=== PATIENT | female | born 1940 | race Caucasian/White ===

== ENCOUNTER 2023-02-14 09:23 | Outpatient (RCR) | payer MEDICARE, SELFPAY | END 2023-03-05 14:00 | disposition home or self-care (01) | LOC: PT 09:23 | PROVIDERS: PCP Psychiatry & Neurology Neurology; Visit Provider Psychiatry & Neurology Neurology | DX: R29.6 Repeated falls (principal); R53.1 Weakness; R26.9 Unspecified abnormalities of gait and mobility; R29.3 Abnormal posture; M54.59 Other low back pain | CPT/HCPCS: 97110; 97112; 97530 ==

== ENCOUNTER 2024-02-19 10:10 | Outpatient (OUT) | payer MEDICARE, SELFPAY ==
--- NOTE | 2024-02-19 11:18 | P.CN_ITS ---
Consult Note: HPI Data of Consult Patient: new to practice Requesting Physician: Lexis Marshall NP Primary Care Provider: NAKUL WORLEY Consult Narrative Reason for consult: establish for chronic low back pain Narrative: Vilma Cotter presents for evaluation and management of chronic low back pain. Patient reports back pain worsening over the last 30 years without incident. Patient previously managed by her PCP, had found significant improvement from tramadol 50mg BID PRN which she took 50mg BID. Patient has failed to benefit from tylenol and OTC NSAIDs in the past. PMH includes HTN. Patient reporting pain varies, today 3/10 in low back. Ache, sharp at times. Has engaged in PT greater than 1 year ago without improvement. Pain increased with activity, lifting, sleep. Patient does not find benefit to heat or ice. Prior lumbar xray consistent with lumbar facet arthropathy, DDD, and lumbar spondylolisthesis. cc:: CC: Lexis Marshall NP Review of Systems ROS Status of ROS 10 or more systems reviewed and unremark able except as noted in history and below Musculoskeletal Reports: back pain Exam Constitutional Documenting provider has reviewed patient's vital signs: yes Common normals: no apparent distress, oriented x3, healthy appearing, alert and well nourished General appearance: cooperative HENMT Common normals: normocephalic, hearing grossly normal bilaterally and moist oral mucous membranes Head and scalp: normocephalic Eye Common normals: PERRL Pupil: PERRL Neck & C-Spine Common normals: full ROM General: normal visual inspection Chest Common normals: inspection of chest normal Respiratory Common normals: normal respiratory effort, no retractions and no use of accessory muscles Back & Pelvis Lumbar spine/lower back: ROM limited, pain with ROM and straight leg raise negative bilaterally Other: pain increased with facet loading tenderness over L4-S1 facets Extremity Common normals: normal to inspection and full ROM Neuro Common normals: oriented x3, CN's II-XII intact bilaterally, moves all extremities, no focal motor deficits, no sensory deficits noted and deep tendon reflexes 2+ bilaterally Sensorium/orientation: alert Gait (neuro): assistive device used cane Motor exam: strength 5/5 throughout and no movement abnormalities noted Psych Common normals: mental status grossly normal, thought process normal, cooperative, affect normal, speech normal and activity/motor behavior normal Speech: normal speech Thought process: normal thought process Results Additional Findings Additional findings: If on a controlled substance or opioids, I have checked an [place] report on this patient and there are no aberrancies noted in the prescribing history.??If on a controlled substance or opioid a drug screen was completed and reviewed within the last year, and if there has not been a drug screen completed we ordered one today to monitor higher risk, state monitored pain medication use. As part of providing excellent, safe, comprehensive care, the following was completed at our patient's visit: 1. A medication reconciliation and review to ensure accurate knowledge of current/active medications, including asking our patients to inform us about any [id number] medications or herbal remedies/nutritional suppl ements/alternative remedies. 2. A review to specifically ensure our patients have had annual screening for screening for depression, screening for tobacco use, and screening for unhealthy alcohol use. For concerning screenings had a discussion with the patient, provided patient education, and recommended follow-up with primary care provider when appropriate. If patient noted with a risk of falling, they received education on strength, gait, and balance training to prevent future risk of falling. Assessment and Plan Assessment and Plan (1) Lumbar spondylosis: (2) Chronic low back pain: (3) Chronic pain syndrome: (4) Generalized OA: (5) Confusion: Assessment and Plan: chronic mild confusion, now living in assisted living (6) Frequent falls: Assessment and Plan: last fall 12/25/23 per daughter without injury Plan Historically patient has found significant improvement in pain and functional ability from tramadol 50mg BID PRN, patients daughter who is POA is concerned as it worsened her mood and confusion. Discussed our approach to chronic pain is not aimed at chronic opiate use alone, but essential to trial PT and non opioid medications. We discussed bilateral L4-5 L5-S1 facet medial branch block x2 working towards RFA which patient declined at this time. start mobic 7.5mg BID PRN, risks vs benefits reviewed PT for chronic low back pain continue to utilize walker/cane f/u after PT completed
== END 2024-02-19 10:11 | disposition home or self-care (01) ==
LOC: PM 10:11
PROVIDERS: PCP Internal Medicine; Visit Provider Nurse Practitioner
DX: M47.816 Spondylosis without myelopathy or radiculopathy, lumbar region (principal); M54.50 Low back pain, unspecified; G89.4 Chronic pain syndrome; M15.8 Other polyosteoarthritis; R41.0 Disorientation, unspecified; R27.0 Ataxia, unspecified
CPT/HCPCS: G0463

== ENCOUNTER 2024-04-20 15:22 | Emergency (ER) | payer MEDICARE, SELFPAY ==
[2024-04-20 15:30] VITALS: BP 165/91; PULSE 85; TEMP 36.9; O2SAT 95; BMI 26.5
[2024-04-20 16:13] LABS: Basophils Absolute Auto 0.1 10^3/uL (0.0-0.1); Basophils Percent Auto 0.9 % (0.2-2.0); Eosinophils Absolute Auto 0.1 10^3/uL (0.0-0.7); Eosinophils Percent Auto 1.1 % (0.9-7.0); Hematocrit 39.2 % (36.0-48.0); Hemoglobin 13.6 g/dL (12.0-16.0); Immature Granulocytes Abs Auto 0.02 10^3/uL (0.00-0.03); Immature Granulocytes Pct Auto 0.3 % (0.0-0.5); Lymphocytes Absolute Auto 1.6 10^3/uL (1.2-3.8); Lymphocytes Percent Auto 19.8 % (20.5-60.0); Mean Corpuscular HGB Conc 34.7 g/dL (29.9-35.2); Mean Corpuscular Hemoglobin 33.2 pg (26.7-34.0); Mean Corpuscular Volume 95.6 fL (81.0-99.0); Mean Platelet Volume 11.3 fL (9.5-13.5); Monocytes Absolute Auto 0.7 10^3/uL (0.3-0.8); Monocytes Percent Auto 8.9 % (1.7-12.0); Neutrophils Absolute Auto 5.5 10^3/uL (1.4-6.5); Platelet Count 172 10^3/uL (150-450); Red Cell Distribution Width 11.4 % (11.0-15.0)
[2024-04-20 16:26] LABS: Anion Gap 14.1; BUN Creatinine Ratio 19.1; Calcium 9.2 mg/dL (8.5-10.1); Carbon Dioxide 24.7 mmol/L (21.0-32.0); Chloride 96 mmol/L (98-107); Estimated GFR (African America >60 (>=60); Estimated GFR (Non-African Ame 57 (>=60); Glucose 299 mg/dL (74-106); Potassium 3.8 mmol/L (3.5-5.1); Sodium 131 mmol/L (136-145)
[2024-04-20] MEDS: 0.9 % SODIUM CHLORIDE 1,000 ML 999 ML IV (16:27)
--- OUTSIDE RECORDS SUMMARY | 2024-04-20 16:35 | XMS_ITS | CCD ---
Author Organization [facility] Care Team Providers Care Venue Coordinator Name Role Phone TORSTEN HEARD Primary Care Unavailable CARMITA MORENO (NIHARIKA) Attending Unavailab CARMITA Paredes (NIHARIKA) Admitting Unavailab ESTEBAN Anglin Consulting Unavailable YOKASTA VIDAL Consulting Unavailable JULES GOMEZ Consulting Unavailable Torsten Heard Primary Care Provider [phone] Torsten Heard Primary Care Provider [phone] Torsten Heard MD Primary Care Provider [phone] BRENT MENESES Attending Unavailable TORSTEN HEARD Primary Care Unavailable [facility] Primary Care Unavaila ALEN Charles Admitting Unavailable ALEN ASENCIO Attending Unavailable DR DUNG GRAVES Attending Unavailabl e [facility] Primary Care Unavaila DR DUNG Manzo Admitting Unavailabl elizabeth GRAVES, DR DUNG Rodriguez Consulting Unavailabl e MIRNA VICTOR Consulting Unavailable BONITA JAY Consulting Unavailable [facility] Primary Care Unavaila ALEN Charles Admitting Unavailable ALEN ASENCIO Consulting Unavailable ALEN ASENCIO Attending Unavailable Nakul Worley DO Primary Care Provider [phone] ABDULKADIR MAJOR Attending Unavailable NAKUL WORLEY Referring Unavailable NAKUL WORLEY Primary Care Unavailable NAKUL WORLEY Attending Unavailable NAKUL WORLEY Referring Unavailable NAKUL WORLEY Primary Care Unavailable NAKUL WORLEY Attending Unavailable NAKUL WORLEY Referring Unavailable NAKUL WORLEY Primary Care Unavailable Allergies Allergy Classification Reported Allergen(s) Allergy Type Date of Onset Reaction(s) Facility (6 sources) Codeine; Translations: [CODEINE] Drug Allergy 06-16-2012 [facility], [place] Medications Current Medications Medication Drug Class(es) Dates Sig (Normalized) Sig (Original) acetaminophen 325 mg oral tablet (2 sources) Start: 09-25-2023 take 2 tablets by mouth in the morning, then take 2 tablets by mouth at mealtime acetaminophen (TYLENOL) 325 mg tablet Indications: Osteoarthritis of thoracolumbar spine, unspecified spinal osteoarthritis complication status Take 2 tablets (650 mg total) by mouth in the morning and 2 tablets (650 mg total) in the evening. Take with meals. 100 tablet 2 09/25/2023 Active [id number] 200 actuat albuterol 0.09 mg/actuat metered dose inhaler (3 sources) beta2-Adrenergic Agonist Start: 09-13-2023 End: 11-29-2023 take 2 puff(s) by inhalation four times daily albuterol (PROVENTIL HFA;VENTOLIN HFA) 90 mcg/actuation inhaler Indications: Acute bronchitis, unspecified organism Inhale 2 puffs 4 (four) times a day. 18 g 0 11/29/2023 Active apixaban 5 mg oral tablet (1 source) Factor Xa Inhibitor Start: 11-27-2018 take 1 tablet by mouth twice daily apixaban (ELIQUIS) 5 MG TABS tablet Take 1 tablet by mouth 2 times daily 60 tablet 0 11/27/2018 Active benzonatate 200 mg oral capsule (2 sources) Non-narcotic Antitussive Start: 09-13-2023 take 1 capsule by mouth three times daily as needed for cough benzonatate (TESSALON PERLES) 200 mg capsule Indications: Acute bronchitis, unspecified organism Take 1 capsule (200 mg total) by mouth 3 (three) times a day as needed for cough. 20 capsule 0 09/13/2023 Active Cranberry preparation (2 sources) Non-Standardized Food Allergenic Extract, Non-Standardized Plant Allergenic Extract cranberry extract 50 mg tablet,chewable Chew and swallow daily. 0 Active dextromethorphan hydrobromide 2 mg/ml / guaiFENesin 20 mg/ml oral solution (1 source) Uncompetitive E-nhjgqt-N-aspartat e Receptor Antagonist, Sigma-1 Agonist Start: 11-27-2018 dextromethorphan-g uaiFENesin (ROBITUSSIN-DM) 10-100 MG/5ML syrup Take 10 mLs by mouth every 4 hours as needed for Cough 0 11/27/2018 Active 24 hr dilTIAZem hydrochloride 120 mg extended release oral capsule (3 sources) Calcium Channel Lexx Start: 11-27-2018 take 1 capsule by mouth once daily diltiazem (CARDIZEM CD) 120 MG extended release capsule Take 1 capsule by mouth daily 30 capsule 3 11/27/2018 Active ergocalciferol 63729 unt oral capsule (2 sources) Provitamin D2 Compound Start: 12-02-2018 take 1 capsule by mouth every week vitamin D (ERGOCALCIFEROL) 11039 units capsule Take 1 capsule by mouth once a week 11 capsule 0 12/02/2018 Active fluticasone propionate 0.05 mg/actuat metered dose nasal spray (1 source) Corticosteroid Start: 11-28-2018 fluticasone (FLONASE) 50 MCG/ACT nasal spray 2 sprays by Each Nare route daily 1 Bottle 3 11/28/2018 Active inhalational spacing device (AEROCHAMBER MV) spacer (2 sources) Start: 09-13-2023 inhalational spacing device (AEROCHAMBER MV) spacer Indications: Acute bronchitis, unspecified organism 1 each by miscellaneous route in the morning and 1 each at noon and 1 each in the evening and 1 each before bedtime. 1 each 0 09/13/2023 Active metoprolol tartrate 25 mg oral tablet (5 sources) beta-Adrenergic Lexx take 1 tablet by mouth in the morning, then take 1 tablet by mouth at bedtime metoprolol tartrate (LOPRESSOR) 25 mg tablet Take 1 tablet (25 mg total) by mouth in the morning and 1 tablet (25 mg total) before bedtime. 0 Active 24 hr mirabegron 50 mg extended release oral tablet (2 sources) beta3-Adrenergic Agonist Start: 06-19-2023 take 1 tablet by mouth every twenty-four hours in the morning MYRBETRIQ 50 mg tablet extended release 24 hr Take 1 tablet (50 mg total) by mouth in the morning. 0 06/19/2023 Active olmesartan medoxomil 20 mg oral tablet (2 sources) Angiotensin 2 Receptor Lexx Start: 06-07-2023 take 1 tablet by mouth in the morning olmesartan (BENICAR) 20 mg tablet Take 1 tablet (20 mg total) by mouth in the morning. 0 06/07/2023 Active traMADol hydrochloride 50 mg oral tablet (6 sources) Opioid Agonist Start: 11-11-2023 take 1 tablet by mouth in the morning, then take 1 tablet by mouth at bedtime traMADoL (ULTRAM) 50 mg tablet Indications: Osteoarthritis of thoracolumbar spine, unspecified spinal osteoarthritis complication status Take 1 tablet (50 mg total) by mouth in the morning and 1 tablet (50 mg total) before bedtime. 60 tablet 0 11/11/2023 Active Start: 10-13-2023 take 1 tablet by elder th in the morning, then take 1 tablet by mouth at bedtime traMADoL (ULTRAM) 50 mg tablet Indications: Osteoarthritis of thoracolumbar spine, unspecified spinal osteoarthritis complication status Take 1 tablet (50 mg total) by mouth in the morning and 1 tablet (50 mg total) before bedtime. 60 tablet 0 10/13/2023 Active Start: 09-13-2023 End: 10-11-2023 take 1 tablet by mouth in the morning, then take 1 tablet by mouth at bedtime traMADoL (ULTRAM) 50 mg tablet Indications: Osteoarthritis of thoracolumbar spine, unspecified spinal osteoarthritis complication status Take 1 tablet (50 mg total) by mouth in the morning and 1 tablet (50 mg total) before bedtime. 60 tablet 0 09/13/2023 10/11/2023 Discontinued (Reorder) take 2 tablets by mo uth twice daily traMADol (ULTRAM) 50 MG tablet Take 2 tablets by mouth 2 times daily. 0 Active Completed/Discontinued Medications Medication Drug Class(es) Dates Sig (Normalized) Sig (Original) 1 ml ketorolac tromethamine 30 mg/ml cartridge (1 source) Nonsteroidal Anti-inflammatory Drug, Cyclooxygenase Inhibitor Start: 01-03-2023 End: 01-03-2023 ketorolac (TORADOL) injection 30 mg Start: 01-03-2023 End: 01-03-2023 ketorolac (TORADOL) injectio n 30 mg Problems Active Problems Problem Classification Problem Date Documented Date Episodic/Chronic Acute bronchitis (4 sources) Viral bronchitis; Translations: [Acute bronchitis] Onset: 11-24-2018 11-24-2018 Episodic Cancer of breast (5 sources) Malignant tumor of breast ; Translations: [Malignant neoplasm of female breast] 06-16-2012 Chronic Cardiac dysrhythmias (6 sources) Paroxysmal atrial fibrillation; Translations: [Paroxysmal atrial fibrillation] Onset: 03-20-2023 11-26-2018 Chronic Chronic obstructive pulmonary disease and bronchiectasis (1 source) Bronchitis, not specified as acute or chronic; Translations: [Bronchitis, not specified as acute or chronic] Onset: 11-23-2018 Episodic Conditions associated with dizziness or vertigo (1 source) Dizziness and giddiness; Translations: [DIZZINESS AND GIDDINESS] Onset: 01-18-2023 Episodic Essential hypertension (8 sources) Essential (primary) hypertension; Translations: [Hypertensive disorder] Onset: 11-24-2018 11-24-2018 Chronic Genitourinary symptoms and ill-defined conditions (5 sources) Urge incontinence of urine; Translations: [Urge incontinence] Onset: 03-20-2023 03-20-2023 Chronic Genitourinary symptoms and ill-defined conditions (1 source) Personal history of urinary (tract) infections; Translations: [PERS HX URINARY TRACT INFECTIONS] Onset: 01-18-2023 Episodic Hypertension with complications and secondary hypertension (4 sources) Hypertensive urgency; Translations: [HYPERTENSIVE URGENCY] Onset: 01-16-2023 Chronic Malaise and fatigue (4 sources) Weakness; Translations: [Asthenia] Onset: 11-26-2018 11-26-2018 Episodic Other injuries and conditions due to external causes (1 source) History of falling; Translations: [HISTORY OF FALLING] Onset: 01-18-2023 Episodic Spondylosis; intervertebral disc disorders; other back problems (2 sources) Spondylosis of thoracolumbar spine; Translations: [Spondylosis without myelopathy or radiculopathy, thoracolumbar region] Onset: 09-13-2023 10-11-2023 Chronic Sprains and strains (2 sources) Low back strain; Translations: [Strain of muscle, fascia and tendon of lower back, initial encounter] Onset: 01-03-2023 Episodic Superficial injury; contusion (2 sources) Contusion of rib; Translations: [Contusion of right front wall of thorax, initial encounter] Onset: 01-03-2023 Episodic Unclassified (2 sources) Patient encounter status; Translations: [Encounter for screening mammogram for malignant neoplasm of breast] Unclassified (1 source) controlled substance Onset: 01-17-2024 Viral infection (1 source) Disease caused by 2019-nCoV; Translations: [COVID-19] 11-29-2023 Episodic Past or Other Problems Problem Classification Problem Date Documented Da te Episodic/Chronic Cancer of breast (3 sources) Personal history of malignant neoplasm of breast; Translations: [History of malignant neoplasm of breast] Onset: 01-18-2023 03-20-2023 Episodic Fluid and electrolyte disorders (4 sources) Dehydration; Translations: [Dehydration] Onset: 11-24-2018 Resolved: 12-24-2018 12-24-2018 Episodic Influenza (8 sources) Influenza due to other identified influenza virus with other respiratory manifestations; Translations: [Influenza] Onset: 11-23-2018 Resolved: 2018 11-24-2018 Episodic Mood disorders (2 sources) Mood disorders Onset: 09-13-2023 09-13-2023 Other lower respiratory disease (1 source) Cough Onset: 09-13-2023 Episodic Other upper respiratory infections (3 sources) Acute maxillary sinusitis; Translations: [Acute maxillary sinusitis, unspecified] Onset: 11-27-2018 11-27-2018 Episodic Pneumonia (except that caused by tuberculosis or sexually transmitted disease) (4 sources) Pneumonia, unspecified organism; Translations: [Infective pneumonia] Onset: 11-25-2018 11-25-2018 Episodic Urinary tract infections (3 sources) Acute hemorrhagic cystitis; Translations: [Acute cystitis] Onset: 11-24-2018 11-24-2018 Episodic Results Test Name Value Interpretation Reference Range Facility TSHon 01-30-2023 TSH 3.637 uIU/mL Normal 0.358-3.740 [facility] Comment on above: Performed By: #### T SH #### [facility] [address] [place] [address] Dr. Fermin Gonazlez VITAMIN B12on 01-30-2023 Cobalamin (Vitamin B12) [Mass/Vol] 525.0 pg/mL Normal 193.0-986.0 [facility] Comment on above: Performed By: #### V ITB12 #### [facility] [address] [place] [address] Dr. Fermin Gonzalez BNPon 01-16-2023 Natriuretic peptide B (Bld) [Mass/Vol] 400.0 pg/mL Normal <=1,800.0 [facility] Comment on above: Performed By: #### H STROPN, BNP, CMP #### [facility] [address] [place] [address] Dr. Fermin Gonzalez CBC AUTO DIFFon 01-16-2023 BASO # 0.1 103/ul Normal 0.0-0.1 [facility] Comment on above: Performed By: #### C BC #### [facility] [address] [place] [address] Dr. Fermin Gonzalez Basophils/100 WBC (Bld) 1.2 % Normal 0.2-2.0 [facility] Comment on above: Performed By: #### C BC #### [facility] [address] [place] [address] Dr. Fermin Gonzalez EO # 0.1 103/ul Normal 0.0-0.7 [facility] Comment on above: Performed By: #### C BC #### [facility] [address] [place] [address] Dr. Fermin Gonzalez Eosinophils/100 WBC (Bld) 1.3 % Normal 0.9-7.0 [facility] Comment on above: Performed By: #### C BC #### [facility] [address] [place] [address] Dr. Fermin Gonzalez Erythrocyte distribution width (RBC) [Ratio] 12.4 % Normal 11.0-15.0 [facility] Comment on above: Performed By: #### C BC #### [facility] [address] [place] [address] Dr. eFrmin Gonzalez Hematocrit (Bld) [Volume fraction] 37.4 % Normal 36.0-48.0 [facility] Comment on above: Performed By: #### C BC #### [facility] [address] [place] [address] Dr. Fermin Gonzalez Hemoglobin (Bld) [Mass/Vol] 12.9 g/dL Normal 12.0-16.0 [facility] Comment on above: Performed By: #### C BC #### [facility] [address] [place] [address] Dr. Fermin Gonzalez IG # 0.03 10e3/ul Normal 0.00-0.03 [facility] Comment on above: Performed By: #### C BC #### [facility] [address] [place] [address] Dr. Fermin Gonzalez IG % 0.4 % Normal 0.0-0.5 [facility] Comment on above: Performed By: #### C BC #### [facility] [address] [place] [address] Dr. Fermin Gonzalez LYMPH # 2.3 103/ul Normal 1.2-3.8 [facility] Comment on above: Performed By: #### C BC #### [facility] [address] [place] [address] Dr. Fermin Gonzalez Lymphocytes/100 WBC (Bld) 30.9 % Normal 20.5-60.0 [facility] Comment on above: Performed By: #### C BC #### [facility] [address] [place] [address] Dr. Fermin Gonzalez MANUAL DIFF REQ NO Normal [facility] Comment on above: Performed By: #### C BC #### [facility] [address] [place] [address] Dr. Fermin Gonzalez MCH (RBC) [Entitic mass] 33.2 pg Normal 26.7-34.0 [facility] Comment on above: Performed By: #### C BC #### [facility] [address] [place] [address] Dr. Fermin Gonzalez MCHC (RBC) [Mass/Vol] 34.5 g/dL Normal 29.9-35.2 [facility] Comment on above: Performed By: #### C BC #### [facility] [address] [place] [address] Dr. Fermin Gonzalez MCV (RBC) [Entitic vol] 96.1 fL Normal 81.0-99.0 [facility] Comment on above: Performed By: #### C BC #### [facility] [address] [place] [address] Dr. Fermin Gonzalez MONO # 0.7 103/ul Normal 0.3-0.8 [facility] Comment on above: Performed By: #### C BC #### [facility] [address] [place] [address] Dr. Fermin Gonzalez Monocytes/100 WBC (Bld) 9.4 % Normal 1.7-12.0 [facility] Comment on above: Performed By: #### C BC #### [facility] [address] [place] [address] Dr. Fermin Gonzalez NEUT # 4.2 103/ul Normal 1.4-6.5 [facility] Comment on above: Performed By: #### C BC #### [facility] [address] [place] [address] Dr. Fermin Gonzalez Neutrophils/100 WBC (Bld) 56.8 % Normal 43.0-75.0 [facility] Comment on above: Performed By: #### C BC #### [facility] [address] [place] [address] Dr. Fermin Gonzalez Platelet mean volume (Bld) [Entitic vol] 10.3 fL Normal 9.5-13.5 [facility] Comment on above: Performed By: #### C BC #### [facility] [address] [place] [address] Dr. Fermin Gonzalez PLT 252 103/ul Normal 150-450 [facility] Comment on above: Performed By: #### C BC #### [facility] [address] [place] [address] Dr. Fermin Gonzalez RBC 3.89 106/ul Critically low 4.20-5.40 [facility] Comment on above: Performed By: #### C BC #### [facility] [address] [place] [address] Dr. Fermin Gonzalez WBC 7.4 103/ul Normal 4.0-11.0 [facility] Comment on above: Performed By: #### C BC #### [facility] [address] [place] [address] HEAD WO CONon 01-16-2023 CT HEAD WO CON EXAMINATION: CT HEAD WO CON HISTORY: BENIGN PAROXYSMAL VERTIGO, UNSPECIFIED EAR COMPARISON: None. TECHNIQUE: CT imaging of the head was performed without IV contrast. Dose reduction techniques were achieved by using automated exposure control and/or adjustment of mA and/or kV according to patient size and/or use of iterative reconstruction technique. FINDINGS: No acute hemorrhage or extra-axial fluid collection. Mild parenchymal volume loss with commensurate enlargement of the sulci and cisterns. Lateral ventricles are mildly enlarged out of proportion to degree of parenchymal volume loss. Remaining ventricles appear appropriate and size commensurate to degree of volume loss. No mass, mass effect or midline shift. Confluent patchy areas of subcortical and periventricular white matter hypodensity consistent with sequela of chronic microvascular ischemic changes. Batres-white matter differentiation is otherwise maintained. Peripheral vascular calcifications. Imaged paranasal sinuses are clear. Mastoid air cells are clear. Orbits are unremarkable. Osseous structures are unremarkable. IMPRESSION: No acute intracranial hemorrhage. Parenchymal volume loss and sequela of chronic microvascular angiopathy. Lateral ventricles are mildly enlarged out of proportion to degree of parenchymal volume loss, which can be seen with communicating hydrocephalus. Electronically authenticated by: BONITA JAY Date: 2023-01-16 19:47 Normal [facility] ER URINE PROFILEon 3 Bilirubin Ql (U) Negative Normal NEGATIVE [facility] Comment on above: Performed By: #### KANDY MORALES #### [facility] [address] [place] [address] Dr. Fermin Gonzalez Clarity (U) CLEAR Normal CLEAR [facility] Comment on above: Performed By: #### KANDY MORALES #### [facility] [address] [place] [address] Dr. Fermin Gonzalez Color (U) LT. YELLOW Normal YELLOW [facility] Comment on above: Performed By: #### KANDY MORALES #### [facility] [address] [place] [address] Dr. Fermin Gonzalez ERUAHD A micrscopic examination will be performed if indicated. Normal [facility] Comment on above: Performed By: #### KANDY MORALES #### [facility] [address] [place] [address] Dr. Fermin Gonzalez Glucose Ql (U) Negative Normal NEGATIVE [facility] Comment on above: Performed By: #### Elizabeth SILVA UMICRO #### [facility] [address] [place] [address] Dr. Fermin Gonzalez Hemoglobin Ql (U) Negative Normal NEGATIVE [facility] Comment on above: Performed By: #### Elizabeth SILVA UMICRO #### [facility] [address] [address] [address] Fermin Gonzalez Ketones Ql (U) Negative Normal NEGATIVE [facility] Comment on above: Performed By: #### Elizabeth SILVA UMICRO #### [facility] [address] [address] [address] Fermin Gonzalez LEUKOCYTES SMALL Abnormal NEGATIVE [facility] Comment on above: Performed By: #### Elizabeth SILVA UMICRO #### [facility] [address] [place] [address] Dr. Fermin Gonzalez Nitrite Ql (U) Negative Normal NEGATIVE [facility] Comment on above: Performed By: #### Elizabeth SILVA UMICRO #### [facility] [address] [place] [address] Dr. Fermin Gonzalez pH (U) 7.0 [pH] Normal 5-9 [facility] Comment on above: Performed By: #### Elizabeth SILVA UMICRO #### [facility] [address] [place] [address] Dr. Fermin Gonzalez SPEC GRAVITY 1.010 Normal 1.005-<=1.025 [facility] Comment on above: Performed By: #### Elizabeth SILVA UMICRO #### [facility] [address] [place] [address] Dr. Fermin Gonzalez UA PROTEIN Negative Normal NEGATIVE/ TRACE [facility] Comment on above: Performed By: #### Elizabeth SILVA UMICRO #### [facility] [address] [place] [address] Dr. Fermin Gonzalez UR MICRO IND INDICATED Normal [facility] Comment on above: Performed By: #### Elizabeth SILVA UMICRO #### [facility] [address] [place], [place] [id number] Dr. Fermin Gonzalez Urobilinogen Qn (U) 1.0 {Adonay'U}/dL Normal 0.2 - 1.0 [facility] Comment on above: Performed By: #### E KANDY SILVA #### [facility] [address] [address] [address] Fermin Gonzalez PROF 14(COMP METB)on 023 Albumin [Mass/Vol] 3.6 g/dL Normal 3.4-5.0 [facility] Comment on above: Performed By: #### H STROPN, BNP, CMP #### [facility] [address] [address] [address] Fermin Gonzalez Albumin/Globulin [Mass ratio] 0.9 {ratio} Normal [facility] Comment on above: Performed By: #### H STROPN, BNP, CMP #### [facility] [address] [place] [address] Dr. Fermin Gonzalez ALP [Catalytic activity/Vol] 101 U/L Normal 46-116 [facility] Comment on above: Performed By: #### H STROPN, BNP, CMP #### [facility] [address] [address] [address] Fermin Gonzalez ALT [Catalytic activity/Vol] 30 U/L Normal 14-59 [facility] Comment on above: Performed By: #### H STROPN, BNP, CMP #### [facility] [address] [address] [address] Fermin Gonzalez Anion gap [Moles/Vol] 9.5 mmol/L Normal [facility] Comment on above: Performed By: #### H STROPN, BNP, CMP #### [facility] [address] [address] [address] Fermin Gonzalez AST [Catalytic activity/Vol] 34 U/L Normal 15-37 [facility] Comment on above: Performed By: #### H STROPN, BNP, CMP #### [facility] [address] [address] [address] Fermin Gonzalez Bilirubin [Mass/Vol] 0.5 mg/dL Normal 0.2-1.0 [facility] Comment on above: Performed By: #### H STROPN, BNP, CMP #### [facility] [address] [place] [address] Dr. Fermin Gonzalez Calcium [Mass/Vol] 9.0 mg/dL Normal 8.5-10.1 [facility] Comment on above: Performed By: #### H STROPN, BNP, CMP #### [facility] [facility] [address] [place] [address] Dr. Fermin Gonzalez Chloride [Moles/Vol] 106 mmol/L Normal 98-107 [facility] Comment on above: Performed By: #### H STROPN, BNP, CMP #### [facility] [address] [place] [address] Dr. Fermin Gonzalez CO2 [Moles/Vol] 29.3 mmol/L Normal 21.0-32.0 [facility] Comment on above: Performed By: #### H STROPN, BNP, CMP #### [facility] [address] [place] [address] Dr. Fermin Gonzalez Creatinine [Mass/Vol] 1.06 mg/dL Critically high 0.55-1.02 [facility] Comment on above: Performed By: #### H STROPN, BNP, CMP #### [facility] [address] [place] [address] Dr. Fermin Gonzalez EGFR-AF DOMINICAN =60 Normal >=60 [facility] Comment on above: Performed By: #### H STROPN, BNP, CMP #### [facility] [address] [place] [address] Dr. Fermin Gonzalez EGFR-NON AF DOMINICAN 50 mL/min/1.73m2 Critically low >=60 [facility] Comment on above: Performed By: #### H STROPN, BNP, CMP #### [facility] [address] [place] [address] Dr. Fermin Gonzalez Globulin (S) [Mass/Vol] 4.1 g/dL Normal [facility] Comment on above: Performed By: #### H STROPN, BNP, CMP #### [facility] [address] [place], [place] [id number] Dr. Fermin Gonzalez Glucose [Mass/Vol] 94 mg/dL Normal 74-106 [facility] Comment on above: Performed By: #### H STROPN, BNP, CMP #### [facility] [address] [place] [address] Dr. Fermin Gonzalez Potassium [Moles/Vol] 3.8 mmol/L Normal 3.5-5.1 [facility] Comment on above: Performed By: #### H STROPN, BNP, CMP #### [facility] [address] [place] [address] Dr. Fermin Gonzalez Protein [Mass/Vol] 7.7 g/dL Normal 6.4-8.2 [facility] Comment on above: Performed By: #### H STROPN, BNP, CMP #### [facility] [address] [place] [address] Dr. Fermin Gonzalez Sodium [Moles/Vol] 141 mmol/L Normal 136-145 [facility] Comment on above: Performed By: #### H STROPN, BNP, CMP #### [facility] [address] [place] [address] Dr. Fermin Gonzalez Urea nitrogen [Mass/Vol] 18.0 mg/dL Normal 7.0-18.0 [facility] Comment on above: Performed By: #### H STROPN, BNP, CMP #### [facility] [address] [place] [address] Dr. Fermin Gonzalez Urea nitrogen/Creatinin e [Mass ratio] 17.0 mg/mg Normal [facility] Comment on above: Performed By: #### H STROPN, BNP, CMP #### [facility] [address] [place] [address] Dr. Fermin Gonzalez TROPONIN, HIGH SENSITIVITYon 01-16-2023 HSTROP 6.9 pg/mL Normal 4.0-51.3 [facility] Comment on above: Result Comment: CUT- OFF POINTS HAVE BEEN ESTABLISHED BASED ON THE FOURTH UNIVERSAL DEFINITIONS OF MYOCARDIAL INFARCTION. THE UPPER REFERENCE LIMIT (URL) OF TROPONIN, DEFINED THE 99TH PERCENTILE OF cTnI DISTRIBUTION IN A REFERENCE POPULATION, HAS BEEN CONFIRMED THE DECISION THRESHOLD FOR AK DIAGNOSIS. Performed By: #### H STROPN, BNP, CMP #### [facility] [address] [place] [address] Dr. Fermin Gonzalez URINE MICROSCOPIC ONLYon BACTERIA NONE SEEN Normal NONE SEEN [facility] Comment on above: Performed By: #### E RUR, UMICRO #### [facility] [address] [place] [address] Dr. Fermin Gonzalez Bacteria identified Cx Nom (U) NOT INDICATED Normal [facility] Comment on above: Performed By: #### E RUR, UMICRO #### [facility] [address] [place] [address] Dr. Fermin Gonzalez CAST NONE SEEN Normal NONE SEEN [facility] Comment on above: Performed By: #### E RUR, UMICRO #### [facility] [address] [place] [address] Dr. Fermin Gonzalez Crystals LM Nom (Urine sed) NONE SEEN Normal NONE SEEN [facility] Comment on above: Performed By: #### E RUR, UMICRO #### [facility] [address] [place] [address] Dr. Fermin Gonzalez Epithelial cells LM Ql (Urine sed) RARE Normal NONE SEEN /RARE [facility] Comment on above: Performed By: #### E RUR, UMICRO #### [facility] [address] [place] [address] Dr. Fermin Gonzalez MUCOUS NONE SEEN Normal NONE SEEN [facility] Comment on above: Performed By: #### E RUR, UMICRO #### [facility] [address] [place] [address] Dr. Fermin Gonzalez RBC 0-2 Normal 0-2 [facility] Comment on above: Performed By: #### E RUR, UMICRO #### [facility] [address] [place] [address] Dr. Fermin Gonzalez WBC 0-2 Abnormal NONE SEEN [facility] Comment on above: Performed By: #### E RUR, UMICRO #### [facility] [address] [place] [address] Dr. Fermin Gonzalez No Panel Informationon 01-03 Radiology Study observation (narrative) [facility] [employer] Work Phone: XR LUMBAR SPINE (2-3 VIEWS)o n 01-03-2023 XR LUMBAR SPINE (2-3 VIEWS) EXAMINATION: 3 XRAY VIEWS OF THE LUMBAR SPINE 01/03/2023 2:58 pm COMPARISON: CT abdomen and pelvis 11/25/2018 HISTORY: ORDERING SYSTEM PROVIDED HISTORY: back pain: Pt states twisting injury and fall FINDINGS: 5 typical lumbar vertebra present maintain normal height. Grade 1 degenerative anterolisthesis L4 on L5, 5 mm. Bone mineralization appears abnormally low. 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 Mild, bilaterally symmetrical SI joint osteoarthritis is noted. IMPRESSION: 1. Stable, grade 1 degenerative anterolisthesis L4 on L5. 2. Degenerative changes lumbar spine. 3. Mild, bilaterally symmetrical SI joint osteoarthritis. 4. Bones may be osteopenic or osteoporotic. Consider bone densitometry correlation if not performed recently previously elsewhere. Interpreted by: Dimas Vickers MD Signed by: Dimas Vickers MD 01/03/23 Final result Normal [facility] [place] [facility] 1. Stable, grade 1 degenerative anterolisthesis L4 on L5. 2. Degenerative changes lumbar spine. 3. Mild, bilaterally symmetrical SI joint osteoarthritis. 4. Bones may be osteopenic or osteoporotic. Consider bone densitometry correlation if not performed recently previously elsewhere. [facility] EXAMINATION: 3 XRAY VIEWS OF THE LUMBAR SPINE 01/03/2023 2:58 pm COMPARISON: CT abdomen and pelvis 11/25/2018 HISTORY: ORDERING SYSTEM PROVIDED HISTORY: back pain: Pt states twisting injury and fall FINDINGS: 5 typical lumbar vertebra present maintain normal height. Grade 1 degenerative anterolisthesis L4 on L5, 5 mm. Bone mineralization appears abnormally low. 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 Mild, bilaterally symmetrical SI joint osteoarthritis is noted. [facility] Dimas Vickers MD - 01/03/2023 EXAMINATION: 3 XRAY VIEWS OF THE LUMBAR SPINE 01/03/2023 2:58 pm COMPARISON: CT abdomen and pelvis 11/25/2018 HISTORY: ORDERING SYSTEM PROVIDED HISTORY: back pain: Pt states twisting injury and fall FINDINGS: 5 typical lumbar vertebra present maintain normal height. Grade 1 degenerative anterolisthesis L4 on L5, 5 mm. Bone mineralization appears abnormally low. 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 Mild, bilaterally symmetrical SI joint osteoarthritis is noted. IMPRESSION: 1. Stable, grade 1 degenerative anterolisthesis L4 on L5. 2. Degenerative changes lumbar spine. 3. Mild, bilaterally symmetrical SI joint osteoarthritis. 4. Bones may be osteopenic or osteoporotic. Consider bone densitometry correlation if not performed recently previously elsewhere. [employer] Work Phone: XR LUMBAR SPINE (2-3 VIEWS)O rdered By: Dimas Vickers on 01-03-2023 [employer] Work Phone: XR RIBS RIGHT INCLUDE CHEST (MIN 3 VIEWS)on 01-03-2023 XR RIBS RIGHT INCLUDE CHEST (MIN 3 VIEWS) EXAMINATION: XRAY VIEWS OF THE RIGHT RIBS WITH FRONTAL XRAY VIEW OF THE CHEST 01/03/2023 11:58 am COMPARISON: 11/27/2018 HISTORY: ORDERING SYSTEM PROVIDED HISTORY: trauma, pain TECHNOLOGIST PROVIDED HISTORY: trauma, pain Reason for Exam: Pt states twisting injury and fall FINDINGS: No evidence of acute fracture of the ribs. No focal rib abnormality. No evidence of acute focal process in the lungs. Mild fibrosis in the left lower lobe. No evidence of consolidation or pulmonary edema. No pleural effusion or pneumothorax. Cardiomediastinal silhouette demonstrates no acute abnormality. Postsurgical changes in the right axilla. IMPRESSION: No acute abnormality of the ribs. No acute process in the lungs. Interpreted by: Semaj Thomason MD Signed by: Semaj Thomason MD 01/03/23 Final result Normal [facility] [place] [facility] No acute abnormality of the ribs. No acute process in the lungs. [facility] EXAMINATION: XRAY VIEWS OF THE RIGHT RIBS WITH FRONTAL XRAY VIEW OF THE CHEST 01/03/2023 11:58 am COMPARISON: 11/27/2018 HISTORY: ORDERING SYSTEM PROVIDED HISTORY: trauma, pain TECHNOLOGIST PROVIDED HISTORY: trauma, pain Reason for Exam: Pt states twisting injury and fall FINDINGS: No evidence of acute fracture of the ribs. No focal rib abnormality. No evidence of acute focal process in the lungs. Mild fibrosis in the left lower lobe. No evidence of consolidation or pulmonary edema. No pleural effusion or pneumothorax. Cardiomediastinal silhouette demonstrates no acute abnormality. Postsurgical changes in the right axilla. [facility] RIS Semaj Vicente MD - 01/03/2023 EXAMINATION: XRAY VIEWS OF THE RIGHT RIBS WITH FRONTAL XRAY VIEW OF THE CHEST 01/03/2023 11:58 am COMPARISON: 11/27/2018 HISTORY: ORDERING SYSTEM PROVIDED HISTORY: trauma, pain TECHNOLOGIST PROVIDED HISTORY: trauma, pain Reason for Exam: Pt states twisting injury and fall FINDINGS: No evidence of acute fracture of the ribs. No focal rib abnormality. No evidence of acute focal process in the lungs. Mild fibrosis in the left lower lobe. No evidence of consolidation or pulmonary edema. No pleural effusion or pneumothorax. Cardiomediastinal silhouette demonstrates no acute abnormality. Postsurgical changes in the right axilla. IMPRESSION: No acute abnormality of the ribs. No acute process in the lungs. [employer] Work Phone: XR RIBS RIGHT INCLUDE CHEST (MIN 3 VIEWS)Ordered By: Semaj Thomason on 01-03-2023 [employer] Work Phone: [facility] AMANDA DIGITAL SCREEN UNI LEFTon 07-05-2020 No evidence of malignancy left breast. Advise annual screening mammography. BI-RADS 2 BIRADS: BIRADS - CATEGORY 2 Benign Findings. Normal interval follow-up is recommended in 12 months. OVERALL ASSESSMENT - BENIGN A letter of notification will be sent to the patient regarding the results. [employer] recommends annual mammograms for women 40 years and older. [facility] [place] EX[facility]: SCREENI NG DIGITAL LEFT MAMMOGRAM WITH TOMOSYNTHESIS, 07/05/2020 TECHNIQUE: Screening mammography was performed with tomosynthesis utilizing MLO and CC views of the left breast. Computer aided detection was used for the interpretation of this exam. COMPARISON: 15 May 2019; 10 May 2017 HISTORY: Screening. Prior right mastectomy for breast cancer. FINDINGS: The left breast is composed of scattered fibroglandular density. No skin thickening, nipple contour changes, malignant type microcalcifications, areas of architectural distortion, or significant interval changes are noted. Benign appearing calcifications are present. [employer] Freddie, Mh[employer] Incoming Radiant Results From [employer] - 07/05/2020 4:46 PM EDT EXAMINATION: SCREENING DIGITAL LEFT MAMMOGRAM WITH TOMOSYNTHESIS, 07/05/2020 TECHNIQUE: Screening mammography was performed with tomosynthesis utilizing MLO and CC views of the left breast. Computer aided detection was used for the interpretation of this exam. COMPARISON: 15 May 2019; 10 May 2017 HISTORY: Screening. Prior right mastectomy for breast cancer. FINDINGS: The left breast is composed of scattered fibroglandular density. No skin thickening, nipple contour changes, malignant type microcalcifications, areas of architectural distortion, or significant interval changes are noted. Benign appearing calcifications are present. IMPRESSION: No evidence of malignancy left breast. Advise annual screening mammography. BI-RADS 2 BIRADS: BIRADS - CATEGORY 2 Benign Findings. Normal interval follow-up is recommended in 12 months. OVERALL ASSESSMENT - BENIGN A letter of notification will be sent to the patient regarding the results. [employer] recommends annual mammograms for women 40 years and older. [employer] [facility] DIGITAL SCREEN ANGELICA Guerrero LEFTon 05-15-2019 Stable benign left mammogram. BIRADS: BIRADS - CATEGORY 1 Negative, no evidence of malignancy. Normal interval follow-up is recommended in 12 months. OVERALL ASSESSMENT - NEGATIVE A letter of notification will be sent to the patient regarding the results. [employer] recommends annual mammograms for women 40 years and older. [employer] [place] EXAMINATION: LEFT BREAST DIGITAL SCREENING MAMMOGRAM 05/15/2019 TECHNIQUE: Screening mammography was performed with tomosynthesis including MLO and CC views of the left breast. Computer aided detection was used for the interpretation of this exam. COMPARISON: 05/12/2018, 05/10/2017 HISTORY: Screening. Right mastectomy for malignancy accompanied by chemotherapy. Family history of breast cancer. FINDINGS: There are scattered areas of fibroglandular density. No new dominant masses, suspicious calcifications, nor areas of architectural distortion are seen. Tomosynthesis images demonstrate no suspicious abnormality. [employer] Freddie, Mhpn Incoming Radiant Results From [employer] - 05/15/2019 1:34 PM EDT EXAMINATION: LEFT BREAST DIGITAL SCREENING MAMMOGRAM 05/15/2019 TECHNIQUE: Screening mammography was performed with tomosynthesis including MLO and CC views of the left breast. Computer aided detection was used for the interpretation of this exam. COMPARISON: 05/12/2018, 05/10/2017 HISTORY: Screening. Right mastectomy for malignancy accompanied by chemotherapy. Family history of breast cancer. FINDINGS: There are scattered areas of fibroglandular density. No new dominant masses, suspicious calcifications, nor areas of architectural distortion are seen. Tomosynthesis images demonstrate no suspicious abnormality. IMPRESSION: Stable benign left mammogram. BIRADS: BIRADS - CATEGORY 1 Negative, no evidence of malignancy. Normal interval follow-up is recommended in 12 months. OVERALL ASSESSMENT - NEGATIVE A letter of notification will be sent to the patient regarding the results. [employer] recommends annual mammograms for women 40 years and older. [place], [place] Cult,Bloodon 11-30-2018 Cult,Blood Specimen Description .BLOOD Special Requests 2 ML LEFT FOREARM Culture NO GROWTH 6 DAYS Report Status FINAL 11/30/2018 Normal [facility] Comment on above: Performed By: #### C DP, LAC, TROPI, BMP, CK #### [facility] [address] [place] [id number] [employer] Operator: Dung Allen MD Cult,Blood Specimen Description .BLOOD Special Requests 20 ML LEFT AC Culture NO GROWTH 6 DAYS Report Status FINAL 11/30/2018 [facility] Comment on above: Performed By: #### C DP, LAC, TROPI, BMP, CK #### [facility] [address] [place], [place] [id number] [employer] Operator: Dung Allen MD Basic Metab w/rfx MGon 11-27 (cont.) Normal [facility] Comment on above: Result Comment: Aver age GFR for 70 or more years old: 75 mL/min/1.73sq m Chronic Kidney Disease: <60 mL/min/1.73sq m Kidney failure: <15 mL/min/1.73sq m eGFR calculated using average adult body mass. Additional eGFR calculator available at: http://[email or web address].com/multiple_crcl_2011.htm Performed By: #### C DP, LAC, TROPI, BMP, CK #### [facility] [address] [place] [address] [employer] Operator: Dung Allen MD Anion gap molar conc 9 mmol/L Normal 9-17 [facility] Comment on above: Performed By: #### C DP, LAC, TROPI, BMP, CK #### [facility] [address] [place] [address] [employer] Operator: Dung Allen MD Calcium mass conc 8.8 mg/dL Normal 8.6-10.4 [facility] Comment on above: Performed By: #### C DP, LAC, TROPI, BMP, CK #### [facility] [address] [place] [address] Container [employer] Operator: Dung Allen MD Chloride molar conc 102 mmol/L Normal 98-107 [facility] Comment on above: Performed By: #### C DP, LAC, TROPI, BMP, CK #### [facility] [address] [place] [address] [employer] Operator: Dung Allen MD CO2 molar conc 25 mmol/L Normal 20-31 [facility] Comment on above: Performed By: #### C DP, LAC, TROPI, BMP, CK #### [facility] [address] [place] [address] [employer] Operator: Dung Allen MD Creatinine mass conc 0.80 mg/dL Normal 0.50-0.90 [facility] Comment on above: Performed By: #### C DP, LAC, TROPI, BMP, CK #### [facility] [address] [place] [id number] [employer] Operator: Dung Allen MD GFR, Amer >60 Normal >60 [facility] Comment on above: Performed By: #### C DP, LAC, TROPI, BMP, CK #### [facility] [address] [place] [phone] [employer] Operator: Dung Allen MD GFR,non Amer >60 Normal >60 [facility] Comment on above: Performed By: #### C DP, LAC, TROPI, BMP, CK #### [facility] [address] [place], [place] [id number] [employer] Operator: Dung Allen MD Glucose mass conc 89 mg/dL Normal 70-99 [facility] Comment on above: Performed By: #### C DP, LAC, TROPI, BMP, CK #### [facility] [address] [place], [place] [id number] Container [employer] Operator: Dung Allen MD Potassium molar conc 3.8 mmol/L Normal 3.7-5.3 [facility] Comment on above: Performed By: #### C DP, LAC, TROPI, BMP, CK #### [facility] [address] [place], [place] [id number] Container P[employer] Operator: Dung Allen MD Sodium molar conc 136 mmol/L Normal 135-144 [facility] Comment on above: Performed By: #### C DP, LAC, TROPI, BMP, CK #### [facility] [address] [place] [phone] [employer] Operator: Dung Allen MD Urea nitrogen mass conc 14 mg/dL Normal 8-23 [facility] Comment on above: Performed By: #### C DP, LAC, TROPI, BMP, CK #### [facility] [address] [place] [phone] [employer] Operator: Dung Allen MD BUN/CRE Ratio NOT REPORTED Normal 9-20 [facility] Comment on above: Performed By: #### C DP, LAC, TROPI, BMP, CK #### [facility] [address] [place] [phone] [employer] Operator: Dung Allen MD Staging: NOT REPORTED Normal [facility] Comment on above: Performed By: #### C DP, LAC, TROPI, BMP, CK #### [facility] [address] [place] [address] Container Packer Operator: Dung Allen MD CBCon 11-27-2018 Erythrocyte distribution width Ratio (RBC) 12.8 % Normal 12.5-15.4 [facility] Comment on above: Performed By: #### C DP, LAC, TROPI, BMP, CK #### [facility] [address] [place] [address] Container P[employer] Operator: Dung Allen MD Hematocrit Volume Fraction (Bld) 33.1 % Low 36-46 [facility] Comment on above: Performed By: #### C DP, LAC, TROPI, BMP, CK #### [facility] [address] [place] [phone] [employer] Operator: Dung Allen MD Hemoglobin mass conc (Bld) 11.6 g/dL Low 12.0-16.0 [facility] Comment on above: Performed By: #### C DP, LAC, TROPI, BMP, CK #### [facility] [address] [place] [phone] [employer] Operator: Dung Allen MD MCH Entitic mass (RBC) 35.2 pg High 26-34 [facility] Comment on above: Performed By: #### C DP, LAC, TROPI, BMP, CK #### [facility] [address] [place] [address] Container P[employer] Operator: Dung Allen MD [facility] mass conc (RBC) 35.1 g/dL Normal 31-37 [facility] Comment on above: Performed By: #### C DP, LAC, TROPI, BMP, CK #### [facility] [address] [place] [address] Container P[employer] Operator: Dung Allen MD MCV Entitic volume (RBC) 100.2 fL High 80-100 [facility] Comment on above: Performed By: #### C DP, LAC, TROPI, BMP, CK #### [facility] [id number] [place] [address] Container Packer Operator: Dung Allen MD Platelet mean volume Entitic volume (Bld) 8.6 fL Normal 6.0-12.0 [facility] Comment on above: Performed By: #### C DP, LAC, TROPI, BMP, CK #### [facility] [id number] [place] [address] Container Packer Operator: Dung Allen MD Platelets #/vol (Bld) 206 10*3/uL Normal 140-450 [facility] Comment on above: Performed By: #### C DP, LAC, TROPI, BMP, CK #### [facility] [address] [place] [address] Container P[employer] Operator: Dung Allen MD RBC #/vol (Bld) 3.30 10*6/uL Low 4.0-5.2 [facility] Comment on above: Performed By: #### C DP, LAC, TROPI, BMP, CK #### [facility] [address] [place], [place] [phone] Container [employer] Operator: Dung Allen MD WBC #/vol (Bld) 5.3 10*3/uL Normal 3.5-11.0 [facility] Comment on above: Performed By: #### C DP, LAC, TROPI, BMP, CK #### [facility] [address] [place], [place] [phone] Container [employer] Operator: Dung Allen MD NRBC Automated NOT REPORTED Normal [facility] Comment on above: Performed By: #### C DP, LAC, TROPI, BMP, CK #### [facility] [id number] [place] [address] [employer] Operator: Dung Allen MD XR CHEST (2 VW)on 11-27-2018 XR CHEST (2 VW) EXAMINATION: TWO VIEWS OF THE CHEST 11/27/2018 11:00 am COMPARISON: November 25, 2018 HISTORY: ORDERING SYSTEM PROVIDED HISTORY: pna, wheezing TECHNOLOGIST PROVIDED HISTORY: pna, wheezing Ordering Physician Provided Reason for Exam: pneumonia, cough flu Acuity: Unknown Type of Exam: Initial FINDINGS: Stable left basilar airspace opacity possibly pneumonia. No effusion. No pneumothorax. Stable cardiomediastinal contours. Cardiac monitoring leads overlie the chest. IMPRESSION: Stable left basilar airspace disease suspicious of pneumonia. Interpreted by: Alex Gray MD Signed by: Alex Gray MD 11/27/18 Final result Normal [facility] Basic Metab w/rfx MGon 11-26 Potassium molar conc 3.4 mmol/L Low 3.7-5.3 [facility] Comment on above: Performed By: #### C DP, LAC, TROPI, BMP, CK #### [facility] [address] [place] [address] Container Packer Operator: Dung Allen MD (cont.) Normal [facility] Comment on above: Result Comment: Aver age GFR for 70 or more years old: 75 mL/min/1.73sq m Chronic Kidney Disease: <60 mL/min/1.73sq m Kidney failure: <15 mL/min/1.73sq m eGFR calculated using average adult body mass. Additional eGFR calculator available at: http://www.SafeLogic/multiple_crcl_2012.htm Performed By: #### C DP, LAC, TROPI, BMP, CK #### [facility] [address] [place] [address] Container Packer Operator: Dung Allen MD Anion gap molar conc 11 mmol/L Normal 9-17 [facility] Comment on above: Performed By: #### C DP, LAC, TROPI, BMP, CK #### [facility] [address] [place] [address] Container Packer Operator: Dung Allen MD Calcium mass conc 8.9 mg/dL Normal 8.6-10.4 [facility] Comment on above: Performed By: #### C DP, LAC, TROPI, BMP, CK #### [facility] [address] [place] [address] Container Packer Operator: Dung Allen MD Chloride molar conc 101 mmol/L Normal 98-107 [facility] Comment on above: Performed By: #### C DP, LAC, TROPI, BMP, CK #### [facility] [address] [place] [address] Container Packer Operator: Dung Allen MD CO2 molar conc 26 mmol/L Normal 20-31 [facility] Comment on above: Performed By: #### C DP, LAC, TROPI, BMP, CK #### [facility] [address] [place] [address] Container Packer Operator: Dung Allen MD Creatinine mass conc 0.81 mg/dL Normal 0.50-0.90 [facility] Comment on above: Performed By: #### C DP, LAC, TROPI, BMP, CK #### [facility] [address] [place] [address] Container Packer Operator: Dung Allen MD GFR, Amer >60 Normal >60 [facility] Comment on above: Performed By: #### C DP, LAC, TROPI, BMP, CK #### [facility] [address] [place] [address] Container Packer Operator: Dung Allen MD GFR,non Amer >60 Normal >60 [facility] Comment on above: Performed By: #### C DP, LAC, TROPI, BMP, CK #### [facility] [address] [place] [address] Container Packer Operator: Dung Allen MD Glucose mass conc 85 mg/dL Normal 70-99 [facility] Comment on above: Performed By: #### C DP, LAC, TROPI, BMP, CK #### [facility] [address] [place] [address] Container Packer Operator: Dung Allen MD Sodium molar conc 138 mmol/L Normal 135-144 [facility] Comment on above: Performed By: #### C DP, LAC, TROPI, BMP, CK #### [facility] [address] [place] [address] Container Packer Operator: Dung Allen MD Urea nitrogen mass conc 16 mg/dL Normal 8-23 [facility] Comment on above: Performed By: #### C DP, LAC, TROPI, BMP, CK #### [facility] [address] [place], [place] [id number] Container Packer Operator: Dung Allen MD BUN/CRE Ratio NOT REPORTED Normal 9-20 [facility] Comment on above: Performed By: #### C DP, LAC, TROPI, BMP, CK #### [facility] [address] [place] [phone] Container Packer Operator: Dung Allen MD Staging: NOT REPORTED Normal [facility] Comment on above: Performed By: #### C DP, LAC, TROPI, BMP, CK #### [facility] [id number] [place] [address] Container Packer Operator: Dung Allen MD Brain Natri. Peptideon 11-26 Natriuretic peptide B mass conc (Bld) Normal [facility] Comment on above: Result Comment: Pro- BNP Reference Range: Rule Out: <300 [place]: Age <50 300-450 Age 50-75 300-900 Age >75 300-1800 Usually represents mild to moderate HF but other cardiopulmonary causes cannot be ruled out. Rule In: Age <50 >450 Age 50-75 >900 Age >75 >1800 Performed By: #### C DP, LAC, TROPI, BMP, CK #### [facility] [id number] [place], [place] [id number] Container Packer Operator: Dung Allen MD Natriuretic peptide B mass conc (Bld) 3923 pg/mL High <300 [facility] Comment on above: Result Comment: Pro- BNP results cannot be compared to BNP results. Performed By: #### C DP, LAC, TROPI, BMP, CK #### [facility] [address] [place], [place] [id number] Container Packer Operator: Dung Allen MD CBCon 11-26-2018 Erythrocyte distribution width Ratio (RBC) 12.8 % Normal 12.5-15.4 [facility] Comment on above: Performed By: #### C DP, LAC, TROPI, BMP, CK #### [facility] [address] [place] [address] Container Packer Operator: Dung Allen MD Hematocrit Volume Fraction (Bld) 37.4 % Normal 36-46 [facility] Comment on above: Performed By: #### C DP, LAC, TROPI, BMP, CK #### [facility] [address] [place] [phone] Container Packer Operator: Dung Allen MD Hemoglobin mass conc (Bld) 12.7 g/dL Normal 12.0-16.0 [facility] Comment on above: Performed By: #### C DP, LAC, TROPI, BMP, CK #### [facility] [address] [place] [address] Container Packer Operator: Dung Allen MD MCH Entitic mass (RBC) 34.6 pg High 26-34 [facility] Comment on above: Performed By: #### C DP, LAC, TROPI, BMP, CK #### [facility] [address] [place] [phone] Container Packer Operator: Dung Allen MD MCHC mass conc (RBC) 34.0 g/dL Normal 31-37 [facility] Comment on above: Performed By: #### C DP, LAC, TROPI, BMP, CK #### [facility] [address] [place] [address] Container Packer Operator: Dung Allen MD MCV Entitic volume (RBC) 101.6 fL High 80-100 [facility] Comment on above: Performed By: #### C DP, LAC, TROPI, BMP, CK #### [facility] [id number] [place] [address] Container Packer Operator: Dung Allen MD Platelet mean volume Entitic volume (Bld) 9.0 fL Normal 6.0-12.0 [facility] Comment on above: Performed By: #### C DP, LAC, TROPI, BMP, CK #### [facility] [address] [place] [address] Container Packer Operator: Dung Allen MD Platelets #/vol (Bld) 198 10*3/uL Normal 140-450 [facility] Comment on above: Performed By: #### C DP, LAC, TROPI, BMP, CK #### [facility] [address] [place] [address] Container Packer Operator: Dung Allen MD RBC #/vol (Bld) 3.68 10*6/uL Low 4.0-5.2 [facility] Comment on above: Performed By: #### C DP, LAC, TROPI, BMP, CK #### [facility] [address] [place] [address] Container Packer Operator: Dung Allen MD WBC #/vol (Bld) 8.9 10*3/uL Normal 3.5-11.0 [facility] Comment on above: Performed By: #### C DP, LAC, TROPI, BMP, CK #### [facility] [address] [place] [address] Container Packer Operator: Dung Allen MD NRBC Automated NOT REPORTED Normal [facility] Comment on above: Performed By: #### C DP, LAC, TROPI, BMP, CK #### [facility] [address] [place] [address] Container Packer Operator: Dung Allen MD MRI BRAIN WO CONTRASTon 03- MRI BRAIN WO CONTRAST EXAMINATION: MRI OF THE BRAIN WITHOUT CONTRAST 11/26/2018 12:23 pm TECHNIQUE: Multiplanar multisequence MRI of the brain was performed without the administration of intravenous contrast. COMPARISON: 11/23/2018 HISTORY: ORDERING SYSTEM PROVIDED HISTORY: DEMENTIA TECHNOLOGIST PROVIDED HISTORY: Ordering Physician Provided Reason for Exam: Dizziness Acuity: Acute Type of Exam: Initial Follow-up. FINDINGS: INTRACRANIAL STRUCTURES/VENTRICLES: There are no areas of restricted diffusion to suggest an acute infarct. The cerebral and cerebellar parenchyma demonstrate volume loss. Scattered and confluent areas of increased T2 signal are noted supratentorially which are compatible with moderate chronic microvascular white matter ischemic disease. No abnormal extra-axial fluid collections. The ventricles are enlarged, likely related to involutional change. Normal pressure hydrocephalus cannot be excluded. Normal major intracranial flow voids are noted. There are no areas of blooming artifact noted on the gradient echo sequences to suggest sequela of acute or chronic hemorrhage. ORBITS: The visualized portion of the orbits demonstrate no acute abnormality. SINUSES: There is susceptibility artifact related to dental amalgam. There is mucosal thickening in the paranasal sinuses with near complete opacification of the maxillary and sphenoid sinuses. Findings are concerning for acute sinusitis. The mastoid air cells are clear. BONES/SOFT TISSUES: The bone marrow signal intensity appears normal. The soft tissues demonstrate no acute abnormality. IMPRESSION: 1. No evidence of an acute infarct. 2. Cerebral and cerebellar parenchymal volume loss with moderate chronic microvascular white matter ischemic disease. 3. Ventriculomegaly. While this is likely related to involutional change, normal pressure hydrocephalus cannot be excluded. 4. Findings concerning for acute bilateral maxillary and sphenoid sinusitis. Interpreted by: Brent Green MD Signed by: Brent Green MD 11/26/18 Final result Normal [facility] Magnesiumon 11-26-2018 Magnesium mass conc 2.0 mg/dL Normal 1.6-2.6 [facility] Comment on above: Performed By: #### C DP, LAC, TROPI, BMP, CK #### [facility] [address] [place] [address] Container Packer Operator: Dung Allen MD Troponinon 11-26-2018 Troponin I.cardiac mass conc 9 ng/L Normal 0-14 [facility] Comment on above: Result Comment: High Sensitivity Troponin values cannot be compared with other Troponin methodologies. Patients with high levels of Biotin oral intake (i.e >5mg/day) may have falsely decreased Troponin levels. Samples collected within 8 hours of biotin intake may require additional information for diagnosis. Performed By: #### C DP, LAC, TROPI, BMP, CK #### [facility] [address] [place] [address] Container Packer Operator: Dung Allen MD Troponin I.cardiac mass conc NOT REPORTED Normal <0.03 [facility] Comment on above: Performed By: #### C DP, LAC, TROPI, BMP, CK #### [facility] [address] [place] [address] Container Packer Operator: Dung Allen MD B12/Folate Panelon 9 Cobalamin (Vitamin B12) mass conc 943 pg/mL Normal 232-1245 [facility] Comment on above: Performed By: #### C DP, LAC, TROPI, BMP, CK #### [facility] [address] [place] [address] Container Packer Operator: Dung Allen MD Folic Acid 10.5 ng/mL Normal >4.8 [facility] Comment on above: Performed By: #### C DP, LAC, TROPI, BMP, CK #### [facility] [address] [place] [phone] Container Packer Operator: Dung Allen MD Basic Metab w/rfx MGon 11-25 (cont.) Normal [facility] Comment on above: Result Comment: Aver age GFR for 70 or more years old: 75 mL/min/1.73sq m Chronic Kidney Disease: <60 mL/min/1.73sq m Kidney failure: <15 mL/min/1.73sq m eGFR calculated using average adult body mass. Additional eGFR calculator available at: http://www.Pinnatta.Inventorum/multiple_crcl_2012.htm Performed By: #### C DP, LAC, TROPI, BMP, CK #### [facility] [address] [place] [address] Container Packer Operator: Dung Allen MD Anion gap molar conc 12 mmol/L Normal 9-17 [facility] Comment on above: Performed By: #### C DP, LAC, TROPI, BMP, CK #### [facility] [address] [place] [address] Container Packer Operator: Dung Allen MD Calcium mass conc 8.8 mg/dL Normal 8.6-10.4 [facility] Comment on above: Performed By: #### C DP, LAC, TROPI, BMP, CK #### [facility] [address] [place] [address] Container Packer Operator: Dung Allen MD Chloride molar conc 103 mmol/L Normal 98-107 [facility] Comment on above: Performed By: #### C DP, LAC, TROPI, BMP, CK #### [facility] [address] [place] [address] Container Packer Operator: Dung Allen MD CO2 molar conc 22 mmol/L Normal 20-31 [facility] Comment on above: Performed By: #### C DP, LAC, TROPI, BMP, CK #### [facility] [address] [place] [phone] Container Packer Operator: Dung Allen MD Creatinine mass conc 0.94 mg/dL High 0.50-0.90 [facility] Comment on above: Performed By: #### C DP, LAC, TROPI, BMP, CK #### [facility] [address] [place] [address] Container Packer Operator: Dung Allen MD GFR, Amer >60 Normal >60 [facility] Comment on above: Performed By: #### C DP, LAC, TROPI, BMP, CK #### [facility] [address] [place] [address] Container Packer Operator: Dung Allen MD GFR,non Amer 58 mL/min Low >60 [facility] Comment on above: Performed By: #### C DP, LAC, TROPI, BMP, CK #### [facility] [address] [place] [address] Container Packer Operator: Dung Allen MD Glucose mass conc 105 mg/dL High 70-99 [facility] Comment on above: Performed By: #### C DP, LAC, TROPI, BMP, CK #### [facility] [address] [place] [address] Container Packer Operator: Dung Allen MD Potassium molar conc 3.7 mmol/L Normal 3.7-5.3 [facility] Comment on above: Performed By: #### C DP, LAC, TROPI, BMP, CK #### [facility] [address] [place] [address] Container Packer Operator: Dung Allen MD Sodium molar conc 137 mmol/L Normal 135-144 [facility] Comment on above: Performed By: #### C DP, LAC, TROPI, BMP, CK #### [facility] [id number] [place], [place] [phone] Container Packer Operator: Dung Allen MD Urea nitrogen mass conc 22 mg/dL Normal 8-23 [facility] Comment on above: Performed By: #### C DP, LAC, TROPI, BMP, CK #### [facility] [address] [place] [address] Container Packer Operator: Dung Allen MD BUN/CRE Ratio NOT REPORTED Normal 9-20 [facility] Comment on above: Performed By: #### C DP, LAC, TROPI, BMP, CK #### [facility] [address] [place] [phone] Container Packer Operator: Dung Allen MD Staging: NOT REPORTED Normal [facility] Comment on above: Performed By: #### C DP, LAC, TROPI, BMP, CK #### [facility] [address] [place] [address] Container Packer Operator: Dung Allen MD CBCon 11-25-2018 Erythrocyte distribution width Ratio (RBC) 12.9 % Normal 12.5-15.4 [facility] Comment on above: Performed By: #### C DP, LAC, TROPI, BMP, CK #### [facility] [address] [place] [address] Container Packer Operator: Dung Allen MD Hematocrit Volume Fraction (Bld) 32.7 % Low 36-46 [facility] Comment on above: Performed By: #### C DP, LAC, TROPI, BMP, CK #### [facility] [address] [place] [phone] Container Packer Operator: Dung Allen MD Hemoglobin mass conc (Bld) 11.1 g/dL Low 12.0-16.0 [facility] Comment on above: Performed By: #### C DP, LAC, TROPI, BMP, CK #### [facility] [address] [place] [phone] Container Packer Operator: Dung Allen MD MCH Entitic mass (RBC) 34.7 pg High 26-34 [facility] Comment on above: Performed By: #### C DP, LAC, TROPI, BMP, CK #### [facility] [address] [place] [address] Container Packer Operator: Dung Allen MD MCHC mass conc (RBC) 34.1 g/dL Normal 31-37 [facility] Comment on above: Performed By: #### C DP, LAC, TROPI, BMP, CK #### [facility] [address] [place] [address] Container Packer Operator: Dung Allen MD MCV Entitic volume (RBC) 101.6 fL High 80-100 [facility] Comment on above: Performed By: #### C DP, LAC, TROPI, BMP, CK #### [facility] [address] [place] [address] Container Packer Operator: Dung Allen MD Platelet mean volume Entitic volume (Bld) 9.0 fL Normal 6.0-12.0 [facility] Comment on above: Performed By: #### C DP, LAC, TROPI, BMP, CK #### [facility] [address] [place] [address] Container Packer Operator: Dung Allen MD Platelets #/vol (Bld) 162 10*3/uL Normal 140-450 [facility] Comment on above: Performed By: #### C DP, LAC, TROPI, BMP, CK #### [facility] [address] [place] [phone] Container Packer Operator: Dung Allen MD RBC #/vol (Bld) 3.21 10*6/uL Low 4.0-5.2 [facility] Comment on above: Performed By: #### C DP, LAC, TROPI, BMP, CK #### [facility] [address] [place], [place] [id number] Container Packer Operator: Dung Allen MD WBC #/vol (Bld) 10.9 10*3/uL Normal 3.5-11.0 [facility] Comment on above: Performed By: #### C DP, LAC, TROPI, BMP, CK #### [facility] [address] [place], [place] [phone] Container Packer Operator: Dung Allen MD NRBC Automated NOT REPORTED Normal [facility] Comment on above: Performed By: #### C DP, LAC, TROPI, BMP, CK #### [facility] [address] [place], [place] [id number] Container Packer Operator: Dung Allen MD CT CHEST ABDOMEN PELVIS WO [facility] 11-25-2018 CT CHEST ABDOMEN PELVIS WO CONTRAST EXAMINATION: CT OF THE CHEST, ABDOMEN, AND PELVIS WITHOUT CONTRAST 11/25/2018 4:43 pm TECHNIQUE: CT of the chest, abdomen and pelvis was performed without the administration of intravenous contrast. Multiplanar reformatted images are provided for review. Dose modulation, iterative reconstruction, and/or weight based adjustment of the mA/kV was utilized to reduce the radiation dose to as low as reasonably achievable. COMPARISON: January 16, 2011 HISTORY: ORDERING SYSTEM PROVIDED HISTORY: BREAST CANCER TECHNOLOGIST PROVIDED HISTORY: abdmoinal pain Ordering Physician Provided Reason for Exam: RUQ abdominal pain. Denies chest complaints. Acuity: Acute Type of Exam: Initial Relevant Medical/Surgical History: hx of breast cancer, mastectomy. hysterectomy. FINDINGS: Chest: Mediastinum: Mild cardiomegaly. No pericardial effusion. No mediastinal or hilar adenopathy. Atherosclerotic calcification of the thoracic aorta. Lungs/pleura: Multiple bilateral scattered pulmonary opacities are seen. Within the upper lobes there are multiple ground-glass and subsolid nodular opacities measuring up to at least 13 mm. Solid appearing nodule measures 5 mm series 6, image 10. Corresponding to chest radiographs within the lingula there is a more focal opacity. Within the medial aspect of the right middle lobe there are scattered pulmonary opacities some with air bronchograms. Soft Tissues/Bones: Right mastectomy. No axillary adenopathy. Abdomen/Pelvis: Organs: Evaluation of the solid organs is limited without intravenous contrast. Questionable lesion within the left hepatic lobe measuring 11 mm series 3, image 24. Cholecystectomy. No pancreatic lesion. No splenomegaly. No adrenal lesion. No hydronephrosis. Right renal cyst. No renal calculus. GI/Bowel: No bowel obstruction. No acute inflammatory process. No appendicitis. Sigmoid diverticulosis without acute diverticulitis. Pelvis: No free fluid. No bladder calculus. Mild pelvic prolapse. Peritoneum/Retroperito neum: Atherosclerotic calcification of the abdominal aorta without aneurysmal dilatation. No definite adenopathy. Bones/Soft Tissues: No acute soft tissue abnormality. Lumbar spine degenerative changes. No suspicious lesion. IMPRESSION: Multiple pulmonary opacities may be infectious. Follow-up is recommended to exclude malignancy. Consider 3 months. Questionable left hepatic lesion. Recommend MRI with contrast. Interpreted by: Lm Porter MD Signed by: Lm Porter MD 11/25/18 Final result Normal [facility] Cult,Urine,CCon 11-25-2018 Cult,Urine,CC Specimen Description .CLEAN CATCH URINE Special Requests NOT REPORTED Culture NO SIGNIFICANT GROWTH Report Status FINAL 11/25/2018 Normal [facility] Comment on above: Performed By: #### C DP, LAC, TROPI, BMP, CK #### [facility] [address] [place] [address] Container Packer Operator: Dung Allen MD TSH w/reflex to FT4on 2018 Thyrotropin Qn 4.20 m[IU]/L Normal 0.30-5.00 [facility] Comment on above: Performed By: #### C DP, LAC, TROPI, BMP, CK #### [facility] [address] [place] [address] Container Packer Operator: Dung Allen MD Vitamin D 25 OHon 11-25-2018 Vitamin D 25 [place] 34.8 ng/mL Normal 30.0-100.0 [facility] Comment on above: Result Comment: Reference Range: Vitamin D status Range Deficiency <20 ng/mL Mild Deficiency 20-30 ng/mL Sufficiency 30-100 ng/mL Toxicity >100 ng/mL Performed By: #### C DP, LAC, TROPI, BMP, CK #### [facility] [address] [place] [address] Container Packer Operator: Dung Allen MD XR CHEST PORTABLEon 11-26-19 19 XR CHEST PORTABLE EXAMINATION: SINGLE XRAY VIEW OF THE CHEST 11/25/2018 9:24 am COMPARISON: November 23, 2017 HISTORY: ORDERING SYSTEM PROVIDED HISTORY: cough, flu TECHNOLOGIST PROVIDED HISTORY: cough, flu Ordering Physician Provided Reason for Exam: Pt has some coughing still. Hx of flu Acuity: Acute Type of Exam: Subsequent/Follow-up FINDINGS: Cardiac monitoring leads overlie the chest. Cardiomegaly. Interstitial edema and patchy left lower lung airspace disease increased since the prior exam suspicious of pneumonia. IMPRESSION: Increasing left lower lung airspace opacity suspicious for pneumonia. Interpreted by: Alex Gray MD Signed by: Alex Gray MD 11/25/18 Final result Normal [facility] Basic Metab w/rfx MGon 11-24 (cont.) Normal [facility] Comment on above: Result Comment: Aver age GFR for 70 or more years old: 75 mL/min/1.73sq m Chronic Kidney Disease: <60 mL/min/1.73sq m Kidney failure: <15 mL/min/1.73sq m eGFR calculated using average adult body mass. Additional eGFR calculator available at: http://www.Pinnatta.com/multiple_crcl_2012.htm Performed By: #### C DP, LAC, TROPI, BMP, CK #### [facility] [address] [place] [address] Container Packer Operator: Dung Allen MD Anion gap molar conc 10 mmol/L Normal 9-17 [facility] Comment on above: Performed By: #### C DP, LAC, TROPI, BMP, CK #### [facility] [address] [place], [place] [phone] Container Packer Operator: Dung Allen MD Calcium mass conc 8.9 mg/dL Normal 8.6-10.4 [facility] Comment on above: Performed By: #### C DP, LAC, TROPI, BMP, CK #### [facility] [address] [place] [address] Container Packer Operator: Dung Allen MD Chloride molar conc 100 mmol/L Normal 98-107 [facility] Comment on above: Performed By: #### C DP, LAC, TROPI, BMP, CK #### [facility] [address] [place] [address] Container Packer Operator: Dung Allen MD CO2 molar conc 24 mmol/L Normal 20-31 [facility] Comment on above: Performed By: #### C DP, LAC, TROPI, BMP, CK #### [facility] [address] [place] [address] Container Packer Operator: Dung Allen MD Creatinine mass conc 0.95 mg/dL High 0.50-0.90 [facility] Comment on above: Performed By: #### C DP, LAC, TROPI, BMP, CK #### [facility] [address] [place], [place] [phone] Container Packer Operator: Dung Allen MD GFR, Amer >60 Normal >60 [facility] Comment on above: Performed By: #### C DP, LAC, TROPI, BMP, CK #### [facility] [address] [place], [place] [id number] Container Packer Operator: Dung Allen MD GFR,non Amer 57 mL/min Low >60 [facility] Comment on above: Performed By: #### C DP, LAC, TROPI, BMP, CK #### [facility] [address] [id number] [employer] Operator: Dung Allen MD Glucose mass conc 94 mg/dL Normal 70-99 [facility] Comment on above: Performed By: #### C DP, LAC, TROPI, BMP, CK #### [facility] [address] [phone] [employer] Operator: Dung Allen MD Potassium molar conc 4.2 mmol/L Normal 3.7-5.3 [facility] Comment on above: Performed By: #### C DP, LAC, TROPI, BMP, CK #### [facility] [address] [phone] [employer] Operator: Dung Allen MD Sodium molar conc 134 mmol/L Low 135-144 [facility] Comment on above: Performed By: #### C DP, LAC, TROPI, BMP, CK #### [facility] [address] [phone] [employer] Operator: Dung Allen MD Urea nitrogen mass conc 28 mg/dL High 8-23 [facility] Comment on above: Performed By: #### C DP, LAC, TROPI, BMP, CK #### [facility] [address] [place], [place] [id number] [employer] Operator: Dung Allen MD BUN/CRE Ratio NOT REPORTED Normal 9-20 [facility] Comment on above: Performed By: #### C DP, LAC, TROPI, BMP, CK #### [facility] [address] [place] [address] [employer] Operator: Dung Allen MD Staging: NOT REPORTED Normal [facility] Comment on above: Performed By: #### C DP, LAC, TROPI, BMP, CK #### [facility] [address] [place] [address] [employer] Operator: Dung Allen MD CBCon 11-24-2018 Erythrocyte distribution width Ratio (RBC) 12.6 % Normal 12.5-15.4 [facility] Comment on above: Performed By: #### C DP, LAC, TROPI, BMP, CK #### [facility] [address] [place] [address] [employer] Operator: Dung Allen MD Hematocrit Volume Fraction (Bld) 37.6 % Normal 36-46 [facility] Comment on above: Performed By: #### C DP, LAC, TROPI, BMP, CK #### [facility] [address] [place] [address] [employer] Operator: Dung Allen MD Hemoglobin mass conc (Bld) 12.5 g/dL Normal 12.0-16.0 [facility] Comment on above: Performed By: #### C DP, LAC, TROPI, BMP, CK #### [facility] [address] [place] [address] [employer] Operator: Dung Allen MD MCH Entitic mass (RBC) 33.6 pg Normal 26-34 [facility] Comment on above: Performed By: #### C DP, LAC, TROPI, BMP, CK #### [facility] [address] [phone] [employer] Operator: Dung Allen MD MCHC mass conc (RBC) 33.3 g/dL Normal 31-37 [facility] Comment on above: Performed By: #### C DP, LAC, TROPI, BMP, CK #### [facility] [address] [place] [address] [employer] Operator: Dung Allen MD MCV Entitic volume (RBC) 101.0 fL High 80-100 [facility] Comment on above: Performed By: #### C DP, LAC, TROPI, BMP, CK #### [facility] [address] [place] [address] [employer] Operator: Dung Allen MD Platelet mean volume Entitic volume (Bld) 9.2 fL Normal 6.0-12.0 [facility] Comment on above: Performed By: #### C DP, LAC, TROPI, BMP, CK #### [facility] [address] [place] [address] [employer] Operator: Dung Allen MD Platelets #/vol (Bld) 189 10*3/uL Normal 140-450 [facility] Comment on above: Performed By: #### C DP, LAC, TROPI, BMP, CK #### [facility] [address] [place] [address] [employer] Operator: Dung Allen MD RBC #/vol (Bld) 3.72 10*6/uL Low 4.0-5.2 [facility] Comment on above: Performed By: #### C DP, LAC, TROPI, BMP, CK #### [facility] [address] [phone] [employer] Operator: Dung Allen MD WBC #/vol (Bld) 14.1 10*3/uL High 3.5-11.0 [facility] Comment on above: Performed By: #### C DP, LAC, TROPI, BMP, CK #### [facility] [address] [place] [address] [employer] Operator: Dung Allen MD NRBC Automated NOT REPORTED Normal [facility] Comment on above: Performed By: #### C DP, LAC, TROPI, BMP, CK #### [facility] [address] [place] [address] [employer] Operator: Dung Allen MD Extra Yellow Tubeon 11-25-19 19 Extra Yellow Tube Normal [facility] Comment on above: Performed By: #### C DP, LAC, TROPI, BMP, CK #### [facility] [address] [place] [address] [employer] Operator: Dung Allen MD PTon 11-24-2018 INR Coag RelTime (PPP) 1.3 {INR} Normal [facility] Comment on above: Result Comment: Therapeutic Range: Moderate Anticoagulant Intensity: INR = 2.0-3.0 High Anticoagulant Intensity: INR = 2.5-3.5 Performed By: #### C DP, LAC, TROPI, BMP, CK #### [facility] [address] [place] [address] [employer] Operator: Dung Allen MD Prothrombin time (PT) Coag time (PPP) 13.0 s High 9.4-12.6 [facility] Comment on above: Performed By: #### C DP, LAC, TROPI, BMP, CK #### [facility] [address] [place], [place] [id number] [employer] Operator: Dung Allen MD Basic Metabolic Profon 11-23 (cont.) Normal [facility] Comment on above: Result Comment: Aver age GFR for 70 or more years old: 75 mL/min/1.73sq m Chronic Kidney Disease: <60 mL/min/1.73sq m Kidney failure: <15 mL/min/1.73sq m eGFR calculated using average adult body mass. Additional eGFR calculator available at: http://www.[employer]/multiple_crcl_2012.htm Performed By: #### C DP, LAC, TROPI, BMP, CK #### [facility] [address] [place] [address] [employer] Operator: Dung Allen MD Anion gap molar conc 14 mmol/L Normal 9-17 [facility] Comment on above: Performed By: #### C DP, LAC, TROPI, BMP, CK #### [facility] [address] [place] [address] [employer] Operator: Dung Allen MD Calcium mass conc 9.7 mg/dL Normal 8.6-10.4 [facility] Comment on above: Performed By: #### C DP, LAC, TROPI, BMP, CK #### [facility] [address] [place] [address] [employer] Operator: Dung Allen MD Chloride molar conc 97 mmol/L Low 98-107 [facility] Comment on above: Performed By: #### C DP, LAC, TROPI, BMP, CK #### [facility] [address] [place] [address] [employer] Operator: Dung Allen MD CO2 molar conc 22 mmol/L Normal 20-31 [facility] Comment on above: Performed By: #### C DP, LAC, TROPI, BMP, CK #### [facility] [address] [place] [address] [employer] Operator: Dung Allen MD Creatinine mass conc 0.99 mg/dL High 0.50-0.90 [facility] Comment on above: Performed By: #### C DP, LAC, TROPI, BMP, CK #### [facility] [address] [place] [address] [employer] Operator: Dung Allen MD GFR, Amer >60 Normal >60 [facility] Comment on above: Performed By: #### C DP, LAC, TROPI, BMP, CK #### [facility] [address] [place] [address] [employer] Operator: Dung Allen MD GFR,non Amer 54 mL/min Low >60 [facility] Comment on above: Performed By: #### C DP, LAC, TROPI, BMP, CK #### [facility] [address] [place] [address] [employer] Operator: Dung Allen MD Glucose mass conc 190 mg/dL High 70-99 [facility] Comment on above: Performed By: #### C DP, LAC, TROPI, BMP, CK #### [facility] [address] [place] [address] [employer] Operator: Dung Allen MD Potassium molar conc 4.3 mmol/L Normal 3.7-5.3 [facility] Comment on above: Result Comment: SPEC IMEN SLIGHTLY HEMOLYZED, RESULTS MAY BE ADVERSELY AFFECTED. Performed By: #### C DP, LAC, TROPI, BMP, CK #### [facility] [address] [place] [address] [employer] Operator: Dung Allen MD Sodium molar conc 133 mmol/L Low 135-144 [facility] Comment on above: Performed By: #### C DP, LAC, TROPI, BMP, CK #### [facility] [address] [place] [address] [employer] Operator: Dung Allen MD Urea nitrogen mass conc 33 mg/dL High 8-23 [facility] Comment on above: Performed By: #### C DP, LAC, TROPI, BMP, CK #### [facility] [address] [place] [address] [employer] Operator: Dung Allen MD BUN/CRE Ratio NOT REPORTED Normal 9-20 [facility] Comment on above: Performed By: #### C DP, LAC, TROPI, BMP, CK #### [facility] [address] [place] [address] [employer] Operator: Dung Allen MD Staging: NOT REPORTED Normal [facility] Comment on above: Performed By: #### C DP, LAC, TROPI, BMP, CK #### [facility] [address] [place] [address] [employer] Operator: Dung Allen MD CBC with Diffon 11-23-2018 Abs. Basophil 0.00 k/uL Normal 0.0-0.2 [facility] Comment on above: Performed By: #### C DP, LAC, TROPI, BMP, CK #### [facility] [address] [place] [address] [employer] Operator: Dung Allen MD Abs.Neutrophil (Seg) 12.00 k/uL High 1.8-7.7 [facility] Comment on above: Performed By: #### C DP, LAC, TROPI, BMP, CK #### [facility] [address] [place] [address] [employer] Operator: Dung Allen MD Basophils/100 WBC (Bld) 0 % Normal 0-2 [facility] Comment on above: Performed By: #### C DP, LAC, TROPI, BMP, CK #### [facility] [address] [phone] [employer] Operator: Dung Allen MD Eosinophils #/vol (Bld) 0.00 10*3/uL Normal 0.0-0.4 [facility] Comment on above: Performed By: #### C DP, LAC, TROPI, BMP, CK #### [facility] [address] [place] [address] [employer] Operator: Dung Allen MD Eosinophils/100 WBC (Bld) 0 % Low 1-4 [facility] Comment on above: Performed By: #### C DP, LAC, TROPI, BMP, CK #### [facility] [address] [place] [address] [employer] Operator: Dung Allen MD Erythrocyte distribution width Ratio (RBC) 12.8 % Normal 12.5-15.4 [facility] Comment on above: Performed By: #### C DP, LAC, TROPI, BMP, CK #### [facility] [address] [place] [address] [employer] Operator: Dung Allen MD Hematocrit Volume Fraction (Bld) 41.0 % Normal 36-46 [facility] Comment on above: Performed By: #### C DP, LAC, TROPI, BMP, CK #### [facility] [address] [phone] [employer] Operator: Dung Allen MD Hemoglobin mass conc (Bld) 13.7 g/dL Normal 12.0-16.0 [facility] Comment on above: Performed By: #### C DP, LAC, TROPI, BMP, CK #### [facility] [address] [place] [address] [employer] Operator: Dung Allen MD Lymphocytes #/vol (Bld) 1.20 10*3/uL Normal 1.0-4.8 [facility] Comment on above: Performed By: #### C DP, LAC, TROPI, BMP, CK #### [facility] [id number] [place] [address] [employer] Operator: Dung Allen MD Lymphocytes/100 WBC (Bld) 9 % Low 24-44 [facility] Comment on above: Performed By: #### C DP, LAC, TROPI, BMP, CK #### [facility] [address] [place] [address] [employer] Operator: Dung Allen MD MCH Entitic mass (RBC) 33.6 pg Normal 26-34 [facility] Comment on above: Performed By: #### C DP, LAC, TROPI, BMP, CK #### [facility] [id number] [place] [address] [employer] Operator: Dung Allen MD MCHC mass conc (RBC) 33.4 g/dL Normal 31-37 [facility] Comment on above: Performed By: #### C DP, LAC, TROPI, BMP, CK #### [facility] [address] [place] [address] [employer] Operator: Dung Allen MD MCV Entitic volume (RBC) 100.6 fL High 80-100 [facility] Comment on above: Performed By: #### C DP, LAC, TROPI, BMP, CK #### [facility] [address] [place], [place] [id number] [employer] Operator: Dung Allen MD Monocytes #/vol (Bld) 1.20 10*3/uL Normal 0.1-1.2 [facility] Comment on above: Performed By: #### C DP, LAC, TROPI, BMP, CK #### [facility] [address] [place] [address] [employer] Operator: Dung Allen MD Monocytes/100 WBC (Bld) 9 % Normal 2-11 [facility] Comment on above: Performed By: #### C DP, LAC, TROPI, BMP, CK #### [facility] [address] [place] [address] [employer] Operator: Dung Allen MD Neutrophil (Seg) 82 % High 36-66 [facility] Comment on above: Performed By: #### C DP, LAC, TROPI, BMP, CK #### [facility] [address] [place] [address] [employer] Operator: Dung Allen MD Platelet mean volume Entitic volume (Bld) 9.2 fL Normal 6.0-12.0 [facility] Comment on above: Performed By: #### C DP, LAC, TROPI, BMP, CK #### [facility] [address] [place] [address] [employer] Operator: Dung Allen MD Platelets #/vol (Bld) 217 10*3/uL Normal 140-450 [facility] Comment on above: Performed By: #### C DP, LAC, TROPI, BMP, CK #### [facility] [address] [place], [place] [id number] [employer] Operator: Dung Allen MD RBC #/vol (Bld) 4.07 10*6/uL Normal 4.0-5.2 [facility] Comment on above: Performed By: #### C DP, LAC, TROPI, BMP, CK #### [facility] [address] [place] [address] [employer] Operator: Dung Allen MD WBC #/vol (Bld) 14.4 10*3/uL High 3.5-11.0 [facility] Comment on above: Performed By: #### C DP, LAC, TROPI, BMP, CK #### [facility] [address] [place] [address] [employer] Operator: Dung Allen MD Abs.Imm.Granulocyt e NOT REPORTED Normal 0.00-0.30 [facility] Comment on above: Performed By: #### C DP, LAC, TROPI, BMP, CK #### [facility] [address] [place] [address] Container [employer] Operator: Dung Allen MD Auto Diff Performed NOT REPORTED Normal [facility] Comment on above: Performed By: #### C DP, LAC, TROPI, BMP, CK #### [facility] [address] [place] [address] [employer] Operator: Dung Allen MD Immature granulocytes #/vol (Bld) NOT REPORTED Normal 0 [facility] Comment on above: Performed By: #### C DP, LAC, TROPI, BMP, CK #### [facility] [address] [place] [address] [employer] Operator: Dung Allen MD NRBC Automated NOT REPORTED Normal [facility] Comment on above: Performed By: #### C DP, LAC, TROPI, BMP, CK #### [facility] [address] [place], [place] [address] [employer] Operator: Dung Aleln MD Platelets #/vol (Bld) NOT REPORTED Normal [facility] Comment on above: Performed By: #### C DP, LAC, TROPI, BMP, CK #### [facility] [address] [phone] [employer] Operator: Dung Allen MD RBC morphology finding Nom (Bld) NOT REPORTED Normal [facility] Comment on above: Performed By: #### C DP, LAC, TROPI, BMP, CK #### [facility] [address] [place] [address] [employer] P[employer] Operator: Dung Allen MD WBC Morphology NOT REPORTED Normal [facility] Comment on above: Performed By: #### C DP, LAC, TROPI, BMP, CK #### [facility] [id number] [place], [place] [id number] Container Packer Operator: Dung Allen MD CT HEAD WO CONTRASTon 2018 CT HEAD WO CONTRAST EXAMINATION: CT OF THE HEAD WITHOUT CONTRAST 11/23/2018 7:53 pm TECHNIQUE: CT of the head was performed without the administration of intravenous contrast. Dose modulation, iterative reconstruction, and/or weight based adjustment of the mA/kV was utilized to reduce the radiation dose to as low as reasonably achievable. COMPARISON: None. HISTORY: ORDERING SYSTEM PROVIDED HISTORY: altered mental status TECHNOLOGIST PROVIDED HISTORY: Ordering Physician Provided Reason for Exam: AMS Acuity: Acute Type of Exam: Initial FINDINGS: BRAIN/VENTRICLES: The ventricles and sulci are diffusely enlarged. Low attenuation is seen in the periventricular and subcortical white matter. No acute intracranial hemorrhage or acute infarct is identified ORBITS: The visualized portion of the orbits demonstrate no acute abnormality. SINUSES: Mucosal thickening throughout sinuses. Fluid in the sphenoid sinus. SOFT TISSUES/SKULL: No acute abnormality of the visualized skull or soft tissues. IMPRESSION: No acute intracranial abnormality. Diffuse atrophic changes with findings suggesting chronic microvascular ischemia Fluid in the sphenoid sinus, correlate for signs of infection Interpreted by: Micah Palmer MD Signed by: Micah Palmer MD 11/23/18 Final result Normal [facility] Creatine Kinaseon 11-23-2018 CK enzyme act/vol 407 U/L High 26-192 [facility] Comment on above: Performed By: #### C DP, LAC, TROPI, BMP, CK #### [facility] [address] [place] [address] [employer] P[employer] Operator: Dung Allen MD Flu A/B Ag Detectionon 11-23 Flu A/B Ag Detection Specimen Description .NASOPHARYNGEAL SWAB Special Requests NOT REPORTED Direct Exam POSITIVE for Influenza A Antigen NEGATIVE for Influenza B Antigen Report Status FINAL 11/23/2018 Normal [facility] Comment on above: Performed By: #### F LUAD #### [facility] [address] [place] [address] Container Packer Operator: Dung Allen MD Lactic Acidon 11-23-2018 Lactate molar conc 2.3 mmol/L High 0.5-2.2 [facility] Comment on above: Performed By: #### C DP, LAC, TROPI, BMP, CK #### [facility] [address] [place] [address] Container Packer Operator: Dung Allen MD Troponinon 11-23-2018 Troponin I.cardiac mass conc 17 ng/L High 0-14 [facility] Comment on above: Result Comment: High Sensitivity Troponin values cannot be compared with other Troponin methodologies. Patients with high levels of Biotin oral intake (i.e >5mg/day) may have falsely decreased Troponin levels. Samples collected within 8 hours of biotin intake may require additional information for diagnosis. Performed By: #### C DP, LAC, TROPI, BMP, CK #### [facility] [address] [place], [place] [id number] Container [employer] Operator: Dung Allen MD Troponin I.cardiac mass conc NOT REPORTED Normal <0.03 [facility] Comment on above: Performed By: #### C DP, LAC, TROPI, BMP, CK #### [facility] [address] [place] [address] [employer] P[employer] Operator: Dung Allen MD UA w/Reflex Cultureon 2018 Acetoacetic Acid,Ur SMALL Abnormal NEG [facility] Comment on above: Performed By: #### U AX, UMICAO #### [facility] [address] [place] [address] Container Packer Operator: Dung Allen MD Bilirubin.direct mass conc Negative Abnormal NEG [facility] Comment on above: Performed By: #### U AX, UMICAO #### [facility] [address] [place] [address] Container Packer Operator: Dung Allen MD Color Nom (U) YELLOW Normal YEL [facility] Comment on above: Performed By: #### U AX, UMICAO #### [facility] [address] [place] [address] Container Packer Operator: Dung Allen MD Glucose mass conc Negative Normal NEG [facility] Comment on above: Performed By: #### U AX, UMICAO #### [facility] [address] [place] [address] [employer] Packer Operator: Dung Allen MD Hemoglobin mass conc (Bld) SMALL Abnormal NEG [facility] Comment on above: Performed By: #### U AX, UMICAO #### [facility] [address] [place] [address] Container Packer Operator: Dung Allen MD Leuckocyte Esterase SMALL Abnormal NEG [facility] Comment on above: Performed By: #### U LUCIAN CARMONAO #### [facility] [address] [place] [address] [employer] Packer Operator: Dung Allen MD Nitrite,Ur Negative Normal NEG [facility] Comment on above: Performed By: #### LUCIAN NUÑEZO #### [facility] [address] [place] [address] Container Packer Operator: Dung Allen MD PH,Ur 5.5 Normal 5.0-8.0 [facility] Comment on above: Performed By: #### LUCIAN NUÑEZO #### [facility] [address] [place] [address] Container Packer Operator: Dung Allen MD Protein mass conc 1+ Abnormal NEG [facility] Comment on above: Performed By: #### LUCIAN NUÑEZO #### [facility] [address] [place] [address] Container Packer Operator: Dung Allen MD Spec. [place],Ur 1.025 Normal 1.005-1.030 [facility] Comment on above: Performed By: #### U LUCIAN CARMONAO #### [facility] [address] [place] [address] Container Packer Operator: Dung Allen MD Turbidity CLEAR Normal CLEAR [facility] Comment on above: Performed By: #### LUCIAN NUÑEZO #### [facility] [address] [place] [address] Container Packer Operator: Dung Allen MD Urobilinogen,Ur ELEVATED Abnormal NORM [facility] Comment on above: Performed By: #### U AX UMICAO #### [facility] [address] [place] [address] Container Packer Operator: Dung Allen MD Comment NOT REPORTED Normal [facility] Comment on above: Performed By: #### U AX UMICAO #### [facility] [address] [place] [address] Container Packer Operator: Dung Allen MD Urinalysis,Microon 9 ----- Normal [facility] Comment on above: Performed By: #### U AX UMICAO #### [facility] [address] [place] [address] Container Packer Operator: Dung Allen MD Epithelial cells LM.HPF #/area (Urine sed) 10 TO 20 Normal 0-5 [facility] Comment on above: Performed By: #### U AXLUCIANO #### [facility] [address] [place] [address] Container Packer Operator: Dung Allen MD Other Observations Culture ordered base d on defined criteria. Abnormal NREQ [facility] Comment on above: Performed By: #### U AX UMICAO #### [facility] [address] [place] [address] [employer] Packer Operator: Dung Allen MD RBC #/vol (U) 2 TO 5 Normal 0-2 [facility] Comment on above: Performed By: #### U AX UMICAO #### [facility] [address] [place] [address] [employer] Packer Operator: Dung Allen MD WBC #/vol (U) 20 TO 50 Normal 0-5 [facility] Comment on above: Performed By: #### U AX, UMICAO #### [facility] [address] [place] [address] Container Packer Operator: Dung Allen MD Amorphous sediment LM Ql (Urine sed) NOT REPORTED Normal NONE [facility] Comment on above: Performed By: #### U AX, UMICAO #### [facility] [address] [place] [address] Container Packer Operator: Dung Allen MD Bacteria LM.HPF #/area (Urine sed) NOT REPORTED Normal NONE [facility] Comment on above: Performed By: #### U AX, UMICAO #### [facility] [address] [place] [address] [employer] Packer Operator: Dung Allen MD Casts LM.LPF #/area (Urine sed) NOT REPORTED Normal [facility] Comment on above: Performed By: #### U AX, UMICAO #### [facility] [address] [place] [address] Container Packer Operator: Dung Allen MD Crystals LM Nom (Urine sed) NOT REPORTED Normal [facility] Comment on above: Performed By: #### U AX, UMICAO #### [facility] [address] [place] [address] Container Packer Operator: Dung Allen MD Epithelial, Renal NOT REPORTED Normal 0 [facility] Comment on above: Performed By: #### U AX, UMICAO #### [facility] [address] [place] [address] Container Packer Operator: Dung Allen MD Mucus Strands NOT REPORTED Normal NONE [facility] Comment on above: Performed By: #### U AX, UMICAO #### [facility] [address] [place], [place] [id number] Container Packer Operator: Dung Allen MD Trichomonas NOT REPORTED Normal NONE [facility] Comment on above: Performed By: #### U AX, UMICAO #### [facility] [address] [place], [place] [id number] Container Packer Operator: Dung Allen MD Yeast LM Ql (Urine sed) NOT REPORTED Normal NONE [facility] Comment on above: Performed By: #### U AX, UMICAO #### [facility] [address] [place], [place] [id number] Container Packer Operator: Dung Allen MD XR CHEST (2 VW)on 11-23-2018 XR CHEST (2 VW) EXAMINATION: TWO VIEWS OF THE CHEST 11/23/2018 7:52 pm COMPARISON: 03/15/2016 HISTORY: ORDERING SYSTEM PROVIDED HISTORY: cough TECHNOLOGIST PROVIDED HISTORY: cough Ordering Physician Provided Reason for Exam: AMS Acuity: Acute Type of Exam: Initial FINDINGS: The lungs are without acute focal process. There is no effusion or pneumothorax. The cardiomediastinal silhouette is stable. The osseous structures are stable. IMPRESSION: No acute process. Interpreted by: Micah Palmer MD Signed by: Micah Palmer MD 11/23/18 Final result Normal [facility] Vital Signs Date Time Vital Sign Value Performing Clinician Faci lity 01-03-2023 15:47-0400 Diastolic blood pressure 61 mm[Hg] Brent Meneses DO Work Phone: [facility] [employer] [facility] [employer] 01-03-2023 15:47-0400 Heart rate 58 /min Brent Gideon DO Work Phone: [facility] [employer] [facility] 01-03-2023 15:47-0400 Respiratory rate 18 /min Brent Meneses DO Work Phone: [facility] [employer] [facility] 01-03-2023 15:47-0400 SaO2% (BldA) [Mass fraction] 95 % Brent Meneses DO Work Phone: [employer] 01-03-2023 15:47-0400 Systolic blood pressure 161 mm[Hg] Brent Meneses DO Work Phone: [employer] 01-03-2023 14:33-0400 Body height 157.5 cm Brent Meneses DO Work Phone: [facility] 01-03-2023 14:33-0400 Body mass index (BMI) [Ratio] 29.08 kg/m2 Brent Meneses DO Work Phone: [employer] 01-03-2023 14:33-0400 Body temperature 98.2 [degF] Brent Meneses DO Work Phone: [facility] 01-03-2023 14:33-0400 Body weight 72.12 kg Brent Meneses DO Work Phone: [employer] Encounters Encounter Date Encounter Type Care Provider Facility Start: 01-17-2024 End: 01-17-2024 ambulatory [facility] Start: 11-29-2023 End: 11-29-2023 ambulatory [facility] Start: 11-29-2023 End: 11-29-2023 Office outpatient visit 10 minutes [facility] 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 Comment on above: COVID-19 (Primary Dx ); Acute bronchitis, unspecified organism; Urinary incontinence, unspecified type Start: 10-11-2023 [facility] Comment on above: Osteoarthritis of th oracolumbar spine, unspecified spinal osteoarthritis complication status Start: 09-13-2023 End: 09-13-2023 ambulatory [facility] Start: 01-30-2023 End: 01-31-2023 ambulatory [facility] Facility:H1 Start: 01-16-2023 End: 01-16-[address] DUNG GRAVES Facility:H1 Start: 01-03-2023 End: 01-03-2023 Emergency department patient visit BRENT MENESES [facility] Start: 01-03-2023 End: 01-03-2023 Emergency department patient visit Brent Meneses DO Work Phone: [facility] ED Comment on above: Rib contusion, right , initial encounter (Primary Dx); Strain of lumbar region, initial encounter Start: 07-05-2020 End: 07-07-2020 Subsequent hospital visit by physician Jarad Link Mammo Rm 2 [facility] Comment on above: Encounter for screen ing mammogram for malignant neoplasm of breast ; Malignant neoplasm of right female breast, unspecified estrogen receptor status, unspecified site of breast (HCC) Start: 05-15-2019 End: 05-17-2019 Subsequent hospital visit by physician Jarad Link Mammo Rm 2 [facility] Comment on above: Encounter for screen ing mammogram for malignant neoplasm of breast ; Malignant neoplasm of right female breast, unspecified estrogen receptor status, unspecified site of breast (HCC) Start: 11-23-2018 End: 11-27-2018 Evaluation and management of inpatient TORSTEN HEARD [facility] Procedures Date Procedure Procedure Detail Performing Clinician Start: 09-13-2023 Adult depression scr eening assessment Tuan Rodríguez CMA Start: 01-03-2023 Radex ribs uni w/pos teroant ch minimum 3 views Brent Meneses DO Work Phone: Start: 07-05-2020 Screening mammograph y bi 2-view breast inc cad Yokasta Vidal Work Phone: Start: 05-15-2019 Screening digital br east tomosynthesis bi Yokasta Vidal Work Phone: Start: 11-27-2018 DISCHARGE PATIENT TORSTEN HEARD Start: 11-27-2018 Radiologic exam ches t 2 views TORSTEN HEARD Start: 11-27-2018 INITIATE OXYGEN THER APY PROTOCOL TORSTEN HEARD Start: 11-27-2018 Blood count complete automated TORSTEN HEARD Start: 11-27-2018 Comprehensive metabo lic panel TORSTEN HEARD Start: 11-27-2018 INTAKE AND OUTPUT TORSTEN HEARD Start: 11-26-2018 Mri brain brain stem w/o contrast material TORSTEN HEARD Start: 11-26-2018 Assay of troponin quantitative TORSTEN HEARD Start: 11-26-2018 IP CONSULT TO ONCOLOGY TORSTEN HEARD Start: 11-26-2018 INITIATE OXYGEN THER APY PROTOCOL TORSTEN HEARD Start: 11-26-2018 Assay of magnesium YOANA Wayne HEARD Start: 11-26-2018 Blood count complete automated TORSTEN FÉLIX Start: 11-26-2018 BRAIN NATRIURETIC PEPTIDE TORSTEN HEARD Start: 11-26-2018 Comprehensive metabo lic panel TORSTEN HEARD Start: 11-26-2018 INTAKE AND OUTPUT TORSTEN FÉLIX Start: 11-25-2018 IP CONSULT TO CARDIOLOGY TORSTEN HEARD Start: 11-25-2018 Ecg routine ecg w/le ast 12 lds w/i&r TORSTEN HEARD Start: 11-25-2018 EKG REPORT TORSTEN CLARI CURTIS Start: 11-25-2018 AMB EXTERNAL REFERRA L TO HOME HEALTH TORSTEN HEARD Start: 11-25-2018 Ct thorax w/o contra st material TORSTEN CLARICURTIS Start: 11-25-2018 IP CONSULT TO SOCIAL WORK TORSTEN HEARD Start: 11-25-2018 Radiologic exam ches t single view TORSTEN FÉLIX Start: 11-25-2018 INITIATE OXYGEN THER APY PROTOCOL TORSTEN FÉLIX Start: 11-25-2018 25 hydroxy includes fractions if performed TORSTEN HEARD Start: 11-25-2018 Antibody herpes smpl x type 1 TORSTEN CLARIKASSIDYLily Start: 11-25-2018 Assay of thyroid stimulating hormone tsh TORSTEN HEARD Start: 11-25-2018 Blood count complete automated TORSTEN CLARICURTIS Start: 11-25-2018 Comprehensive metabo lic panel TORSTEN CLARICURTIS Start: 11-25-2018 INTAKE AND OUTPUT TORSTEN FÉLIX Start: 11-24-2018 PATIENT STATUS (FROM ED OR OR/PROCEDURAL) TORSTEN HEARD Start: 11-24-2018 INITIATE OXYGEN THER APY PROTOCOL TORSTEN CLARICURTIS Start: 11-24-2018 Blood count complete automated TORSTEN CLARICURTIS Start: 11-24-2018 Comprehensive metabo lic panel TORSTEN ALLYNLily Start: 11-24-2018 Prothrombin time TORSTEN HEARD Start: 11-24-2018 DAILY WEIGHTS TORSTEN WEINSTEIN Start: 11-24-2018 DROPLET ISOLATION TORSTEN HEARD Start: 11-24-2018 PLACE INTERMITTENT PNEUMATIC COMPRESSION DEVICE TORSTEN HEARD Start: 11-24-2018 TELEMETRY MONITORING SALO HEARD Start: 11-24-2018 DIET GENERAL TORSTEN ACEVEDO Start: 11-24-2018 FULL CODE TORSTEN ACEVEDO Start: 11-24-2018 INITIATE OXYGEN THER APY PROTOCOL TORSTEN HEARD Start: 11-24-2018 INTAKE AND OUTPUT TORSTEN HEARD Start: 11-24-2018 NOTIFY PHYSICIAN (SPECIFY) TORSTEN HEARD Start: 11-24-2018 OT EVAL AND TREAT TORSTEN HEARD Start: 11-24-2018 PT EVAL AND TREAT TORSTEN HEARD Start: 11-24-2018 VITAL SIGNS TORSTEN ACEVEDO Start: 11-24-2018 PATIENT STATUS (FROM ED OR OR/PROCEDURAL) TORSTEN HEARD Start: 11-23-2018 Iaadiadoo influenza JAM LOUISA HEARD Start: 11-23-2018 Radiologic exam ches t 2 views TORSTEN HEARD Start: 11-23-2018 Ct head/brain w/o co ntrast material TORSTEN HEARD Start: 11-23-2018 INSERT PERIPHERAL IV SALO HEARD Start: 11-23-2018 Assay of lactate TORSTEN HEARD Start: 11-23-2018 Assay of troponin quantitative TORSTEN HEARD Start: 11-23-2018 Basic metabolic pane l calcium total TORSTEN HEARD Start: 11-23-2018 Blood count complete auto&auto difrntl wbc TORSTEN HEARD Start: 11-23-2018 Creatine kinase total J EMMA HEARD Start: 11-23-2018 Culture bacterial quanttative colony count urine TORSTEN HEARD Start: 11-23-2018 Urinalysis microscopic only TORSTEN HEARD Start: 11-23-2018 Urnls dip stick/tabl et rgnt auto w/o microscopy TORSTEN HEARD Start: 11-23-2018 Culture bacterial bl ood aerobic w/id isolates TORSTEN HEARD Start: 11-23-2018 Ecg routine ecg w/le ast 12 lds w/i&r TORSTEN HEARD Start: 11-23-2018 EKG REPORT TORSTEN ACEVEDO Plan of Treatment Date Care Activity Detail Author Start: 09-13-2024 Adult BMI Screening Adult BMI Screen ing [facility] Start: 09-13-2024 Depression Screening Depression Scre ening [facility] Start: 09-13-2024 Fall Risk Screening Fall Risk Screen ing [facility] Start: 09-13-2024 Tobacco Screening Tobacco Screening [facility] Start: 05-30-2024 Medicare Annual Well ness Visit Medicare Annual Wellness Visit [facility] Start: 05-17-2023 Influenza vaccination Influenza Vacc ine [facility] Start: 04-16-2023 Influenza vaccination Flu vacc ine (Season Ended) [facility] Start: 02-06-2023 ambulatory Ambulatory Facility:H 1 Start: 01-11-2021 COVID-19 Vaccine (3 - Booster for Pfizer series) COVID-19 Vaccine (3 - Booster for Pfizer series) [facility] Start: 05-17-2020 Influenza vaccination Flu vaccine (# 1) [place], [place] Start: 05-17-2019 Influenza vaccination Flu vaccine (# 1) [place] Start: 03-08-2019 Annual Wellness Visi t (AWV) Annual Wellness Visit (AWV) [facility] Start: 11-30-2017 Pneumococcal 65+ yea rs Vaccine (2 - PPSV23 if available, else PCV20) Pneumococcal 65+ years Vaccine (2 - PPSV23 if available, else PCV20) [facility] Start: 12-24-2004 DEXA (modify frequen cy per FRAX score) DEXA (modify frequency per FRAX score) [place] Start: 12-24-2004 Pneumococcal 65+ yea rs Vaccine (2 of 2 - PPSV23) Pneumococcal 65+ years Vaccine (2 of 2 - PPSV23) [place] Start: 12-24-2002 Annual Wellness Visi t (AWV) Annual Wellness Visit (AWV) [place] Start: 12-24-1994 Screening for osteoporosis DEXA (modify frequency per FRAX score) [facility] Start: 12-24-1989 Administration of varicella zoster vaccine Zoster (Shingles) Vaccine (1 of 2) [facility] Start: 12-24-1989 Shingles Vaccine (1 of 2) Das gles Vaccine (1 of 2) [facility] Start: 12-24-1958 DTaP,Tdap and Td Vac cines (1 - Tdap) DTaP,Tdap and Td Vaccines (1 - Tdap) [facility] Start: 12-24-1958 DTaP/Tdap/Td vaccine (1 - Tdap) DTaP/Tdap/Td vaccine (1 - Tdap) [facility] Start: 12-24-1957 Adult BMI Follow Up Plan [facility] Start: [facility] Depression Screen Depression Screen [facility] End: 11-28-2024 Bacteria identified in Urine by Culture Urine culture (clean catch) Microbiology Routine Urinary incontinence, unspecified type 1 Occurrences starting 11/29/2023 until 11/28/2024 [facility] Comment on above: 1 Occurrences starti ng 11/29/2023 until 11/28/2024 End: 11-28-2024 Urinalysis Urinalysis Lab Routine Urinary incontinence, unspecified type 1 Occurrences starting 11/29/2023 until 11/28/2024 [facility]: Comment on above: 1 Occurrences starti ng 11/29/2023 until 11/28/2024 Payers Date Payer Category Payer Medicare [employer] MEDICARE UHC MEDICARE ADVANTAGE HMO [id number] 2023-Present [phone] [address] [address] [place] [address] [id number] 2015 Medicare UHC MEDICARE UHC MEDICARE COMPLETE xxxxxxxxx 2015-Present xxxxxxxxx [id number] 1959 Medicare [id number] 1940 Unknown [id number] 1940 Unknown [id number] 1940 Unknown [id number] 1940 Unknown [id number] 1940 Unknown [id number] 1940 Unknown [id number] 1940 Unknown [id number] 1940 Unknown [id number] Social History Date Type Detail Facility Start: 08-11-2012 End: 11-24-2018 Tobacco smoking status NHIS Former smoker [facility] [employer] End: 08-11-1990 History of tobacco use Current smoker [place], [place] Start: 11-24-2018 End: 05-30-2023 Alcohol intake No [facility] Start: 1940 Sex Assigned At Not on file [place], [place] Start: 08-11-2012 End: 01-18-2020 Tobacco use and exposure Never used [facility] [place] Start: 01-18-2020 End: 01-03-2023 Alcohol intake Current non-drinker of alcohol (finding) [place], [place] End: 08-11-1990 History of tobacco use Cigarette Smoker [facility] [employer] Work Phone: Start: 01-03-2023 History SDOH Alcohol Frequency 1 [facility] [employer] Work Phone: Start: 01-03-2023 History SDOH Alcohol Std Drinks 0 [employer] Phone: Start: 12-24-2022 End: 01-03-2023 Exposure to SARS-CoV-2 (event) Not sure [employer] Phone: Start: 03-20-2023 Tobacco smoking stat us [facility] Never smoked tobacco [facility] Start: 03-20-2023 Tobacco use and exposure Forme r smokeless tobacco user [facility] End: 09-16-1979 History of tobacco use User of smokeless tobacco [facility] Start: 09-13-2023 Alcohol intake Lifetime non-d param (finding) [facility] Start: 05-30-2023 End: 09-13-2023 History of Social function [facility] Do you belong to any clubs or organizations such as synagogue groups, unions, fraternal or athletic groups, or school groups? No [facility] Are you now , , , , never or living with a partner? [facility] How often to you hav e a drink containing alcohol? Never [facility] How many standard dr inks containing alcohol do you have on a typical day? 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 female, an established patient, and is here for No chief complaint on file. . HPI Patient developed some cold symptoms including fatigue, cough, congestion, confusion and urinary incontinence on Saturday and tested positive for COVID today. She lives at [facility]. Her nurse Елена and daughter Liseth are present and most of the history came from her daughter and nurse. The nurse to denies patient has had any shortness of breath or wheezing or fever or blood in her urine. The nurses requesting a urinalysis and urine culture as patient is not usually incontinent and seems more confused than her baseline. The nurses also requesting I sent in a refill of her albuterol in case she develops shortness of breath over the weekend. She denies patient having history of chronic lung problems, but patient has an active prescription for albuterol inhaler. Patient is responsive on video call and appears in no distress but she is having a difficult time hearing me. Video Visit via Real-time Synchronous Audiovisual Provider [facility] [address] [place] [address] Patient Location: Patient's [facility] Video Visit Consent Statement: I discussed risks, benefits, and alternatives of a real-time synchronous audiovisual consultation with the patient (and any accompanying persons including her daughter Liseth and nurse Елена) including the risks that the patient's personal health details and medical records will be discussed over real-time, synchronous, interactive video/audio/telecommunication technology, the visit will not be recorded without the express consent of both the provider and the patient, and that there are some limitations compared to [id number] evaluations. The patient consented to the presence of additional virtual and/or in-person participants. We elected to proceed. Problem List Items Addressed This Visit Genitourinary Urinary incontinence Relevant Orders Urinalysis Urine culture (clean catch) Other Visit Diagnoses COVID-19 - Primary Acute bronchitis, unspecified organism Relevant Medications albuterol (PROVENTIL HFA;VENTOLIN HFA) 90 mcg/actuation inhaler Past Medical, Family, and Social History Update: The following portions of the patient's history were reviewed and updated as appropriate: allergies, current medications, past family history, past medical history, past social history, past surgical history and problem list. No past medical history on file. Past Surgical History: Procedure Laterality Date BLADDER SUSPENSION CHOLECYSTECTOMY KNEE SURGERY Bilateral MASTECTOMY Right TUBAL LIGATION Current Outpatient Medications Medication Sig Dispense Refill acetaminophen (TYLENOL) 325 mg tablet Take 2 tablets (650 mg total) by mouth in the morning and 2 tablets (650 mg total) in the evening. Take with meals. 100 tablet 2 albuterol (PROVENTIL HFA;VENTOLIN HFA) 90 mcg/actuation inhaler Inhale 2 puffs 4 (four) times a day. 18 g 0 benzonatate (TESSALON PERLES) 200 mg capsule Take 1 capsule (200 mg total) by mouth 3 (three) times a day as needed for cough. 20 capsule 0 cranberry extract 50 mg tablet,chewable Chew and swallow daily. inhalational spacing device (AEROCHAMBER MV) spacer 1 each by miscellaneous route in the morning and 1 each at noon and 1 each in the evening and 1 each before bedtime. 1 each 0 metoprolol tartrate (LOPRESSOR) 25 mg tablet Take 1 tablet (25 mg total) by mouth in the morning and 1 tablet (25 mg total) before bedtime. MYRBETRIQ 50 mg tablet extended release 24 hr Take 1 tablet (50 mg total) by mouth in the morning. olmesartan (BENICAR) 20 mg tablet Take 1 tablet (20 mg total) by mouth in the morning. traMADoL (ULTRAM) 50 mg tablet Take 1 tablet (50 mg total) by mouth in the morning and 1 tablet (50 mg total) before bedtime. 60 tablet 0 No current facility-administered medications for this visit. (All medications reviewed and updated by provider since last office visit or hospitalization) Allergies: Codeine Tobacco History: Social History Tobacco Use Smoking Status Never Smokeless Tobacco Former Quit date: 1979 (If patient a smoker, smoking cessation counseling offered) Social History: Social History Substance and Sexual Activity Alcohol Use Never Review of Systems: Review of Systems Constitutional: Positive for fatigue. Negative for activity change, appetite change, chills, fever and unexpected weight change. HENT: Positive for congestion, postnasal drip and rhinorrhea. Respiratory: Positive for cough. Negative for chest tightness, shortness of breath and wheezing. Cardiovascular: Negative. Gastrointestinal: Negative. Genitourinary: Positive for enuresis and frequency. Negative for decreased urine volume, difficulty urinating, dysuria, flank pain, hematuria, pelvic pain and urgency. Urinary incontinence Musculoskeletal: Negative for myalgias. Neurological: Negative. Psychiatric/Behavioral: Positive for confusion. Physical Exam: There were no vitals taken for this visit. Physical Exam Clinical Nurse Educator present: Liseth daughter and nurse Елена present. Constitutional: Appearance: Normal appearance. She is obese. Comments: Patient appears in no distress and is sitting in her chair during video call but has a hard time hearing provider when asking questions HENT: Head: Normocephalic and atraumatic. Neurological: Mental Status: She is alert. Assessment and Plan: Diagnoses and all orders for this visit: COVID-19 Acute bronchitis, unspecified organism - albuterol (PROVENTIL HFA;VENTOLIN HFA) 90 mcg/actuation inhaler; Inhale 2 puffs 4 (four) times a day. Urinary incontinence, unspecified type - Urinalysis; Future - Urine culture (clean catch); Future Follow-up: Patient was offered treatment with Paxlovid as she is in treatment window and is high risk for hospitalization given age and medical history. Daughter and patient decline prescription for antiviral when asked twice by nurse. They seem more concerned with getting an antibiotic for possible UTI so will send urinalysis and culture order to Eugene Woodard MA or PILY Espinoza to fax order before end of day. She has a standing order for Tylenol and Tessalon Perles for cough and sent refill for albuterol as needed for shortness of breath. Nurse told that if patient's symptoms worsen she should contact office within 5 days of symptom onset for treatment with antiviral or go to ER. Will treat possible UTI based on urine culture results. Patient's GFR is 64 as of April of 2023. [id number] 11min. ELLIE CARIAS APRN-CNP 11/29/232036 documented in this encounter [facility] Note 10-11-2023 Telephone Encounter - Tuan Rodríguez CMA - 10/11/2023 10:17 AM EST Note Date & Type Note Facility 10-11-2023 Miscellaneous Notes Formattin g of this note might be different from the original. Nurse called from assisted living and would like pt to have a refill on tramdoll documented in this encounter [facility] Telephone encounter Note 10-11-2023 Telephone Encounter - Tuan Rodríguez CMA - 10/11/2023 10:17 AM EST Note Date & Type Note Facility 10-11-2023 Telephone encount er Note Nurse called from assisted living and would like pt to have a refill on tramdoll [facility] Discharge instructions 01-03-2023 Discharge InstructionsAttachments Note Date & Type Note Facility 01-03-2023 Hospital Discharg e instructions Brent Meneses DO - 01/03/2023 3:39 PM EDT Please make an appointment to follow up with your primary doctor and/or the specialist as we discussed. Take all medications as prescribed. Return to ER if condition worsens or you develop any new/concerning symptoms as we discussed. The following attachments cannot be sent through Care Everywhere.Back: Strain (Luxembourger)Rib Contusion (Luxembourger)documented in this encounter [employer] Phone: Evaluation note Note Date & Type Note Facility Evaluation note Diagnosis Rib contusion, right, initial encounter- Primary Strain of lumbar region, initial encounter documented in this encounter [employer]: Evaluation note Note Date & Type Note Facility Evaluation note Diagnosis Osteoarthritis of thoracolumbar spine, unspecified spinal osteoarthritis complication status [facility] Note Date & Type Note Facility Evaluation note Diagnosis COVID-19- Primary Acute bronchitis, unspecified organism Urinary incontinence, unspecified type [facility] Instructions Note Date & Type Note Facility Instructions Not on filedocumented in this en counter [facility] Instructions Note Date & Type Note Facility Instructions Not on filedocumented in this en counter [facility] Summary Purpose Family History No Family History Records FoundNo Family History Records FoundNo Family History Records FoundNo Family History Records Found Advance Directives No Advanced Directives Records FoundDocuments on File Type Date Recorded Patient Esthetician/Owner Expl anation Advance Directives and Living Will Power of Tour Counselor Latest Code Status on File Code Status Date Activated Date Inactivated Comments Full Code 11/23/2018 11:18 PM 11/27/2018 7:29 PM Documents on File Type Date Recorded Patient Esthetician/Owner Expl anation ACP-Advance Directive ACP-Power of Tour Counselor Latest Code Status on File Code Status Date Activated Date Inactivated Comments Full Code 11/23/2018 11:18 PM 11/27/2018 7:29 PM Reason for Referral Status Reason Specialty Diagnoses / Procedures Referre d By Contact Referred To Contact Closed Radiology Diagnoses Encounter for screening mammogram for malignant neoplasm of breast Malignant neoplasm of right female breast, unspecified estrogen receptor status, unspecified site of breast (HCC) Procedures ABBY DIGITAL SCREEN UNILATERAL LEFT Yokasta Vidal MD [address] [address] Assessments Diagnosis Encounter for screening mammogram for malignant neoplasm of breast Other screening mammogram Malignant neoplasm of right female breast, unspecified estrogen receptor status, unspecified site of breast (HCC) Diagnosis Encounter for screening mammogram for malignant neoplasm of breast Other screening mammogram Malignant neoplasm of right female breast, unspecified estrogen receptor status, unspecified site of breast (HCC) Additional Source Comments INFORMATION SOURCE (unrecogn ized section and content) DATE CREATED AUTHOR 11/30/2018 [facility] DATE CREATED AUTHOR AUTHOR'S ORGANIZ ATION 01/03/2023 [facility] DATE CREATED AUTHOR AUTHOR'S ORGANIZ ATION 01/31/2023 [facility] DATE CREATED AUTHOR AUTHOR'S ORGANIZ ATION 01/18/2024 [facility] Reason for Visit (unrecogniz ed section and content) Status Reason Specialty Diagnoses / Procedures Referre d By Contact Referred To Contact Closed Radiology Diagnoses Encounter for screening mammogram for malignant neoplasm of breast Malignant neoplasm of right female breast, unspecified estrogen receptor status, unspecified site of breast (HCC) Procedures ABBY DIGITAL SCREEN UNILATERAL LEFT Yokasta Vidal MD [address] [address] Status Reason Specialty Diagnoses / Procedures Referre d By Contact Referred To Contact Closed Radiology Diagnoses Encounter for screening mammogram for malignant neoplasm of breast Malignant neoplasm of right female breast, unspecified estrogen receptor status, unspecified site of breast (HCC) Procedures ABBY AMANDA DIGITAL SCREEN UNI LEFT ABBY DIGITAL SCREEN UNILATERAL LEFT HC MAMMO SCREENING INCL CAD IF PERF Yokasta Vidal MD [address] [place] [address] Reason Comments Fall Back Pain Scheduled Active and Recently Administ ered Medications (unrecognized section and content) Medication Order 01/01/2023 01/02/2023 01/03/2023 ketorolac (TORADOL) injection 30 mg (COMPLETED) 30 mg, IntraMUSCular, ONCE, 1 dose, On Ivy 01/03/23 at 1500 1456 (Given - Provid er: Kenny Cope RN) Care Teams (unrecognized sec tion and content) Venue Coordinator Relationship Specialty Start Date End Date Torsten Heard MD [address] [place] [address] PCP - General 08/01/12 Venue Coordinator Relationship Specialty Start Date End Date Nakul Worley DO [address] [place] [address] PCP - General Internal Medicine 03/18/23 Venue Coordinator Relationship Specialty Start Date End Date Nakul Worley DO [address] [place] [address] PCP - General Internal Medicine 03/18/23 FOR RECORDS PERTAINING TO PATIENTS WHO ARE OR HAVE BEEN ENROLLED IN A CHEMICAL DEPENDENCY/SUBSTANCEABUSE PROGRAM, SOME INFORMATION MAY BE OMITTED. This clinical summary was aggregated from multiple sources. Caution should be exercised in using it in the provision of clinical care. This summary normalizes information from multiple sources, and as a consequence, information in this document may materially change the coding, format and clinical context of patient data. In addition, data may be omitted in some cases. CLINICAL DECISIONS SHOULD BE BASED ON THE PRIMARY CLINICAL RECORDS. [email or web address] provides no warranty or guarantee of the accuracy or completeness of information in this document.
[2024-04-20 17:23] LABS: Bilirubin Urine NEGATIVE (NEGATIVE); Blood Urine NEGATIVE (NEGATIVE); Clarity Urine CLEAR (CLEAR); Color Urine LT. YELLOW (YELLOW); Glucose Urine UA 500 mg/dL (NEGATIVE); Ketones Urine NEGATIVE (NEGATIVE); Leukocyte Esterase Urine SMALL (NEGATIVE); Nitrite Urine NEGATIVE (NEGATIVE); Protein Urine NEGATIVE (NEG/TRACE); Specific Gravity Urine <=1.005 (1.005-1.025)
[2024-04-20 17:34] LABS: Bacteria Urine MODERATE #/HPF (NONE SEEN); Cast Seen? NONE SEEN #/LPF (NONE SEEN); Crystals Seen? None Seen #/HPF (None Seen); Mucus Urine NONE SEEN (NONE SEEN); RBC Urine 0-2 #/HPF (0-2); Squamous Epithelial Cell Urine FEW #/LPF (NONE/RARE); Urine Culture Indicated YES
[2024-04-20 17:49] LABS: Glucometer 255 mg/dL (74-106)
[2024-04-20] MEDS: CEPHALEXIN 500 MG CAPSULE PO (18:08)
[2024-04-20 18:09] VITALS: BP 148/92; PULSE 76; O2SAT 99
--- NOTE | 2024-04-21 15:14 | ED_ITS ---
HPI HPI - General Adult General Chief complaint: Urogenital-Female Stated complaint: POSS UTI Time Seen by Provider: 04/20/24 15:28 Source: patient Mode of arrival: walk-in Limitations: no limitations History of Present Illness HPI narrative: 83-year-old female to the emergency department with chief complaint of possible UTI. Patient presents with her daughter who helps provide history. She reports that her mother has some baseline confusion. She is normally very chacon and serious. When she gets a UTI she becomes very silly. She reports that she has become very goofy over the last few days. They are concerned that she may have a urinary tract infection because of this. Patient denies any dysuria, urgency, frequency. No recent falls or injuries. She denies any vision changes, numbness, weakness, tingling. She denies any chest pain or shortness of breath. No abdominal pain, nausea, vomiting. Daughter is also concerned she may be mildly dehydrated. Related Data Home Medications ?Medication ?Instructions ?Recorded ?Confirmed acetaminophen 325 mg capsule 650 mg PO QID PRN pain 02/26/24 02/26/24 (Tylenol) benzonatate 200 mg capsule 200 mg PO TID 02/26/24 02/26/24 cranberry 500 mg capsule 500 mg PO DAILY 02/26/24 02/26/24 guaifenesin 600 mg tablet, 600 mg PO BID PRN cough 02/26/24 02/26/24 extended release 12 hr meloxicam 7.5 mg tablet 7.5 mg PO BID 02/26/24 02/26/24 metoprolol tartrate 25 mg tablet 25 mg PO BID 02/26/24 02/26/24 olmesartan 20 mg tablet (Benicar) 20 mg PO DAILY 02/26/24 02/26/24 Previous Rx's ?Medication ?Instructions ?Recorded tramadol 50 mg tablet 50 mg PO BID PRN pain #28 tabs 04/16/24 cephalexin 500 mg capsule 500 mg PO BID 5 days #10 caps 04/20/24 Allergies Allergy/AdvReac Type Severity Reaction Status Date / Time No Known Drug Allergies Allergy Verified 04/20/24 15:29 Opioid HPI Opioid Management Most Recent Opioid Data: No Data to Display Review of Systems ROS Status of ROS 10 or more systems reviewed and unremark able except as noted in history and below Exam Narrative Exam Narrative: VITALS: I have reviewed the triage vital signs. GENERAL: Elderly field male in no acute distress NEURO: Alert and orientedx3. Moves all extremities. Face is symmetric and expressive. EYES: PERRL. No scleral icterus or conjunctival injection. No discharge. HENT: Normocephalic, atraumatic. Hearing is grossly intact. Nares grossly patent and without discharge. Mucous membranes moist. NECK: No JVD. Patient moves neck without restriction. CARDIO: Rhythm regular. Normal rate. No murmur, rub, or gallop. Pulses equal bilaterally in the upper and lower extremity. No lower extremity edema. PULM: Lungs clear to auscultation in all lucas. No wheezes, rales, or rhonchi. No conversational dyspnea. No splinting, stridor, or accessory muscle use. GI/: Abdomen is soft and non-tender. Normoactive bowel sounds. EXTREMITIES: Symmetric muscle bulk. No joint swelling. No clubbing, cyanosis, or deformity. SKIN: Warm and dry. Normal turgor. No rash or lesions appreciated. PSYCH: Mood, affect, and interaction is appropriate to the setting. Constitutional Vital Signs, click to edit/add: Last Vital Signs Temp 98.5 F 04/20/24 15:30 Pulse 76 04/20/24 18:09 Resp 16 04/20/24 18:09 BP 148/92 H 04/20/24 18:09 Pulse Ox 99 04/20/24 18:09 O2 Del Method Room Air 04/20/24 15:30 Course Vital Signs Vital signs: Vital Signs Temperature 98.5 F 04/20/24 15:30 Pulse Rate 85 04/20/24 15:30 Respiratory Rate 18 04/20/24 15:30 Blood Pressure 165/91 H 04/20/24 15:30 Pulse Oximetry 95 04/20/24 15:30 Oxygen Delivery Method Room Air 04/20/24 15:30 Temperature 98.5 F 04/20/24 15:30 Pulse Rate 76 04/20/24 18:09 Respiratory Rate 16 04/20/24 18:09 Blood Pressure 148/92 H 04/20/24 18:09 Pulse Oximetry 99 04/20/24 18:09 Oxygen Delivery Method Room Air 04/20/24 15:30 Medical Decision Making MDM Narrative Medical decision making narrative: Well-appearing 83-year-old female to the emergency department chief complaint of possible UTI. Vital stable, the patient is afebrile. Patient is pleasant and alert and oriented on exam. Basic labs ordered. Patient and her daughter agree with this plan. CBC is unremarkable. Chemistry does show some hyperglycemia, otherwise unremarkable. Urinalysis is positive for UTI. Discussed the hyperglycemia with the patient and her daughter. She has no history of diabetes. She did just drink a large root beer before coming into the emergency department. Repeat blood sugar is decreasing. She was given a liter of fluids to correct any dehydration associated. They will follow-up with her PCP about this. Will treat the urinary tract infection with Keflex. They agree with plan for discharge home. Return precautions were discussed. All questions were answered. The patient was discharged home. Medical Records Medical records reviewed: Yes I reviewed the patient's medical records Lab Data Lab results reviewed: Yes I reviewed the patient's lab results Labs: Lab Results 04/20/24 04/20/24 04/20/24 Range/Units 16:00 17:15 17:48 WBC 8.0 (4.0-11.0) 10^3/uL RBC 4.10 L (4.20-5.40) 10^6/uL Hgb 13.6 (12.0-16.0) g/dL Hct 39.2 (36.0-48.0) % MCV 95.6 (81.0-99.0) fL MCH 33.2 (26.7-34.0) pg MCHC 34.7 (29.9-35.2) g/dL RDW 11.4 (11.0-15.0) % Plt Count 172 (150-450) 10^3/uL MPV 11.3 (9.5-13.5) fL Neut % (Auto) 69.0 (43.0-75.0) % Lymph % (Auto) 19.8 L (20.5-60.0) % Person % (Auto) 8.9 (1.7-12.0) % Eos % (Auto) 1.1 (0.9-7.0) % Baso % (Auto) 0.9 (0.2-2.0) % Neut # (Auto) 5.5 (1.4-6.5) 10^3/uL Lymph # (Auto) 1.6 (1.2-3.8) 10^3/uL Person # (Auto) 0.7 (0.3-0.8) 10^3/uL Eos # (Auto) 0.1 (0.0-0.7) 10^3/uL Baso # (Auto) 0.1 (0.0-0.1) 10^3/uL Abs Immat Gran (auto) 0.02 (0.00-0.03) 10^3/uL Imm/Tot Granulo (auto) 0.3 (0.0-0.5) % Sodium 131 L (136-145) mmol/L Potassium 3.8 (3.5-5.1) mmol/L Chloride 96 L (98-107) mmol/L Carbon Dioxide 24.7 (21.0-32.0) mmol/L Anion Gap 14.1 BUN 18.0 (7.0-18.0) mg/dL Creatinine 0.94 (0.55-1.02) mg/dL Est GFR ( Amer) >60 (>=60) Est GFR (Non-Af Amer) 57 L (>=60) BUN/Creatinine Ratio 19.1 Glucose 299 H (74-106) mg/dL Calcium 9.2 (8.5-10.1) mg/dL Urine Color Lt. yellow (YELLOW) Urine Clarity Clear (CLEAR) Urine pH 6.0 (5.0-9.0) Ur Specific [place] <=1.005 A (1.005-1.025) Urine Protein Negative (NEG/TRACE) mg/dL Urine Glucose (UA) 500 A (NEGATIVE) mg/dL Urine Ketones Negative (NEGATIVE) mg/dL Urine Occult Blood Negative (NEGATIVE) Urine Nitrite Negative (NEGATIVE) Urine Bilirubin Negative (NEGATIVE) Urine Urobilinogen 1.0 (0.2-1.0) EU/dL Ur Leukocyte Esterase Small A (NEGATIVE) Urine RBC 0-2 (0-2) #/HPF Urine WBC 2-5 A (NONE SEEN) #/HPF Ur Squamous Epith Cells Few A (NONE/RARE) #/LPF Urine Crystals None seen (None Seen) #/HPF Urine Bacteria Moderate A (NONE SEEN) #/HPF Urine Casts None seen (NONE SEEN) #/LPF Urine Mucus None seen (NONE SEEN) Ur Culture Indicated? Yes POC Glucose 255 H (74-106) mg/dL Discharge Plan Discharge Stand Alone Forms: Portal Instructions Chief Complaint: Urogenital-Female Clinical Impression: Acute UTI (urinary tract infection), Hyperglycemia Patient Disposition: Home, Self-Care Time of Disposition Decision: 17:57 Condition: Good Mode of Transportation: Private Vehicle Prescriptions / Home Meds: New cephalexin 500 mg capsule 500 mg PO BID 5 Days Qty: 10 0RF No Action acetaminophen [Tylenol] 325 mg capsule 650 mg PO QID PRN (Reason: pain) cranberry 500 mg capsule 500 mg PO DAILY Rx Instructions: administer with a meal metoprolol tartrate 25 mg tablet 25 mg PO BID olmesartan [Benicar] 20 mg tablet 20 mg PO DAILY benzonatate 200 mg capsule 200 mg PO TID guaifenesin 600 mg tablet extended release 12hr 600 mg PO BID PRN (Reason: cough) meloxicam 7.5 mg tablet 7.5 mg PO BID tramadol 50 mg tablet 50 mg PO BID PRN (Reason: pain) Qty: 28 0RF Print Language: Mauritanian Instructions: Cephalexin (By mouth), Nondiabetic Hyperglycemia (ED), Urinary Tract Infection in Older Adults (ED) Additional Instructions: Call the office of your primary care doctor to arrange for follow-up within the above-stated timeframe. Your ED visit was focused on your acute issue and does not replace primary care. You should review your labs, imaging, and diagnoses from this ED visit with your primary care physician. There may be non-emergent/ incidental findings that need further evaluation. You should review your vital signs including blood pressure with your PCP. If you were prescribed medications you should discuss possible side-effects and drug interactions with your pharmacist. Call 911 or go to the nearest Emergency Department if you develop any new or worsening symptoms. Referrals: NAKUL WORLEY [Primary Care Provider] - 1 week Discharge Date/Time: 04/20/24 18:10
== END 2024-04-20 18:10 | disposition home or self-care (01) ==
PROVIDERS: Emergency Provider Student in an Organized Health Care Education/Training Program; PCP Internal Medicine
DX: N39.0 Urinary tract infection, site not specified (principal); R73.9 Hyperglycemia, unspecified
CPT/HCPCS: 36415; 80048; 81001; 85025; 87086; 99284

== ENCOUNTER 2024-04-29 10:56 | Outpatient (OUT) | payer MEDICARE, SELFPAY ==
--- OUTSIDE RECORDS SUMMARY | 2024-04-29 11:15 | XMS_ITS | CCD ---
Author Organization [facility] Care Team Providers Care Econometrician Name Role Phone TORSTEN HEARD Primary Care Unavailable CARMITA MORENO (NIHARIKA) Attending Unavailab CARMITA Paredes (NIHARIKA) Admitting Unavailab ESTEBAN Anglin Consulting Unavailable YOKASTA VIDAL Consulting Unavailable JULES GOMEZ Consulting Unavailable Torsten Heard Primary Care Provider Torsten Heard Primary Care Provider Torsten Heard MD Primary Care Provider BRENT MENESES Attending Unavailable TORSTEN HEARD Primary Care Unavailable [facility] Primary Care Unavaila ALEN Charles Admitting Unavailable ALEN ASENCIO Attending Unavailable DR DUNG GRAVES Attending Unavailabl e [facility] Primary Care Unavaila DR DUNG Manzo Admitting Unavailabl elizabeth GRAVES, DR DUNG Rodriguez Consulting Unavailabl e MIRNA VICTOR Consulting Unavailable BONITA JAY Consulting Unavailable [facility] Primary Care Unavaila ALEN Charles Admitting Unavailable ALEN ASENCIO Consulting Unavailable ALEN ASENCIO Attending Unavailable Nakul Worley DO Primary Care Provider ABDULKADIR MAJOR Attending Unavailable NAKUL WORLEY Referring Unavailable NAKUL WORLEY Primary Care Unavailable NAKUL WORLEY Attending Unavailable NAKUL WORLEY Referring Unavailable NAKUL WORLEY Primary Care Unavailable NAKUL WORLEY Attending Unavailable NAKUL WORLEY Referring Unavailable NAKUL WORELY Primary Care Unavailable Allergies Allergy Classification Reported Allergen(s) Allergy Type Date of Onset Reaction(s) Facility (6 sources) Codeine; Translations: [CODEINE] Drug Allergy 06-16-2012 [facility] [place] Medications Current Medications Medication Drug Class(es) Dates [...] with meals. 100 tablet 2 09/25/2023 Active [id number] 200 actuat albuterol 0.09 mg/actuat metered dose [...] 20 mg/ml oral solution (1 source) Uncompetitive Y-gmvfvj-L-aspartat e Receptor Antagonist, Sigma-1 Agonist Start: 11-27-2018 [...] daily 30 capsule 3 11/27/2018 Active ergocalciferol 11434 unt oral capsule (2 sources) Provitamin D2 Compound Start: 12-02-2018 take 1 capsule by mouth every week vitamin D (ERGOCALCIFEROL) 34038 units capsule Take 1 capsule by mouth [...] before bedtime. 1 each 0 09/13/2023 Active meloxicam 7.5 mg oral tablet (1 source) Nonsteroidal Anti-inflammatory Drug Start: 04-20-2024 take 7.5 mg by mouth once daily Meloxicam Active 7.5 MG PO Daily April 20, 2024 12:00am metoprolol tartrate 25 mg oral tablet (6 sources) beta-Adrenergic Lexx Start: 04-20-2024 take 25 mg by mouth once daily Metoprolol Tartrate Active 25 MG PO Daily April 20, 2024 12:00am take 1 tablet by elder th in the morning, then take 1 tablet by mouth at bedtime metoprolol tartrate (LOPRESSOR) 25 mg tablet Take 1 tablet (25 mg total) by mouth in the morning and 1 tablet (25 mg total) before bedtime. 0 Active 24 hr mirabegron 50 mg extended release oral tablet (3 sources) beta3-Adrenergic Agonist Start: 04-20-2024 take 1 tablet by mouth every twenty-four hours Mirabegron (Myrbetriq) 50 mg tablet extended release 24 hr Active MG PO April 20, 2024 12:00am Start: 06-19-2023 take 1 tablet by elder th every twenty-four hours in the morning MYRBETRIQ 50 mg tablet extended release 24 hr Take 1 tablet (50 mg total) by mouth in the morning. 0 06/19/2023 Active olmesartan medoxomil 20 mg oral tablet (3 sources) Angiotensin 2 Receptor Lexx Start: 04-20-2024 take 20 mg by mouth once daily Olmesartan Active 20 MG PO Daily April 20, 2024 12:00am Start: 06-07-2023 take 1 tablet by elder th in the morning olmesartan (BENICAR) 20 mg tablet Take 1 tablet (20 mg total) by mouth in the morning. 0 06/07/2023 Active traMADol hydrochloride 50 mg oral tablet (7 sources) Opioid Agonist Start: 04-20-2024 take 50 mg by mouth once daily Tramadol Active 50 MG PO Daily April 20, 2024 12:00am Start: 11-11-2023 take 1 tablet by elder th in [...] Onset: 11-24-2018 11-24-2018 Episodic Cancer of breast (6 sources) Malignant tumor of breast ; Translations: [...] Translations: [DIZZINESS AND GIDDINESS] Onset: 01-18-2023 Episodic Disorders of lipid metabolism (1 source) Hypercholesterolemia ; Translations: [Pure hypercholesterolemia , unspecified] 04-20-2024 Chronic Essential hypertension (9 sources) Essential (primary) hypertension; Translations: [Hypertensive disorder] [...] Weakness; Translations: [Asthenia] Onset: 11-26-2018 11-26-2018 Episodic Osteoarthritis (1 source) Arthritis; Translations: [Unspecified osteoarthritis, unspecified site] 04-20-2024 Chronic Other diseases of bladder and urethra (1 source) Overactive bladder; Translations: [Overactive bladder] 04-20-2024 Chronic Other injuries and conditions due to external [...] TSHon 01-30-2023 TSH 3.637 uIU/mL Normal 0.358-3.740 [facility] Comment on above: Performed By: #### T SH #### [facility] [address] [place] [address] Dr. Fermin Gonzalez VITAMIN B12on 01-30-2023 Cobalamin (Vitamin B12) [Mass/Vol] 525.0 pg/mL Normal 193.0-986.0 [facility] Comment on above: Performed By: #### V ITB12 #### [facility] [address] [place] [address] Dr. Fermin Gonzalez BNPon 01-16-2023 Natriuretic peptide B (Bld) [Mass/Vol] 400.0 pg/mL Normal <=1,800.0 [facility] Comment on above: Performed By: #### H STROPN, BNP, CMP #### [facility] [address] [place] [address] Dr. Fermin Gonzalez CBC AUTO DIFFon 01-16-2023 BASO # 0.1 103/ul Normal 0.0-0.1 [facility] Comment on above: Performed By: #### C BC #### [facility] [address] [place] [address] Dr. Fermin Gonzalez Basophils/100 WBC (Bld) 1.2 % Normal 0.2-2.0 [facility] Comment on above: Performed By: #### C BC #### [facility] [address] [place] [address] Dr. Fermin Gonzalez EO # 0.1 103/ul Normal 0.0-0.7 [facility] Comment on above: Performed By: #### C BC #### [facility] [address] [place] [address] Dr. Fermin Gonzalez Eosinophils/100 WBC (Bld) 1.3 % Normal 0.9-7.0 [facility] Comment on above: Performed By: #### C BC #### [facility] [address] [place] [address] Dr. Fermin Gonzalez Erythrocyte distribution width (RBC) [Ratio] 12.4 % Normal 11.0-15.0 [facility] Comment on above: Performed By: #### C BC #### [facility] [address] [place] [address] Dr. Fermin Gonzalez Hematocrit (Bld) [Volume fraction] 37.4 % Normal 36.0-48.0 [facility] Comment on above: Performed By: #### C BC #### [facility] [address] [place] [address] Dr. Fermin Gonzalez Hemoglobin (Bld) [Mass/Vol] 12.9 g/dL Normal 12.0-16.0 [facility] Comment on above: Performed By: #### C BC #### [facility] [address] [place] [address] Dr. Fermin Gonzalez IG # 0.03 10e3/ul Normal 0.00-0.03 [facility] Comment on above: Performed By: #### C BC #### [facility] [address] [place] [address] Dr. Fermin Gonzalez IG % 0.4 % Normal 0.0-0.5 [facility] Comment on above: Performed By: #### C BC #### [facility] [address] [place] [address] Dr. Fermni Gonzalez LYMPH # 2.3 103/ul Normal 1.2-3.8 [facility] Comment on above: Performed By: #### C BC #### [facility] [address] [place] [address] Dr. Fermin Gonzalez Lymphocytes/100 WBC (Bld) 30.9 % Normal 20.5-60.0 [facility] Comment on above: Performed By: #### C BC #### [facility] [address] [place] [address] Dr. Fermin Gonzalez MANUAL DIFF REQ NO Normal [facility] Comment on above: Performed By: #### C BC #### [facility] [address] [place] [address] Dr. Fermin Gonzalez MCH (RBC) [Entitic mass] 33.2 pg Normal 26.7-34.0 [facility] Comment on above: Performed By: #### C BC #### [facility] [address] [place] [address] Dr. Fermin Gonzalez MCHC (RBC) [Mass/Vol] 34.5 g/dL Normal 29.9-35.2 [facility] Comment on above: Performed By: #### C BC #### [facility] [address] [place] [address] Dr. Fermin Gonzalez MCV (RBC) [Entitic vol] 96.1 fL Normal 81.0-99.0 [facility] Comment on above: Performed By: #### C BC #### [facility] [address] [place] [address] Dr. Fermin Gonzalez MONO # 0.7 103/ul Normal 0.3-0.8 [facility] Comment on above: Performed By: #### C BC #### [facility] [address] [place] [address] Dr. Fermin Gonzalez Monocytes/100 WBC (Bld) 9.4 % Normal 1.7-12.0 [facility] Comment on above: Performed By: #### C BC #### [facility] [address] [place] [address] Dr. Fermin Gonzalez NEUT # 4.2 103/ul Normal 1.4-6.5 [facility] Comment on above: Performed By: #### C BC #### [facility] [address] [place] [address] Dr. Fermin Gonzalez Neutrophils/100 WBC (Bld) 56.8 % Normal 43.0-75.0 [facility] Comment on above: Performed By: #### C BC #### [facility] [address] [place], [place] [address] Dr. Fermin Gonzalez Platelet mean volume (Bld) [Entitic vol] 10.3 fL Normal 9.5-13.5 [facility] Comment on above: Performed By: #### C BC #### [facility] [address] [place], [place] [address] Dr. Fermin Gonzalez PLT 252 103/ul Normal 150-450 [facility] Comment on above: Performed By: #### C BC #### [facility] [address] [id number] [address] Fermin Gonzalez RBC 3.89 106/ul Critically low 4.20-5.40 [facility] Comment on above: Performed By: #### C BC #### [facility] [address] [address] [address] Fermin Gonzalez WBC 7.4 103/ul Normal 4.0-11.0 [facility] Comment on above: Performed By: #### C BC #### [facility] [address] [address] [address] HEAD WO CONon [...] Date: 2023-01-16 19:47 Normal [facility] ER URINE PROFILEon 3 Bilirubin Ql (U) Negative Normal NEGATIVE [facility] Comment on above: Performed By: #### Elizabeth SILVA, UMICRO #### [facility] [address] [address] [address] Fermin Gonzalez Clarity (U) CLEAR Normal CLEAR [facility] Comment on above: Performed By: #### E WESTR, UMICRO #### [facility] [address] [place] [address] Dr. Fermin Gonzalez Color (U) LT. YELLOW Normal YELLOW [facility] Comment on above: Performed By: #### Elizabeth SILVA UMICRO #### [facility] [address] [place] [address] Dr. Fermin Gonzalez ERUAHD A micrscopic examination will be performed if indicated. Normal [facility] Comment on above: Performed By: #### Elizabeth SILVA UMICRO #### [facility] [address] [place] [address] Dr. Fermin Gonzalez Glucose Ql (U) Negative Normal NEGATIVE [facility] Comment on above: Performed By: #### Elizabeth SILVA, UMICRO #### [facility] [address] [place] [address] Dr. Fermin Gonzalez Hemoglobin Ql (U) Negative Normal NEGATIVE [facility] Comment on above: Performed By: #### Elizabeth DODSONR UMICRO #### [facility] [address] [place] [address] Dr. Fermin Gonzalez Ketones Ql (U) Negative Normal NEGATIVE [facility] Comment on above: Performed By: #### Elizabeth RUR UMICRO #### [facility] [address] [place] [address] Dr. Fermin Gonzalez LEUKOCYTES SMALL Abnormal NEGATIVE [facility] Comment on above: Performed By: #### Elizbaeth SILVA UMICRO #### [facility] [address] [place] [address] Dr. Fermin Gonzalez Nitrite Ql (U) Negative Normal NEGATIVE [facility] Comment on above: Performed By: #### DREW MORALESRO #### [facility] [address] [place] [address] Dr. Fermin Gonzalez pH (U) 7.0 [pH] Normal 5-9 [facility] Comment on above: Performed By: #### DREW MORALESRO #### [facility] [address] [place] [address] Dr. Fermin Gonzalez SPEC GRAVITY 1.010 Normal 1.005-<=1.025 [facility] Comment on above: Performed By: #### DREW MORALESRO #### [facility] [address] [place] [address] Dr. Fermin Gonzalez UA PROTEIN Negative Normal NEGATIVE/ TRACE [facility] Comment on above: Performed By: #### DREW MORALESRO #### [facility] [address] [place] [address] Dr. Fermin Gonzalez UR MICRO IND INDICATED Normal [facility] Comment on above: Performed By: #### DREW MORALESRO #### [facility] [address] [place] [address] Dr. Fermin Gonzalez Urobilinogen Qn (U) 1.0 {Adonay'U}/dL Normal 0.2 - 1.0 [facility] Comment on above: Performed By: #### DREW MORALESRO #### [facility] [address] [place] [address] Dr. Fremin Gonzalez PROF 14(COMP METB)on 023 Albumin [Mass/Vol] 3.6 g/dL Normal 3.4-5.0 [facility] Comment on above: Performed By: #### H STROPN, BNP, CMP #### [facility] [address] [place] [address] Dr. Fermin Gonzalez Albumin/Globulin [Mass ratio] 0.9 {ratio} Normal [facility] Comment on above: Performed By: #### H STROPN, BNP, CMP #### [facility] [address] [address] [address] Fermin Gonzalez ALP [Catalytic activity/Vol] 101 U/L Normal 46-116 [facility] Comment on above: Performed By: #### H STROPN, BNP, CMP #### [facility] [address] [address] [address] Fermin Gonzalez ALT [Catalytic activity/Vol] 30 U/L Normal 14-59 [facility] Comment on above: Performed By: #### H STROPN, BNP, CMP #### [facility] [address] [address] [address] Fermin Gonzalez Anion gap [Moles/Vol] 9.5 mmol/L Normal [facility] Comment on above: Performed By: #### H STROPN, BNP, CMP #### [facility] [address] [address] [address] Fermin Gonzalez AST [Catalytic activity/Vol] 34 U/L Normal 15-37 [facility] Comment on above: Performed By: #### H STROPN, BNP, CMP #### [facility] [address] [address] [address] Fermin Gonzalez Bilirubin [Mass/Vol] 0.5 mg/dL Normal 0.2-1.0 [facility] Comment on above: Performed By: #### H STROPN, BNP, CMP #### [facility] [address] [place] [address] Dr. Fermin Gonzalez Calcium [Mass/Vol] 9.0 mg/dL Normal 8.5-10.1 [facility] Comment on above: Performed By: #### H STROPN, BNP, CMP #### [facility] [address] [address] [address] Fermin Gonzalez Chloride [Moles/Vol] 106 mmol/L Normal 98-107 [facility] Comment on above: Performed By: #### H STROPN, BNP, CMP #### [facility] [address] [address] [address] Fermin Gonzalez CO2 [Moles/Vol] 29.3 mmol/L Normal 21.0-32.0 [facility] Comment on above: Performed By: #### H STROPN, BNP, CMP #### [facility] [address] [address] [address] Fermin Gonzalez Creatinine [Mass/Vol] 1.06 mg/dL Critically high 0.55-1.02 [facility] Comment on above: Performed By: #### H STROPN, BNP, CMP #### [facility] [address] [address] [address] Fermin Gonzalez EGFR-AF SIERRA LEONEAN =60 Normal >=60 [facility] Comment on above: Performed By: #### H STROPN, BNP, CMP #### [facility] [address] [address] [address] Fermin Gonzalez EGFR-NON AF SIERRA LEONEAN 50 mL/min/1.73m2 Critically low >=60 [facility] Comment on above: Performed By: #### H STROPN, BNP, CMP #### [facility] [address] [address] [address] Fermin Gonzalez Globulin (S) [Mass/Vol] 4.1 g/dL Normal [facility] Comment on above: Performed By: #### H STROPN, BNP, CMP #### [facility] [address] [address] [address] Fermin Gonzalez Glucose [Mass/Vol] 94 mg/dL Normal 74-106 [facility] Comment on above: Performed By: #### H STROPN, BNP, CMP #### [facility] [address] [address] [address] Fermin Gonzalez Potassium [Moles/Vol] 3.8 mmol/L Normal 3.5-5.1 [facility] Comment on above: Performed By: #### H STROPN, BNP, CMP #### [facility] [address] [address] [address] Fermin Gonzalez Protein [Mass/Vol] 7.7 g/dL Normal 6.4-8.2 [facility] Comment on above: Performed By: #### H STROPN, BNP, CMP #### [facility] [address] [place] [address] Dr. Fermin Gonzalez Sodium [Moles/Vol] 141 mmol/L Normal 136-145 [facility] Comment on above: Performed By: #### H STROPN, BNP, CMP #### [facility] [address] [place] [address] Dr. Fermin Gonzalez Urea nitrogen [Mass/Vol] 18.0 mg/dL Normal 7.0-18.0 [facility] Comment on above: Performed By: #### H STROPN, BNP, CMP #### [facility] [address] [place] [address] Dr. Fermin Gonzalez Urea nitrogen/Creatinin e [Mass ratio] 17.0 mg/mg Normal [facility] Comment on above: Performed By: #### H STROPN, BNP, CMP #### [facility] [address] [place] [address] Dr. Fermin Gonzalez TROPONIN, HIGH SENSITIVITYon 01-16-2023 HSTROP 6.9 pg/mL Normal 4.0-51.3 [facility] Comment on above: Result Comment: CUT- OFF POINTS HAVE BEEN ESTABLISHED BASED ON THE FOURTH UNIVERSAL DEFINITIONS OF MYOCARDIAL INFARCTION. THE UPPER REFERENCE LIMIT (URL) OF TROPONIN, DEFINED THE 99TH PERCENTILE OF cTnI DISTRIBUTION IN A REFERENCE POPULATION, HAS BEEN CONFIRMED THE DECISION THRESHOLD FOR IA DIAGNOSIS. Performed By: #### H STROJENSEN, BNP, CMP #### [facility] [address] [place] [address] Dr. Fermin Gonzalez URINE MICROSCOPIC ONLYon BACTERIA NONE SEEN Normal NONE SEEN [facility] Comment on above: Performed By: #### DREW MORALESRO #### [facility] [address] [place] [address] Dr. Fermin Gonzalez Bacteria identified Cx Nom (U) NOT INDICATED Normal [facility] Comment on above: Performed By: #### DREW MORALESRO #### [facility] [address] [place] [address] Dr. Fermin Gonzalez CAST NONE SEEN Normal NONE SEEN [facility] Comment on above: Performed By: #### DREW MORALESRO #### [facility] [address] [place] [address] Dr. Fermin Gonzalez Crystals LM Nom (Urine sed) NONE SEEN Normal NONE SEEN [facility] Comment on above: Performed By: #### E RUR, UMICRO #### [facility] [address] [place] [address] Dr. Fermin Gonzalez Epithelial cells LM Ql (Urine sed) RARE Normal NONE SEEN /RARE [facility] Comment on above: Performed By: #### E RUR, UMICRO #### [facility] [address] [place] [address] Dr. Fermin Gonzalez MUCOUS NONE SEEN Normal NONE SEEN [facility] Comment on above: Performed By: #### E RUR, UMICRO #### [facility] [address] [place] [address] Dr. Fermin Gonzalez RBC 0-2 Normal 0-2 [facility] Comment on above: Performed By: #### E RUR, UMICRO #### [facility] [address] [place] [address] Dr. Fermin Gonzalez WBC 0-2 Abnormal NONE SEEN [facility] Comment on above: Performed By: #### E RUR, UMICRO #### [facility] [address] [place] [address] Dr. Fermin Gonzalez No Panel Informationon 01-03 Radiology Study observation (narrative) [facility] Work Phone: XR LUMBAR SPINE (2-3 VIEWS)o [...] Dimas Vickers MD 01/03/23 Final result Normal [facility] 1. Stable, grade 1 degenerative anterolisthesis L4 on L5. 2. Degenerative changes lumbar spine. 3. Mild, bilaterally symmetrical SI joint osteoarthritis. 4. Bones may be osteopenic or osteoporotic. Consider bone densitometry correlation if not performed recently previously elsewhere. [facility] EXAMINATION: 3 XRAY VIEWS OF THE [...] bilaterally symmetrical SI joint osteoarthritis is noted. [facility] Dimas Vickers MD - 01/03/2023 EXAMINATION: [...] correlation if not performed recently previously elsewhere. [employer] Work Phone: XR LUMBAR SPINE (2-3 VIEWS)O rdered By: Dimas Vickers on 01-03-2023 [employer] Work Phone: XR RIBS RIGHT INCLUDE CHEST [...] Semaj Thomason MD 01/03/23 Final result Normal [facility] No acute abnormality of the ribs. No acute process in the lungs. [facility] CONSOLIDATED EXAMINATION: XRAY VIEWS OF THE [...] abnormality. Postsurgical changes in the right axilla. [facility] Semaj Thomason MD - 01/03/2023 EXAMINATION: XRAY VIEWS OF [...] ribs. No acute process in the lungs. [employer] Work Phone: XR RIBS RIGHT INCLUDE CHEST (MIN 3 VIEWS)Ordered By: Semaj Thomason on 01-03-2023 [employer] Phone: ABBY AMANDA DIGITAL SCREEN UNI LEFTon 07-05-2020 No evidence of malignancy left breast. Advise annual screening mammography. BI-RADS 2 BIRADS: BIRADS - CATEGORY 2 Benign Findings. Normal interval follow-up is recommended in 12 months. OVERALL ASSESSMENT - BENIGN A letter of notification will be sent to the patient regarding the results. [employer] recommends annual mammograms for women 40 years and older. [employer] EXAMINATION: SCREENI NG DIGITAL LEFT MAMMOGRAM WITH [...] are noted. Benign appearing calcifications are present. [employer] [place], pn Incoming Radiant Results From [facility] - 07/05/2020 4:46 PM EDT EXAMINATION: SCREENING [...] to the patient regarding the results. [employer] recommends annual mammograms for women 40 years and older. [place], [place] ABBY DIGITAL SCREEN ANGELICA Guerrero LEFTon 05-15-2019 Stable benign left mammogram. BIRADS: BIRADS - CATEGORY 1 Negative, no evidence of malignancy. Normal interval follow-up is recommended in 12 months. OVERALL ASSESSMENT - NEGATIVE A letter of notification will be sent to the patient regarding the results. [employer] recommends annual mammograms for women 40 years and older. [place], [place] EXAMINATION: LEFT BREAST DIGITAL SCREENING MAMMOGRAM 05/15/2019 [...] seen. Tomosynthesis images demonstrate no suspicious abnormality. [place], [place] Freddie, pn Incoming Radiant Results From [facility] - 05/15/2019 1:34 PM EDT EXAMINATION: LEFT [...] to the patient regarding the results. [employer] recommends annual mammograms for women 40 years and older. [place], [place] Cult,Bloodon 11-30-2018 Cult,Blood Specimen Description .BLOOD Special Requests 2 ML LEFT FOREARM Culture NO GROWTH 6 DAYS Report Status FINAL 11/30/2018 [facility] Comment on above: Performed By: #### C DP, LAC, TROPI, BMP, CK #### [facility] [address] [place] [address] Bakery Sales Clerk: Dung Allen MD Cult,Blood Specimen Description .BLOOD Special Requests 20 ML LEFT AC Culture NO GROWTH 6 DAYS Report Status FINAL 11/30/2018 [facility] Comment on above: Performed By: #### C DP, LAC, TROPI, BMP, CK #### [facility] [address] [place] [id number] Bakery Sales Clerk: Dung Allen MD Basic Metab w/rfx MGon 11-27 (cont.) [facility] Comment on above: Result Comment: Aver age GFR for 70 or more years old: 75 mL/min/1.73sq m Chronic Kidney Disease: <60 mL/min/1.73sq m Kidney failure: <15 mL/min/1.73sq m eGFR calculated using average adult body mass. Additional eGFR calculator available at: http://www.CallApp.Syntervention/multiple_crcl_2012.htm Performed By: #### C DP, LAC, TROPI, BMP, CK #### [facility] [address] [place] [address] Bakery Sales Clerk: Dung Allen MD Anion gap molar conc 9 mmol/L Normal 06-02 [facility] Comment on above: Performed By: #### C DP, LAC, TROPI, BMP, CK #### [facility] [address] [place] [address] Bakery Sales Clerk: Dung Allen MD Calcium mass conc 8.8 mg/dL Normal 8.6-10.4 [facility] Comment on above: Performed By: #### C DP, LAC, TROPI, BMP, CK #### [facility] [address] [place] [phone] Bakery Sales Clerk: Dung Allen MD Chloride molar conc 102 mmol/L Normal 98-107 [facility] Comment on above: Performed By: #### C DP, LAC, TROPI, BMP, CK #### [facility] [address] [place] [phone] Bakery Sales Clerk: Dung Allen MD CO2 molar conc 25 mmol/L Normal 20-31 [facility] Comment on above: Performed By: #### C DP, LAC, TROPI, BMP, CK #### [facility] [address] [place] [address] Bakery Sales Clerk: Dung Allen MD Creatinine mass conc 0.80 mg/dL Normal 0.50-0.90 [facility] Comment on above: Performed By: #### C DP, LAC, TROPI, BMP, CK #### [facility] [address] [place] [address] Bakery Sales Clerk: Dung Allen MD GFR, Amer >60 Normal >60 [facility] Comment on above: Performed By: #### C DP, LAC, TROPI, BMP, CK #### [facility] [address] [place] [address] Bakery Sales Clerk: Dung Allen MD GFR,non Amer >60 Normal >60 [facility] Comment on above: Performed By: #### C DP, LAC, TROPI, BMP, CK #### [facility] [address] [place] [phone] Bakery Sales Clerk: Dung Allen MD Glucose mass conc 89 mg/dL Normal 70-99 [facility] Comment on above: Performed By: #### C DP, LAC, TROPI, BMP, CK #### [facility] [address] [place] [address] Bakery Sales Clerk: Dung Allen MD Potassium molar conc 3.8 mmol/L Normal 3.7-5.3 [facility] Comment on above: Performed By: #### C DP, LAC, TROPI, BMP, CK #### [facility] [address] [place] [address] Bakery Sales Clerk: Dung Allen MD Sodium molar conc 136 mmol/L Normal 135-144 [facility] Comment on above: Performed By: #### C DP, LAC, TROPI, BMP, CK #### [facility] [address] [place] [address] Bakery Sales Clerk: Dung Allen MD Urea nitrogen mass conc 14 mg/dL Normal 8-23 [facility] Comment on above: Performed By: #### C DP, LAC, TROPI, BMP, CK #### [facility] [address] [place] [address] Bakery Sales Clerk: Dung Allen MD BUN/CRE Ratio NOT REPORTED Normal 9-20 [facility] Comment on above: Performed By: #### C DP, LAC, TROPI, BMP, CK #### [facility] [address] [place] [phone] Bakery Sales Clerk: Dung Allen MD Staging: NOT REPORTED Normal [facility] Comment on above: Performed By: #### C DP, LAC, TROPI, BMP, CK #### [facility] [address] [place] [phone] Bakery Sales Clerk: Dung Allen MD CBCon 03-14-2019 Erythrocyte distribution width Ratio (RBC) 12.8 % Normal 12.5-15.4 [facility] Comment on above: Performed By: #### C DP, LAC, TROPI, BMP, CK #### [facility] [address] [place] [address] Bakery Sales Clerk: Dung Allen MD Hematocrit Volume Fraction (Bld) 33.1 % Low 36-46 [facility] Comment on above: Performed By: #### C DP, LAC, TROPI, BMP, CK #### [facility] [address] [place] [address] Bakery Sales Clerk: Dung Allen MD Hemoglobin mass conc (Bld) 11.6 g/dL Low 12.0-16.0 [facility] Comment on above: Performed By: #### C DP, LAC, TROPI, BMP, CK #### [facility] [address] [place] [address] Bakery Sales Clerk: Dung Allen MD MCH Entitic mass (RBC) 35.2 pg High 26-34 [facility] Comment on above: Performed By: #### C DP, LAC, TROPI, BMP, CK #### [facility] [id number] [place] [address] Bakery Sales Clerk: Dung Allen MD MCHC mass conc (RBC) 35.1 g/dL Normal 31-37 [facility] Comment on above: Performed By: #### C DP, LAC, TROPI, BMP, CK #### [facility] [address] [place] [address] Bakery Sales Clerk: Dung Allen MD MCV Entitic volume (RBC) 100.2 fL High 80-100 [facility] Comment on above: Performed By: #### C DP, LAC, TROPI, BMP, CK #### [facility] [address] [place] [address] Bakery Sales Clerk: uDng Allen MD Platelet mean volume Entitic volume (Bld) 8.6 fL Normal 6.0-12.0 [facility] Comment on above: Performed By: #### C DP, LAC, TROPI, BMP, CK #### [facility] [address] [place] [address] Bakery Sales Clerk: Dung Allen MD Platelets #/vol (Bld) 206 10*3/uL Normal 140-450 [facility] Comment on above: Performed By: #### C DP, LAC, TROPI, BMP, CK #### [facility] [address] [place] [address] Bakery Sales Clerk: Dung Allen MD RBC #/vol (Bld) 3.30 10*6/uL Low 4.0-5.2 [facility] Comment on above: Performed By: #### C DP, LAC, TROPI, BMP, CK #### [facility] [address] [place] [address] Bakery Sales Clerk: Dung Allen MD WBC #/vol (Bld) 5.3 10*3/uL Normal 3.5-11.0 [facility] Comment on above: Performed By: #### C DP, LAC, TROPI, BMP, CK #### [facility] [address] [place] [address] Bakery Sales Clerk: Dung Allen MD NRBC Automated NOT REPORTED Normal [facility] Comment on above: Performed By: #### C DP, LAC, TROPI, BMP, CK #### [facility] [address] [place] [address] Bakery Sales Clerk: Dung Allen MD XR CHEST (2 VW)on [...] Alex Gray MD 11/27/18 Final result Normal [facility] Basic Metab w/rfx MGon 11-26 Potassium molar conc 3.4 mmol/L Low 3.7-5.3 [facility] Comment on above: Performed By: #### C DP, LAC, TROPI, BMP, CK #### [facility] [address] [place] [address] Bakery Sales Clerk: Dung Allen MD (cont.) Normal [facility] Comment on above: Result Comment: Aver age GFR for 70 or more years old: 75 mL/min/1.73sq m Chronic Kidney Disease: <60 mL/min/1.73sq m Kidney failure: <15 mL/min/1.73sq m eGFR calculated using average adult body mass. Additional eGFR calculator available at: http://www.CallApp.Syntervention/multiple_crcl_2012.htm Performed By: #### C DP, LAC, TROPI, BMP, CK #### [facility] [address] [place] [address] Bakery Sales Clerk: Dung Allen MD Anion gap molar conc 11 mmol/L Normal 9-17 [facility] Comment on above: Performed By: #### C DP, LAC, TROPI, BMP, CK #### [facility] [address] [place] [phone] Bakery Sales Clerk: Dung Allen MD Calcium mass conc 8.9 mg/dL Normal 8.6-10.4 [facility] Comment on above: Performed By: #### C DP, LAC, TROPI, BMP, CK #### [facility] [address] [place] [address] Bakery Sales Clerk: Dung Allen MD Chloride molar conc 101 mmol/L Normal 98-107 [facility] Comment on above: Performed By: #### C DP, LAC, TROPI, BMP, CK #### [facility] [address] [place] [address] Bakery Sales Clerk: Dung Allen MD CO2 molar conc 26 mmol/L Normal 20-31 [facility] Comment on above: Performed By: #### C DP, LAC, TROPI, BMP, CK #### [facility] [address] [place] [address] Bakery Sales Clerk: Dung Allen MD Creatinine mass conc 0.81 mg/dL Normal 0.50-0.90 [facility] Comment on above: Performed By: #### C DP, LAC, TROPI, BMP, CK #### [facility] [address] [place] [address] Bakery Sales Clerk: Dung Allen MD GFR, Amer >60 Normal >60 [facility] Comment on above: Performed By: #### C DP, LAC, TROPI, BMP, CK #### [facility] [address] [place] [phone] Bakery Sales Clerk: Dung Allen MD GFR,non Amer >60 Normal >60 [facility] Comment on above: Performed By: #### C DP, LAC, TROPI, BMP, CK #### [facility] [address] [place] [address] Bakery Sales Clerk: Dung Allen MD Glucose mass conc 85 mg/dL Normal 70-99 [facility] Comment on above: Performed By: #### C DP, LAC, TROPI, BMP, CK #### [facility] [address] [place] [address] Bakery Sales Clerk: Dung Allen MD Sodium molar conc 138 mmol/L Normal 135-144 [facility] Comment on above: Performed By: #### C DP, LAC, TROPI, BMP, CK #### [facility] [address] [place] [address] Bakery Sales Clerk: Dung Allen MD Urea nitrogen mass conc 16 mg/dL Normal 8-23 [facility] Comment on above: Performed By: #### C DP, LAC, TROPI, BMP, CK #### [facility] [address] [place] [address] Bakery Sales Clerk: Dung Allen MD BUN/CRE Ratio NOT REPORTED Normal 9-20 [facility] Comment on above: Performed By: #### C DP, LAC, TROPI, BMP, CK #### [facility] [address] [place] [phone] Bakery Sales Clerk: Dung Allen MD Staging: NOT REPORTED Normal [facility] Comment on above: Performed By: #### C DP, LAC, TROPI, BMP, CK #### [facility] [address] [place] [phone] Bakery Sales Clerk: Dung Allen MD Brain Natri. Peptideon 11-26 Natriuretic peptide B mass conc (Bld) Normal [facility] Comment on above: Result Comment: Pro- BNP Reference Range: Rule Out: <300 [place]: Age <50 300-450 Age 50-75 300-900 Age >75 300-1800 Usually represents mild to moderate HF but other cardiopulmonary causes cannot be ruled out. Rule In: Age <50 >450 Age 50-75 >900 Age >75 >1800 Performed By: #### C DP, LAC, TROPI, BMP, CK #### [facility] [address] [place] [address] Bakery Sales Clerk: Dung Allen MD Natriuretic peptide B mass conc (Bld) 3923 pg/mL High <300 [facility] Comment on above: Result Comment: Pro- BNP results cannot be compared to BNP results. Performed By: #### C DP, LAC, TROPI, BMP, CK #### [facility] [address] [place] [address] Bakery Sales Clerk: Dung Allen MD [facility] Erythrocyte distribution width Ratio (RBC) 12.8 % Normal 12.5-15.4 [facility] Comment on above: Performed By: #### C DP, LAC, TROPI, BMP, CK #### [facility] [address] [place] [address] Bakery Sales Clerk: Dung Allen MD Hematocrit Volume Fraction (Bld) 37.4 % Normal 36-46 [facility] Comment on above: Performed By: #### C DP, LAC, TROPI, BMP, CK #### [facility] [address] [place] [address] Bakery Sales Clerk: Dung Allen MD Hemoglobin mass conc (Bld) 12.7 g/dL Normal 12.0-16.0 [facility] Comment on above: Performed By: #### C DP, LAC, TROPI, BMP, CK #### [facility] [address] [place] [address] Bakery Sales Clerk: Dung Allen MD MCH Entitic mass (RBC) 34.6 pg High 26-34 [facility] Comment on above: Performed By: #### C DP, LAC, TROPI, BMP, CK #### [facility] [address] [place] [address] Bakery Sales Clerk: Dung Allen MD MCHC mass conc (RBC) 34.0 g/dL Normal 31-37 [facility] Comment on above: Performed By: #### C DP, LAC, TROPI, BMP, CK #### [facility] [address] [place] [address] Bakery Sales Clerk: Dung Allen MD MCV Entitic volume (RBC) 101.6 fL High 80-100 [facility] Comment on above: Performed By: #### C DP, LAC, TROPI, BMP, CK #### [facility] [address] [place] [address] Bakery Sales Clerk: Dung Allen MD Platelet mean volume Entitic volume (Bld) 9.0 fL Normal 6.0-12.0 [facility] Comment on above: Performed By: #### C DP, LAC, TROPI, BMP, CK #### [facility] [address] [place] [address] Bakery Sales Clerk: Dung Allen MD Platelets #/vol (Bld) 198 10*3/uL Normal 140-450 [facility] Comment on above: Performed By: #### C DP, LAC, TROPI, BMP, CK #### [facility] [address] [place] [address] Bakery Sales Clerk: Dung Allen MD RBC #/vol (Bld) 3.68 10*6/uL Low 4.0-5.2 [facility] Comment on above: Performed By: #### C DP, LAC, TROPI, BMP, CK #### [facility] [address] [place], [place] [id number] Bakery Sales Clerk: Dung Allen MD WBC #/vol (Bld) 8.9 10*3/uL Normal 3.5-11.0 [facility] Comment on above: Performed By: #### C DP, LAC, TROPI, BMP, CK #### [facility] [address] [place], [place] [phone] Bakery Sales Clerk: Dung Allen MD NRBC Automated NOT REPORTED Normal [facility] Comment on above: Performed By: #### C DP, LAC, TROPI, BMP, CK #### [facility] [address] [place], [place] [phone] Bakery Sales Clerk: Dung Allen MD MRI BRAIN WO CONTRASTon 11-14 MRI BRAIN WO CONTRAST EXAMINATION: MRI OF [...] Brent Green MD 11/26/18 Final result Normal [facility] Magnesiumon 11-26-2018 Magnesium mass conc 2.0 mg/dL Normal 1.6-2.6 [facility] Comment on above: Performed By: #### C DP, LAC, TROPI, BMP, CK #### [facility] [address] [place] [address] Bakery Sales Clerk: Dung Allen MD Troponinon 11-26-2018 Troponin I.cardiac mass conc 9 ng/L Normal 0-14 [facility] Comment on above: Result Comment: High Sensitivity Troponin values cannot be compared with other Troponin methodologies. Patients with high levels of Biotin oral intake (i.e >5mg/day) may have falsely decreased Troponin levels. Samples collected within 8 hours of biotin intake may require additional information for diagnosis. Performed By: #### C DP, LAC, TROPI, BMP, CK #### [facility] [address] [place] [address] Bakery Sales Clerk: Dung Allen MD Troponin I.cardiac mass conc NOT REPORTED Normal <0.03 [facility] Comment on above: Performed By: #### C DP, LAC, TROPI, BMP, CK #### [facility] [address] [place] [address] Bakery Sales Clerk: Dung Allen MD B12/Folate Panelon 9 Cobalamin (Vitamin B12) mass conc 943 pg/mL Normal 232-1245 [facility] Comment on above: Performed By: #### C DP, LAC, TROPI, BMP, CK #### [facility] [address] [place] [address] Bakery Sales Clerk: Dung Allen MD Folic Acid 10.5 ng/mL Normal >4.8 [facility] Comment on above: Performed By: #### C DP, LAC, TROPI, BMP, CK #### [facility] [address] [place] [address] Bakery Sales Clerk: Dung Allen MD Basic Metab w/rfx MGon 11-25 (cont.) Normal [facility] Comment on above: Result Comment: Aver age GFR for 70 or more years old: 75 mL/min/1.73sq m Chronic Kidney Disease: <60 mL/min/1.73sq m Kidney failure: <15 mL/min/1.73sq m eGFR calculated using average adult body mass. Additional eGFR calculator available at: http://www.CallApp.Syntervention/multiple_crcl_2012.htm Performed By: #### C DP, LAC, TROPI, BMP, CK #### [facility] [address] [place] [phone] Bakery Sales Clerk: Dung Allen MD Anion gap molar conc 12 mmol/L Normal 9-17 [facility] Comment on above: Performed By: #### C DP, LAC, TROPI, BMP, CK #### [facility] [address] [place] [phone] Bakery Sales Clerk: Dung Allen MD Calcium mass conc 8.8 mg/dL Normal 8.6-10.4 [facility] Comment on above: Performed By: #### C DP, LAC, TROPI, BMP, CK #### [facility] [address] [place] [address] Bakery Sales Clerk: Dung Allen MD Chloride molar conc 103 mmol/L Normal 98-107 [facility] Comment on above: Performed By: #### C DP, LAC, TROPI, BMP, CK #### [facility] [address] [place] [address] Bakery Sales Clerk: Dung Allen MD CO2 molar conc 22 mmol/L Normal 20-31 [facility] Comment on above: Performed By: #### C DP, LAC, TROPI, BMP, CK #### [facility] [address] [place] [address] Bakery Sales Clerk: Dung lAlen MD Creatinine mass conc 0.94 mg/dL High 0.50-0.90 [facility] Comment on above: Performed By: #### C DP, LAC, TROPI, BMP, CK #### [facility] [address] [place] [address] Bakery Sales Clerk: Dung Allen MD GFR, Amer >60 Normal >60 [facility] Comment on above: Performed By: #### C DP, LAC, TROPI, BMP, CK #### [facility] [address] [place] [address] Bakery Sales Clerk: Dung Allen MD GFR,non Amer 58 mL/min Low >60 [facility] Comment on above: Performed By: #### C DP, LAC, TROPI, BMP, CK #### [facility] [address] [place] [address] Bakery Sales Clerk: Dung Allen MD Glucose mass conc 105 mg/dL High 70-99 [facility] Comment on above: Performed By: #### C DP, LAC, TROPI, BMP, CK #### [facility] [address] [place] [address] Bakery Sales Clerk: Dung Allen MD Potassium molar conc 3.7 mmol/L Normal 3.7-5.3 [facility] Comment on above: Performed By: #### C DP, LAC, TROPI, BMP, CK #### [facility] [address] [place] [address] Bakery Sales Clerk: Dung Allen MD Sodium molar conc 137 mmol/L Normal 135-144 [facility] Comment on above: Performed By: #### C DP, LAC, TROPI, BMP, CK #### [facility] [address] [place] [address] Bakery Sales Clerk: Dung Allen MD Urea nitrogen mass conc 22 mg/dL Normal 8-23 [facility] Comment on above: Performed By: #### C DP, LAC, TROPI, BMP, CK #### [facility] [address] [place] [address] Bakery Sales Clerk: Dung Allen MD BUN/CRE Ratio NOT REPORTED Normal 9-20 [facility] Comment on above: Performed By: #### C DP, LAC, TROPI, BMP, CK #### [facility] [address] [place] [address] Bakery Sales Clerk: Dung Allen MD Staging: NOT REPORTED Normal [facility] Comment on above: Performed By: #### C DP, LAC, TROPI, BMP, CK #### [facility] [address] [place] [phone] Bakery Sales Clerk: Dung Allen MD CBCon 11-25-2018 Erythrocyte distribution width Ratio (RBC) 12.9 % Normal 12.5-15.4 [facility] Comment on above: Performed By: #### C DP, LAC, TROPI, BMP, CK #### [facility] [address] [place] [address] Bakery Sales Clerk: Dung Allen MD Hematocrit Volume Fraction (Bld) 32.7 % Low 36-46 [facility] Comment on above: Performed By: #### C DP, LAC, TROPI, BMP, CK #### [facility] [address] [place] [address] Bakery Sales Clerk: Dung Allen MD Hemoglobin mass conc (Bld) 11.1 g/dL Low 12.0-16.0 [facility] Comment on above: Performed By: #### C DP, LAC, TROPI, BMP, CK #### [facility] [address] [place] [address] Bakery Sales Clerk: Dung Allen MD MCH Entitic mass (RBC) 34.7 pg High 26-34 [facility] Comment on above: Performed By: #### C DP, LAC, TROPI, BMP, CK #### [facility] [address] [place] [phone] Bakery Sales Clerk: Dung Allen MD MCHC mass conc (RBC) 34.1 g/dL Normal 31-37 [facility] Comment on above: Performed By: #### C DP, LAC, TROPI, BMP, CK #### [facility] [address] [place] [phone] Bakery Sales Clerk: Dung Allen MD MCV Entitic volume (RBC) 101.6 fL High 80-100 [facility] Comment on above: Performed By: #### C DP, LAC, TROPI, BMP, CK #### [facility] [address] [place] [phone] Bakery Sales Clerk: Dung Allen MD Platelet mean volume Entitic volume (Bld) 9.0 fL Normal 6.0-12.0 [facility] Comment on above: Performed By: #### C DP, LAC, TROPI, BMP, CK #### [facility] [address] [place] [address] Bakery Sales Clerk: Dung Allen MD Platelets #/vol (Bld) 162 10*3/uL Normal 140-450 [facility] Comment on above: Performed By: #### C DP, LAC, TROPI, BMP, CK #### [facility] [address] [place] [phone] Bakery Sales Clerk: Dung Allen MD RBC #/vol (Bld) 3.21 10*6/uL Low 4.0-5.2 [facility] Comment on above: Performed By: #### C DP, LAC, TROPI, BMP, CK #### [facility] [address] [place] [address] Bakery Sales Clerk: Dung Allen MD WBC #/vol (Bld) 10.9 10*3/uL Normal 3.5-11.0 [facility] Comment on above: Performed By: #### C DP, LAC, TROPI, BMP, CK #### [facility] [address] [place] [phone] Bakery Sales Clerk: Dung Allen MD NRBC Automated NOT REPORTED Normal [facility] Comment on above: Performed By: #### C DP, LAC, TROPI, BMP, CK #### [facility] Lab [address] [place] [address] Bakery Sales Clerk: Dung Allen MD CT CHEST ABDOMEN PELVIS WO C Sammi 11-25-2018 CT CHEST ABDOMEN PELVIS WO CONTRAST [...] Lm Porter MD 11/25/18 Final result Normal [facility] Cult,Urine,CCon 11-25-2018 Cult,Urine,CC Specimen Description .CLEAN CATCH URINE Special Requests NOT REPORTED Culture NO SIGNIFICANT GROWTH Report Status FINAL 11/25/2018 Normal [facility] Comment on above: Performed By: #### C DP, LAC, TROPI, BMP, CK #### [facility] [address] [place] [address] Bakery Sales Clerk: Dung Allen MD TSH w/reflex to FT4on 2018 Thyrotropin Qn 4.20 m[IU]/L Normal 0.30-5.00 [facility] Comment on above: Performed By: #### C DP, LAC, TROPI, BMP, CK #### [facility] [address] [place] [address] Bakery Sales Clerk: Dung Allen MD Vitamin D 25 OHon 11-25-2018 Vitamin D 25 [place] 34.8 ng/mL Normal 30.0-100.0 [facility] Comment on above: Result Comment: Reference Range: Vitamin D status Range Deficiency <20 ng/mL Mild Deficiency 20-30 ng/mL Sufficiency 30-100 ng/mL Toxicity >100 ng/mL Performed By: #### C DP, LAC, TROPI, BMP, CK #### [facility] [address] [place] [address] Bakery Sales Clerk: Dung Allen MD XR CHEST PORTABLEon 11-26-19 [...] Alex Gray MD 11/25/18 Final result Normal [facility] Basic Metab w/rfx MGon 11-24 (cont.) Normal [facility] Comment on above: Result Comment: Aver age GFR for 70 or more years old: 75 mL/min/1.73sq m Chronic Kidney Disease: <60 mL/min/1.73sq m Kidney failure: <15 mL/min/1.73sq m eGFR calculated using average adult body mass. Additional eGFR calculator available at: http://www.CostPrize/multiple_crcl_2011.htm Performed By: #### C DP, LAC, TROPI, BMP, CK #### [facility] [address] [place] [address] Bakery Sales Clerk: Dung Allen MD Anion gap molar conc 10 mmol/L Normal 9-17 [facility] Comment on above: Performed By: #### C DP, LAC, TROPI, BMP, CK #### [facility] [address] [place] [phone] Bakery Sales Clerk: Dung Allen MD Calcium mass conc 8.9 mg/dL Normal 8.6-10.4 [facility] Comment on above: Performed By: #### C DP, LAC, TROPI, BMP, CK #### [facility] [address] [place] [phone] Bakery Sales Clerk: Dung Allen MD Chloride molar conc 100 mmol/L Normal 98-107 [facility] Comment on above: Performed By: #### C DP, LAC, TROPI, BMP, CK #### [facility] [address] [place] [address] Bakery Sales Clerk: Dung Allen MD CO2 molar conc 24 mmol/L Normal 20-31 [facility] Comment on above: Performed By: #### C DP, LAC, TROPI, BMP, CK #### [facility] [address] [place] [address] Bakery Sales Clerk: Dung Allen MD Creatinine mass conc 0.95 mg/dL High 0.50-0.90 [facility] Comment on above: Performed By: #### C DP, LAC, TROPI, BMP, CK #### [facility] [address] [place] [address] Bakery Sales Clerk: Dung Allen MD GFR, Amer >60 Normal >60 [facility] Comment on above: Performed By: #### C DP, LAC, TROPI, BMP, CK #### [facility] [address] [place] [address] Bakery Sales Clerk: Dung Allen MD GFR,non Amer 57 mL/min Low >60 [facility] Comment on above: Performed By: #### C DP, LAC, TROPI, BMP, CK #### [facility] [address] [place] [phone] Bakery Sales Clerk: Dung Allen MD Glucose mass conc 94 mg/dL Normal 70-99 [facility] Comment on above: Performed By: #### C DP, LAC, TROPI, BMP, CK #### [facility] [address] [place] [phone] Bakery Sales Clerk: Dung Allen MD Potassium molar conc 4.2 mmol/L Normal 3.7-5.3 [facility] Comment on above: Performed By: #### C DP, LAC, TROPI, BMP, CK #### [facility] [address] [place] [address] Bakery Sales Clerk: Dung Allen MD Sodium molar conc 134 mmol/L Low 135-144 [facility] Comment on above: Performed By: #### C DP, LAC, TROPI, BMP, CK #### [facility] [address] [place] [address] Bakery Sales Clerk: Dung Allen MD Urea nitrogen mass conc 28 mg/dL High 8-23 [facility] Comment on above: Performed By: #### C DP, LAC, TROPI, BMP, CK #### [facility] [address] [place] [address] Bakery Sales Clerk: Dung Allen MD BUN/CRE Ratio NOT REPORTED Normal 9-20 [facility] Comment on above: Performed By: #### C DP, LAC, TROPI, BMP, CK #### [facility] [address] [place] [address] Bakery Sales Clerk: Dung Allen MD Staging: NOT REPORTED Normal [facility] Comment on above: Performed By: #### C DP, LAC, TROPI, BMP, CK #### [facility] [address] [place] [phone] Bakery Sales Clerk: Dung Allen MD CBCon 11-24-2018 Erythrocyte distribution width Ratio (RBC) 12.6 % Normal 12.5-15.4 [facility] Comment on above: Performed By: #### C DP, LAC, TROPI, BMP, CK #### [facility] [address] [place] [phone] Bakery Sales Clerk: Dung Allen MD Hematocrit Volume Fraction (Bld) 37.6 % Normal 36-46 [facility] Comment on above: Performed By: #### C DP, LAC, TROPI, BMP, CK #### [facility] [address] [place] [phone] Bakery Sales Clerk: Dung Allen MD Hemoglobin mass conc (Bld) 12.5 g/dL Normal 12.0-16.0 [facility] Comment on above: Performed By: #### C DP, LAC, TROPI, BMP, CK #### [facility] [address] [place] [address] Bakery Sales Clerk: Dung Allen MD MCH Entitic mass (RBC) 33.6 pg Normal 26-34 [facility] Comment on above: Performed By: #### C DP, LAC, TROPI, BMP, CK #### [facility] [address] [place] [address] Bakery Sales Clerk: Dung Allen MD MCHC mass conc (RBC) 33.3 g/dL Normal 31-37 [facility] Comment on above: Performed By: #### C DP, LAC, TROPI, BMP, CK #### [facility] [address] [place] [phone] Bakery Sales Clerk: Dung Allen MD MCV Entitic volume (RBC) 101.0 fL High 80-100 [facility] Comment on above: Performed By: #### C DP, LAC, TROPI, BMP, CK #### [facility] [address] [place] [phone] Bakery Sales Clerk: Dung Allen MD Platelet mean volume Entitic volume (Bld) 9.2 fL Normal 6.0-12.0 [facility] Comment on above: Performed By: #### C DP, LAC, TROPI, BMP, CK #### [facility] [address] [place] [address] Bakery Sales Clerk: Dung Allen MD Platelets #/vol (Bld) 189 10*3/uL Normal 140-450 [facility] Comment on above: Performed By: #### C DP, LAC, TROPI, BMP, CK #### [facility] [address] [place] [address] Bakery Sales Clerk: Dung Allen MD RBC #/vol (Bld) 3.72 10*6/uL Low 4.0-5.2 [facility] Comment on above: Performed By: #### C DP, LAC, TROPI, BMP, CK #### [facility] [address] [place] [address] Bakery Sales Clerk: Dung Allen MD WBC #/vol (Bld) 14.1 10*3/uL High 3.5-11.0 [facility] Comment on above: Performed By: #### C DP, LAC, TROPI, BMP, CK #### [facility] [address] [place] [address] Bakery Sales Clerk: Dung Allen MD NRBC Automated NOT REPORTED Normal [facility] Comment on above: Performed By: #### C DP, LAC, TROPI, BMP, CK #### [facility] [address] [place] [address] Bakery Sales Clerk: Dung Allen MD Extra Yellow Tubeon 11-25-19 19 Extra Yellow Tube Normal [facility] Comment on above: Performed By: #### C DP, LAC, TROPI, BMP, CK #### [facility] [address] [place] [address] Bakery Sales Clerk: Dung Allen MD PTon 11-24-2018 INR Coag RelTime (PPP) 1.3 {INR} Normal [facility] Comment on above: Result Comment: Therapeutic Range: Moderate Anticoagulant Intensity: INR = 2.0-3.0 High Anticoagulant Intensity: INR = 2.5-3.5 Performed By: #### C DP, LAC, TROPI, BMP, CK #### [facility] [address] [place] [address] Bakery Sales Clerk: Dung Allen MD Prothrombin time (PT) Coag time (PPP) 13.0 s High 9.4-12.6 [facility] Comment on above: Performed By: #### C DP, LAC, TROPI, BMP, CK #### [facility] [address] [place], [place] [phone] Bakery Sales Clerk: Dung Allen MD Basic Metabolic Profon 11-23 (cont.) Normal [facility] Comment on above: Result Comment: Aver age GFR for 70 or more years old: 75 mL/min/1.73sq m Chronic Kidney Disease: <60 mL/min/1.73sq m Kidney failure: <15 mL/min/1.73sq m eGFR calculated using average adult body mass. Additional eGFR calculator available at: http://www.CallApp.com/multiple_crcl_2012.htm Performed By: #### C DP, LAC, TROPI, BMP, CK #### [facility] [address] [place] [address] Bakery Sales Clerk: Dung Allen MD Anion gap molar conc 14 mmol/L Normal 9-17 [facility] Comment on above: Performed By: #### C DP, LAC, TROPI, BMP, CK #### [facility] [address] [place], [place] [phone] Bakery Sales Clerk: Dung Allen MD Calcium mass conc 9.7 mg/dL Normal 8.6-10.4 [facility] Comment on above: Performed By: #### C DP, LAC, TROPI, BMP, CK #### [facility] [address] [place] [address] Bakery Sales Clerk: Dung Allen MD Chloride molar conc 97 mmol/L Low 98-107 [facility] Comment on above: Performed By: #### C DP, LAC, TROPI, BMP, CK #### [facility] [address] [place] [address] Bakery Sales Clerk: Dung Allen MD CO2 molar conc 22 mmol/L Normal 20-31 [facility] Comment on above: Performed By: #### C DP, LAC, TROPI, BMP, CK #### [facility] [address] [place] [address] Bakery Sales Clerk: Dung Allen MD Creatinine mass conc 0.99 mg/dL High 0.50-0.90 [facility] Comment on above: Performed By: #### C DP, LAC, TROPI, BMP, CK #### [facility] [address] [place] [phone] Bakery Sales Clerk: Dung Allen MD GFR, Amer >60 Normal >60 [facility] Comment on above: Performed By: #### C DP, LAC, TROPI, BMP, CK #### [facility] [address] [place], [place] [phone] Bakery Sales Clerk: Dung Allen MD GFR,non Amer 54 mL/min Low >60 [facility] Comment on above: Performed By: #### C DP, LAC, TROPI, BMP, CK #### [facility] [address] [place] [phone] Bakery Sales Clerk: Dung Allen MD Glucose mass conc 190 mg/dL High 70-99 [facility] Comment on above: Performed By: #### C DP, LAC, TROPI, BMP, CK #### [facility] [address] [place] [phone] Bakery Sales Clerk: Dung Allen MD Potassium molar conc 4.3 mmol/L Normal 3.7-5.3 [facility] Comment on above: Result Comment: SPEC IMEN SLIGHTLY HEMOLYZED, RESULTS MAY BE ADVERSELY AFFECTED. Performed By: #### C DP, LAC, TROPI, BMP, CK #### [facility] [address] [place] [phone] Bakery Sales Clerk: Dung Allen MD Sodium molar conc 133 mmol/L Low 135-144 [facility] Comment on above: Performed By: #### C DP, LAC, TROPI, BMP, CK #### [facility] [address] [place] [address] Bakery Sales Clerk: Dung Allen MD Urea nitrogen mass conc 33 mg/dL High 8-23 [facility] Comment on above: Performed By: #### C DP, LAC, TROPI, BMP, CK #### [facility] [address] [place] [address] Bakery Sales Clerk: Dung Allen MD BUN/CRE Ratio NOT REPORTED Normal 9-20 [facility] Comment on above: Performed By: #### C DP, LAC, TROPI, BMP, CK #### [facility] [address] [place] [address] Bakery Sales Clerk: Dung Allen MD Staging: NOT REPORTED Normal [facility] Comment on above: Performed By: #### C DP, LAC, TROPI, BMP, CK #### [facility] [address] [place] [address] Bakery Sales Clerk: Dung Allen MD CBC with Diffon 11-23-2018 Abs. Basophil 0.00 k/uL Normal 0.0-0.2 [facility] Comment on above: Performed By: #### C DP, LAC, TROPI, BMP, CK #### [facility] [address] [place] [address] Bakery Sales Clerk: Dung Allen MD Abs.Neutrophil (Seg) 12.00 k/uL High 1.8-7.7 [facility] Comment on above: Performed By: #### C DP, LAC, TROPI, BMP, CK #### [facility] [address] [place] [address] Bakery Sales Clerk: Dung Allen MD Basophils/100 WBC (Bld) 0 % Normal 0-2 [facility] Comment on above: Performed By: #### C DP, LAC, TROPI, BMP, CK #### [facility] [address] [place] [address] Bakery Sales Clerk: Dung Allen MD Eosinophils #/vol (Bld) 0.00 10*3/uL Normal 0.0-0.4 [facility] Comment on above: Performed By: #### C DP, LAC, TROPI, BMP, CK #### [facility] [address] [place] [address] Bakery Sales Clerk: Dung Allen MD Eosinophils/100 WBC (Bld) 0 % Low 1-4 [facility] Comment on above: Performed By: #### C DP, LAC, TROPI, BMP, CK #### [facility] [address] [place] [address] Bakery Sales Clerk: Dung Allen MD Erythrocyte distribution width Ratio (RBC) 12.8 % Normal 12.5-15.4 [facility] Comment on above: Performed By: #### C DP, LAC, TROPI, BMP, CK #### [facility] [address] [place] [address] Bakery Sales Clerk: Dung Allen MD Hematocrit Volume Fraction (Bld) 41.0 % Normal 36-46 [facility] Comment on above: Performed By: #### C DP, LAC, TROPI, BMP, CK #### [facility] [id number] [place] [address] Bakery Sales Clerk: Dung Allen MD Hemoglobin mass conc (Bld) 13.7 g/dL Normal 12.0-16.0 [facility] Comment on above: Performed By: #### C DP, LAC, TROPI, BMP, CK #### [facility] [address] [place] [address] Bakery Sales Clerk: Dung Allen MD Lymphocytes #/vol (Bld) 1.20 10*3/uL Normal 1.0-4.8 [facility] Comment on above: Performed By: #### C DP, LAC, TROPI, BMP, CK #### [facility] [address] [place] [address] Bakery Sales Clerk: Dung Allen MD Lymphocytes/100 WBC (Bld) 9 % Low 24-44 [facility] Comment on above: Performed By: #### C DP, LAC, TROPI, BMP, CK #### [facility] [address] [place], [place] [phone] Bakery Sales Clerk: Dung Allen MD MCH Entitic mass (RBC) 33.6 pg Normal 26-34 [facility] Comment on above: Performed By: #### C DP, LAC, TROPI, BMP, CK #### [facility] [address] [place] [address] Bakery Sales Clerk: Dung Allen MD MCHC mass conc (RBC) 33.4 g/dL Normal 31-37 [facility] Comment on above: Performed By: #### C DP, LAC, TROPI, BMP, CK #### [facility] [address] [place] [address] Bakery Sales Clerk: Dung Allen MD MCV Entitic volume (RBC) 100.6 fL High 80-100 [facility] Comment on above: Performed By: #### C DP, LAC, TROPI, BMP, CK #### [facility] [address] [place] [address] Bakery Sales Clerk: Dung Allen MD Monocytes #/vol (Bld) 1.20 10*3/uL Normal 0.1-1.2 [facility] Comment on above: Performed By: #### C DP, LAC, TROPI, BMP, CK #### [facility] [address] [place] [address] Bakery Sales Clerk: Dung Allen MD Monocytes/100 WBC (Bld) 9 % Normal 2-11 [facility] Comment on above: Performed By: #### C DP, LAC, TROPI, BMP, CK #### [facility] [address] [place] [phone] Bakery Sales Clerk: Dung Allen MD Neutrophil (Seg) 82 % High 36-66 [facility] Comment on above: Performed By: #### C DP, LAC, TROPI, BMP, CK #### [facility] [address] [place] [address] Bakery Sales Clerk: Dung Allen MD Platelet mean volume Entitic volume (Bld) 9.2 fL Normal 6.0-12.0 [facility] Comment on above: Performed By: #### C DP, LAC, TROPI, BMP, CK #### [facility] [address] [place] [address] Bakery Sales Clerk: Dung Allen MD Platelets #/vol (Bld) 217 10*3/uL Normal 140-450 [facility] Comment on above: Performed By: #### C DP, LAC, TROPI, BMP, CK #### [facility] [address] [place] [address] Bakery Sales Clerk: Dung Allen MD RBC #/vol (Bld) 4.07 10*6/uL Normal 4.0-5.2 [facility] Comment on above: Performed By: #### C DP, LAC, TROPI, BMP, CK #### [facility] [address] [place] [address] Bakery Sales Clerk: Dung Allen MD WBC #/vol (Bld) 14.4 10*3/uL High 3.5-11.0 [facility] Comment on above: Performed By: #### C DP, LAC, TROPI, BMP, CK #### [facility] [address] [place] [address] Bakery Sales Clerk: Dung Allen MD Abs.Imm.Granulocyt e NOT REPORTED Normal 0.00-0.30 [facility] Comment on above: Performed By: #### C DP, LAC, TROPI, BMP, CK #### [facility] [address] [place] [address] Bakery Sales Clerk: Dung Allen MD Auto Diff Performed NOT REPORTED Normal [facility] Comment on above: Performed By: #### C DP, LAC, TROPI, BMP, CK #### [facility] [address] [place] [address] Bakery Sales Clerk: Dung Allen MD Immature granulocytes #/vol (Bld) NOT REPORTED Normal 0 [facility] Comment on above: Performed By: #### C DP, LAC, TROPI, BMP, CK #### [facility] [address] [place] [address] Bakery Sales Clerk: Dung Allen MD NRBC Automated NOT REPORTED Normal [facility] Comment on above: Performed By: #### C DP, LAC, TROPI, BMP, CK #### [facility] [address] [place] [address] Bakery Sales Clerk: Dung Allen MD Platelets #/vol (Bld) NOT REPORTED Normal [facility] Comment on above: Performed By: #### C DP, LAC, TROPI, BMP, CK #### [facility] [address] [place] [address] Bakery Sales Clerk: Dung Allen MD RBC morphology finding Nom (Bld) NOT REPORTED Normal [facility] Comment on above: Performed By: #### C DP, LAC, TROPI, BMP, CK #### [facility] [address] [place], [place] [phone] Bakery Sales Clerk: Dung Allen MD WBC Morphology NOT REPORTED Normal [facility] Comment on above: Performed By: #### C DP, LAC, TROPI, BMP, CK #### [facility] [address] [place] [address] Bakery Sales Clerk: Dung Allen MD CT HEAD WO CONTRASTon [...] Micah Palmer MD 11/23/18 Final result Normal [facility] Creatine Kinaseon 11-23-2018 CK enzyme act/vol 407 U/L High 26-192 [facility] Comment on above: Performed By: #### C DP, LAC, TROPI, BMP, CK #### [facility] [address] [place] [address] Bakery Sales Clerk: Dung Allen MD Flu A/B Ag Detectionon 11-23 Flu A/B Ag Detection Specimen Description .NASOPHARYNGEAL SWAB Special Requests NOT REPORTED Direct Exam POSITIVE for Influenza A Antigen NEGATIVE for Influenza B Antigen Report Status FINAL 11/23/2018 Normal [facility] Comment on above: Performed By: #### F LUAD #### [facility] [address] [place] [address] Bakery Sales Clerk: Dung Allen MD Lactic Acidon 11-23-2018 Lactate molar conc 2.3 mmol/L High 0.5-2.2 [facility] Comment on above: Performed By: #### C DP, LAC, TROPI, BMP, CK #### [facility] [address] [place] [address] Bakery Sales Clerk: Dung Allen MD Troponinon 11-23-2018 Troponin I.cardiac mass conc 17 ng/L High 0-14 [facility] Comment on above: Result Comment: High Sensitivity Troponin values cannot be compared with other Troponin methodologies. Patients with high levels of Biotin oral intake (i.e >5mg/day) may have falsely decreased Troponin levels. Samples collected within 8 hours of biotin intake may require additional information for diagnosis. Performed By: #### C DP, LAC, TROPI, BMP, CK #### [facility] [address] [place] [address] Bakery Sales Clerk: Dung Allen MD Troponin I.cardiac mass conc NOT REPORTED Normal <0.03 [facility] Comment on above: Performed By: #### C DP, LAC, TROPI, BMP, CK #### [facility] [address] [place] [address] Bakery Sales Clerk: Dung Allen MD UA w/Reflex Cultureon 2018 Acetoacetic Acid,Ur SMALL Abnormal NEG [facility] Comment on above: Performed By: #### U AX, UMICAO #### [facility] [address] [place] [address] Bakery Sales Clerk: Dung Allen MD Bilirubin.direct mass conc Negative Abnormal NEG [facility] Comment on above: Performed By: #### U AX, UMICAO #### [facility] [address] [place] [address] Bakery Sales Clerk: Dung Allen MD Color Nom (U) YELLOW Normal YEL [facility] Comment on above: Performed By: #### U AX, UMICAO #### [facility] [address] [place] [address] Bakery Sales Clerk: Dung Allen MD Glucose mass conc Negative Normal NEG [facility] Comment on above: Performed By: #### U AX, UMICAO #### [facility] [address] [place] [address] Bakery Sales Clerk: Dung Allen MD Hemoglobin mass conc (Bld) SMALL Abnormal NEG [facility] Comment on above: Performed By: #### U AX, UMICAO #### [facility] [address] [place] [address] Bakery Sales Clerk: Dung Allen MD Leuckocyte Esterase SMALL Abnormal NEG [facility] Comment on above: Performed By: #### U AX, UMICAO #### [facility] [address] [place] [address] Bakery Sales Clerk: Dung Allen MD Nitrite,Ur Negative Normal NEG [facility] Comment on above: Performed By: #### U AX, UMICAO #### [facility] [address] [place] [phone] Bakery Sales Clerk: Dung Allen MD PH,Ur 5.5 Normal 5.0-8.0 [facility] Comment on above: Performed By: #### U AX, UMICAO #### [facility] [address] [place] [address] Bakery Sales Clerk: Dung Allen MD Protein mass conc 1+ Abnormal NEG [facility] Comment on above: Performed By: #### U AX, UMICAO #### [facility] [address] [place] [address] Bakery Sales Clerk: Dung Allen MD Spec. [place],Ur 1.025 Normal 1.005-1.030 [facility] Comment on above: Performed By: #### U AX, UMICAO #### [facility] [address] [place] [address] Bakery Sales Clerk: Dung Allen MD Turbidity CLEAR Normal CLEAR [facility] Comment on above: Performed By: #### U AX UMICAO #### [facility] [address] [place] [address] Bakery Sales Clerk: Dung Allen MD Urobilinogen,Ur ELEVATED Abnormal NORM [facility] Comment on above: Performed By: #### U AX, UMICAO #### [facility] [address] [place] [address] Bakery Sales Clerk: Dung Allen MD Comment NOT REPORTED Normal [facility] Comment on above: Performed By: #### U AX, UMICAO #### [facility] [address] [place] [address] Bakery Sales Clerk: Dung Allen MD Urinalysis,Microon 9 ----- Normal [facility] Comment on above: Performed By: #### U AX, UMICAO #### [facility] [address] [place] [address] Bakery Sales Clerk: Dung Allen MD Epithelial cells LM.HPF #/area (Urine sed) 10 TO 20 Normal 0-5 [facility] Comment on above: Performed By: #### U AX, UMICAO #### [facility] [id number] [place] [address] Bakery Sales Clerk: Dung Allen MD Other Observations Culture ordered base d on defined criteria. Abnormal NREQ [facility] Comment on above: Performed By: #### U AX, UMICAO #### [facility] [address] [place] [address] Bakery Sales Clerk: Dung Allen MD RBC #/vol (U) 2 TO 5 Normal 0-2 [facility] Comment on above: Performed By: #### U AX, UMICAO #### [facility] [address] [place] [address] Bakery Sales Clerk: Dung Allen MD WBC #/vol (U) 20 TO 50 Normal 0-5 [facility] Comment on above: Performed By: #### U AX, UMICAO #### [facility] [address] [place] [address] Bakery Sales Clerk: Dung Allen MD Amorphous sediment LM Ql (Urine sed) NOT REPORTED Normal [facility] Comment on above: Performed By: #### U AX, UMICAO #### [facility] [id number] [place] [address] Bakery Sales Clerk: Dung Allen MD Bacteria LM.HPF #/area (Urine sed) NOT REPORTED Normal [facility] Comment on above: Performed By: #### U AX, UMICAO #### [facility] [address] [place] [address] Bakery Sales Clerk: Dung Allen MD Casts LM.LPF #/area (Urine sed) NOT REPORTED Normal [facility] Comment on above: Performed By: #### U AX, UMICAO #### [facility] [address] [place] [address] Bakery Sales Clerk: Dung Allen MD Crystals LM Nom (Urine sed) NOT REPORTED Normal NONE [facility] Comment on above: Performed By: #### U AX, UMICAO #### [facility] [address] [place] [address] Bakery Sales Clerk: Dung Allen MD Epithelial, Renal NOT REPORTED Normal 0 [facility] Comment on above: Performed By: #### U AX, UMICAO #### [facility] [address] [place] [address] Bakery Sales Clerk: Dung Allen MD Mucus Strands NOT REPORTED Normal NONE [facility] Comment on above: Performed By: #### U AX, UMICAO #### [facility] [address] [place] [address] Bakery Sales Clerk: Dung Allen MD Trichomonas NOT REPORTED Normal NONE [facility] Comment on above: Performed By: #### U AX, UMICAO #### [facility] [address] [place] [address] Bakery Sales Clerk: Dung Allen MD Yeast LM Ql (Urine sed) NOT REPORTED Normal NONE [facility] Comment on above: Performed By: #### U AX, UMICAO #### [facility] [address] [place] [address] Bakery Sales Clerk: Dung Allen MD XR CHEST (2 VW)on [...] Micah Palmer MD 11/23/18 Final result Normal [facility] Vital Signs Date Time Vital Sign Value Performing Clinician Faci lity 04-20-2024 13:34-0400 Body temperature 97 [degF] [facility] 04-20-2024 13:34-0400 Diastolic blood pressure 81 mm[Hg] [facility] 04-20-2024 13:34-0400 Heart rate 74 /min [facility] 04-20-2024 13:34-0400 Respiratory rate 18 /min [facility] 04-20-2024 13:34-0400 SaO2% (BldA) [Mass fraction] 97 % [facility] 04-20-2024 13:34-0400 Systolic blood pressure 185 mm[Hg] [facility] 01-03-2023 15:47-0400 Diastolic blood pressure 61 mm[Hg] Brent Meneses DO Work Phone: [employer] [facility] 01-03-2023 15:47-0400 Heart rate 58 /min Brent Meneses DO Work Phone: [employer] [facility] 01-03-2023 15:47-0400 Respiratory rate 18 /min Brent Meneses DO Work Phone: [employer] [facility] 01-03-2023 15:47-0400 SaO2% (BldA) [Mass fraction] 95 % Brent Meneses DO Work Phone: [employer] [facility] 01-03-2023 15:47-0400 Systolic blood pressure 161 mm[Hg] Brent Meneses DO Work Phone: [employer] 01-03-2023 14:33-0400 Body height 157.5 cm Brent Meneses DO Work Phone: [employer] 01-03-2023 14:33-0400 Body mass index (BMI) [Ratio] 29.08 kg/m2 Brent Meneses DO Work Phone: [employer] 01-03-2023 14:33-0400 Body temperature 98.2 [degF] Brent Meneses DO Work Phone: [employer] 01-03-2023 14:33-0400 Body weight 72.12 kg Brent Meneses DO Work Phone: [employer] Encounters Encounter Date Encounter Type Care Provider Facility Start: 04-20-2024 End: 04-20-2024 ambulatory [facility] Work Phone: Start: 04-20-2024 End: 04-20-2024 Patient encounter procedure [facility] Work Phone: Start: 01-17-2024 End: 01-17-2024 ambulatory [facility] Start: 11-29-2023 End: 11-29-2023 ambulatory [facility] Start: 11-29-2023 End: 11-29-2023 Office outpatient visit 10 minutes [facility] 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 [facility] Comment on above: COVID-19 (Primary Dx ); Acute bronchitis, unspecified organism; Urinary incontinence, unspecified type Start: 10-11-2023 Refill Tuan Bashir on [facility] Comment on above: Osteoarthritis of th oracolumbar spine, unspecified spinal osteoarthritis complication status Start: 09-13-2023 End: 09-13-2023 ambulatory [facility] Start: 01-30-2023 End: 01-31-2023 ambulatory [facility] Facility: Start: 01-16-2023 End: 01-16-[address] DUNG GRAVES Facility:[facility] Start: 01-03-2023 End: 01-03-2023 Emergency department patient visit BRENT MENESES [facility] Start: 01-03-2023 End: 01-03-2023 Emergency department patient visit Brent Meneses DO Work Phone: [facility] Comment on above: Rib contusion, right , initial encounter (Primary Dx); Strain of lumbar region, initial encounter Start: 07-05-2020 End: 07-07-2020 Subsequent hospital visit by physician Jarad Link Mammo Rm 2 [facility] Comment on above: Encounter for [...] Evaluation and management of inpatient TORSTEN HEARD [facility] Procedures Date Procedure Procedure Detail Performing Clinician Start: 09-13-2023 Adult depression scr eening assessment Tuan Rodríguez CMA Start: 01-03-2023 Radex ribs uni w/pos teroant ch minimum 3 views Brent Bautista Gideon DO Work Phone: Start: 07-05-2020 Screening mammograph y bi 2-view breast inc cad Yokasta Vidal Work Phone: Start: 05-15-2019 Screening digital br east tomosynthesis bi Yokasta Vidal Work Phone: Start: 11-27-2018 DISCHARGE PATIENT TORSTEN MONTAGUEKASSIDYLily Start: 11-27-2018 Radiologic exam ches t 2 views TORSTEN CLARICURTIS Start: 11-27-2018 INITIATE OXYGEN THER APY PROTOCOL [...] Start: 11-26-2018 Blood count complete automated TORSTEN HEARD Start: 11-26-2018 BRAIN NATRIURETIC PEPTIDE TORSTEN HEARD Start: 11-26-2018 Comprehensive metabo lic panel TORSTEN HEARD Start: 11-26-2018 INTAKE AND OUTPUT TORSTEN HEARD Start: 11-25-2018 IP CONSULT TO CARDIOLOGY TORSTEN MONTAGUECURTIS Start: 11-25-2018 Ecg routine ecg w/le ast 12 lds w/i&r TORSTEN HEARD Start: 11-25-2018 EKG REPORT TORSTEN ACEVEDO Start: 11-25-2018 AMB EXTERNAL REFERRA L TO HOME HEALTH TORSTEN FÉLIX Start: 11-25-2018 Ct thorax w/o contra st material TORSTEN HEARD Start: 11-25-2018 IP CONSULT TO SOCIAL WORK TORSTEN HEARD Start: 11-25-2018 Radiologic exam ches t single view TORSTEN HEARD Start: 11-25-2018 INITIATE OXYGEN THER APY PROTOCOL TORSTEN HEARD Start: 11-25-2018 25 hydroxy includes fractions if performed TORSTEN HEARD Start: 11-25-2018 Antibody herpes smpl x type 1 TORSTEN HEARD Start: 11-25-2018 Assay of thyroid stimulating hormone tsh TORSTEN FÉLIX Start: 11-25-2018 Blood count complete automated TORSTEN FÉLIX Start: 11-25-2018 Comprehensive metabo lic panel TORSTEN HEARD Start: 11-25-2018 INTAKE AND OUTPUT TORSTEN HEARD Start: 11-24-2018 PATIENT STATUS (FROM ED OR OR/PROCEDURAL) TORSTEN CLARIKASSIDYLily Start: 11-24-2018 INITIATE OXYGEN THER APY PROTOCOL TORSTEN FÉLIX Start: 11-24-2018 Blood count complete automated TORSTEN HEARD Start: 11-24-2018 Comprehensive metabo lic panel TORSTEN HEARD Start: 11-24-2018 Prothrombin time TORSTEN CLARICURTIS Start: 11-24-2018 DAILY WEIGHTS TORSTEN WEINSTEIN Start: [...] Adult BMI Screening Adult BMI Screen ing [facility] Start: 09-13-2024 [facility] Start: 09-13-2024 Fall Risk Screening Fall Risk Screen ing [facility] Start: 09-13-2024 Tobacco Screening Tobacco Screening [facility] Start: 05-30-2024 Medicare Annual Well ness Visit Medicare Annual Wellness Visit [facility] Start: 05-17-2023 Influenza vaccination Influenza Vacc ine [facility] Start: 04-16-2023 Influenza vaccination Flu vacc ine (Season Ended) [facility] Start: 02-06-2023 ambulatory Ambulatory Facility:H 1 Start: 01-11-2021 COVID-19 Vaccine (3 - Booster for Pfizer series) COVID-19 Vaccine (3 - Booster for Pfizer series) [facility] Start: 05-17-2020 Influenza vaccination Flu vaccine (# 1) [place], [place] Start: 05-17-2019 Influenza vaccination Flu vaccine (# 1) [place] Start: 03-08-2019 Annual Wellness Visi t (AWV) Annual Wellness Visit (AWV) [facility] Start: 11-30-2017 Pneumococcal 65+ yea rs Vaccine (2 - PPSV23 if available, else PCV20) Pneumococcal 65+ years Vaccine (2 - PPSV23 if available, else PCV20) [facility] Start: 12-24-2004 DEXA (modify frequen cy per FRAX score) DEXA (modify frequency per FRAX score) [place] Start: 12-24-2004 Pneumococcal 65+ yea rs Vaccine (2 of 2 - PPSV23) Pneumococcal 65+ years Vaccine (2 of 2 - PPSV23) [place] Start: 12-24-2002 Annual Wellness Visi t (AWV) Annual Wellness Visit (AWV) [place] Start: 12-24-1994 Screening for osteoporosis DEXA (modify frequency per FRAX score) [facility] Start: 12-24-1989 Administration of varicella zoster vaccine Zoster (Shingles) Vaccine (1 of 2) [facility] Start: 12-24-1989 Shingles Vaccine (1 of 2) Das gles Vaccine (1 of 2) [facility] Start: 12-24-1958 DTaP,Tdap and Td Vac cines (1 - Tdap) DTaP,Tdap and Td Vaccines (1 - Tdap) [facility] Start: 12-24-1958 DTaP/Tdap/Td vaccine (1 - Tdap) DTaP/Tdap/Td vaccine (1 - Tdap) [facility] Start: 12-24-1957 Adult BMI Follow Up Plan Adult BMI Follow Up Plan [facility] Start: 1951 Depression Screen Depression Screen [facility] End: 11-28-2024 Bacteria identified in Urine by Culture Urine culture (clean catch) Microbiology Routine Urinary incontinence, unspecified type 1 Occurrences starting 11/29/2023 until 11/28/2024 [facility] Comment on above: 1 Occurrences starti ng 11/29/2023 until 11/28/2024 End: 11-28-2024 Urinalysis Urinalysis Lab Routine Urinary incontinence, unspecified type 1 Occurrences starting 11/29/2023 until 11/28/2024 [facility] Work Phone: Comment on above: 1 Occurrences starti ng 11/29/2023 until 11/28/2024 Payers Date Payer Category Payer Medicare [employer] MEDICARE UHC MEDICARE ADVANTAGE O [id number] 2023-Present [phone] [address] [address] [place] [address] [id number] 2015 Medicare UHC MEDICARE UHC MEDICARE COMPLETE xxxxxxxxx 2015-Present xxxxxxxxx [id number] 1959 Medicare [id number] 1940 Unknown [id number] 1939 Unknown [id number] 1939 Unknown [id number] 1939 Unknown [id number] 1939 Unknown [id number] 1939 Unknown [id number] 1939 Unknown [id number] 1939 Unknown [id number] Medicare AARP Medicare Advantage PFFS [id number] Private Health Insurance [employer] [facility] PFFS Op [id number] Social History Date Type Detail Facility Start: 08-11-2012 End: 11-24-2018 Tobacco smoking status NHIS Former smoker [facility] [employer] End: 08-11-1990 History of tobacco use Current smoker [place], [place] Start: 11-24-2018 End: 05-30-[address] [facility] Start: 1940 Sex Assigned At Not on file [place] Start: 08-11-2012 End: 01-18-2020 Tobacco use and exposure Never used [facility] [place] Start: 01-18-2020 End: 01-03-2023 Alcohol intake Current non-drinker of alcohol (finding) [place], [place] End: 08-11-1990 History of tobacco use Cigarette Smoker [facility] [employer] Phone: Start: 01-03-2023 History SDOH Alcohol Frequency 1 [employer] Phone: Start: 01-03-2023 History SDOH Alcohol Std Drinks 0 [employer] Phone: Start: 12-24-2022 End: 01-03-2023 Exposure to SARS-CoV-2 (event) Not sure [facility] [employer] Work Phone: Start: 03-20-2023 End: 04-20-2024 Tobacco smoking status NHIS Never smoked tobacco [facility] Start: 03-20-2023 Tobacco use and exposure Forme r smokeless tobacco user [facility] End: 09-16-1979 History of tobacco use User of smokeless tobacco [facility] Start: 09-13-2023 Alcohol intake Lifetime non-d param (finding) [facility] Start: 05-30-2023 End: 09-13-2023 History of Social function [facility] Do you belong to any clubs or organizations such as temple groups, unions, fraternal or athletic groups, or school groups? No [facility] Are you now , , , , never or living with a partner? [facility] How often to you hav e a drink containing alcohol? Never [facility] How many standard dr inks containing alcohol do you have on a typical day? Patient does not drink [facility] How hard is it for y ou to pay for the very basics like food, housing, medical care, and heating Not very hard 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 female, an established patient, and is here for No chief complaint on file. . HPI Patient developed some cold symptoms including fatigue, cough, congestion, confusion and urinary incontinence on Saturday and tested positive for COVID today. She lives at [facility]. Her nurse Елена and daughter Liseth [...] Visit via Real-time Synchronous Audiovisual Provider Location: [facility] [address] [facility] [address] Patient Location: Patient's [facility] Video Visit Consent Statement: I discussed [...] that there are some limitations compared to [id number] evaluations. The patient consented to the presence [...] vitals taken for this visit. Physical Exam V Belt Inspector present: Liseth daughter and nurse Елена present. [...] will send urinalysis and culture order to Tod Woodard MA or PILY Espinoza to fax [...] is 63 as of April of 2023. [id number] 11min. ELLIE CARIAS APRN-CNP 11/29/232036 documented in this encounter [facility] [employer] [facility] Note 10-11-2023 Telephone Encounter - Tuan RodríguezMITCH - 10/11/2023 10:17 AM EST Note Date & Type Note Facility 10-11-2023 Miscellaneous Notes Formattin g of this note might be different from the original. Nurse called from assisted living and would like pt to have a refill on [facility] Note 10-11-2023 Telephone Encounter - Tuan Rodríguez CMA - 10/11/2023 10:17 AM EST Note Date & Type Note Facility 10-11-2023 Telephone encount er Note Nurse called from assisted living and would like pt to have a refill on [facility]doll [facility] Discharge instructions 01-03-2023 Discharge InstructionsAttachments Note [...] cannot be sent through Care Everywhere.Back: Strain (British)Rib Contusion (British)documented in this encounter [employer] Work Phone: Evaluation note Note Date & Type Note Facility Evaluation note Diagnosis Rib contusion, right, initial encounter- Primary Strain of lumbar region, initial encounter documented in this encounter [facility] [employer] Work Phone: Evaluation note Note Date & Type Note Facility Evaluation note Diagnosis Osteoarthritis of thoracolumbar spine, unspecified spinal osteoarthritis complication status documented in this encounter [facility] [employer] [facility] Evaluation note Note Date & Type Note Facility Evaluation note Diagnosis COVID-19- Primary Acute bronchitis, unspecified organism Urinary incontinence, unspecified type [facility] Evaluation note Note Date & Type Note Facility Evaluation note No assessment information availa [facility] Work Phone: Instructions Note Date & Type Note Facility Instructions Not on filedocumented in this en counter [facility] Instructions Note Date & Type Note Facility Instructions Not on filedocumented in this en counter [facility] Summary Purpose Family History No Family History Records FoundNo Family History Records FoundNo Family History Records FoundNo Family History Records Found Advance Directives Documents on File Type Date Recorded Patient Associate Designer Expl anation Advance Directives and Living Will Power of Emergency Medicine Physician Latest Code Status on File Code Status Date Activated Date Inactivated Comments Full Code 11/23/2018 11:18 PM 11/27/2018 7:29 PM Documents on File Type Date Recorded Patient Associate Designer Expl anation ACP-Advance Directive ACP-Power of Emergency Medicine Physician Latest Code Status on File Code Status Date Activated Date Inactivated Comments Full Code 11/23/2018 11:18 PM 11/27/2018 7:29 PM Advance Directive Response Recorded Date/ Time Advance Directives No April 20, 024 12:56pm Reason for Referral Status Reason Specialty Diagnoses / Procedures Referre d By Contact Referred To Contact Closed Radiology Diagnoses Encounter for screening mammogram for malignant neoplasm of breast Malignant neoplasm of right female breast, unspecified estrogen receptor status, unspecified site of breast (HCC) Procedures ABBY DIGITAL SCREEN UNILATERAL LEFT Yokasta Vidal MD [address] [place] [address] Assessments Diagnosis Encounter for screening mammogram for malignant neoplasm of breast Other screening mammogram Malignant neoplasm of right female breast, unspecified estrogen receptor status, unspecified site of breast (HCC) Diagnosis Encounter for screening mammogram for malignant neoplasm of breast Other screening mammogram Malignant neoplasm of right female breast, unspecified estrogen receptor status, unspecified site of breast (HCC) Chief Complaint and Reason for Visit Chief Complaint Possible UTI Additional Source Comments INFORMATION SOURCE (unrecogn ized section and content) DATE CREATED AUTHOR 11/30/2018 [facility] DATE CREATED AUTHOR AUTHOR'S ORGANIZ ATION 01/03/2023 [facility] DATE CREATED AUTHOR AUTHOR'S ORGANIZ ATION 01/31/2023 [facility] DATE CREATED AUTHOR AUTHOR'S ORGANIZ ATION 01/18/2024 [...] DIGITAL SCREEN UNILATERAL LEFT Yokasta Vidal MD [address] [address] Status Reason Specialty Diagnoses / Procedures Referre d By Contact Referred To Contact Closed Radiology Diagnoses Encounter for screening mammogram for malignant neoplasm of breast Malignant neoplasm of right female breast, unspecified estrogen receptor status, unspecified site of breast (HCC) Procedures ABBY AMANDA DIGITAL SCREEN UNI LEFT ABBY DIGITAL SCREEN UNILATERAL LEFT HC MAMMO SCREENING INCL CAD IF PERF Yokasta Vidal MD [address] [place] [address] Reason Comments Fall Back Pain Scheduled Active and Recently Administ ered Medications (unrecognized section and content) Medication Order 01/01/2023 01/02/2023 01/03/2023 ketorolac (TORADOL) injection 30 mg (COMPLETED) 30 mg, IntraMUSCular, ONCE, 1 dose, On Ivy 01/03/23 at 1500 1456 (Given - Provid er: Kenny Cope RN) Care Teams (unrecognized sec tion and content) Econometrician Relationship Specialty Start Date End Date Torsten Headr MD [address] [place] [address] PCP - General 08/01/12 Econometrician Relationship Specialty Start Date End Date Nakul Worley DO [address] [place] [address] PCP - General Internal Medicine 03/18/23 Econometrician Relationship Specialty Start Date End Date Nakul Worley DO [address] [place] [address] PCP - General Internal Medicine 03/18/23 Team Status: Active Member Role Status Dates Nakul Worley DO Primary Care Provider Active Team Status: Inactive Member Role Status Dates Tara Botello APRN Attending Provider Active S tart: April 20, 2024 End: April 20, 2024 Nakul Worley DO Primary Care Provider Active Sta rt: April 20, 2024 End: April 20, 2024 Goals (unrecognized section and content) Goals may be documented in a n alternate section FOR RECORDS PERTAINING TO PATIENTS WHO ARE [...] BE BASED ON THE PRIMARY CLINICAL RECORDS. [facility] [employer] provides no warranty or guarantee of the accuracy or completeness of information in this document.
--- NOTE | 2024-04-29 11:30 | P.CN_ITS ---
Consult Note: HPI Data of Consult Patient: known to practice within the last 3 years Requesting Physician: Lexis Marshall NP Primary Care Provider: NAKUL WORLEY Consult Narrative Reason for consult: chronic low back pain Narrative: Vilma Cotter presents for evaluation and management of chronic low back pain. Patient reports back pain worsening over the last 30 years without incident. Patient previously managed by her PCP, had found significant improvement from tramadol 50mg BID PRN which she took 50mg BID. Patient has failed to benefit from tylenol and OTC NSAIDs in the past. PMH includes HTN. Patient reporting pain varies, today 3/10 in low back. Ache, sharp at times. Has engaged in PT greater than 1 year ago without improvement. Pain increased with activity, lifting, sleep. Patient does not find benefit to heat or ice. Prior lumbar xray consistent with lumbar facet arthropathy, DDD, and lumbar spondylolisthesis. Has found mild benefit to recent PT but her progress has stalled due to UTI and worsening memory issues impairing her focus. Patient finds little to no benefit from mobic 7.5mg BID PRN and has taken tramadol 50mg one time since last prescribed as she does not remember to ask the nurses for medication. cc:: CC: Lexis Marshall NP Review of Systems ROS Status of ROS 10 or more systems reviewed and unremark able except as noted in history and below Musculoskeletal Reports: back pain and joint pain Meds Home Medications and Allergies Home Medications ?Medication ?Instructions ?Recorded ?Confirmed ?Type acetaminophen 325 mg capsule 650 mg PO QID PRN pain 02/26/24 02/26/24 History (Tylenol) benzonatate 200 mg capsule 200 mg PO TID 02/26/24 02/26/24 History cranberry 500 mg capsule 500 mg PO DAILY 02/26/24 02/26/24 History guaifenesin 600 mg tablet, 600 mg PO BID PRN cough 02/26/24 02/26/24 History extended release 12 hr meloxicam 7.5 mg tablet 7.5 mg PO BID 02/26/24 02/26/24 History metoprolol tartrate 25 mg tablet 25 mg PO BID 02/26/24 02/26/24 History olmesartan 20 mg tablet (Benicar) 20 mg PO DAILY 02/26/24 02/26/24 History tramadol 50 mg tablet 50 mg PO BID PRN pain #28 tabs 04/16/24 Rx cephalexin 500 mg capsule 500 mg PO BID 5 days #10 caps 04/20/24 Rx Allergies Allergy/AdvReac Type Severity Reaction Status Date / Time No Known Drug Allergies Allergy Verified 04/20/24 15:29 Exam Constitutional Documenting provider has reviewed patient's vital signs: yes Common normals: no apparent distress, oriented x3, healthy appearing, alert and well nourished General appearance: cooperative HENMT Common normals: normocephalic, hearing grossly normal bilaterally and moist oral mucous membranes Head and scalp: normocephalic Eye Common normals: PERRL Pupil: PERRL Neck & C-Spine Common normals: full ROM General: normal visual inspection Chest Common normals: inspection of chest normal Respiratory Common normals: normal respiratory effort, no retractions and no use of accessory muscles Back & Pelvis Lumbar spine/lower back: ROM limited, pain with ROM and straight leg raise negative bilaterally Other: pain increased with facet loading tenderness over L4-S1 facets Extremity Common normals: normal to inspection and full ROM Neuro Common normals: CN's II-XII intact bilaterally, moves all extremities, no focal motor deficits, no sensory deficits noted and deep tendon reflexes 2+ bilaterally Sensorium/orientation: alert, oriented to person, oriented to place and orientation impaired Gait (neuro): assistive device used cane Motor exam: no movement abnormalities noted and strength abnormal (generalized weakness) Psych Common normals: mental status grossly normal, thought process normal, cooperative, affect normal, speech normal and activity/motor behavior normal Speech: normal speech Thought process: normal thought process Results Additional Findings Additional findings: If on a controlled substance or opioids, I have checked an [place] report on this patient and there are no aberrancies noted in the prescribing history.??If on a controlled substance or opioid a drug screen was completed and reviewed within the last year, and if there has not been a drug screen completed we ordered one today to monitor higher risk, state monitored pain medication use. As part of providing excellent, safe, comprehensive care, the following was completed at our patient's visit: 1. A medication reconciliation and review to ensure accurate knowledge of current/active medications, including asking our patients to inform us about any [id number] medications or herbal remedies/nutritional supplements/alternative remedies. 2. A review to specifically ensure our patients have had annual screening for screening for depression, screening for tobacco use, and screening for unhealthy alcohol use. For concerning screenings had a discussion with the patient, provided patient education, and recommended follow-up with primary care provider when appropriate. If patient noted with a risk of falling, they received education on strength, gait, and balance training to prevent future risk of falling. Assessment and Plan Assessment and Plan (1) Lumbar spondylosis: (2) Chronic low back pain: (3) Chronic pain syndrome: (4) Generalized OA: (5) Frequent falls: (6) Generalized weakness: Plan assisted living to assess pain q12hrs if pain mild to moderate can utilize mobic 7.5mg BID PRN if pain moderate to severe can utilize tramadol 50mg BID PRN, ri sks vs benefits reviewed PT for chronic low back pain and generalized weakness continue to utilize walker/cane f/u 2-3 months, sooner if needed
== END 2024-04-29 10:57 | disposition home or self-care (01) ==
LOC: PM 10:56
PROVIDERS: PCP Internal Medicine; Visit Provider Nurse Practitioner
DX: M47.816 Spondylosis without myelopathy or radiculopathy, lumbar region (principal); M54.50 Low back pain, unspecified; G89.4 Chronic pain syndrome; M15.9 Polyosteoarthritis, unspecified; R53.1 Weakness
CPT/HCPCS: G0463

== ENCOUNTER 2024-05-19 17:11 | Emergency (ER) | payer MEDICARE, SELFPAY ==
[2024-05-19] VITALS (13 sets, daily range): BP systolic 125–169; BP diastolic 68–96; PULSE 64–89; TEMP 36.7; O2SAT 96–98; BMI 20.2
--- OUTSIDE RECORDS SUMMARY | 2024-05-19 17:22 | XMS_ITS | CCD ---
Author Organization [facility] Care Team Providers Care Explosives Detonator Name Role Phone TORSTEN HEARD Primary Care Unavailable CARMITA MORENO (NIHARIKA) Attending Unavailab CARMITA Paredes (NIHARIKA) Admitting Unavailab ESTEBAN Anglin Consulting Unavailable YOKASTA VIDAL Consulting Unavailable JULES GOMEZ Consulting Unavailable Torsten Heard Primary Care Provider Torsten Heard Primary Care Provider Torsten Heard MD Primary Care Provider BRENT MENESES Attending Unavailable TORSTEN HEARD Primary Care Unavailable [facility] Primary Care Unavaila ALEN Charles Admitting Unavailable ALEN ASENCIO Attending Unavailable DR DUNG GRAVES Attending Unavailabl e [facility] Primary Care Unavaila DR DUNG Manzo Admitting Unavailabl elizabeth GRAVES, DR DUNG Rodriguez Consulting Unavailabl e MIRNA VICTOR Consulting Unavailable BONITA JAY Consulting Unavailable [facility] Primary Care Unavaila ALEN Charles Admitting Unavailable ALEN ASENCIO Consulting Unavailable ALEN ASENCIO Attending Unavailable Nakul Worley DO Primary Care Provider ABUDLKADIR MAJOR Attending Unavailable NAKUL WORLEY Referring Unavailable NAKUL WORLEY Primary Care Unavailable NAKUL WORLEY Attending Unavailable NAKUL WORLEY Referring Unavailable NAKUL WORLEY Primary Care Unavailable NAKUL WORLEY Attending Unavailable NAKUL WORLEY Referring Unavailable NAKUL WORLEY Primary Care Unavailable ALEN ASENCIO Attending Unavailable Allergies Allergy Classification Reported Allergen(s) Allergy Type Date of Onset Reaction(s) Facility (6 sources) Codeine; Translations: [CODEINE] Drug Allergy 06-16-2012 [facility] [place], [place] Medications Current Medications Medication Drug Class(es) [...] with meals. 100 tablet 2 09/25/2023 Active [id number] 200 actuat albuterol 0.09 mg/actuat metered dose [...] 20 mg/ml oral solution (1 source) Uncompetitive R-csccla-B-aspartat e Receptor Antagonist, Sigma-1 Agonist Start: 11-27-2018 [...] daily 30 capsule 3 11/27/2018 Active ergocalciferol 56252 unt oral capsule (2 sources) Provitamin D2 Compound Start: 12-02-2018 take 1 capsule by mouth every week vitamin D (ERGOCALCIFEROL) 08718 units capsule Take 1 capsule by mouth [...] TSHon 01-30-2023 TSH 3.637 uIU/mL Normal 0.358-3.740 [facility] Comment on above: Performed By: #### T SH #### [facility] [address] [place] [address] Dr. Fermin Gonzalez VITAMIN B12on 01-30-2023 Cobalamin (Vitamin B12) [Mass/Vol] 525.0 pg/mL Normal 193.0-986.0 [facility] Comment on above: Performed By: #### V ITB12 #### [facility] [address] [place] [address] Dr. Fermin Gonzalez BNPon 01-16-2023 Natriuretic peptide B (Bld) [Mass/Vol] 400.0 pg/mL Normal <=1,800.0 [facility] Comment on above: Performed By: #### H STROPN, BNP, CMP #### [facility] [address] [place] [address] Dr. Fermin Gonzalez CBC AUTO DIFFon 01-16-2023 BASO # 0.1 103/ul Normal 0.0-0.1 [facility] Comment on above: Performed By: #### C BC #### [facility] [address] [place] [address] Dr. Fermin Gonzalez Basophils/100 WBC (Bld) 1.2 % Normal 0.2-2.0 [facility] Comment on above: Performed By: #### C BC #### [facility] [address] [place] [address] Dr. Fermin Gonzalez EO # 0.1 103/ul Normal 0.0-0.7 [facility] Comment on above: Performed By: #### C BC #### [facility] [address] [place] [address] Dr. Fermin Gonzalez Eosinophils/100 WBC (Bld) 1.3 % Normal 0.9-7.0 [facility] Comment on above: Performed By: #### C BC #### [facility] [address] [place] [address] Dr. Fermin Gonzalez Erythrocyte distribution width (RBC) [Ratio] 12.4 % Normal 11.0-15.0 [facility] Comment on above: Performed By: #### C BC #### [facility] [address] [place] [address] Dr. Fermin Gonzalez Hematocrit (Bld) [Volume fraction] 37.4 % Normal 36.0-48.0 [facility] Comment on above: Performed By: #### C BC #### [facility] [address] [place] [address] Dr. Fermin Gonzalez Hemoglobin (Bld) [Mass/Vol] 12.9 g/dL Normal 12.0-16.0 [facility] Comment on above: Performed By: #### C BC #### [facility] [address] [place] [address] Dr. Fermin Gonzalez IG # 0.03 10e3/ul Normal 0.00-0.03 [facility] Comment on above: Performed By: #### C BC #### [facility] [address] [place] [address] Dr. Fermin Gonzalez IG % 0.4 % Normal 0.0-0.5 [facility] Comment on above: Performed By: #### C BC #### [facility] [address] [place] [address] Dr. Fermin Gonzalez LYMPH # 2.3 103/ul Normal 1.2-3.8 [facility] Comment on above: Performed By: #### C BC #### [facility] [address] [place] [address] Dr. Fermin Gonzalez Lymphocytes/100 WBC (Bld) 30.9 % Normal 20.5-60.0 [facility] Comment on above: Performed By: #### C BC #### [facility] [address] [place] [address] Dr. Fermin Gonzalez MANUAL DIFF REQ NO Normal [facility] Comment on above: Performed By: #### C BC #### [facility] [address] [place] [address] Dr. Fermin Gonzalez MCH (RBC) [Entitic mass] 33.2 pg Normal 26.7-34.0 [facility] Comment on above: Performed By: #### C BC #### [facility] [address] [place] [address] Dr. Fermin Gonzalez MCHC (RBC) [Mass/Vol] 34.5 g/dL Normal 29.9-35.2 [facility] Comment on above: Performed By: #### C BC #### [facility] [address] [place] [address] Dr. Fermin Gonzalez MCV (RBC) [Entitic vol] 96.1 fL Normal 81.0-99.0 [facility] Comment on above: Performed By: #### C BC #### [facility] [address] [place] [address] Dr. Fermin Gonzalez MONO # 0.7 103/ul Normal 0.3-0.8 [facility] Comment on above: Performed By: #### C BC #### [facility] [address] [place] [address] Dr. Fermin Gonzalez Monocytes/100 WBC (Bld) 9.4 % Normal 1.7-12.0 [facility] Comment on above: Performed By: #### C BC #### [facility] [address] [place] [address] Dr. Fermin Gonzalez NEUT # 4.2 103/ul Normal 1.4-6.5 [facility] Comment on above: Performed By: #### C BC #### [facility] [address] [place] [address] Dr. Fermin Gonzalez Neutrophils/100 WBC (Bld) 56.8 % Normal 43.0-75.0 [facility] Comment on above: Performed By: #### C BC #### [facility] [address] [place], [place] [address] Dr. Fermin Gonzalez Platelet mean volume (Bld) [Entitic vol] 10.3 fL Normal 9.5-13.5 [facility] Comment on above: Performed By: #### C BC #### [facility] [address] [place], [place] [address] Dr. Fermin Gonzalez PLT 252 103/ul Normal 150-450 [facility] Comment on above: Performed By: #### C BC #### [facility] [address] [place], [place] [address] Dr. Fermin Gonzalez RBC 3.89 106/ul Critically low 4.20-5.40 [facility] Comment on above: Performed By: #### C BC #### [facility] [address] [place] [address] [address] Fermin Gonzalez WBC 7.4 103/ul Normal 4.0-11.0 [facility] Comment on above: Performed By: #### C BC #### [facility] [address] [place], [place] [address] HEAD WO CONon [...] with communicating hydrocephalus. Electronically authenticated by: BONITA FELICEFREDERIC Date: 2023-01-16 19:47 Normal [facility] ER URINE PROFILEon 3 Bilirubin Ql (U) Negative Normal NEGATIVE [facility] Comment on above: Performed By: #### E SHIRA UMICRO #### [facility] [address] [address] [address] Fermin Gonzalez Clarity (U) CLEAR Normal CLEAR [facility] Comment on above: Performed By: #### E SHIRA UMICRO #### [facility] [address] [address] [address] Fermin Gonzalez Color (U) LT. YELLOW Normal YELLOW [facility] Comment on above: Performed By: #### E SHIRA UMICRO #### [facility] [address] [place] [address] Dr. Fermin ZENGAHD A micrscopic examination will be performed if indicated. Normal [facility] Comment on above: Performed By: #### Elizabeth SILVA UMICRO #### [facility] [address] [address] [address] Fermin Gonzalez Glucose Ql (U) Negative Normal NEGATIVE [facility] Comment on above: Performed By: #### Elizabeth SILVA UMICRO #### [facility] [address] [address] [address] Fermin Gonzalez Hemoglobin Ql (U) Negative Normal NEGATIVE [facility] Comment on above: Performed By: #### E RUR, UMICRO #### [facility] [address] [address] [address] Fermin Gonzalez Ketones Ql (U) Negative Normal NEGATIVE [facility] Comment on above: Performed By: #### E RUR UMICRO #### [facility] [address] [address] [address] Fermin Gonzalez LEUKOCYTES SMALL Abnormal NEGATIVE [facility] Comment on above: Performed By: #### E RUR UMICRO #### [facility] [address] [place] [address] Dr. Fermin Gonzalez Nitrite Ql (U) Negative Normal NEGATIVE [facility] Comment on above: Performed By: #### DREW MORALESRO #### [facility] [address] [place] [address] Dr. Fermin Gonzalez pH (U) 7.0 [pH] Normal 5-9 [facility] Comment on above: Performed By: #### DREW MORALESRO #### [facility] [address] [place] [address] Dr. Fermin Gonzalez SPEC GRAVITY 1.010 Normal 1.005-<=1.025 [facility] Comment on above: Performed By: #### DREW MORALESRO #### [facility] [address] [place] [address] Dr. Fermin Gonzalez UA PROTEIN Negative Normal NEGATIVE/ TRACE [facility] Comment on above: Performed By: #### DREW MORALESRO #### [facility] [address] [place] [address] Dr. Fermin Gonzalez UR MICRO IND INDICATED Normal [facility] Comment on above: Performed By: #### DREW MORALESRO #### [facility] [address] [place] [address] Dr. Fermin Gonzalez Urobilinogen Qn (U) 1.0 {Adonay'U}/dL Normal 0.2 - 1.0 [facility] Comment on above: Performed By: #### DREW MORALESRO #### [facility] [address] [place] [address] Dr. Fermin Gonzalez PROF 14(COMP METB)on 023 Albumin [Mass/Vol] 3.6 g/dL Normal 3.4-5.0 [facility] Comment on above: Performed By: #### H STROPN, BNP, CMP #### [facility] [address] [place] [address] Dr. Fermin Gonzalez Albumin/Globulin [Mass ratio] 0.9 {ratio} Normal [facility] Comment on above: Performed By: #### H STROPN, BNP, CMP #### [facility] [address] [address] [address] Fermin Gonzalez ALP [Catalytic activity/Vol] 101 U/L Normal 46-116 [facility] Comment on above: Performed By: #### H STROPN, BNP, CMP #### [facility] [address] [place] [address] [address] Fermin Gonzalez ALT [Catalytic activity/Vol] 30 U/L Normal 14-59 [facility] Comment on above: Performed By: #### H STROPN, BNP, CMP #### [facility] [address] [address] [address] Fermin Gonzalez Anion gap [Moles/Vol] 9.5 mmol/L Normal [facility] Comment on above: Performed By: #### H STROPN, BNP, CMP #### [facility] [address] [place] [address] Dr. Fermin Gonzalez AST [Catalytic activity/Vol] 34 U/L Normal 15-37 [facility] Comment on above: Performed By: #### H STROPN, BNP, CMP #### [facility] [address] [address] [address] Fermin Gonzalez Bilirubin [Mass/Vol] 0.5 mg/dL Normal 0.2-1.0 [facility] Comment on above: Performed By: #### H STROPN, BNP, CMP #### [facility] [address] [address] [address] Fermin Gonzalez Calcium [Mass/Vol] 9.0 mg/dL Normal 8.5-10.1 [facility] Comment on above: Performed By: #### H STROPN, BNP, CMP #### [facility] [address] [address] [address] Fermin Gonzalez Chloride [Moles/Vol] 106 mmol/L Normal 98-107 [facility] Comment on above: Performed By: #### H STROPN, BNP, CMP #### [facility] [address] [address] [address] Fermin Gonzalez CO2 [Moles/Vol] 29.3 mmol/L Normal 21.0-32.0 [facility] Comment on above: Performed By: #### H STROPN, BNP, CMP #### [facility] [address] [address] [address] Fermin Gonzalez Creatinine [Mass/Vol] 1.06 mg/dL Critically high 0.55-1.02 [facility] Comment on above: Performed By: #### H STROPN, BNP, CMP #### [facility] [address] [address] [address] Fermin Gonzalez EGFR-AF TRISTANIAN =60 Normal >=60 [facility] Comment on above: Performed By: #### H STROPN, BNP, CMP #### [facility] [address] [address] [address] Fermin Gonzalez EGFR-NON AF TRISTANIAN 50 mL/min/1.73m2 Critically low >=60 [facility] Comment on above: Performed By: #### H STROPN, BNP, CMP #### [facility] [address] [place] [address] Dr. Fermin Gonzalez Globulin (S) [Mass/Vol] 4.1 g/dL Normal [facility] Comment on above: Performed By: #### H STROPN, BNP, CMP #### [facility] [address] [place] [address] Dr. Fermin Gonzalez Glucose [Mass/Vol] 94 mg/dL Normal 74-106 [facility] Comment on above: Performed By: #### H STROPN, BNP, CMP #### [facility] [address] [address] [address] Fermin Gonzalez Potassium [Moles/Vol] 3.8 mmol/L Normal 3.5-5.1 [facility] Comment on above: Performed By: #### H STROPN, BNP, CMP #### [facility] [address] [place] [address] Dr. Fermin Gonzalez Protein [Mass/Vol] 7.7 g/dL Normal 6.4-8.2 [facility] Comment on above: Performed By: #### H STROPN, BNP, CMP #### [facility] [address] [place] [address] Dr. Fermin Gonzalez Sodium [Moles/Vol] 141 mmol/L Normal 136-145 [facility] Comment on above: Performed By: #### H STROPN, BNP, CMP #### [facility] [address] [place] [address] Dr. Fermin Gonzalez Urea nitrogen [Mass/Vol] 18.0 mg/dL Normal 7.0-18.0 [facility] Comment on above: Performed By: #### H STROPN, BNP, CMP #### [facility] [address] [place] [address] Dr. Fermin Gonzalez Urea nitrogen/Creatinin e [Mass ratio] 17.0 mg/mg Normal [facility] Comment on above: Performed By: #### H STROPN, BNP, CMP #### [facility] [address] [place] [address] Dr. Fermin Gonzalez TROPONIN, HIGH SENSITIVITYon 01-16-2023 HSTROP 6.9 pg/mL Normal 4.0-51.3 [facility] Comment on above: Result Comment: CUT- OFF POINTS HAVE BEEN ESTABLISHED BASED ON THE FOURTH UNIVERSAL DEFINITIONS OF MYOCARDIAL INFARCTION. THE UPPER REFERENCE LIMIT (URL) OF TROPONIN, DEFINED THE 99TH PERCENTILE OF cTnI DISTRIBUTION IN A REFERENCE POPULATION, HAS BEEN CONFIRMED THE DECISION THRESHOLD FOR [place] DIAGNOSIS. Performed By: #### H STROPN, BNP, CMP #### [facility] [address] [place] [address] Dr. Fermin Gonzalez URINE MICROSCOPIC ONLYon BACTERIA NONE SEEN Normal NONE SEEN [facility] Comment on above: Performed By: #### DREW MORALESRO #### [facility] [address] [place] [address] Dr. Fermin Gonzalez Bacteria identified Cx Nom (U) NOT INDICATED Normal [facility] Comment on above: Performed By: #### DREW MORALESRO #### [facility] [address] [place] [address] Dr. Fermin Gonzalez CAST NONE SEEN Normal NONE SEEN [facility] Comment on above: Performed By: #### DREW MORALESRO #### [facility] [address] [place] [address] Dr. Fermin Gonzalez Crystals LM Nom (Urine sed) NONE SEEN Normal NONE SEEN [facility] Comment on above: Performed By: #### E SHIRA UMICRO #### [facility] [address] [place] [address] Dr. Fermin Gonzalez Epithelial cells LM Ql (Urine sed) RARE Normal NONE SEEN /RARE [facility] Comment on above: Performed By: #### E SHIRA, UMICRO #### [facility] [address] [place] [address] Dr. Fermin Gonzalez MUCOUS NONE SEEN Normal NONE SEEN [facility] Comment on above: Performed By: #### E SHIRA UMICRO #### [facility] [address] [place] [address] Dr. Fermin Gonzalez RBC 0-2 Normal 0-2 [facility] Comment on above: Performed By: #### Elizabeth SILVA UMICRO #### [facility] [address] [place] [address] Dr. Fermin Gonzalez WBC 0-2 Abnormal NONE SEEN [facility] Comment on above: Performed By: #### E SHIRA, UMICRO #### [facility] [address] [place] [address] Dr. Fermin Gonzalez No Panel Informationon 01-03 Radiology Study observation (narrative) [facility] [employer] Work Phone: XR LUMBAR SPINE (2-3 VIEWS)o [...] Dimas Vickers MD 01/03/23 Final result Normal [facility] 1. Stable, grade 1 degenerative anterolisthesis L4 on L5. 2. Degenerative changes lumbar spine. 3. Mild, bilaterally symmetrical SI joint osteoarthritis. 4. Bones may be osteopenic or osteoporotic. Consider bone densitometry correlation if not performed recently previously elsewhere. [facility] CONSOLIDATED EXAMINATION: 3 XRAY VIEWS OF THE [...] bilaterally symmetrical SI joint osteoarthritis is noted. [facility] Dimas Vickers MD - 01/03/2023 EXAMINATION: [...] correlation if not performed recently previously elsewhere. [employer] Work Phone: XR LUMBAR SPINE (2-3 VIEWS)O rdered By: Dimas Vickers on 01-03-2023 [employer] Phone: XR RIBS RIGHT INCLUDE CHEST (MIN [...] Semaj Thomason MD 01/03/23 Final result Normal [facility] No acute abnormality of the ribs. No acute process in the lungs. [facility] R[facility] CONSOLIDATED EXAMINATION: XRAY VIEWS OF [...] abnormality. Postsurgical changes in the right axilla. [facility] CONSOLID[facility] Semaj Thomason MD - 01/03/2023 EXAMINATION: [...] ribs. No acute process in the lungs. [employer] Work Phone: XR RIBS RIGHT INCLUDE CHEST (MIN 3 VIEWS)Ordered By: Semaj Thomason on 01-03-2023 [employer] Work Phone: ABBY AMANDA DIGITAL SCREEN UNI LEFTon 07-05-2020 No evidence of malignancy left breast. Advise annual screening mammography. BI-RADS 2 BIRADS: BIRADS - CATEGORY 2 Benign Findings. Normal interval follow-up is recommended in 12 months. OVERALL ASSESSMENT - BENIGN A letter of notification will be sent to the patient regarding the results. The [employer] recommends annual mammograms for women 40 years and older. [employer] [place] EXAMINATION: SCREENI NG DIGITAL LEFT MAMMOGRAM WITH [...] are noted. Benign appearing calcifications are present. [employer] [place] Freddie, pn Incoming Radiant Results From [facility] - 07/05/2020 4:46 PM EDT EXAMINATION: SCREENING [...] to the patient regarding the results. The [employer] recommends annual mammograms for women 40 years and older. [place], [place] ABBY DIGITAL SCREEN ANGELICA Guerrero LEFTon 05-15-2019 Stable benign left mammogram. BIRADS: BIRADS - CATEGORY 1 Negative, no evidence of malignancy. Normal interval follow-up is recommended in 12 months. OVERALL ASSESSMENT - NEGATIVE A letter of notification will be sent to the patient regarding the results. The [employer] recommends annual mammograms for women 40 years and older. [place], [place] EXAMINATION: LEFT BREAST DIGITAL SCREENING MAMMOGRAM [...] seen. Tomosynthesis images demonstrate no suspicious abnormality. [place], [place] Freddie, Mhpn Incoming Radiant Results From [facility] - 05/15/2019 1:34 PM EDT EXAMINATION: LEFT [...] to the patient regarding the results. The [employer] recommends annual mammograms for women 40 years and older. [place], [place] Cult,Bloodon 11-30-2018 Cult,Blood Specimen Description .BLOOD Special Requests 2 ML LEFT FOREARM Culture NO GROWTH 6 DAYS Report Status FINAL 11/30/2018 [facility] Comment on above: Performed By: #### C DP, LAC, TROPI, BMP, CK #### [facility] [address] [place] [address] Vault Manager: Dung Allen MD Cult,Blood Specimen Description .BLOOD Special Requests 20 ML LEFT AC Culture NO GROWTH 6 DAYS Report Status FINAL 11/30/2018 [facility] Comment on above: Performed By: #### C DP, LAC, TROPI, BMP, CK #### [facility] [address] [place] [address] Vault Manager: Dung Allen MD Basic Metab w/rfx MGon 11-27 (cont.) [facility] Comment on above: Result Comment: Aver age GFR for 70 or more years old: 75 mL/min/1.73sq m Chronic Kidney Disease: <60 mL/min/1.73sq m Kidney failure: <15 mL/min/1.73sq m eGFR calculated using average adult body mass. Additional eGFR calculator available at: http://www.[employer].introNetworks/multiple_crcl_2012.htm Performed By: #### C DP, LAC, TROPI, BMP, CK #### [facility] [address] [place] [address] Vault Manager: Dung Allen MD Anion gap molar conc 9 mmol/L Normal - [facility] Comment on above: Performed By: #### C DP, LAC, TROPI, BMP, CK #### [facility] [address] [place] [address] Vault Manager: Dung Allen MD Calcium mass conc 8.8 mg/dL Normal 8.6-10.4 [facility] Comment on above: Performed By: #### C DP, LAC, TROPI, BMP, CK #### [facility] [address] [place] [address] Vault Manager: Dung Allen MD Chloride molar conc 102 mmol/L Normal 98-107 [facility] Comment on above: Performed By: #### C DP, LAC, TROPI, BMP, CK #### [facility] [address] [place] [address] Vault Manager: Dung Allen MD CO2 molar conc 25 mmol/L Normal 20-31 [facility] Comment on above: Performed By: #### C DP, LAC, TROPI, BMP, CK #### [facility] [address] [place] [address] Vault Manager: Dung Allen MD Creatinine mass conc 0.80 mg/dL Normal 0.50-0.90 [facility] Comment on above: Performed By: #### C DP, LAC, TROPI, BMP, CK #### [facility] [id number] [place] [address] Vault Manager: Dung Allen MD GFR, Amer >60 Normal >60 [facility] Comment on above: Performed By: #### C DP, LAC, TROPI, BMP, CK #### [facility] [address] [place] [address] Vault Manager: Dung Allen MD GFR,non Amer >60 Normal >60 [facility] Comment on above: Performed By: #### C DP, LAC, TROPI, BMP, CK #### [facility] [address] [place] [address] Vault Manager: Dung Allen MD Glucose mass conc 89 mg/dL Normal 70-99 [facility] Comment on above: Performed By: #### C DP, LAC, TROPI, BMP, CK #### [facility] [address] [place] [address] Vault Manager: Dung Allen MD Potassium molar conc 3.8 mmol/L Normal 3.7-5.3 [facility] Comment on above: Performed By: #### C DP, LAC, TROPI, BMP, CK #### [facility] [address] [place] [address] Vault Manager: Dung Allen MD Sodium molar conc 136 mmol/L Normal 135-144 [facility] Comment on above: Performed By: #### C DP, LAC, TROPI, BMP, CK #### [facility] [address] [place] [address] Vault Manager: Dung Allen MD Urea nitrogen mass conc 14 mg/dL Normal 8-23 [facility] Comment on above: Performed By: #### C DP, LAC, TROPI, BMP, CK #### [facility] [address] [place], [place] [id number] Vault Manager: Dung Allen MD BUN/CRE Ratio NOT REPORTED Normal 9-20 [facility] Comment on above: Performed By: #### C DP, LAC, TROPI, BMP, CK #### [facility] [address] [place], [place] [id number] Vault Manager: Dung Allen MD Staging: NOT REPORTED Normal [facility] Comment on above: Performed By: #### C DP, LAC, TROPI, BMP, CK #### [facility] [address] [place], [place] [id number] Vault Manager: Dung Allen MD CBCon 11-27-2018 Erythrocyte distribution width Ratio (RBC) 12.8 % Normal 12.5-15.4 [facility] Comment on above: Performed By: #### C DP, LAC, TROPI, BMP, CK #### [facility] [address] [place] [address] Vault Manager: Dung Allen MD Hematocrit Volume Fraction (Bld) 33.1 % Low 36-46 [facility] Comment on above: Performed By: #### C DP, LAC, TROPI, BMP, CK #### [facility] [address] [place] [address] Vault Manager: Dung Allen MD Hemoglobin mass conc (Bld) 11.6 g/dL Low 12.0-16.0 [facility] Comment on above: Performed By: #### C DP, LAC, TROPI, BMP, CK #### [facility] [address] [place] [address] Vault Manager: Dung Allen MD MCH Entitic mass (RBC) 35.2 pg High 26-34 [facility] Comment on above: Performed By: #### C DP, LAC, TROPI, BMP, CK #### [facility] [id number] [place] [address] Vault Manager: Dung Allen MD MCHC mass conc (RBC) 35.1 g/dL Normal 31-37 [facility] Comment on above: Performed By: #### C DP, LAC, TROPI, BMP, CK #### [facility] [address] [place] [address] Vault Manager: Dung Allen MD MCV Entitic volume (RBC) 100.2 fL High 80-100 [facility] Comment on above: Performed By: #### C DP, LAC, TROPI, BMP, CK #### [facility] [address] [place] [address] Vault Manager: Dung Allen MD Platelet mean volume Entitic volume (Bld) 8.6 fL Normal 6.0-12.0 [facility] Comment on above: Performed By: #### C DP, LAC, TROPI, BMP, CK #### [facility] [address] [place] [address] Vault Manager: Dung Allen MD Platelets #/vol (Bld) 206 10*3/uL Normal 140-450 [facility] Comment on above: Performed By: #### C DP, LAC, TROPI, BMP, CK #### [facility] [address] [place] [address] Vault Manager: Dung Allen MD RBC #/vol (Bld) 3.30 10*6/uL Low 4.0-5.2 [facility] Comment on above: Performed By: #### C DP, LAC, TROPI, BMP, CK #### [facility] [address] [place] [address] Vault Manager: Dung Allen MD WBC #/vol (Bld) 5.3 10*3/uL Normal 3.5-11.0 [facility] Comment on above: Performed By: #### C DP, LAC, TROPI, BMP, CK #### [facility] [address] [place] [address] Vault Manager: Dung Allen MD NRBC Automated NOT REPORTED Normal [facility] Comment on above: Performed By: #### C DP, LAC, TROPI, BMP, CK #### [facility] [address] [place], [place] [id number] Vault Manager: Dung Allen MD XR CHEST (2 VW)on [...] Alex Gray MD 11/27/18 Final result Normal [facility] Basic Metab w/rfx MGon 11-26 Potassium molar conc 3.4 mmol/L Low 3.7-5.3 [facility] Comment on above: Performed By: #### C DP, LAC, TROPI, BMP, CK #### [facility] [address] [place] [address] Vault Manager: Dung Allen MD (cont.) Normal [facility] Comment on above: Result Comment: Aver age GFR for 70 or more years old: 75 mL/min/1.73sq m Chronic Kidney Disease: <60 mL/min/1.73sq m Kidney failure: <15 mL/min/1.73sq m eGFR calculated using average adult body mass. Additional eGFR calculator available at: http://www.[employer].com/multiple_crcl_2012.htm Performed By: #### C DP, LAC, TROPI, BMP, CK #### [facility] [address] [place] [address] Vault Manager: Dung Allen MD Anion gap molar conc 11 mmol/L Normal - [facility] Comment on above: Performed By: #### C DP, LAC, TROPI, BMP, CK #### [facility] [address] [place], [place] [id number] Vault Manager: Dung Allen MD Calcium mass conc 8.9 mg/dL Normal 8.6-10.4 [facility] Comment on above: Performed By: #### C DP, LAC, TROPI, BMP, CK #### [facility] [address] [place] [address] Vault Manager: Dung Allen MD Chloride molar conc 101 mmol/L Normal 98-107 [facility] Comment on above: Performed By: #### C DP, LAC, TROPI, BMP, CK #### [facility] [address] [place] [address] Vault Manager: Dung Allen MD CO2 molar conc 26 mmol/L Normal 20-31 [facility] Comment on above: Performed By: #### C DP, LAC, TROPI, BMP, CK #### [facility] [address] [place] [address] Vault Manager: Dung Allen MD Creatinine mass conc 0.81 mg/dL Normal 0.50-0.90 [facility] Comment on above: Performed By: #### C DP, LAC, TROPI, BMP, CK #### [facility] [address] [place] [address] Vault Manager: Dung Allen MD GFR, Amer >60 Normal >60 [facility] Comment on above: Performed By: #### C DP, LAC, TROPI, BMP, CK #### [facility] [address] [place], [place] [address] Vault Manager: Dung Allen MD GFR,non Amer >60 Normal >60 [facility] Comment on above: Performed By: #### C DP, LAC, TROPI, BMP, CK #### [facility] [address] [place] [address] Vault Manager: Dung Allen MD Glucose mass conc 85 mg/dL Normal 70-99 [facility] Comment on above: Performed By: #### C DP, LAC, TROPI, BMP, CK #### [facility] [address] [place] [address] Vault Manager: Dung Allen MD Sodium molar conc 138 mmol/L Normal 135-144 [facility] Comment on above: Performed By: #### C DP, LAC, TROPI, BMP, CK #### [facility] [address] [place] [address] Vault Manager: Dung Allen MD Urea nitrogen mass conc 16 mg/dL Normal 8-23 [facility] Comment on above: Performed By: #### C DP, LAC, TROPI, BMP, CK #### [facility] [address] [place] [address] Vault Manager: Dung Allen MD BUN/CRE Ratio NOT REPORTED Normal 9-20 [facility] Comment on above: Performed By: #### C DP, LAC, TROPI, BMP, CK #### [facility] [address] [place] [address] Vault Manager: Dung Allen MD Staging: NOT REPORTED Normal [facility] Comment on above: Performed By: #### C DP, LAC, TROPI, BMP, CK #### [facility] [address] [place] [address] Vault Manager: Dung Allen MD Brain Natri. Peptideon 11-26 Natriuretic peptide B mass conc (Bld) Normal [facility] Comment on above: Result Comment: Pro- BNP Reference Range: Rule Out: <300 [place]: Age <50 300-450 Age 50-75 300-900 Age >75 300-1800 Usually represents mild to moderate HF but other cardiopulmonary causes cannot be ruled out. Rule In: Age <50 >450 Age 50-75 >900 Age >75 >1800 Performed By: #### C DP, LAC, TROPI, BMP, CK #### [facility] [id number] [place], [place] [id number] Vault Manager: Dung Allen MD Natriuretic peptide B mass conc (Bld) 3923 pg/mL High <300 [facility] Comment on above: Result Comment: Pro- BNP results cannot be compared to BNP results. Performed By: #### C DP, LAC, TROPI, BMP, CK #### [facility] [address] [place] [address] Vault Manager: Dung Allen MD CBCon 11-26-2018 Erythrocyte distribution width Ratio (RBC) 12.8 % Normal 12.5-15.4 [facility] Comment on above: Performed By: #### C DP, LAC, TROPI, BMP, CK #### [facility] [address] [place] [address] Vault Manager: Dung Allen MD Hematocrit Volume Fraction (Bld) 37.4 % Normal 36-46 [facility] Comment on above: Performed By: #### C DP, LAC, TROPI, BMP, CK #### [facility] [address] [place] [address] Vault Manager: Dung Allen MD Hemoglobin mass conc (Bld) 12.7 g/dL Normal 12.0-16.0 [facility] Comment on above: Performed By: #### C DP, LAC, TROPI, BMP, CK #### [facility] [address] [place] [address] Vault Manager: Dung Allen MD MCH Entitic mass (RBC) 34.6 pg High 26-34 [facility] Comment on above: Performed By: #### C DP, LAC, TROPI, BMP, CK #### [facility] [address] [place] [address] Vault Manager: Dung Allen MD MCHC mass conc (RBC) 34.0 g/dL Normal 31-37 [facility] Comment on above: Performed By: #### C DP, LAC, TROPI, BMP, CK #### [facility] [address] [place] [address] Vault Manager: Dung Allen MD MCV Entitic volume (RBC) 101.6 fL High 80-100 [facility] Comment on above: Performed By: #### C DP, LAC, TROPI, BMP, CK #### [facility] [address] [place] [address] Vault Manager: Dung Allen MD Platelet mean volume Entitic volume (Bld) 9.0 fL Normal 6.0-12.0 [facility] Comment on above: Performed By: #### C DP, LAC, TROPI, BMP, CK #### [facility] [address] [place] [address] Vault Manager: Dung Allen MD Platelets #/vol (Bld) 198 10*3/uL Normal 140-450 [facility] Comment on above: Performed By: #### C DP, LAC, TROPI, BMP, CK #### [facility] [address] [place] [address] Vault Manager: Dung Allen MD RBC #/vol (Bld) 3.68 10*6/uL Low 4.0-5.2 [facility] Comment on above: Performed By: #### C DP, LAC, TROPI, BMP, CK #### [facility] [address] [place] [address] Vault Manager: Dung Allen MD WBC #/vol (Bld) 8.9 10*3/uL Normal 3.5-11.0 [facility] Comment on above: Performed By: #### C DP, LAC, TROPI, BMP, CK #### [facility] [address] [place] [address] Vault Manager: Dung Allen MD NRBC Automated NOT REPORTED Normal [facility] Comment on above: Performed By: #### C DP, LAC, TROPI, BMP, CK #### [facility] [address] [place] [address] Vault Manager: Dung Allen MD MRI BRAIN WO CONTRASTon [...] Brent Green MD 11/26/18 Final result Normal [facility] Magnesiumon 11-26-2018 Magnesium mass conc 2.0 mg/dL Normal 1.6-2.6 [facility] Comment on above: Performed By: #### C DP, LAC, TROPI, BMP, CK #### [facility] [address] [place] [address] Vault Manager: Dung Allen MD Troponinon 11-26-2018 Troponin I.cardiac mass conc 9 ng/L Normal 0-14 [facility] Comment on above: Result Comment: High Sensitivity Troponin values cannot be compared with other Troponin methodologies. Patients with high levels of Biotin oral intake (i.e >5mg/day) may have falsely decreased Troponin levels. Samples collected within 8 hours of biotin intake may require additional information for diagnosis. Performed By: #### C DP, LAC, TROPI, BMP, CK #### [facility] [address] [place] [address] Vault Manager: Dung Allen MD Troponin I.cardiac mass conc NOT REPORTED Normal <0.03 [facility] Comment on above: Performed By: #### C DP, LAC, TROPI, BMP, CK #### [facility] [address] [place] [address] Vault Manager: Dung Allen MD B12/Folate Panelon 9 Cobalamin (Vitamin B12) mass conc 943 pg/mL Normal 232-1245 [facility] Comment on above: Performed By: #### C DP, LAC, TROPI, BMP, CK #### [facility] [address] [place] [address] Vault Manager: Dung Allen MD Folic Acid 10.5 ng/mL Normal >4.8 [facility] Comment on above: Performed By: #### C DP, LAC, TROPI, BMP, CK #### [facility] [address] [place] [address] Vault Manager: Dung Allen MD Basic Metab w/rfx MGon 11-25 (cont.) Normal [facility] Comment on above: Result Comment: Aver age GFR for 70 or more years old: 75 mL/min/1.73sq m Chronic Kidney Disease: <60 mL/min/1.73sq m Kidney failure: <15 mL/min/1.73sq m eGFR calculated using average adult body mass. Additional eGFR calculator available at: http://www.[employer].introNetworks/multiple_crcl_2012.htm Performed By: #### C DP, LAC, TROPI, BMP, CK #### [facility] [address] [place] [address] Vault Manager: Dung Allen MD Anion gap molar conc 12 mmol/L Normal 9-17 [facility] Comment on above: Performed By: #### C DP, LAC, TROPI, BMP, CK #### [facility] [address] [place] [address] Vault Manager: Dung Allen MD Calcium mass conc 8.8 mg/dL Normal 8.6-10.4 [facility] Comment on above: Performed By: #### C DP, LAC, TROPI, BMP, CK #### [facility] [address] [place] [address] Vault Manager: Dung Allen MD Chloride molar conc 103 mmol/L Normal 98-107 [facility] Comment on above: Performed By: #### C DP, LAC, TROPI, BMP, CK #### [facility] [address] [place] [address] Vault Manager: Dung Allen MD CO2 molar conc 22 mmol/L Normal 20-31 [facility] Comment on above: Performed By: #### C DP, LAC, TROPI, BMP, CK #### [facility] [address] [place] [address] Vault Manager: Dung Allen MD Creatinine mass conc 0.94 mg/dL High 0.50-0.90 [facility] Comment on above: Performed By: #### C DP, LAC, TROPI, BMP, CK #### [facility] [address] [place] [address] Vault Manager: Dung Allen MD GFR, Amer >60 Normal >60 [facility] Comment on above: Performed By: #### C DP, LAC, TROPI, BMP, CK #### [facility] [address] [place] [address] Vault Manager: Dung Allen MD GFR,non Amer 58 mL/min Low >60 [facility] Comment on above: Performed By: #### C DP, LAC, TROPI, BMP, CK #### [facility] [address] [place] [address] Vault Manager: Dung Allen MD Glucose mass conc 105 mg/dL High 70-99 [facility] Comment on above: Performed By: #### C DP, LAC, TROPI, BMP, CK #### [facility] [address] [place] [address] Vault Manager: Dung Allen MD Potassium molar conc 3.7 mmol/L Normal 3.7-5.3 [facility] Comment on above: Performed By: #### C DP, LAC, TROPI, BMP, CK #### [facility] [address] [place] [address] Vault Manager: Dung Allen MD Sodium molar conc 137 mmol/L Normal 135-144 [facility] Comment on above: Performed By: #### C DP, LAC, TROPI, BMP, CK #### [facility] [address] [place], [place] [phone] Vault Manager: Dung Allen MD Urea nitrogen mass conc 22 mg/dL Normal 8-23 [facility] Comment on above: Performed By: #### C DP, LAC, TROPI, BMP, CK #### [facility] [address] [place] [address] Vault Manager: Dung Allen MD BUN/CRE Ratio NOT REPORTED Normal 9-20 [facility] Comment on above: Performed By: #### C DP, LAC, TROPI, BMP, CK #### [facility] [address] [place], [place] [address] Vault Manager: Dung Allen MD Staging: NOT REPORTED Normal [facility] Comment on above: Performed By: #### C DP, LAC, TROPI, BMP, CK #### [facility] [address] [place], [place] [address] Vault Manager: Dung Allen MD CBCon 11-25-2018 Erythrocyte distribution width Ratio (RBC) 12.9 % Normal 12.5-15.4 [facility] Comment on above: Performed By: #### C DP, LAC, TROPI, BMP, CK #### [facility] [address] [place] [address] Vault Manager: Dung Allen MD Hematocrit Volume Fraction (Bld) 32.7 % Low 36-46 [facility] Comment on above: Performed By: #### C DP, LAC, TROPI, BMP, CK #### [facility] [address] [place], [place] [address] Vault Manager: Dung Allen MD Hemoglobin mass conc (Bld) 11.1 g/dL Low 12.0-16.0 [facility] Comment on above: Performed By: #### C DP, LAC, TROPI, BMP, CK #### [facility] [address] [place], [place] [address] Vault Manager: Dung Allen MD MCH Entitic mass (RBC) 34.7 pg High 26-34 [facility] Comment on above: Performed By: #### C DP, LAC, TROPI, BMP, CK #### [facility] [address] [place] [address] Vault Manager: Dung Allen MD MCHC mass conc (RBC) 34.1 g/dL Normal 31-37 [facility] Comment on above: Performed By: #### C DP, LAC, TROPI, BMP, CK #### [facility] [address] [place] [address] Vault Manager: Dung Allen MD MCV Entitic volume (RBC) 101.6 fL High 80-100 [facility] Comment on above: Performed By: #### C DP, LAC, TROPI, BMP, CK #### [facility] [address] [place] [address] Vault Manager: Dung Allen MD Platelet mean volume Entitic volume (Bld) 9.0 fL Normal 6.0-12.0 [facility] Comment on above: Performed By: #### C DP, LAC, TROPI, BMP, CK #### [facility] [address] [place] [address] Vault Manager: Dung Allen MD Platelets #/vol (Bld) 162 10*3/uL Normal 140-450 [facility] Comment on above: Performed By: #### C DP, LAC, TROPI, BMP, CK #### [facility] [address] [place] [address] Vault Manager: Dung Allen MD RBC #/vol (Bld) 3.21 10*6/uL Low 4.0-5.2 [facility] Comment on above: Performed By: #### C DP, LAC, TROPI, BMP, CK #### [facility] [address] [place] [address] Vault Manager: Dung Allen MD WBC #/vol (Bld) 10.9 10*3/uL Normal 3.5-11.0 [facility] Comment on above: Performed By: #### C DP, LAC, TROPI, BMP, CK #### [facility] [address] [place], [place] [address] Vault Manager: Dung Allen MD NRBC Automated NOT REPORTED Normal [facility] Comment on above: Performed By: #### C DP, LAC, TROPI, BMP, CK #### [facility] [address] [place] [address] Vault Manager: Dung Allen MD CT CHEST ABDOMEN PELVIS WO C [facility] 11-25-2018 CT CHEST ABDOMEN PELVIS WO CONTRAST [...] Lm Porter MD 11/25/18 Final result Normal [facility] Cult,Urine,CCon 11-25-2018 Cult,Urine,CC Specimen Description .CLEAN CATCH URINE Special Requests NOT REPORTED Culture NO SIGNIFICANT GROWTH Report Status FINAL 11/25/2018 Normal [facility] Comment on above: Performed By: #### C DP, LAC, TROPI, BMP, CK #### [facility] [address] [place] [address] Vault Manager: Dung Allen MD TSH w/reflex to FT4on 2018 Thyrotropin Qn 4.20 m[IU]/L Normal 0.30-5.00 [facility] Comment on above: Performed By: #### C DP, LAC, TROPI, BMP, CK #### [facility] [address] [place], [place] [address] Vault Manager: Dung Allen MD Vitamin D 25 OHon 11-25-2018 Vitamin D 25 OH 34.8 ng/mL Normal 30.0-100.0 [facility] Comment on above: Result Comment: Reference Range: Vitamin D status Range Deficiency <20 ng/mL Mild Deficiency 20-30 ng/mL Sufficiency 30-100 ng/mL Toxicity >100 ng/mL Performed By: #### C DP, LAC, TROPI, BMP, CK #### [facility] [address] [place] [address] Vault Manager: Dung Allen MD XR CHEST PORTABLEon 11-26-19 [...] Alex Gray MD 11/25/18 Final result Normal [facility] Basic Metab w/rfx MGon 11-24 (cont.) Normal [facility] Comment on above: Result Comment: Aver age GFR for 70 or more years old: 75 mL/min/1.73sq m Chronic Kidney Disease: <60 mL/min/1.73sq m Kidney failure: <15 mL/min/1.73sq m eGFR calculated using average adult body mass. Additional eGFR calculator available at: http://www.[employer].introNetworks/multiple_crcl_2012.htm Performed By: #### C DP, LAC, TROPI, BMP, CK #### [facility] [address] [place] [address] Vault Manager: Dung Allen MD Anion gap molar conc 10 mmol/L Normal 9-17 [facility] Comment on above: Performed By: #### C DP, LAC, TROPI, BMP, CK #### [facility] [address] [place] [address] Vault Manager: Dung Allen MD Calcium mass conc 8.9 mg/dL Normal 8.6-10.4 [facility] Comment on above: Performed By: #### C DP, LAC, TROPI, BMP, CK #### [facility] [address] [place] [address] Vault Manager: Dung Allen MD Chloride molar conc 100 mmol/L Normal 98-107 [facility] Comment on above: Performed By: #### C DP, LAC, TROPI, BMP, CK #### [facility] [address] [place] [address] Vault Manager: Dung Allen MD CO2 molar conc 24 mmol/L Normal 20-31 [facility] Comment on above: Performed By: #### C DP, LAC, TROPI, BMP, CK #### [facility] [address] [place] [address] Vault Manager: Dung Allen MD Creatinine mass conc 0.95 mg/dL High 0.50-0.90 [facility] Comment on above: Performed By: #### C DP, LAC, TROPI, BMP, CK #### [facility] [address] [place] [address] Vault Manager: Dung Allen MD GFR, Amer >60 Normal >60 [facility] Comment on above: Performed By: #### C DP, LAC, TROPI, BMP, CK #### [facility] [address] [place], [place] [id number] Vault Manager: Dung Allen MD GFR,non Amer 57 mL/min Low >60 [facility] Comment on above: Performed By: #### C DP, LAC, TROPI, BMP, CK #### [facility] [address] [place], [place] [id number] Vault Manager: Dung Allen MD Glucose mass conc 94 mg/dL Normal 70-99 [facility] Comment on above: Performed By: #### C DP, LAC, TROPI, BMP, CK #### [facility] [address] [place], [place] [id number] Vault Manager: Dung Allen MD Potassium molar conc 4.2 mmol/L Normal 3.7-5.3 [facility] Comment on above: Performed By: #### C DP, LAC, TROPI, BMP, CK #### [facility] [address] [place] [address] Vault Manager: Dung Allen MD Sodium molar conc 134 mmol/L Low 135-144 [facility] Comment on above: Performed By: #### C DP, LAC, TROPI, BMP, CK #### [facility] [address] [place] [address] Vault Manager: Dung Allen MD Urea nitrogen mass conc 28 mg/dL High 8-23 [facility] Comment on above: Performed By: #### C DP, LAC, TROPI, BMP, CK #### [facility] [address] [place] [address] Vault Manager: Dung Allen MD BUN/CRE Ratio NOT REPORTED Normal 9-20 [facility] Comment on above: Performed By: #### C DP, LAC, TROPI, BMP, CK #### [facility] [address] [place] [address] Vault Manager: Dung Allen MD Staging: NOT REPORTED Normal [facility] Comment on above: Performed By: #### C DP, LAC, TROPI, BMP, CK #### [facility] [address] [place] [address] Vault Manager: Dung Allen MD CBCon 11-24-2018 Erythrocyte distribution width Ratio (RBC) 12.6 % Normal 12.5-15.4 [facility] Comment on above: Performed By: #### C DP, LAC, TROPI, BMP, CK #### [facility] [address] [place], [place] [phone] Vault Manager: Dung Allen MD Hematocrit Volume Fraction (Bld) 37.6 % Normal 36-46 [facility] Comment on above: Performed By: #### C DP, LAC, TROPI, BMP, CK #### [facility] [address] [place], [place] [id number] Vault Manager: Dung Allen MD Hemoglobin mass conc (Bld) 12.5 g/dL Normal 12.0-16.0 [facility] Comment on above: Performed By: #### C DP, LAC, TROPI, BMP, CK #### [facility] [address] [place] [address] Vault Manager: Dung Allen MD MCH Entitic mass (RBC) 33.6 pg Normal 26-34 [facility] Comment on above: Performed By: #### C DP, LAC, TROPI, BMP, CK #### [facility] [address] [place] [address] Vault Manager: Dung Allen MD MCHC mass conc (RBC) 33.3 g/dL Normal 31-37 [facility] Comment on above: Performed By: #### C DP, LAC, TROPI, BMP, CK #### [facility] [address] [place], [place] [phone] Vault Manager: Dung Allen MD MCV Entitic volume (RBC) 101.0 fL High 80-100 [facility] Comment on above: Performed By: #### C DP, LAC, TROPI, BMP, CK #### [facility] [address] [place], [place] [id number] Vault Manager: Dung Allen MD Platelet mean volume Entitic volume (Bld) 9.2 fL Normal 6.0-12.0 [facility] Comment on above: Performed By: #### C DP, LAC, TROPI, BMP, CK #### [facility] [address] [place] [address] Vault Manager: Dung Allen MD Platelets #/vol (Bld) 189 10*3/uL Normal 140-450 [facility] Comment on above: Performed By: #### C DP, LAC, TROPI, BMP, CK #### [facility] [address] [place] [address] Vault Manager: Dung Allen MD RBC #/vol (Bld) 3.72 10*6/uL Low 4.0-5.2 [facility] Comment on above: Performed By: #### C DP, LAC, TROPI, BMP, CK #### [facility] [address] [place] [address] Vault Manager: Dung Allen MD WBC #/vol (Bld) 14.1 10*3/uL High 3.5-11.0 [facility] Comment on above: Performed By: #### C DP, LAC, TROPI, BMP, CK #### [facility] [address] [place] [address] Vault Manager: Dung Allen MD NRBC Automated NOT REPORTED Normal [facility] Comment on above: Performed By: #### C DP, LAC, TROPI, BMP, CK #### [facility] [id number] [place] [address] Vault Manager: Dung Allen MD Extra Yellow Tubeon 11-25-19 19 Extra Yellow Tube Normal [facility] Comment on above: Performed By: #### C DP, LAC, TROPI, BMP, CK #### [facility] [address] [place] [address] Vault Manager: Dung Allen MD PTon 11-24-2018 INR Coag RelTime (PPP) 1.3 {INR} Normal [facility] Comment on above: Result Comment: Therapeutic Range: Moderate Anticoagulant Intensity: INR = 2.0-3.0 High Anticoagulant Intensity: INR = 2.5-3.5 Performed By: #### C DP, LAC, TROPI, BMP, CK #### [facility] [address] [place] [address] Vault Manager: Dung Allen MD Prothrombin time (PT) Coag time (PPP) 13.0 s High 9.4-12.6 [facility] Comment on above: Performed By: #### C DP, LAC, TROPI, BMP, CK #### [facility] [address] [place] [address] Vault Manager: Dung Allen MD Basic Metabolic Profon 11-23 (cont.) Normal [facility] Comment on above: Result Comment: Aver age GFR for 70 or more years old: 75 mL/min/1.73sq m Chronic Kidney Disease: <60 mL/min/1.73sq m Kidney failure: <15 mL/min/1.73sq m eGFR calculated using average adult body mass. Additional eGFR calculator available at: http://www.[employer].com/multiple_crcl_2012.htm Performed By: #### C DP, LAC, TROPI, BMP, CK #### [facility] [address] [place] [address] Vault Manager: Dung Allen MD Anion gap molar conc 14 mmol/L Normal 9-17 [facility] Comment on above: Performed By: #### C DP, LAC, TROPI, BMP, CK #### [facility] [address] [place] [address] Vault Manager: Dung Allen MD Calcium mass conc 9.7 mg/dL Normal 8.6-10.4 [facility] Comment on above: Performed By: #### C DP, LAC, TROPI, BMP, CK #### [facility] [address] [place] [address] Vault Manager: Dung Allen MD Chloride molar conc 97 mmol/L Low 98-107 [facility] Comment on above: Performed By: #### C DP, LAC, TROPI, BMP, CK #### [facility] [address] [place] [address] Vault Manager: Dung Allen MD CO2 molar conc 22 mmol/L Normal 20-31 [facility] Comment on above: Performed By: #### C DP, LAC, TROPI, BMP, CK #### [facility] [address] [place] [address] Vault Manager: Dung Allen MD Creatinine mass conc 0.99 mg/dL High 0.50-0.90 [facility] Comment on above: Performed By: #### C DP, LAC, TROPI, BMP, CK #### [facility] [address] [place] [address] Vault Manager: Dung Allen MD GFR, Amer >60 Normal >60 [facility] Comment on above: Performed By: #### C DP, LAC, TROPI, BMP, CK #### [facility] [address] [place] [address] Vault Manager: Dung Allen MD GFR,non Amer 54 mL/min Low >60 [facility] Comment on above: Performed By: #### C DP, LAC, TROPI, BMP, CK #### [facility] [address] [place] [address] Vault Manager: Dung Allen MD Glucose mass conc 190 mg/dL High 70-99 [facility] Comment on above: Performed By: #### C DP, LAC, TROPI, BMP, CK #### [facility] [address] [place] [address] Vault Manager: Dung Allen MD Potassium molar conc 4.3 mmol/L Normal 3.7-5.3 [facility] Comment on above: Result Comment: SPEC IMEN SLIGHTLY HEMOLYZED, RESULTS MAY BE ADVERSELY AFFECTED. Performed By: #### C DP, LAC, TROPI, BMP, CK #### [facility] [address] [place] [address] Vault Manager: Dung Allen MD Sodium molar conc 133 mmol/L Low 135-144 [facility] Comment on above: Performed By: #### C DP, LAC, TROPI, BMP, CK #### [facility] [address] [place] [address] Vault Manager: Dung Allen MD Urea nitrogen mass conc 33 mg/dL High 8-23 [facility] Comment on above: Performed By: #### C DP, LAC, TROPI, BMP, CK #### [facility] [address] [place] [address] Vault Manager: Dung Allen MD BUN/CRE Ratio NOT REPORTED Normal 9-20 [facility] Comment on above: Performed By: #### C DP, LAC, TROPI, BMP, CK #### [facility] [address] [place] [address] Vault Manager: Dung Allen MD Staging: NOT REPORTED Normal [facility] Comment on above: Performed By: #### C DP, LAC, TROPI, BMP, CK #### [facility] [address] [place] [address] Vault Manager: Dung Allen MD CBC with Diffon 11-23-2018 Abs. Basophil 0.00 k/uL Normal 0.0-0.2 [facility] Comment on above: Performed By: #### C DP, LAC, TROPI, BMP, CK #### [facility] [address] [place] [address] Vault Manager: Dung Allen MD Abs.Neutrophil (Seg) 12.00 k/uL High 1.8-7.7 [facility] Comment on above: Performed By: #### C DP, LAC, TROPI, BMP, CK #### [facility] [address] [place] [address] Vault Manager: Dung Allen MD Basophils/100 WBC (Bld) 0 % Normal 0-2 [facility] Comment on above: Performed By: #### C DP, LAC, TROPI, BMP, CK #### [facility] [address] [place] [address] Vault Manager: Dung Allen MD Eosinophils #/vol (Bld) 0.00 10*3/uL Normal 0.0-0.4 [facility] Comment on above: Performed By: #### C DP, LAC, TROPI, BMP, CK #### [facility] [id number] [place] [address] Vault Manager: Dung Allen MD Eosinophils/100 WBC (Bld) 0 % Low 1-4 [facility] Comment on above: Performed By: #### C DP, LAC, TROPI, BMP, CK #### [facility] [address] [place] [address] Vault Manager: Dung Allen MD Erythrocyte distribution width Ratio (RBC) 12.8 % Normal 12.5-15.4 [facility] Comment on above: Performed By: #### C DP, LAC, TROPI, BMP, CK #### [facility] [address] [place] [address] Vault Manager: Dung Allen MD Hematocrit Volume Fraction (Bld) 41.0 % Normal 36-46 [facility] Comment on above: Performed By: #### C DP, LAC, TROPI, BMP, CK #### [facility] [address] [place] [address] Vault Manager: Dung Allen MD Hemoglobin mass conc (Bld) 13.7 g/dL Normal 12.0-16.0 [facility] Comment on above: Performed By: #### C DP, LAC, TROPI, BMP, CK #### [facility] [address] [place], [place] [id number] Vault Manager: Dung Allen MD Lymphocytes #/vol (Bld) 1.20 10*3/uL Normal 1.0-4.8 [facility] Comment on above: Performed By: #### C DP, LAC, TROPI, BMP, CK #### [facility] [address] [place] [address] Vault Manager: Dung Allen MD Lymphocytes/100 WBC (Bld) 9 % Low 24-44 [facility] Comment on above: Performed By: #### C DP, LAC, TROPI, BMP, CK #### [facility] [address] [place] [address] Vault Manager: Dung Allen MD MCH Entitic mass (RBC) 33.6 pg Normal 26-34 [facility] Comment on above: Performed By: #### C DP, LAC, TROPI, BMP, CK #### [facility] [address] [place] [address] Vault Manager: Dung Allen MD MCHC mass conc (RBC) 33.4 g/dL Normal 31-37 [facility] Comment on above: Performed By: #### C DP, LAC, TROPI, BMP, CK #### [facility] [address] [place] [address] Vault Manager: Dung Allen MD MCV Entitic volume (RBC) 100.6 fL High 80-100 [facility] Comment on above: Performed By: #### C DP, LAC, TROPI, BMP, CK #### [facility] [address] [place] [address] Vault Manager: Dung Allen MD Monocytes #/vol (Bld) 1.20 10*3/uL Normal 0.1-1.2 [facility] Comment on above: Performed By: #### C DP, LAC, TROPI, BMP, CK #### [facility] [address] [place] [address] Vault Manager: Dung Allen MD Monocytes/100 WBC (Bld) 9 % Normal 2-11 [facility] Comment on above: Performed By: #### C DP, LAC, TROPI, BMP, CK #### [facility] [address] [place] [address] Vault Manager: Dung Allen MD Neutrophil (Seg) 82 % High 36-66 [facility] Comment on above: Performed By: #### C DP, LAC, TROPI, BMP, CK #### [facility] [address] [place] [address] Vault Manager: Dung Allen MD Platelet mean volume Entitic volume (Bld) 9.2 fL Normal 6.0-12.0 [facility] Comment on above: Performed By: #### C DP, LAC, TROPI, BMP, CK #### [facility] [address] [place] [address] Vault Manager: Dung Allne MD Platelets #/vol (Bld) 217 10*3/uL Normal 140-450 [facility] Comment on above: Performed By: #### C DP, LAC, TROPI, BMP, CK #### [facility] [address] [place] [address] Vault Manager: Dung Allen MD RBC #/vol (Bld) 4.07 10*6/uL Normal 4.0-5.2 [facility] Comment on above: Performed By: #### C DP, LAC, TROPI, BMP, CK #### [facility] [address] [place] [address] Vault Manager: Dung Allen MD WBC #/vol (Bld) 14.4 10*3/uL High 3.5-11.0 [facility] Comment on above: Performed By: #### C DP, LAC, TROPI, BMP, CK #### [facility] [address] [place] [address] Vault Manager: Dung Allen MD Abs.Imm.Granulocyt e NOT REPORTED Normal 0.00-0.30 [facility] Comment on above: Performed By: #### C DP, LAC, TROPI, BMP, CK #### [facility] [address] [place] [address] Vault Manager: Dung Allen MD Auto Diff Performed NOT REPORTED Normal [facility] Comment on above: Performed By: #### C DP, LAC, TROPI, BMP, CK #### [facility] [address] [place] [address] Vault Manager: Dung Allen MD Immature granulocytes #/vol (Bld) NOT REPORTED Normal 0 [facility] Comment on above: Performed By: #### C DP, LAC, TROPI, BMP, CK #### [facility] [address] [place] [address] Vault Manager: Dung Allen MD NRBC Automated NOT REPORTED Normal [facility] Comment on above: Performed By: #### C DP, LAC, TROPI, BMP, CK #### [facility] [address] [place] [address] Vault Manager: Dung Allen MD Platelets #/vol (Bld) NOT REPORTED Normal [facility] Comment on above: Performed By: #### C DP, LAC, TROPI, BMP, CK #### [facility] [address] [place] [address] Vault Manager: Dung Allen MD RBC morphology finding Nom (Bld) NOT REPORTED Normal [facility] Comment on above: Performed By: #### C DP, LAC, TROPI, BMP, CK #### [facility] [address] [place] [address] Vault Manager: Dung Allen MD WBC Morphology NOT REPORTED Normal [facility] Comment on above: Performed By: #### C DP, LAC, TROPI, BMP, CK #### [facility] [address] [place] [address] Vault Manager: Dnug Allen MD CT HEAD WO CONTRASTon 2018 [...] Micah Palmer MD 11/23/18 Final result Normal [facility] Creatine Kinaseon 11-23-2018 CK enzyme act/vol 407 U/L High 26-192 [facility] Comment on above: Performed By: #### C DP, LAC, TROPI, BMP, CK #### [facility] [address] [place] [address] Vault Manager: Dung Allen MD Flu A/B Ag Detectionon 11-23 Flu A/B Ag Detection Specimen Description .NASOPHARYNGEAL SWAB Special Requests NOT REPORTED Direct Exam POSITIVE for Influenza A Antigen NEGATIVE for Influenza B Antigen Report Status FINAL 11/23/2018 Normal [facility] Comment on above: Performed By: #### F LUAD #### [facility] [address] [place] [address] Vault Manager: Dung Allen MD Lactic Acidon 11-23-2018 Lactate molar conc 2.3 mmol/L High 0.5-2.2 [facility] Comment on above: Performed By: #### C DP, LAC, TROPI, BMP, CK #### [facility] [address] [place] [address] Vault Manager: Dung Allen MD Troponinon 11-23-2018 Troponin I.cardiac mass conc 17 ng/L High 0-14 [facility] Comment on above: Result Comment: High Sensitivity Troponin values cannot be compared with other Troponin methodologies. Patients with high levels of Biotin oral intake (i.e >5mg/day) may have falsely decreased Troponin levels. Samples collected within 8 hours of biotin intake may require additional information for diagnosis. Performed By: #### C DP, LAC, TROPI, BMP, CK #### [facility] [address] [place] [address] Vault Manager: Dung Allen MD Troponin I.cardiac mass conc NOT REPORTED Normal <0.03 [facility] Comment on above: Performed By: #### C DP, LAC, TROPI, BMP, CK #### [facility] [address] [place] [address] Vault Manager: Dung Allen MD UA w/Reflex Cultureon 2018 Acetoacetic Acid,Ur SMALL Abnormal NEG [facility] Comment on above: Performed By: #### U AX, UMICAO #### [facility] [address] [place], [place] [id number] Vault Manager: Dung Allen MD Bilirubin.direct mass conc Negative Abnormal NEG [facility] Comment on above: Performed By: #### U AX, UMICAO #### [facility] [address] [place] [address] Vault Manager: Dung Allen MD Color Nom (U) YELLOW Normal YEL [facility] Comment on above: Performed By: #### U AX, UMICAO #### [facility] [address] [place] [address] Vault Manager: Dung Allen MD Glucose mass conc Negative Normal NEG [facility] Comment on above: Performed By: #### U AX, UMICAO #### [facility] [address] [place] [address] Vault Manager: Dung Allen MD Hemoglobin mass conc (Bld) SMALL Abnormal NEG [facility] Comment on above: Performed By: #### U AX, UMICAO #### [facility] [address] [place] [address] Vault Manager: Dung Allen MD Leuckocyte Esterase SMALL Abnormal NEG [facility] Comment on above: Performed By: #### U AX, UMICAO #### [facility] [address] [place] [address] Vault Manager: Dung Allen MD Nitrite,Ur Negative Normal NEG [facility] Comment on above: Performed By: #### U AX, UMICAO #### [facility] [address] [place] [address] Vault Manager: Dung Allen MD PH,Ur 5.5 Normal 5.0-8.0 [facility] Comment on above: Performed By: #### U AX, UMICAO #### [facility] [address] [place] [address] Vault Manager: Dung Allen MD Protein mass conc 1+ Abnormal NEG [facility] Comment on above: Performed By: #### U AX, UMICAO #### [facility] [address] [place] [address] Vault Manager: Dung Allen MD Spec. [place],Ur 1.025 Normal 1.005-1.030 [facility] Comment on above: Performed By: #### U AX, UMICAO #### [facility] [address] [place] [address] Vault Manager: Dung Allen MD Turbidity CLEAR Normal CLEAR [facility] Comment on above: Performed By: #### U AX, UMICAO #### [facility] [address] [place] [address] Vault Manager: Dung Allen MD Urobilinogen,Ur ELEVATED Abnormal NORM [facility] Comment on above: Performed By: #### U AX, UMICAO #### [facility] [address] [place] [address] Vault Manager: Dung Allen MD Comment NOT REPORTED Normal [facility] Comment on above: Performed By: #### U AX, UMICAO #### [facility] [address] [place] [address] Vault Manager: Dung Allen MD Urinalysis,Microon 9 ----- Normal [facility] Comment on above: Performed By: #### U AX, UMICAO #### [facility] [address] [place] [address] Vault Manager: Dung Allen MD Epithelial cells LM.HPF #/area (Urine sed) 10 TO 20 Normal 0-5 [facility] Comment on above: Performed By: #### U AX, UMICAO #### [facility] [address] [place] [address] Vault Manager: Dugn Allen MD Other Observations Culture ordered base d on defined criteria. Abnormal NREQ [facility] Comment on above: Performed By: #### U AX, UMICAO #### [facility] [address] [place] [address] Vault Manager: Dung Allen MD RBC #/vol (U) 2 TO 5 Normal 0-2 [facility] Comment on above: Performed By: #### U AX, UMICAO #### [facility] [address] [place] [address] Vault Manager: Dung Allen MD WBC #/vol (U) 20 TO 50 Normal 0-5 [facility] Comment on above: Performed By: #### U AX, UMICAO #### [facility] [address] [place] [address] Vault Manager: Dung Allen MD Amorphous sediment LM Ql (Urine sed) NOT REPORTED Normal [facility] Comment on above: Performed By: #### U AX, UMICAO #### [facility] [address] [place] [address] Vault Manager: Dung Allen MD Bacteria LM.HPF #/area (Urine sed) NOT REPORTED Normal NONE [facility] Comment on above: Performed By: #### U AX, UMICAO #### [facility] [address] [place] [address] Vault Manager: Dung Allen MD Casts LM.LPF #/area (Urine sed) NOT REPORTED Normal [facility] Comment on above: Performed By: #### U AX, UMICAO #### [facility] [address] [place] [address] Vault Manager: Dung Allen MD Crystals LM Nom (Urine sed) NOT REPORTED Normal NONE [facility] Comment on above: Performed By: #### U AX, UMICAO #### [facility] [address] [place] [address] Vault Manager: Dung Allen MD Epithelial, Renal NOT REPORTED Normal 0 [facility] Comment on above: Performed By: #### U AX, UMICAO #### [facility] [address] [place] [address] Vault Manager: Dung Allen MD Mucus Strands NOT REPORTED Normal NONE [facility] Comment on above: Performed By: #### U AX, UMICAO #### [facility] [address] [place] [address] Vault Manager: Dung Allen MD Trichomonas NOT REPORTED Normal NONE [facility] Comment on above: Performed By: #### U AX, UMICAO #### [facility] [address] [place] [address] Vault Manager: Dung Allen MD Yeast LM Ql (Urine sed) NOT REPORTED Normal NONE [facility] Comment on above: Performed By: #### U AX, UMICAO #### [facility] [address] [place] [address] Vault Manager: Dung Allen MD XR CHEST (2 VW)on [...] Micah Palmer MD 11/23/18 Final result Normal [facility] Vital Signs Date Time Vital Sign Value Performing Clinician Elvii luis 04-20-2024 13:34-0400 Body temperature 97 [degF] [facility] 04-20-2024 13:34-0400 Diastolic blood pressure 81 mm[Hg] [facility] 04-20-2024 13:34-0400 Heart rate 74 /min [facility] 04-20-2024 13:34-0400 Respiratory rate 18 /min [facility] 04-20-2024 13:34-0400 SaO2% (BldA) [Mass fraction] 97 % [facility] 04-20-2024 13:34-0400 Systolic blood pressure 185 mm[Hg] [facility] 01-03-2023 15:47-0400 Diastolic blood pressure 61 mm[Hg] Brent Meneses DO Work Phone: [employer] [facility] 01-03-2023 15:47-0400 Heart rate 58 /min Brent Meneses DO Work Phone: [employer] [facility] 01-03-2023 15:47-0400 Respiratory rate 18 /min Brent Meneses DO Work Phone: [employer] [place] [facility] 01-03-2023 15:47-0400 SaO2% (BldA) [Mass fraction] 95 % Brent Meneses DO Work Phone: [employer] [facility] [employer] 01-03-2023 15:47-0400 Systolic blood pressure 161 mm[Hg] Brent Meneses DO Work Phone: [email or web address] 01-03-2023 14:33-0400 Body height 157.5 cm Brent Meneses DO Work Phone: [email or web address] 01-03-2023 14:33-0400 Body mass index (BMI) [Ratio] 29.08 kg/m2 Brent Meneses DO Work Phone: [email or web address] 01-03-2023 14:33-0400 Body temperature 98.2 [degF] Brent Meneses DO Work Phone: [email or web address] 01-03-2023 14:33-0400 Body weight 72.12 kg Brent Meneses DO Work Phone: [email or web address] Encounters Encounter Date Encounter Type Care Provider Facility Start: 05-06-2024 End: 05-06-2024 ambulatory ALEN ASENCIO Not Available Start: 04-20-2024 End: 04-20-2024 ambulatory [facility] Work Phone: Start: 04-20-2024 End: 04-20-2024 Patient encounter procedure [facility] Physician [facility] Work Phone: Start: 01-17-2024 End: 01-17-2024 ambulatory [facility] Start: 11-29-2023 End: 11-29-2023 ambulatory [facility] Start: 11-29-2023 End: 11-29-2023 Office outpatient visit 10 minutes [facility] 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 MANAGER-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 NURSERY ASSISTANT Work Phone: [facility] - [facility] Comment on above: COVID-19 (Primary Dx ); Acute bronchitis, unspecified organism; Urinary incontinence, unspecified type Start: 10-11-2023 Refill Tuan Rodríguez [facility] Comment on above: Osteoarthritis of th oracolumbar spine, unspecified spinal osteoarthritis complication status Start: 09-13-2023 End: 09-13-2023 ambulatory [facility] Start: 01-30-2023 End: 01-31-2023 ambulatory [facility] Facility[facility] Start: 01-16-2023 End: 01-16-[address] DUNG GRAVES Facility:[facility] Start: 01-03-2023 End: 01-03-2023 Emergency department patient visit BRENT MENESES [facility] Start: 01-03-2023 End: 01-03-2023 Emergency department patient visit Brent Meneses DO Work Phone: [facility] Comment on above: Rib contusion, right , initial encounter (Primary Dx); Strain of lumbar region, initial encounter Start: 07-05-2020 End: 07-07-2020 Subsequent hospital visit by physician Jarad Link Mammo Rm 2 [facility]amm[facility] Comment on above: Encounter for [...] Evaluation and management of inpatient TORSTEN HEARD [facility] Procedures Date Procedure Procedure Detail Performing Clinician Start: 09-13-2023 Adult depression scr eening assessment Tuan Rodírguez [facility] Start: 01-03-2023 Radex ribs uni w/pos teroant [...] 11-25-2018 IP CONSULT TO SOCIAL WORK TORSTEN HERAD Start: 11-25-2018 Radiologic exam ches t single view TORSTEN HEARD Start: 11-25-2018 INITIATE OXYGEN THER APY PROTOCOL TORSTEN HEARD Start: 11-25-2018 25 hydroxy includes fractions if performed TORSTEN HEARD Start: 11-25-2018 Antibody herpes smpl x type 1 TORSTEN HEARD Start: 11-25-2018 Assay of thyroid stimulating hormone tsh TORSTEN HEARD Start: 11-25-2018 Blood count complete automated TORSTEN HEARD Start: 11-25-2018 Comprehensive metabo lic panel TORSTEN HEARD Start: 11-25-2018 INTAKE AND OUTPUT TORSTEN HEARD Start: 11-24-2018 PATIENT STATUS (FROM ED OR OR/PROCEDURAL) TORSTEN HEARD Start: 11-24-2018 INITIATE OXYGEN THER APY PROTOCOL TORSTEN HEARD Start: 11-24-2018 Blood count complete automated TORSTEN HEARD Start: 11-24-2018 Comprehensive metabo lic panel TORSTEN HEARD Start: 11-24-2018 Prothrombin time TORSTEN HEARD Start: [...] HEARD Start: 11-23-2018 Creatine kinase total J EMMALOUISA HEARD Start: 11-23-2018 Culture bacterial quanttative colony [...] Adult BMI Screening Adult BMI Screen ing [facility] [employer] [facility] Start: 09-13-2024 Depression Screening Depression Scre ening [facility] [employer] [facility] Start: 09-13-2024 Fall Risk Screening Fall Risk Screen ing [facility] [employer] [facility] Start: 09-13-2024 Tobacco Screening Tobacco Screening [facility] [employer] [facility] Start: 05-30-2024 Medicare Annual Well ness Visit Medicare Annual Wellness Visit [facility] [employer] [facility] Start: 05-17-2023 Influenza vaccination Influenza Vacc ine [facility] Start: 04-16-2023 Influenza vaccination Flu vacc ine (Season Ended) [facility] Start: 02-06-2023 ambulatory Ambulatory Facility:H 1 Start: 01-11-2021 COVID-19 Vaccine (3 - Booster for Pfizer series) COVID-19 Vaccine (3 - Booster for Pfizer series) [facility] Start: 05-17-2020 Influenza vaccination Flu vaccine (# 1) [place] Start: 05-17-2019 Influenza vaccination Flu vaccine (# 1) [place] Start: 03-08-2019 Annual Wellness Visi t (AWV) Annual Wellness Visit (AWV) [facility] Start: 11-30-2017 Pneumococcal 65+ yea rs Vaccine (2 - PPSV23 if available, else PCV20) Pneumococcal 65+ years Vaccine (2 - PPSV23 if available, else PCV20) [facility] Start: 12-24-2004 DEXA (modify frequen cy per FRAX score) DEXA (modify frequency per FRAX score) [place] Start: 12-24-2004 Pneumococcal 65+ yea rs Vaccine (2 of 2 - PPSV23) Pneumococcal 65+ years Vaccine (2 of 2 - PPSV23) [place] Start: 12-24-2002 Annual Wellness Visi t (AWV) Annual Wellness Visit (AWV) [place] Start: 12-24-1994 Screening for osteoporosis DEXA (modify frequency per FRAX score) [facility] Start: 12-24-1989 Administration of varicella zoster vaccine Zoster (Shingles) Vaccine (1 of 2) [facility] Start: 12-24-1989 Shingles Vaccine (1 of 2) Das gles Vaccine (1 of 2) [facility] Start: 12-24-1958 DTaP,Tdap and Td Vac cines (1 - Tdap) DTaP,Tdap and Td Vaccines (1 - Tdap) [facility] [employer] Start: 12-24-1958 DTaP/Tdap/Td vaccine (1 - Tdap) DTaP/Tdap/Td vaccine (1 - Tdap) [facility] Start: 12-24-1957 Adult BMI Follow Up Plan Adult BMI Follow Up Plan [facility] Start: 1951 Depression Screen Depression Screen [facility] End: 11-28-2024 Bacteria identified in Urine by Culture Urine culture (clean catch) Microbiology Routine Urinary incontinence, unspecified type 1 Occurrences starting 11/29/2023 until 11/28/2024 [facility] [employer] Comment on above: 1 Occurrences starti ng 11/29/2023 until 11/28/2024 End: 11-28-2024 Urinalysis Urinalysis Lab Routine Urinary incontinence, unspecified type 1 Occurrences starting 11/29/2023 until 11/28/2024 [employer]Report Work Phone: Comment on above: 1 Occurrences starti ng 11/29/2023 until 11/28/2024 Payers Date Payer Category Payer Medicare [employer] MEDICARE UHC MEDICARE ADVANTAGE HMO [id number] 2023-Present [phone] [address] [address] [place] [address] [id number] 2015 Medicare UHC MEDICARE UHC MEDICARE COMPLETE xxxxxxxxx 2015-Present xxxxxxxxx [id number] 1959 Medicare [id number] 1940 Unknown [id number] 1940 Unknown [id number] .[id number] 1940 Unknown [id number] .[id number] 1940 Unknown [id number] .[id number] 1939 Unknown [id number] .[id number] 1939 Unknown [id number] .[id number] 1939 Unknown [id number] .[id number] 1939 Unknown [id number] .[id number] 1939 Unknown [id number] Medicare AARP Medicare Advantage PFFS [id number] Private Health Insurance [facility] PFFS Op [id number] Social History Date Type Detail Facility Start: 08-11-2012 End: 11-24-2018 Tobacco smoking status NHIS Former smoker [email or web address] End: 08-11-1990 History of tobacco use Current smoker [place], [place] Start: 11-24-2018 End: 05-30-2023 Alcohol intake No [facility] Start: 1940 Sex Assigned At Not on file [place], [place] Start: 08-11-2012 End: 01-18-2020 Tobacco use and exposure Never used [facility] [place] Start: 01-18-2020 End: 01-03-2023 Alcohol intake Current non-drinker of alcohol (finding) [place] End: 08-11-1990 History of tobacco use [facility]igarette [facility] [employer] Work Phone: Start: 01-03-2023 History SDOH Alcohol Frequency 1 [facility] Work Phone: Start: 01-03-2023 History SDOH Alcohol Std Drinks 0 [employer] Phone: Start: 12-24-2022 End: 01-03-2023 Exposure to SARS-CoV-2 (event) Not sure [employer] Phone: Start: 03-20-2023 End: 04-20-2024 Tobacco smoking status [facility]IS [facility] Start: 03-20-2023 Tobacco use and exposure Forme r smokeless tobacco user [facility] End: 09-16-1979 History of tobacco use [facility]okeless tobacco [facility] Start: 09-13-2023 Alcohol intake Lifetime non-d param (finding) [facility] Start: 05-30-2023 End: 09-13-2023 History of Social function [facility] Do you belong to any clubs or organizations such as protestant groups, unions, fraternal or athletic groups, or school groups? No [facility] Are you now , , , , never or living with a partner? [facility] How often to you hav e a drink containing alcohol? Never [facility] How many standard dr inks containing alcohol do you have on a typical day? Patient does not drink [facility] How hard is it for y ou to pay for the very basics like food, housing, medical care, and heating Not very hard [facility] Do you feel stress - tense, restless, nervous, or anxious, or unable to sleep at night because your mind is troubled all the time - these days [OSQ] Not at all [facility] Start: 1940 Sex Assigned At Female F [facility] History of Present illness Narrative 11-29-2023 ELLIE Carias - 11/29/2023 11:40 AM EDT Note Date & Type Note Facility 11-29-2023 History of Present illness Narrative Nydia W WILSON RODRIGUESSameer [facility] [id number] Patient: Heena May Date of : 1940 Encounter Date: 11/29/2023 History of Present Illness: The patient is a 82 y.o. female, an established patient, and is here for No chief complaint on file. . HPI Patient developed some cold symptoms including fatigue, cough, congestion, confusion and urinary incontinence on Saturday and tested positive for COVID today. She lives at [facility]. Her nurse Елена and daughter Liseth [...] Visit via Real-time Synchronous Audiovisual Provider Location: [facility] - [facility]ILY MEDIC[facility] [address] [facility] [address] Patient Location: Patient's [facility] Video Visit Consent Statement: I discussed [...] that there are some limitations compared to [id number] evaluations. The patient consented to the presence [...] vitals taken for this visit. Physical Exam Gas Regulator Repairer Helper present: Liseth daughter and nurse Елена present. [...] is 63 as of April of 2023. [id number] 11min. ELLIE CARIAS APRN-CNP 11/29/232036 documented in this encounter [facility] Note 10-11-2023 Telephone Encounter - Tuan Rodríguez CMA - 10/11/2023 10:17 AM EST Note Date & Type Note Facility 10-11-2023 Miscellaneous Notes Formattin g of this note might be different from the original. Nurse called from assisted living and would like pt to have a refill on tramdoll documented in this encounter [facility] Telephone encounter Note 10-11-2023 Telephone Encounter - Tuan Rodríguez CMA - 10/11/2023 10:17 AM EST Note Date & Type Note Facility 10-11-2023 Telephone encount er Note Nurse called from assisted living and would like pt to have a refill on tramdoll [facility] Hospital Discharge instructions 01-03-2023 Discharge InstructionsAttachments Note [...] cannot be sent through Care Everywhere.Back: Strain (Bahamian)Rib Contusion (Bahamian)documented in this encounter [facility] Provender Phone: Evaluation note Note Date & Type Note Facility Evaluation note Diagnosis Rib contusion, right, initial encounter- Primary Strain of lumbar region, initial encounter documented in this encounter [facility] Provender Phone: Evaluation note Note Date & Type Note Facility Evaluation note Diagnosis Osteoarthritis of thoracolumbar spine, unspecified spinal osteoarthritis complication status documented in this encounter [facility] Evaluation note Note Date & Type Note Facility Evaluation note Diagnosis COVID-19- Primary Acute bronchitis, unspecified organism Urinary incontinence, unspecified type [facility] Evaluation note Note Date & Type Note Facility Evaluation note No assessment information [facility] Work Phone: Instructions Note Date & Type [...] FoundDocuments on File Type Date Recorded 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 Advance Directives and Living Will Power of Anesthesiologist Physician Latest Code Status on File Code Status Date Activated Date Inactivated Comments Full Code 11/23/2018 11:18 PM 11/27/2018 7:29 PM Documents on File Type Date Recorded 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 ACP-Advance Directive ACP-Power of Anesthesiologist Physician Latest Code Status on File Code Status Date Activated Date Inactivated Comments Full Code 11/23/2018 11:18 PM 11/27/2018 7:29 PM Advance Directive Response Recorded Date/ Time Advance Directives No April 20, 2 024 12:56pm Reason for Referral Status Reason Specialty Diagnoses / Procedures Referre d By Contact Referred To Contact Closed Radiology Diagnoses Encounter for screening mammogram for malignant neoplasm of breast Malignant neoplasm of right female breast, unspecified estrogen receptor status, unspecified site of breast (HCC) Procedures ABBY DIGITAL SCREEN UNILATERAL LEFT Yokasta Vidal MD [address] [place] [address] Assessments Diagnosis Encounter for screening mammogram for [...] section and content) DATE CREATED AUTHOR 11/30/2018 [facility] DATE CREATED AUTHOR AUTHOR'S ORGANIZ ATION 01/03/2023 [facility] DATE CREATED AUTHOR AUTHOR'S ORGANIZ ATION 01/31/2023 [facility] DATE CREATED AUTHOR AUTHOR'S ORGANIZ ATION 01/18/2024 [facility] DATE CREATED AUTHOR AUTHOR'S ORGANIZ ATION 05/07/2024 [facility] EPIC Reason for Visit (unrecogniz ed section and content) Status Reason Specialty Diagnoses / Procedures Referre d By Contact Referred To Contact Closed Radiology Diagnoses Encounter for screening mammogram for malignant neoplasm of breast Malignant neoplasm of right female breast, unspecified estrogen receptor status, unspecified site of breast (HCC) Procedures ABBY DIGITAL SCREEN UNILATERAL LEFT Yokasta Vidal MD [address] [address] Status Reason Specialty Diagnoses / Procedures Referre d By Contact Referred To Contact Closed Radiology Diagnoses Encounter for screening mammogram for malignant neoplasm of breast Malignant neoplasm of right female breast, unspecified estrogen receptor status, unspecified site of breast (HCC) Procedures ABBY AMANDA DIGITAL SCREEN UNI LEFT ABBY DIGITAL SCREEN UNILATERAL LEFT HC MAMMO SCREENING INCL CAD IF PERF Yokasta Vidal MD [address] [place] [address] Reason Comments Fall Back Pain Scheduled Active and Recently Administ ered Medications (unrecognized section and content) Medication Order 01/01/2023 01/02/2023 01/03/2023 ketorolac (TORADOL) injection 30 mg (COMPLETED) 30 mg, IntraMUSCular, ONCE, 1 dose, On Ivy 01/03/23 at 1500 1456 (Given - Provid er: Kenny Cope RN) Care Teams (unrecognized sec tion and content) Explosives Detonator Relationship Specialty Start Date End Date Torsten Heard MD [address] [facility] [place] [address] PCP - General 08/01/12 Explosives Detonator Relationship Specialty Start Date End Date Nakul Worley DO [address] [place] [address] PCP - General Internal Medicine 03/18/23 Explosives Detonator Relationship Specialty Start Date End Date MontserratnegraNakul elliott DO [address] [place] [address] PCP - General Internal Medicine 03/18/23 Team [...] BE BASED ON THE PRIMARY CLINICAL RECORDS. [facility] [employer] provides no warranty or guarantee of the accuracy or completeness of information in this document.
--- NOTE | 2024-05-19 17:27 | ECG_ITS ---
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
--- NOTE | 2024-05-19 17:46 | ED.GENADUL1 ---
HPI HPI - General Adult General Chief complaint: Abdominal Pain Stated complaint: BODY PAIN NAUSEA Time Seen by Provider: 05/19/24 17:16 Source: patient Mode of arrival: Wheelchair Limitations: no limitations History of Present Illness HPI narrative: The patient is not a good historian coming to us with few days history of cramping all over her abdomen, she denies any vomiting except for 1 time she also denies any diarrhea she mentioned that she had constipation and she did have some constipation, is also decreased p.o. intake and there is also dizziness when standing up The patient mentioned that she only have the dizziness when she is standing up and she thinks that it is vertigo although she is not specifically saying that she is having the room spinning sensation The patient's think that all her symptoms started when she was started on donepezil for her dementia Related Data Home Medications ?Medication ?Instructions ?Recorded ?Confirmed benzonatate 200 mg capsule 200 mg PO TID 02/26/24 05/19/24 metoprolol tartrate 25 mg tablet 25 mg PO BID 02/26/24 05/19/24 olmesartan 20 mg tablet (Benicar) 20 mg PO DAILY 02/26/24 02/26/24 donepezil 5 mg tablet 5 mg PO DAILY 05/19/24 05/19/24 Previous Rx's ?Medication ?Instructions ?Recorded tramadol 50 mg tablet 50 mg PO BID PRN pain #28 tabs 04/16/24 tramadol 50 mg tablet 50 mg PO BID #60 tabs 05/14/24 meclizine 12.5 mg tablet 12.5 mg PO DAILY PRN motion 05/19/24 sickness #7 tabs Allergies Allergy/AdvReac Type Severity Reaction Status Date / Time codeine AdvReac Mild Abdominal Verified 05/19/24 17:19 Pain Opioid HPI Opioid Management Most Recent Opioid Data: Last Pain Scale 6 05/19/24 17:58 Review of Systems ROS Status of ROS 10 or more systems reviewed and unremarkable except as noted in history and below Exam Narrative Exam Narrative: Nurses notes and vital signs reviewed and patient is not hypoxic. General: Well-appearing and in no apparent distress. Skin: Warm, dry, no pallor noted. No rash. Head: Normocephalic, atraumatic. Neck: Supple, non-tender. Eye: Pupils are equal, round and EOMI. No scleral icterus. Ears, Nose, Mouth, and Throat: TM are clear, no nasal mucosal hypertrophy. Oral mucosa is moist, no posterior oropharynx erythema, uvula is mid-line Cardiovascular: Regular Rate and Rhythm without murmur, gallop or rub. Respiratory: No accessory muscle use or respiratory distress. Lungs are clear to auscultation, no wheezing, rales or rhonchi Chest Wall: no tenderness Back: No midline thoracic or lumbar vertebral tenderness. No CVA tenderness Musculoskeletal: normal ROM, no calf or popliteal tenderness, no lower extremity edema/swelling GI: Abdomen is soft, non-distended. Normal bowel sounds. No masses appreciated. No tenderness to palpation. No rebound, guarding, or rigidity noted. Neurological: A&O x4. No cranial nerve dysfunction observed. No truncal ataxia. Moves all extremities. Sensation intact. Psychiatric: Cooperative and interactive. Normal mood and affect. Constitutional Vital Signs, click to edit/add: Last Vital Signs Temp 98.1 F 05/19/24 17:19 Pulse 89 05/19/24 17:19 Resp 18 05/19/24 17:19 BP 163/96 H 05/19/24 17:19 Pulse Ox 97 05/19/24 17:19 O2 Del Method Room Air 05/19/24 17:19 Course Vital Signs Vital signs: Vital Signs Temperature 98.1 F 05/19/24 17:19 Pulse Rate 89 05/19/24 17:19 Respiratory Rate 18 05/19/24 17:19 Blood Pressure 163/96 H 05/19/24 17:19 Pulse Oximetry 97 05/19/24 17:19 Oxygen Delivery Method Room Air 05/19/24 17:19 Temperature 98.1 F 05/19/24 17:19 Pulse Rate 89 05/19/24 17:19 Respiratory Rate 18 05/19/24 17:19 Blood Pressure 163/96 H 05/19/24 17:19 Pulse Oximetry 97 05/19/24 17:19 Oxygen Delivery Method Room Air 05/19/24 17:19 Medical Decision Making MDM Narrative Medical decision making narrative: The patient EKG showing sinus rhythm with a heart rate of [address] elevation or depression The patient is coming to us with nonspecific symptoms COVID test was negative CBC chemistry showed no acute pathology with the CT head showing no acute pathology as well Chest x-ray did not detect any infection in the urinalysis shows no signs of infection although we will send it for urine culture The patient urine did show ketones and the patient was provided with IV fluids she was started on meclizine because of her history of vertigo and the fact that this dizziness the patient referring to is mostly vertigo The patient is to follow up with primary care physician in next 2-3 days or to return to the emergency department should any of the signs or symptoms worsen or new symptoms develop. The patient agrees with the following Diagnosis and Treatment plan and the patient will be discharged home. Lab Data Labs: Lab Results 05/19/24 05/19/24 05/19/24 Range/Units 17:40 17:41 18:06 WBC 7.6 (4.0-11.0) 10^3/uL RBC 4.37 (4.20-5.40) 10^6/uL Hgb 14.0 (12.0-16.0) g/dL Hct 41.7 (36.0-48.0) % MCV 95.4 (81.0-99.0) fL MCH 32.0 (26.7-34.0) pg MCHC 33.6 (29.9-35.2) g/dL RDW 11.6 (11.0-15.0) % Plt Count 161 (150-450) 10^3/uL MPV 11.2 (9.5-13.5) fL Neut % (Auto) 65.9 (43.0-75.0) % Lymph % (Auto) 23.0 (20.5-60.0) % Ramsey % (Auto) 9.2 (1.7-12.0) % Eos % (Auto) 0.9 (0.9-7.0) % Baso % (Auto) 0.9 (0.2-2.0) % Neut # (Auto) 5.0 (1.4-6.5) 10^3/uL Lymph # (Auto) 1.8 (1.2-3.8) 10^3/uL Ramsey # (Auto) 0.7 (0.3-0.8) 10^3/uL Eos # (Auto) 0.1 (0.0-0.7) 10^3/uL Baso # (Auto) 0.1 (0.0-0.1) 10^3/uL Abs Immat Gran (auto) 0.01 (0.00-0.03) 10^3/uL Imm/Tot Granulo (auto) 0.1 (0.0-0.5) % PT 12.1 H (9.0-11.6) sec INR 1.16 Sodium 137 (136-145) mmol/L Potassium 3.9 (3.5-5.1) mmol/L Chloride 99 (98-107) mmol/L Carbon Dioxide 28.5 (21.0-32.0) mmol/L Anion Gap 13.4 BUN 17.0 (7.0-18.0) mg/dL Creatinine 0.95 (0.55-1.02) mg/dL Est GFR ( Amer) >60 (>=60) Est GFR (Non-Af Amer) 56 L (>=60) BUN/Creatinine Ratio 17.9 Glucose 222 H (74-106) mg/dL Lactate 1.8 (0.4-2.0) mmol/L Calcium 9.7 (8.5-10.1) mg/dL Magnesium 2.0 (1.8-2.4) mg/dL Total Bilirubin 1.2 H (0.2-1.0) mg/dL AST 29 (15-37) U/L ALT 27 (14-59) U/L Alkaline Phosphatase 122 H (46-116) U/L Troponin I High Sens 7.4 (4.0-51.3) pg/mL Total Protein 8.1 (6.4-8.2) g/dL Albumin 3.8 (3.4-5.0) g/dL Globulin 4.3 g/dL Albumin/Globulin Ratio 0.9 Urine Color Dk. yellow (YELLOW) Urine Clarity Clear (CLEAR) Urine pH 6.0 (5.0-9.0) Ur Specific Cashiers >=1.030 A (1.005-1.025) Urine Protein Negative (NEG/TRACE) mg/dL Urine Glucose (UA) >=1000 A (NEGATIVE) mg/dL Urine Ketones Trace A (NEGATIVE) mg/dL Urine Occult Blood Negative (NEGATIVE) Urine Nitrite Negative (NEGATIVE) Urine Bilirubin Small A (NEGATIVE) Urine Urobilinogen 4.0 A (0.2-1.0) EU/dL Ur Leukocyte Esterase Trace A (NEGATIVE) Urine RBC 0-2 (0-2) #/HPF Urine WBC 2-5 A (NONE SEEN) #/HPF Ur Squamous Epith Cells Moderate A (NONE/RARE) #/LPF Urine Crystals None seen (None Seen) #/HPF Urine Bacteria Small A (NONE SEEN) #/HPF Urine Casts None seen (NONE SEEN) #/LPF Urine Mucus Large A (NONE SEEN) Urine Yeast Seen A (NONE SEEN) Ur Culture Indicated? Yes SARS-CoV-2 Ag (CV2AG) Negative (NEGATIVE) Discharge Plan Discharge Stand Alone Forms: Work/School Release, Portal Instructions Chief Complaint: Abdominal Pain Clinical Impression: Dizziness, Dehydration, Vertigo Patient Disposition: Home, Self-Care Time of Disposition Decision: 18:46 Condition: Good Prescriptions / Home Meds: New meclizine 12.5 mg tablet 12.5 mg PO DAILY PRN (Reason: motion sickness) Qty: 7 0RF No Action metoprolol tartrate 25 mg tablet 25 mg PO BID olmesartan [Benicar] 20 mg tablet 20 mg PO DAILY benzonatate 200 mg capsule 200 mg PO TID Hold Instructions: dc tramadol 50 mg tablet 50 mg PO BID PRN (Reason: pain) Qty: 28 0RF tramadol 50 mg tablet 50 mg PO BID Qty: 60 0RF donepezil 5 mg tablet 5 mg PO DAILY Print Language: Luxembourgish Instructions: Dehydration (ED), Vertigo (DC), Dizziness (ED) Referrals: NAKUL WORLEY [Primary Care Provider] - 1 week
--- NOTE | 2024-05-19 17:49 | XR_ITS ---
The [address] [address] Patient Name: HEENA MAY MRN: [id number] date: 1940 Sex: F Assigned Patient Location: ER Current Patient Location: ER Accession/Order Number: [id number] Exam Date: 05/19/2024 17:45 Report Date: 05/19/2024 18:27 At the request of: IVET TODD Procedure: XR chest 1V Exam: Radiographs: XR chest 1V Reason for exam: dizziness Comparison: None XR/XR chest 1V IMPRESSION: Right chest wall surgical clips. Chest is otherwise unremarkable. Electronically authenticated by: JULIANA MCNALLY Date: 05/19/2024 18:27
--- NOTE | 2024-05-19 17:52 | CT_ITS ---
[address] [address] Patient Name: HEENA MAY MRN: [id number] date: 1940 Sex: F Assigned Patient Location: ER Current Patient Location: ER Accession/Order Number: [id number] Exam Date: 05/19/2024 17:45 Report Date: 05/19/2024 18:05 At the request of: IVET TODD Procedure: CT head/brain wo con EXAMINATION: CT head/brain wo con, 05/19/2024 5:45 PM EDT HISTORY: Vertigo. COMPARISON: None. TECHNIQUE: CT scan of the head was performed without IV contrast. CT dose reduction technique was used, including Automated Exposure Control. FINDINGS: BRAIN PARENCHYMA/CSF SPACES: Prominence of the ventricles and sulci compatible with diffuse cerebral atrophy. There is no hemorrhage, mass effect or midline shift. Moderate low attenuation in the white matter consistent with chronic microvascular ischemia. PARANASAL SINUSES: Incompletely imaged opacification of the right maxillary sinus. SKULL BASE AND CALVARIUM: Normal. EXTRACRANIAL SOFT TISSUES: Normal. CT/CT head/brain wo con IMPRESSION: No acute intracranial findings. Electronically authenticated by: MICAH LUNA Date: 05/19/2024 18:05
[2024-05-19 17:53] LABS: Basophils Absolute Auto 0.1 10^3/uL (0.0-0.1); Basophils Percent Auto 0.9 % (0.2-2.0); Eosinophils Absolute Auto 0.1 10^3/uL (0.0-0.7); Eosinophils Percent Auto 0.9 % (0.9-7.0); Hematocrit 41.7 % (36.0-48.0); Immature Granulocytes Abs Auto 0.01 10^3/uL (0.00-0.03); Immature Granulocytes Pct Auto 0.1 % (0.0-0.5); Lymphocytes Absolute Auto 1.8 10^3/uL (1.2-3.8); Mean Corpuscular HGB Conc 33.6 g/dL (29.9-35.2); Mean Corpuscular Volume 95.4 fL (81.0-99.0); Mean Platelet Volume 11.2 fL (9.5-13.5); Monocytes Absolute Auto 0.7 10^3/uL (0.3-0.8); Monocytes Percent Auto 9.2 % (1.7-12.0); Neutrophils Percent Auto 65.9 % (43.0-75.0); Platelet Count 161 10^3/uL (150-450); Red Blood Count 4.37 10^6/uL (4.20-5.40); Red Cell Distribution Width 11.6 % (11.0-15.0); White Blood Count 7.6 10^3/uL (4.0-11.0)
[2024-05-19] MEDS: 0.9 % SODIUM CHLORIDE 1,000 ML 500 ML IV (18:04)
[2024-05-19 18:06] LABS: Bilirubin Urine SMALL (NEGATIVE); Blood Urine NEGATIVE (NEGATIVE); Clarity Urine CLEAR (CLEAR); Color Urine DK. YELLOW (YELLOW); Glucose Urine UA >=1000 mg/dL (NEGATIVE); Ketones Urine TRACE mg/dL (NEGATIVE); Leukocyte Esterase Urine TRACE (NEGATIVE); Nitrite Urine NEGATIVE (NEGATIVE); Protein Urine NEGATIVE (NEG/TRACE); Specific Gravity Urine >=1.030 (1.005-1.025)
[2024-05-19 18:10] LABS: INR 1.16; Prothrombin Time 12.1 sec (9.0-11.6)
[2024-05-19 18:10] LABS: Urine Microscopic Indicated YES
[2024-05-19 18:11] LABS: Alanine Aminotransferase 27 U/L (14-59); Albumin Globulin Ratio 0.9; Albumin Level 3.8 g/dL (3.4-5.0); Alkaline Phosphatase 122 U/L (46-116); Anion Gap 13.4; Aspartate Amino Transferase 29 U/L (15-37); BUN Creatinine Ratio 17.9; Bilirubin Total 1.2 mg/dL (0.2-1.0); Calcium 9.7 mg/dL (8.5-10.1); Carbon Dioxide 28.5 mmol/L (21.0-32.0); Chloride 99 mmol/L (98-107); Estimated GFR (African America >60 (>=60); Estimated GFR (Non-African Ame 56 (>=60); Globulin 4.3 g/dL; Glucose 222 mg/dL (74-106); Potassium 3.9 mmol/L (3.5-5.1); Sodium 137 mmol/L (136-145); Total Protein 8.1 g/dL (6.4-8.2); Troponin I High Sensitivity 7.4 pg/mL (4.0-51.3)
[2024-05-19 18:18] LABS: Lactate/Lactic Acid 1.8 mmol/L (0.4-2.0)
[2024-05-19 18:26] LABS: Bacteria Urine SMALL #/HPF (NONE SEEN); Cast Seen? NONE SEEN #/LPF (NONE SEEN); Crystals Seen? None Seen #/HPF (None Seen); Mucus Urine LARGE (NONE SEEN); RBC Urine 0-2 #/HPF (0-2); Squamous Epithelial Cell Urine MODERATE #/LPF (NONE/RARE); Urine Culture Indicated YES
[2024-05-19 18:43] LABS: Internal Control Within Normal Limits; SARS-CoV-2 Ag NEGATIVE (NEGATIVE)
[2024-05-19] MEDS: MECLIZINE HCL 12.5 MG TABLET PO (18:59)
== END 2024-05-19 19:06 | disposition home or self-care (01) ==
PROVIDERS: Emergency Provider Emergency Medicine; PCP Internal Medicine
DX: R42 Dizziness and giddiness (principal); E86.0 Dehydration; Z20.822 Contact with and (suspected) exposure to COVID-19; Z79.899 Other long term (current) drug therapy; F03.90 Unspecified dementia, unspecified severity, without behavioral disturbance, psychotic disturbance, mood disturbance, and anxiety
CPT/HCPCS: 36415; 70450; 71045; 80053; 81001; 83605; 83735; 84484; 85025; 85610; 87086; 87811; 93005; 96360; 99285

== ENCOUNTER 2024-06-24 19:18 | Emergency (ER) | payer MEDICARE, SELFPAY ==
[2024-06-24 19:28] VITALS: BP 136/59; PULSE 53; TEMP 37; O2SAT 96
--- OUTSIDE RECORDS SUMMARY | 2024-06-24 19:34 | XMS_ITS | CCD ---
Author Organization [facility] Care Team Providers Care Lead Sharepoint Developer Name Role Phone TORSTEN HEARD Primary Care Unavailable CARMITA MORENO (NIHARIKA) Attending Unavailab CARMITA Paredes (NIHARIKA) Admitting Unavailab ESTEBAN Anglin Consulting Unavailable VANDANA VIDAL Consulting Unavailable JULES GOMEZ Consulting Unavailable Torsten Heard Primary Care Provider [phone] Torsten Heard Primary Care Provider Torsten Heard MD Primary Care Provider [phone] GRICEL MENESES Attending Unavailable TORSTEN HEARD Primary Care Unavailable [facility] Primary Care Unavaila ALEN Charles Admitting Unavailable ALEN ASENCIO Attending Unavailable DR DUNG GRAVES Attending Unavailabl e [facility] Primary Care Unavaila DR DUNG Manzo Admitting Unavailabl moustapha GRAVES, DR DUNG Rodriguez Consulting Unavailabl e MIRNA VICTOR Consulting Unavailable BONITA JAY Consulting Unavailable [facility] Primary Care Unavaila ALEN Charles [...] Primary Care Unavailable ALEN ASENCIO Attending Unavailable FLORENCIO MIRANDA Attending Unavailable Allergies Allergy Classification Reported Allergen(s) Allergy Type Date of Onset Reaction(s) Facility (6 sources) Codeine; Translations: [CODEINE] Drug Allergy 06-16-2012 [facility], [place] Medications Current Medications Medication Drug Class(es) Dates Sig (Normalized) Sig (Original) acetaminophen 325 mg oral tablet (3 sources) Start: 05-27-2024 take 650 mg by mouth every six hours Acetaminophen Active 650 MG PO Every 6 hours May 27, 2024 12:00am Start: 09-25-2023 take 2 tablets by mo ut in the morning, then take 2 tablets by mouth at mealtime acetaminophen (TYLENOL) 325 mg tablet Indications: Osteoarthritis of thoracolumbar spine, unspecified spinal osteoarthritis complication status Take 2 tablets (650 mg total) by mouth in the morning and 2 tablets (650 mg total) in the evening. Take with meals. 100 tablet 2 09/25/2023 Active [id number] 200 actuat albuterol 0.09 mg/actuat metered dose [...] 11/27/2018 Active benzonatate 200 mg oral capsule (4 sources) Non-narcotic Antitussive Start: 05-27-2024 End: 05-27-2024 take 200 mg by mouth three times daily Benzonatate Active 200 MG PO Three times daily May 27, 2024 3:07pm Start: 09-13-2023 take 1 capsule by mo uth three times daily as needed for cough benzonatate (TESSALON PERLES) 200 mg capsule Indications: Acute bronchitis, unspecified organism Take 1 capsule (200 mg total) by mouth 3 (three) times a day as needed for cough. 20 capsule 0 09/13/2023 Active cranberry preparation 500 mg oral capsule (3 sources) Non-Standardized Food Allergenic Extract, Non-Standardized Plant Allergenic Extract Start: 05-27-2024 take 1 capsule by mouth once daily at mealtime Cranberry Extract (Cranberry Concentrate) 500 mg capsule Active 500 MG PO Daily May 27, 2024 12:00am administer with meals cranberry extrac t 50 mg tablet,chewable Chew and swallow daily. 0 Active dextromethorphan hydrobromide 2 mg/ml / guaiFENesin 20 mg/ml oral solution (1 source) Uncompetitive W-jhbobk-Y-aspartate Receptor Antagonist, Sigma-1 Agonist Start: 11-27-2018 dextromethorphan-guaiFENesin (ROBITUSSIN-DM) 10-100 MG/5ML syrup Take 10 mLs by mouth every 4 hours as needed for Cough 0 11/27/2018 Active 24 hr dilTIAZem hydrochloride 120 mg extended release oral capsule (3 sources) Calcium Channel Lexx Start: 11-27-2018 take 1 capsule by mouth once daily diltiazem (CARDIZEM CD) 120 MG extended release capsule Take 1 capsule by mouth daily 30 capsule 3 11/27/2018 Active donepezil hydrochloride 5 mg oral tablet (1 source) Start: 05-27-2024 take 5 mg by mouth once daily at bedtime Donepezil Active 5 MG PO Daily at bedtime May 27, 2024 12:00am ergocalciferol 14536 unt oral capsule (2 sources) Provitamin D2 Compound Start: 12-02-2018 take 1 capsule by mouth every week vitamin D (ERGOCALCIFEROL) 49963 units capsule Take 1 capsule by mouth once a week 11 capsule 0 12/02/2018 Active fluticasone propionate 0.05 mg/actuat metered dose nasal spray (1 source) Corticosteroid Start: 11-28-2018 fluticasone (FLONASE) 50 MCG/ACT nasal spray 2 sprays by Each Nare route daily 1 Bottle 3 11/28/2018 Active guaiFENesin 600 mg oral tablet (1 source) Start: 05-27-2024 take 600 mg by mouth every twelve hours Guaifenesin Active 600 MG PO Every 12 hours May 27, 2024 12:00am inhalational spacing device (AEROCHAMBER MV) spacer (2 sources) Start: 09-13-2023 inhalational spacing device (AEROCHAMBER MV) spacer Indications: Acute bronchitis, unspecified organism 1 each by miscellaneous route in the morning and 1 each at noon and 1 each in the evening and 1 each before bedtime. 1 each 0 09/13/2023 Active Meclizine (1 source) Antiemetic Start: 05-27-2024 Meclizine Active MG PO May 27, 2024 12:00am meloxicam 7.5 mg oral tablet (3 sources) Nonsteroidal Anti-inflammatory Drug Start: 05-27-2024 take 7.5 mg by mouth twice daily Meloxicam Active 7.5 MG PO Twice daily May 27, 2024 3:22pm Start: 04-20-2024 End: 05-27-2024 take 7.5 mg by mouth once daily Meloxicam Discontinued 7.5 MG PO Daily April 20, 2024 12:00am May 27, 2024 3:23pm metoprolol tartrate 25 mg oral tablet (8 sources) beta-Adrenergic Lexx Start: 04-20-2024 End: 05-27-2024 take 25 mg by mouth once daily Metoprolol Tartrate Active 25 MG PO Daily May 27, 2024 3:21pm take 1 tablet by elder th in the morning, then take 1 tablet by mouth at bedtime metoprolol tartrate (LOPRESSOR) 25 mg tablet Take 1 tablet (25 mg total) by mouth in the morning and 1 tablet (25 mg total) before bedtime. 0 Active 24 hr mirabegron 50 mg extended release oral tablet (5 sources) beta3-Adrenergic Agonist Start: 05-27-2024 take 1 tablet by mouth once daily Mirabegron (Myrbetriq) 50 mg tablet extended release 24 hr Active 50 MG PO Daily May 27, 2024 3:22pm Start: 04-20-2024 End: 05-27-2024 take 1 tablet by mouth every twenty-four hours Mirabegron (Myrbetriq) 50 mg tablet extended release 24 hr Discontinued MG PO April 20, 2024 12:00am May 27, 2024 3:23pm Start: 06-19-2023 take 1 tablet by elder th every twenty-four hours in the morning MYRBETRIQ 50 mg tablet extended release 24 hr Take 1 tablet (50 mg total) by mouth in the morning. 0 06/19/2023 Active olmesartan medoxomil 20 mg oral tablet (5 sources) Angiotensin 2 Receptor Lexx Start: 04-20-2024 End: 05-27-2024 take 20 mg by mouth once daily Olmesartan Active 20 MG PO Daily 90 90 May 27, 2024 3:21pm Start: 06-07-2023 take 1 tablet by elder th in the morning olmesartan (BENICAR) 20 mg tablet Take 1 tablet (20 mg total) by mouth in the morning. 0 06/07/2023 Active traMADol hydrochloride 50 mg oral tablet (9 sources) Opioid Agonist Start: 05-27-2024 take 50 mg by mouth twice daily Tramadol Active 50 MG PO Twice daily May 27, 2024 3:22pm Start: 04-20-2024 End: 05-27-2024 take 50 mg by mouth once daily Tramadol Discontinued 5 0 MG PO Daily April 20, 2024 12:00am May 27, 2024 3:23pm Start: 11-11-2023 take 1 tablet by elder [...] Discontinued (Reorder) take 2 tablets by mo ut twice daily traMADol (ULTRAM) 50 MG tablet [...] Onset: 11-24-2018 11-24-2018 Episodic Cancer of breast (7 sources) Malignant tumor of breast ; Translations: [...] Translations: [DIZZINESS AND GIDDINESS] Onset: 01-18-2023 Episodic Delirium, dementia, and amnestic and other cognitive disorders (2 sources) Dementia; Translations: [Unspecified dementia without behavioral disturbance] 05-27-2024 Chronic Disorders of lipid metabolism (3 sources) Hypercholesterolemia ; Translations: [Pure hypercholesterolemia , unspecified] 04-20-2024 Chronic Essential hypertension (11 sources) Essential (primary) hypertension; Translations: [Hypertensive disorder] [...] Translations: [Asthenia] Onset: 11-26-2018 11-26-2018 Episodic Osteoarthritis (3 sources) Arthritis; Translations: [Unspecified osteoarthritis, unspecified site] 04-20-2024 Chronic Other diseases of bladder and urethra (2 sources) Overactive bladder; Translations: [Overactive bladder] 04-20-2024 Chronic Other diseases of bladder and urethra (1 source) Overactive bladder; Translations: [Hypertonicity of bladder] 05-27-2024 Chronic Other injuries and conditions due to external causes (1 source) History of falling; Translations: [HISTORY OF FALLING] Onset: 01-18-2023 Episodic Other nervous system disorders (1 source) Chronic pain; Translations: [Other chronic pain] 05-27-2024 Chronic Other nervous system disorders (1 source) Other chronic pain; Translations: [Other chronic pain] 05-27-2024 Chronic Spondylosis; intervertebral disc disorders; other back problems [...] TSHon 01-30-2023 TSH 3.637 uIU/mL Normal 0.358-3.740 [facility] Comment on above: Performed By: #### T SH #### [facility] [address] [place] [address] Dr. Fermin Gonzalez VITAMIN B12on 01-30-2023 Cobalamin (Vitamin B12) [Mass/Vol] 525.0 pg/mL Normal 193.0-986.0 [facility] Comment on above: Performed By: #### V ITB12 #### [facility] [address] [place] [address] Dr. Fermin Gonzalez BNPon 01-16-2023 Natriuretic peptide B (Bld) [Mass/Vol] 400.0 pg/mL Normal <=1,800.0 [facility] Comment on above: Performed By: #### H STROPN, BNP, CMP #### [facility] [address] [place] [address] Dr. Fermin Gonzalez CBC AUTO DIFFon 01-16-2023 BASO # 0.1 103/ul Normal 0.0-0.1 [facility] Comment on above: Performed By: #### C BC #### [facility] [address] [place] [address] Dr. Fermin Gonzalez Basophils/100 WBC (Bld) 1.2 % Normal 0.2-2.0 [facility] Comment on above: Performed By: #### C BC #### [facility] [address] [place] [address] Dr. Fermin Gonzalez EO # 0.1 103/ul Normal 0.0-0.7 [facility] Comment on above: Performed By: #### C BC #### [facility] [address] [place] [address] Dr. Fermin Gonzalez Eosinophils/100 WBC (Bld) 1.3 % Normal 0.9-7.0 [facility] Comment on above: Performed By: #### C BC #### [facility] [address] [place] [address] Dr. Fermin Gonzalez Erythrocyte distribution width (RBC) [Ratio] 12.4 % Normal 11.0-15.0 [facility] Comment on above: Performed By: #### C BC #### [facility] [address] [place] [address] Dr. Fermin Gonzalez Hematocrit (Bld) [Volume fraction] 37.4 % Normal 36.0-48.0 [facility] Comment on above: Performed By: #### C BC #### [facility] [address] [place] [address] Dr. Fermin Gonzalez Hemoglobin (Bld) [Mass/Vol] 12.9 g/dL Normal 12.0-16.0 [facility] Comment on above: Performed By: #### C BC #### [facility] [address] [place] [address] Dr. Fermin Gonzalez IG # 0.03 10e3/ul Normal 0.00-0.03 [facility] Comment on above: Performed By: #### C BC #### [facility] [address] [place] [address] Dr. Fermin Gonzalez IG % 0.4 % Normal 0.0-0.5 [facility] Comment on above: Performed By: #### C BC #### [facility] [address] [place] [address] Dr. Fermin Gonzalez LYMPH # 2.3 103/ul Normal 1.2-3.8 [facility] Comment on above: Performed By: #### C BC #### [facility] [address] [place] [address] Dr. Fermin Gonzalez Lymphocytes/100 WBC (Bld) 30.9 % Normal 20.5-60.0 [facility] Comment on above: Performed By: #### C BC #### [facility] [address] [place] [address] Dr. Fermin Gonzalez MANUAL DIFF REQ NO Normal [facility] Comment on above: Performed By: #### C BC #### [facility] [address] [place] [address] Dr. Fermin Gonzalez MCH (RBC) [Entitic mass] 33.2 pg Normal 26.7-34.0 [facility] Comment on above: Performed By: #### C BC #### [facility] [address] [place] [address] Dr. Fermin Gonzalez MCHC (RBC) [Mass/Vol] 34.5 g/dL Normal 29.9-35.2 [facility] Comment on above: Performed By: #### C BC #### [facility] [address] [place] [address] Dr. Fermin Gonzalez MCV (RBC) [Entitic vol] 96.1 fL Normal 81.0-99.0 [facility] Comment on above: Performed By: #### C BC #### [facility] [address] [place] [address] Dr. Fermin Gonzalez MONO # 0.7 103/ul Normal 0.3-0.8 [facility] Comment on above: Performed By: #### C BC #### [facility] [address] [place] [address] Dr. Fermin Gonzalez Monocytes/100 WBC (Bld) 9.4 % Normal 1.7-12.0 [facility] Comment on above: Performed By: #### C BC #### [facility] [address] [place] [address] Dr. Fermin Gonzalez NEUT # 4.2 103/ul Normal 1.4-6.5 [facility] Comment on above: Performed By: #### C BC #### [facility] [address] [place] [address] Dr. Fermin Gonzalez Neutrophils/100 WBC (Bld) 56.8 % Normal 43.0-75.0 [facility] Comment on above: Performed By: #### C BC #### [facility] [address] [place] [address] Dr. Fermin Gonzalez Platelet mean volume (Bld) [Entitic vol] 10.3 fL Normal 9.5-13.5 [facility] Comment on above: Performed By: #### C BC #### [facility] [address] [place] [address] Dr. Fermni Gonzalez PLT 252 103/ul Normal 150-450 [facility] Comment on above: Performed By: #### C BC #### [facility] [address] [place] [address] Dr. Fermin Gonzalez RBC 3.89 106/ul Critically low 4.20-5.40 [facility] Comment on above: Performed By: #### C BC #### [facility] [address] [place] [address] Dr. Fermin Gonzalez WBC 7.4 103/ul Normal 4.0-11.0 [facility] Comment on above: Performed By: #### C BC #### [facility] [address] [place] [address] HEAD WO CONon [...] BONITA JAY Date: 2023-01-16 19:47 Normal [facility] ER URINE PROFILEon 3 Bilirubin Ql (U) Negative Normal NEGATIVE [facility] Comment on above: Performed By: #### KANDY MORALES #### [facility] [address] [place] [address] Dr. Fermin Gonzalez Clarity (U) CLEAR Normal CLEAR [facility] Comment on above: Performed By: #### KANDY MORALES #### [facility] [address] [place] [address] Dr. Fermin Gonzalez Color (U) LT. YELLOW Normal YELLOW [facility] Comment on above: Performed By: #### DREW MORALESRO #### [facility] [address] [place] [address] Dr. Fermin CARBONE A micrscopic examination will be performed if indicated. Normal [facility] Comment on above: Performed By: #### DREW MORALESRO #### [facility] [address] [place] [address] Dr. Fermin Gonzalez Glucose Ql (U) Negative Normal NEGATIVE [facility] Comment on above: Performed By: #### DREW MORALESRO #### [facility] [address] [place] [address] Dr. Fermin Gonzalez Hemoglobin Ql (U) Negative Normal NEGATIVE [facility] Comment on above: Performed By: #### DREW MORALESRO #### [facility] [address] [place] [address] Dr. Fermin Gonzalez Ketones Ql (U) Negative Normal NEGATIVE [facility] Comment on above: Performed By: #### Moustapha SILVA UMICRO #### [facility] [address] [place] [address] Dr. Fermin Gonzalez LEUKOCYTES SMALL Abnormal NEGATIVE [facility] Comment on above: Performed By: #### Moustapha SILVA, UMICRO #### [facility] [address] [address] [address] Fermin Gonzalez Nitrite Ql (U) Negative Normal NEGATIVE [facility] Comment on above: Performed By: #### Moustapha SILVA, UMICRO #### [facility] [address] [place] [address] Dr. Fermin Gonzalez pH (U) 7.0 [pH] Normal 5-9 [facility] Comment on above: Performed By: #### Moustapha SILVA UMICRO #### [facility] [address] [place] [address] Dr. Fermin Gonzalez SPEC GRAVITY 1.010 Normal 1.005-<=1.025 [facility] Comment on above: Performed By: #### Moustapha SILVA UMICRO #### [facility] [address] [place] [address] Dr. Fermin Gonzalez UA PROTEIN Negative Normal NEGATIVE/ TRACE [facility] Comment on above: Performed By: #### Moustapha SILVA UMICRO #### [facility] [address] [place] [address] Dr. Fermin Gonzalez UR MICRO IND INDICATED Normal [facility] Comment on above: Performed By: #### Moustapha SILVA UMICRO #### [facility] [address] [place] [address] Dr. Fermin Gonzalez Urobilinogen Qn (U) 1.0 {Adonay'U}/dL Normal 0.2 - 1.0 [facility] Comment on above: Performed By: #### Moustapha SILVA, UMICRO #### [facility] [address] [place] [address] Dr. Fermin Gonzalez PROF 14(COMP METB)on 023 Albumin [Mass/Vol] 3.6 g/dL Normal 3.4-5.0 [facility] Comment on above: Performed By: #### H STROPN, BNP, CMP #### [facility] [address] [address] [address] Fermin Gonzalez Albumin/Globulin [Mass ratio] 0.9 {ratio} Normal [facility] Comment on above: Performed By: #### H STROPN, BNP, CMP #### [facility] [address] [address] [address] Fermin Gonzalez ALP [Catalytic activity/Vol] 101 U/L Normal 46-116 [facility] Comment on above: Performed By: #### H STROPN, BNP, CMP #### [facility] [address] [place] [address] Dr. Fermin Gonzalez ALT [Catalytic activity/Vol] 30 U/L Normal 14-59 [facility] Comment on above: Performed By: #### H STROPN, BNP, CMP #### [facility] [address] [address] [address] Fermin Gonzalez Anion gap [Moles/Vol] 9.5 mmol/L Normal [facility] Comment on above: Performed By: #### H STROPN, BNP, CMP #### [facility] [address] [place] [address] Dr. Fermin Gonzalez AST [Catalytic activity/Vol] 34 U/L Normal 15-37 [facility] Comment on above: Performed By: #### H STROPN, BNP, CMP #### [facility] [address] [address] [address] Fermin Gonzalez Bilirubin [Mass/Vol] 0.5 mg/dL Normal 0.2-1.0 [facility] Comment on above: Performed By: #### H STROPN, BNP, CMP #### [facility] [address] [place] [address] Dr. Fermin Gonzalez Calcium [Mass/Vol] 9.0 mg/dL Normal 8.5-10.1 [facility] Comment on above: Performed By: #### H STROPN, BNP, CMP #### [facility] [address] [place] [address] Dr. Fermin Gonzalez Chloride [Moles/Vol] 106 mmol/L Normal 98-107 [facility] Comment on above: Performed By: #### H STROPN, BNP, CMP #### [facility] [address] [address] [address] Fermin Gonzalez CO2 [Moles/Vol] 29.3 mmol/L Normal 21.0-32.0 [facility] Comment on above: Performed By: #### H STROPN, BNP, CMP #### [facility] [address] [address] [address] Fermin Gonzalez Creatinine [Mass/Vol] 1.06 mg/dL Critically high 0.55-1.02 [facility] Comment on above: Performed By: #### H STROPN, BNP, CMP #### [facility] [address] [address] [address] Fermin Gonzalez EGFR-AF BRUNEIAN =60 Normal >=60 [facility] Comment on above: Performed By: #### H STROPN, BNP, CMP #### [facility] [address] [place] [address] Dr. Fermin Gonzalez EGFR-NON AF BRUNEIAN 50 mL/min/1.73m2 Critically low >=60 [facility] Comment on above: Performed By: #### H STROPN, BNP, CMP #### [facility] [address] [place] [address] Dr. Fermin Gonzalez Globulin (S) [Mass/Vol] 4.1 g/dL Normal [facility] Comment on above: Performed By: #### H STROPN, BNP, CMP #### [facility] [address] [address] [address] Fermin Gonzalez Glucose [Mass/Vol] 94 mg/dL Normal 74-106 [facility] Comment on above: Performed By: #### H STROPN, BNP, CMP #### [facility] [address] [address] [address] Fermin Gonzalez Potassium [Moles/Vol] 3.8 mmol/L Normal 3.5-5.1 [facility] Comment on above: Performed By: #### H STROPN, BNP, CMP #### [facility] [address] [address] [address] Fermin Gonzalez Protein [Mass/Vol] 7.7 g/dL Normal 6.4-8.2 [facility] Comment on above: Performed By: #### H STROPN, BNP, CMP #### [facility] [address] [address] [address] Fermin Gonzalez Sodium [Moles/Vol] 141 mmol/L Normal 136-145 [facility] Comment on above: Performed By: #### H STROPN, BNP, CMP #### [facility] [address] [address] [address] Fermin Gonzalez Urea nitrogen [Mass/Vol] 18.0 mg/dL Normal 7.0-18.0 [facility] Comment on above: Performed By: #### H STROPN, BNP, CMP #### [facility] [address] [place] [address] Dr. Fermin Gonzalez Urea nitrogen/Creatinin e [Mass ratio] 17.0 mg/mg Normal [facility] Comment on above: Performed By: #### H STROPN, BNP, CMP #### [facility] [address] [place] [address] Dr. Fermin Gonzalez TROPONIN, HIGH SENSITIVITYon 01-16-2023 HSTROP 6.9 pg/mL Normal 4.0-51.3 [facility] Comment on above: Result Comment: CUT- OFF POINTS HAVE BEEN ESTABLISHED BASED ON THE FOURTH UNIVERSAL DEFINITIONS OF MYOCARDIAL INFARCTION. THE UPPER REFERENCE LIMIT (URL) OF TROPONIN, DEFINED THE 99TH PERCENTILE OF cTnI DISTRIBUTION IN A REFERENCE POPULATION, HAS BEEN CONFIRMED THE DECISION THRESHOLD FOR [place] DIAGNOSIS. Performed By: #### H STROPN, BNP, CMP #### [facility] [address] [place] [address] Dr. Fermin Gonzalez URINE MICROSCOPIC ONLYon BACTERIA NONE SEEN Normal NONE SEEN [facility] Comment on above: Performed By: #### E RUR, UMICRO #### [facility] [address] [address] [address] Fermin Gonzalez Bacteria identified Cx Nom (U) NOT INDICATED Normal [facility] Comment on above: Performed By: #### E RUR, UMICRO #### [facility] [address] [place] [address] Dr. Fermin Gonzalez CAST NONE SEEN Normal NONE SEEN [facility] Comment on above: Performed By: #### E RUR, UMICRO #### [facility] [address] [place] [address] Dr. Fermin Gonzalez Crystals LM Nom (Urine sed) NONE SEEN Normal NONE SEEN [facility] Comment on above: Performed By: #### E RUR, UMICRO #### [facility] [facility] [address] [place] [address] Dr. Fermin Gonzalez Epithelial cells LM Ql (Urine sed) RARE Normal NONE SEEN /RARE [facility] Comment on above: Performed By: #### E RUR, UMICRO #### [facility] [address] [place] [address] Dr. Fermin Gonzalez MUCOUS NONE SEEN Normal NONE SEEN [facility] Comment on above: Performed By: #### E RUR, UMICRO #### [facility] [address] [place] [address] Dr. Fermin Gonzalez RBC 0-2 Normal 0-2 [facility] Comment on above: Performed By: #### E RUR, UMICRO #### [facility] [address] [place] [address] Dr. Fermin Gonzalez WBC 0-2 Abnormal NONE SEEN [facility] Comment on above: Performed By: #### E RUR, UMICRO #### [facility] [address] [place] [address] Dr. Fermin Gonzalez No Panel Informationon 01-03 Radiology Study observation (narrative) [facility] [employer] Work Phone: XR LUMBAR SPINE (2-3 VIEWS)o [...] Dimas Vickers MD 01/03/23 Final result Normal [facility] 1. Stable, grade 1 degenerative anterolisthesis L4 on L5. 2. Degenerative changes lumbar spine. 3. Mild, bilaterally symmetrical SI joint osteoarthritis. 4. Bones may be osteopenic or osteoporotic. Consider bone densitometry correlation if not performed recently previously elsewhere. [facility] EXAMINATION: 3 XRAY VIEWS OF THE [...] bilaterally symmetrical SI joint osteoarthritis is noted. [facility] Dimas Vickers MD - 01/03/2023 EXAMINATION: [...] correlation if not performed recently previously elsewhere. [facility] Work Phone: XR LUMBAR SPINE (2-3 VIEWS)O rdered By: Dimas Vickers on 01-03-2023 [employer] Work Phone: XR RIBS RIGHT INCLUDE CHEST [...] Semaj Thomason MD 01/03/23 Final result Normal [facility] No acute abnormality of the ribs. No acute process in the lungs. [facility] EXAMINATION: XRAY VIEWS [...] abnormality. Postsurgical changes in the right axilla. [facility] Semaj Thomason MD - [...] ribs. No acute process in the lungs. [facility] Phone: XR RIBS RIGHT INCLUDE CHEST (MIN 3 VIEWS)Ordered By: Semaj Thomason on 01-03-2023 [facility] Phone: ABBY AMANDA DIGITAL SCREEN UNI LEFTon 07-05-2020 No evidence of malignancy left breast. Advise annual screening mammography. BI-RADS 2 BIRADS: BIRADS - CATEGORY 2 Benign Findings. Normal interval follow-up is recommended in 12 months. OVERALL ASSESSMENT - BENIGN A letter of notification will be sent to the patient regarding the results. [employer] recommends annual mammograms for women 40 years and older. [place] EXAMINATION: SCREENI NG DIGITAL LEFT MAMMOGRAM WITH [...] are noted. Benign appearing calcifications are present. [employer] [facility] [place] Freddie, pn Incoming Radiant Results From [facility] - 07/05/2020 4:46 PM EDT EXAMINATION: SCREENING [...] to the patient regarding the results. [employer] recommends annual mammograms for women 40 years and older. [facility] DIGITAL SCREEN UNILATERA L LEFTon 05-15-2019 Stable benign left mammogram. BIRADS: BIRADS - CATEGORY 1 Negative, no evidence of malignancy. Normal interval follow-up is recommended in 12 months. OVERALL ASSESSMENT - NEGATIVE A letter of notification will be sent to the patient regarding the results. [employer] recommends annual mammograms for women 40 years and older. [place], [place] EXAMINATION: LEFT BREAST DIGITAL SCREENING MAMMOGRAM [...] seen. Tomosynthesis images demonstrate no suspicious abnormality. [place], [place] Freddie, pn Incoming Radiant Results From [facility] - 05/15/2019 1:34 PM EDT EXAMINATION: LEFT [...] to the patient regarding the results. [employer] recommends annual mammograms for women 40 years and older. [facility] Cult,Blood Specimen Description .BLOOD Special Requests 2 ML LEFT FOREARM Culture NO GROWTH 6 DAYS Report Status FINAL 11/30/2018 [facility] Comment on above: Performed By: #### C DP, LAC, TROPI, BMP, CK #### [facility] [address] [place] [address] Supervisor Logging: Dung Allen MD Cult,Blood Specimen Description .BLOOD Special Requests 20 ML LEFT AC Culture NO GROWTH 6 DAYS Report Status FINAL 11/30/2018 [facility] Comment on above: Performed By: #### C DP, LAC, TROPI, BMP, CK #### [facility] [address] [place] [address] Super[employer] Logging: Dung Allen MD Basic Metab w/rfx MGon 11-27 (cont.) [facility] Comment on above: Result Comment: Aver age GFR for 70 or more years old: 75 mL/min/1.73sq m Chronic Kidney Disease: <60 mL/min/1.73sq m Kidney failure: <15 mL/min/1.73sq m eGFR calculated using average adult body mass. Additional eGFR calculator available at: http://www.Escapia.com/multiple_crcl_2012.htm Performed By: #### C DP, LAC, TROPI, BMP, CK #### [facility] [address] [place] [address] Supervisor Logging: Dung Allen MD Anion gap molar conc 9 mmol/L Normal 06-02 [facility] Comment on above: Performed By: #### C DP, LAC, TROPI, BMP, CK #### [facility] [address] [place], [place] [id number] Supervisor Logging: Dung Allen MD Calcium mass conc 8.8 mg/dL Normal 8.6-10.4 [facility] Comment on above: Performed By: #### C DP, LAC, TROPI, BMP, CK #### [facility] [address] [place] [address] Super[employer] Logging: Dung Allen MD Chloride molar conc 102 mmol/L Normal 98-107 [facility] Comment on above: Performed By: #### C DP, LAC, TROPI, BMP, CK #### [facility] [address] [place] [address] Supervisor Logging: Dung Allen MD CO2 molar conc 25 mmol/L Normal 20-31 [facility] Comment on above: Performed By: #### C DP, LAC, TROPI, BMP, CK #### [facility] [address] [place], [place] [id number] Super[employer] Logging: Dung Allen MD Creatinine mass conc 0.80 mg/dL Normal 0.50-0.90 [facility] Comment on above: Performed By: #### C DP, LAC, TROPI, BMP, CK #### [facility] [address] [place] [phone] Supervisor Logging: Dung Allen MD GFR, Amer >60 Normal >60 [facility] Comment on above: Performed By: #### C DP, LAC, TROPI, BMP, CK #### [facility] [address] [place] [phone] Supervisor Logging: Dung Allen MD GFR,non Amer >60 Normal >60 [facility] Comment on above: Performed By: #### C DP, LAC, TROPI, BMP, CK #### [facility] [address] [place] [address] Supervisor Logging: Dung Allen MD Glucose mass conc 89 mg/dL Normal 70-99 [facility] Comment on above: Performed By: #### C DP, LAC, TROPI, BMP, CK #### [facility] [address] [place] [address] Supervisor Logging: Dung Allen MD Potassium molar conc 3.8 mmol/L Normal 3.7-5.3 [facility] Comment on above: Performed By: #### C DP, LAC, TROPI, BMP, CK #### [facility] [address] [place] [address] Supervisor Logging: Dung Allen MD Sodium molar conc 136 mmol/L Normal 135-144 [facility] Comment on above: Performed By: #### C DP, LAC, TROPI, BMP, CK #### [facility] [address] [place] [phone] Super[employer] Logging: Dung Allen MD Urea nitrogen mass conc 14 mg/dL Normal 8-23 [facility] Comment on above: Performed By: #### C DP, LAC, TROPI, BMP, CK #### [facility] [address] [place] [phone] Supervisor Logging: Dung Allen MD BUN/CRE Ratio NOT REPORTED Normal 9-20 [facility] Comment on above: Performed By: #### C DP, LAC, TROPI, BMP, CK #### [facility] [address] [place] [phone] Super[employer] Logging: Dung Allen MD Staging: NOT REPORTED Normal [facility] Comment on above: Performed By: #### C DP, LAC, TROPI, BMP, CK #### [facility] [address] [place] [phone] Supervisor Logging: Dung Allen MD CBCon 11-27-2018 Erythrocyte distribution width Ratio (RBC) 12.8 % Normal 12.5-15.4 [facility] Comment on above: Performed By: #### C DP, LAC, TROPI, BMP, CK #### [facility] [address] [place] [phone] Supervisor Logging: Dung Allen MD Hematocrit Volume Fraction (Bld) 33.1 % Low 36-46 [facility] Comment on above: Performed By: #### C DP, LAC, TROPI, BMP, CK #### [facility] [address] [place], [place] [phone] Supervisor Logging: Dung Allen MD Hemoglobin mass conc (Bld) 11.6 g/dL Low 12.0-16.0 [facility] Comment on above: Performed By: #### C DP, LAC, TROPI, BMP, CK #### [facility] [address] [place], [place] [address] Supervisor Logging: Dung Allen MD MCH Entitic mass (RBC) 35.2 pg High 26-34 [facility] Comment on above: Performed By: #### C DP, LAC, TROPI, BMP, CK #### [facility] [address] [place] [address] Supervisor Logging: Dung Allen MD MCHC mass conc (RBC) 35.1 g/dL Normal 31-37 [facility] Comment on above: Performed By: #### C DP, LAC, TROPI, BMP, CK #### [facility] [id number] [place] [address] Supervisor Logging: Dung Allen MD MCV Entitic volume (RBC) 100.2 fL High 80-100 [facility] Comment on above: Performed By: #### C DP, LAC, TROPI, BMP, CK #### [facility] [address] [place] [address] Supervisor Logging: Dung Allen MD Platelet mean volume Entitic volume (Bld) 8.6 fL Normal 6.0-12.0 [facility] Comment on above: Performed By: #### C DP, LAC, TROPI, BMP, CK #### [facility] [address] [place] [address] Supervisor Logging: Dung Allen MD Platelets #/vol (Bld) 206 10*3/uL Normal 140-450 [facility] Comment on above: Performed By: #### C DP, LAC, TROPI, BMP, CK #### [facility] [address] [place] [address] Supervisor Logging: Dung Allen MD RBC #/vol (Bld) 3.30 10*6/uL Low 4.0-5.2 [facility] Comment on above: Performed By: #### C DP, LAC, TROPI, BMP, CK #### [facility] [address] [place] [address] Supervisor Logging: Dung Allen MD WBC #/vol (Bld) 5.3 10*3/uL Normal 3.5-11.0 [facility] Comment on above: Performed By: #### C DP, LAC, TROPI, BMP, CK #### [facility] [address] [place] [address] Supervisor Logging: Dung Allen MD NRBC Automated NOT REPORTED Normal [facility] Comment on above: Performed By: #### C DP, LAC, TROPI, BMP, CK #### [facility] [address] [place] [address] Supervisor Logging: Dung Allen MD XR CHEST (2 VW)on [...] Alex Gray MD 11/27/18 Final result Normal [facility] Basic Metab w/rfx MGon 11-26 Potassium molar conc 3.4 mmol/L Low 3.7-5.3 [facility] Comment on above: Performed By: #### C DP, LAC, TROPI, BMP, CK #### [facility] [address] [place] [address] Supervisor Logging: Dung Allen MD (cont.) Normal [facility] Comment on above: Result Comment: Aver age GFR for 70 or more years old: 75 mL/min/1.73sq m Chronic Kidney Disease: <60 mL/min/1.73sq m Kidney failure: <15 mL/min/1.73sq m eGFR calculated using average adult body mass. Additional eGFR calculator available at: http://www.[employer]ia[employer] Systems/multiple_crcl_2011.htm Performed By: #### C DP, LAC, TROPI, BMP, CK #### [facility] [address] [place], [place] [phone] Supervisor Logging: Dung Allen MD Anion gap molar conc 11 mmol/L Normal 9-17 [facility] Comment on above: Performed By: #### C DP, LAC, TROPI, BMP, CK #### [facility] [address] [place], [place] [phone] Supervisor Logging: Dung Allen MD Calcium mass conc 8.9 mg/dL Normal 8.6-10.4 [facility] Comment on above: Performed By: #### C DP, LAC, TROPI, BMP, CK #### [facility] [address] [place], [place] [phone] Supervisor Logging: Dung Allen MD Chloride molar conc 101 mmol/L Normal 98-107 [facility] Comment on above: Performed By: #### C DP, LAC, TROPI, BMP, CK #### [facility] [address] [place] [address] Supervisor Logging: Dung Allen MD CO2 molar conc 26 mmol/L Normal 20-31 [facility] Comment on above: Performed By: #### C DP, LAC, TROPI, BMP, CK #### [facility] [address] [place], [place] [phone] Supervisor Logging: Dung Allen MD Creatinine mass conc 0.81 mg/dL Normal 0.50-0.90 [facility] Comment on above: Performed By: #### C DP, LAC, TROPI, BMP, CK #### [facility] [address] [place], [place] [phone] Supervisor Logging: Dung Allen MD GFR, Amer >60 Normal >60 [facility] Comment on above: Performed By: #### C DP, LAC, TROPI, BMP, CK #### [facility] [address] [place] [address] Supervisor Logging: Dung Allen MD GFR,non Amer >60 Normal >60 [facility] Comment on above: Performed By: #### C DP, LAC, TROPI, BMP, CK #### [facility] [address] [place] [phone] Supervisor Logging: Dung Allen MD Glucose mass conc 85 mg/dL Normal 70-99 [facility] Comment on above: Performed By: #### C DP, LAC, TROPI, BMP, CK #### [facility] [address] [place] [address] Supervisor Logging: Dung Allen MD Sodium molar conc 138 mmol/L Normal 135-144 [facility] Comment on above: Performed By: #### C DP, LAC, TROPI, BMP, CK #### [facility] [address] [place], [place] [phone] Supervisor Logging: Dung Allen MD Urea nitrogen mass conc 16 mg/dL Normal 8-23 [facility] Comment on above: Performed By: #### C DP, LAC, TROPI, BMP, CK #### [facility] [address] [place], [place] [phone] Supervisor Logging: Dung Allen MD BUN/CRE Ratio NOT REPORTED Normal 9-20 [facility] Comment on above: Performed By: #### C DP, LAC, TROPI, BMP, CK #### [facility] [address] [place], [place] [phone] Supervisor Logging: Dung Allen MD Staging: NOT REPORTED Normal [facility] Comment on above: Performed By: #### C DP, LAC, TROPI, BMP, CK #### [facility] [address] [place] [phone] Supervisor Logging: Dung Allen MD Brain Natri. Peptideon 11-26 Natriuretic peptide B mass conc (Bld) Normal [facility] Comment on above: Result Comment: Pro- BNP Reference Range: Rule Out: <300 [place]: Age <50 300-450 Age 50-75 300-900 Age >75 300-1800 Usually represents mild to moderate HF but other cardiopulmonary causes cannot be ruled out. Rule In: Age <50 >450 Age 50-75 >900 Age >75 >1800 Performed By: #### C DP, LAC, TROPI, BMP, CK #### [facility] [address] [place] [address] Supervisor Logging: Dung Allen MD Natriuretic peptide B mass conc (Bld) 3923 pg/mL High <300 [facility] Comment on above: Result Comment: Pro- BNP results cannot be compared to BNP results. Performed By: #### C DP, LAC, TROPI, BMP, CK #### [facility] [address] [place] [address] Supervisor Logging: Dung Allen MD CBCon 11-26-2018 Erythrocyte distribution width Ratio (RBC) 12.8 % Normal 12.5-15.4 [facility] Comment on above: Performed By: #### C DP, LAC, TROPI, BMP, CK #### [facility] [address] [place] [phone] Supervisor Logging: Dung Allen MD Hematocrit Volume Fraction (Bld) 37.4 % Normal 36-46 [facility] Comment on above: Performed By: #### C DP, LAC, TROPI, BMP, CK #### [facility] [address] [place], [place] [phone] Supervisor Logging: Dung Allen MD Hemoglobin mass conc (Bld) 12.7 g/dL Normal 12.0-16.0 [facility] Comment on above: Performed By: #### C DP, LAC, TROPI, BMP, CK #### [facility] [address] [place] [address] Supervisor Logging: Dung Allen MD MCH Entitic mass (RBC) 34.6 pg High 26-34 [facility] Comment on above: Performed By: #### C DP, LAC, TROPI, BMP, CK #### [facility] [address] [place] [address] Supervisor Logging: Dung Allen MD MCHC mass conc (RBC) 34.0 g/dL Normal 31-37 [facility] Comment on above: Performed By: #### C DP, LAC, TROPI, BMP, CK #### [facility] [address] [place] [address] Supervisor Logging: Dung Allen MD MCV Entitic volume (RBC) 101.6 fL High 80-100 [facility] Comment on above: Performed By: #### C DP, LAC, TROPI, BMP, CK #### [facility] [address] [place] [phone] Supervisor Logging: Dung Allen MD Platelet mean volume Entitic volume (Bld) 9.0 fL Normal 6.0-12.0 [facility] Comment on above: Performed By: #### C DP, LAC, TROPI, BMP, CK #### [facility] [address] [place], [place] [phone] Supervisor Logging: Dung Allen MD Platelets #/vol (Bld) 198 10*3/uL Normal 140-450 [facility] Comment on above: Performed By: #### C DP, LAC, TROPI, BMP, CK #### [facility] [address] [place], [place] [phone] Supervisor Logging: Dung Allen MD RBC #/vol (Bld) 3.68 10*6/uL Low 4.0-5.2 [facility] Comment on above: Performed By: #### C DP, LAC, TROPI, BMP, CK #### [facility] [address] [place] [address] Supervisor Logging: Dung Allen MD WBC #/vol (Bld) 8.9 10*3/uL Normal 3.5-11.0 [facility] Comment on above: Performed By: #### C DP, LAC, TROPI, BMP, CK #### [facility] [address] [place] [address] Supervisor Logging: Dung Allen MD NRBC Automated NOT REPORTED Normal [facility] Comment on above: Performed By: #### C DP, LAC, TROPI, BMP, CK #### [facility] [address] [place] [address] Supervisor Logging: Dung Allen MD MRI BRAIN WO CONTRASTon - MRI BRAIN WO CONTRAST EXAMINATION: MRI OF [...] bilateral maxillary and sphenoid sinusitis. Interpreted by: Gricel Green MD Signed by: Gricel Green MD 11/26/18 Final result Normal [facility] Magnesiumon 11-26-2018 Magnesium mass conc 2.0 mg/dL Normal 1.6-2.6 [facility] Comment on above: Performed By: #### C DP, LAC, TROPI, BMP, CK #### [facility] [address] [place] [phone] Supervisor Logging: Dung Allen MD Troponinon 11-26-2018 Troponin I.cardiac mass conc 9 ng/L Normal 0-14 [facility] Comment on above: Result Comment: High Sensitivity Troponin values cannot be compared with other Troponin methodologies. Patients with high levels of Biotin oral intake (i.e >5mg/day) may have falsely decreased Troponin levels. Samples collected within 8 hours of biotin intake may require additional information for diagnosis. Performed By: #### C DP, LAC, TROPI, BMP, CK #### [facility] [address] [place] [phone] Supervisor Logging: Dung Allen MD Troponin I.cardiac mass conc NOT REPORTED Normal <0.03 [facility] Comment on above: Performed By: #### C DP, LAC, TROPI, BMP, CK #### [facility] [address] [place] [address] Supervisor Logging: Dung Allen MD B12/Folate Panelon 9 Cobalamin (Vitamin B12) mass conc 943 pg/mL Normal 232-1245 [facility] Comment on above: Performed By: #### C DP, LAC, TROPI, BMP, CK #### [facility] [address] [place] [address] Supervisor Logging: Dung Allen MD Folic Acid 10.5 ng/mL Normal >4.8 [facility] Comment on above: Performed By: #### C DP, LAC, TROPI, BMP, CK #### [facility] [address] [place] [address] Supervisor Logging: Dung Allen MD Basic Metab w/rfx MGon 11-25 (cont.) Normal [facility] Comment on above: Result Comment: Aver age GFR for 70 or more years old: 75 mL/min/1.73sq m Chronic Kidney Disease: <60 mL/min/1.73sq m Kidney failure: <15 mL/min/1.73sq m eGFR calculated using average adult body mass. Additional eGFR calculator available at: http://www.[employer]ia.com/multiple_crcl_2012.htm Performed By: #### C DP, LAC, TROPI, BMP, CK #### [facility] [address] [place] [phone] Supervisor Logging: Dung Allen MD Anion gap molar conc 12 mmol/L Normal 9-17 [facility] Comment on above: Performed By: #### C DP, LAC, TROPI, BMP, CK #### [facility] [address] [place] [phone] Supervisor Logging: Dung Allen MD Calcium mass conc 8.8 mg/dL Normal 8.6-10.4 [facility] Comment on above: Performed By: #### C DP, LAC, TROPI, BMP, CK #### [facility] [address] [place] [address] Supervisor Logging: Dung Allen MD Chloride molar conc 103 mmol/L Normal 98-107 [facility] Comment on above: Performed By: #### C DP, LAC, TROPI, BMP, CK #### [facility] [address] [place] [address] Supervisor Logging: Dung Allen MD CO2 molar conc 22 mmol/L Normal 20-31 [facility] Comment on above: Performed By: #### C DP, LAC, TROPI, BMP, CK #### [facility] [address] [place] [address] Supervisor Logging: Dung Allen MD Creatinine mass conc 0.94 mg/dL High 0.50-0.90 [facility] Comment on above: Performed By: #### C DP, LAC, TROPI, BMP, CK #### [facility] [address] [place] [address] Supervisor Logging: Dung Allen MD GFR, Amer >60 Normal >60 [facility] Comment on above: Performed By: #### C DP, LAC, TROPI, BMP, CK #### [facility] [address] [place], [place] [phone] Supervisor Logging: Dung Allen MD GFR,non Amer 58 mL/min Low >60 [facility] Comment on above: Performed By: #### C DP, LAC, TROPI, BMP, CK #### [facility] [address] [place] [phone] Supervisor Logging: Dung Allen MD Glucose mass conc 105 mg/dL High 70-99 [facility] Comment on above: Performed By: #### C DP, LAC, TROPI, BMP, CK #### [facility] [address] [place] [address] Supervisor Logging: Dung Allen MD Potassium molar conc 3.7 mmol/L Normal 3.7-5.3 [facility] Comment on above: Performed By: #### C DP, LAC, TROPI, BMP, CK #### [facility] [address] [place], [place] [phone] Supervisor Logging: Dung Allen MD Sodium molar conc 137 mmol/L Normal 135-144 [facility] Comment on above: Performed By: #### C DP, LAC, TROPI, BMP, CK #### [facility] [address] [place], [place] [phone] Supervisor Logging: Dung Allen MD Urea nitrogen mass conc 22 mg/dL Normal 8-23 [facility] Comment on above: Performed By: #### C DP, LAC, TROPI, BMP, CK #### [facility] [address] [place], [place] [phone] Supervisor Logging: Dung Allen MD BUN/CRE Ratio NOT REPORTED Normal 9-20 [facility] Comment on above: Performed By: #### C DP, LAC, TROPI, BMP, CK #### [facility] [address] [place], [place] [phone] Supervisor Logging: Dung Allen MD Staging: NOT REPORTED Normal [facility] Comment on above: Performed By: #### C DP, LAC, TROPI, BMP, CK #### [facility] [address] [place] [address] Supervisor Logging: Dung Allen MD CBCon 11-25-2018 Erythrocyte distribution width Ratio (RBC) 12.9 % Normal 12.5-15.4 [facility] Comment on above: Performed By: #### C DP, LAC, TROPI, BMP, CK #### [facility] [address] [place] [address] Supervisor Logging: Dung Allen MD Hematocrit Volume Fraction (Bld) 32.7 % Low 36-46 [facility] Comment on above: Performed By: #### C DP, LAC, TROPI, BMP, CK #### [facility] [address] [place] [address] Supervisor Logging: Dung Allen MD Hemoglobin mass conc (Bld) 11.1 g/dL Low 12.0-16.0 [facility] Comment on above: Performed By: #### C DP, LAC, TROPI, BMP, CK #### [facility] [address] [place] [address] Supervisor Logging: Dung Allen MD MCH Entitic mass (RBC) 34.7 pg High 26-34 [facility] Comment on above: Performed By: #### C DP, LAC, TROPI, BMP, CK #### [facility] [address] [place], [place] [id number] Supervisor Logging: Dung Allen MD [facility] mass conc (RBC) 34.1 g/dL Normal 31-37 [facility] Comment on above: Performed By: #### C DP, LAC, TROPI, BMP, CK #### [facility] [address] [place], [place] [id number] Supervisor Logging: Dung Allen MD MCV Entitic volume (RBC) 101.6 fL High 80-100 [facility] Comment on above: Performed By: #### C DP, LAC, TROPI, BMP, CK #### [facility] [address] [phone] Supervisor Logging: Dung Allen MD Platelet mean volume Entitic volume (Bld) 9.0 fL Normal 6.0-12.0 [facility] Comment on above: Performed By: #### C DP, LAC, TROPI, BMP, CK #### [facility] [address] [place] [address] Supervisor Logging: Dung Allen MD Platelets #/vol (Bld) 162 10*3/uL Normal 140-450 [facility] Comment on above: Performed By: #### C DP, LAC, TROPI, BMP, CK #### [facility] [address] [place] [address] Supervisor Logging: Dung Allen MD RBC #/vol (Bld) 3.21 10*6/uL Low 4.0-5.2 [facility] Comment on above: Performed By: #### C DP, LAC, TROPI, BMP, CK #### [facility] [address] [place], [place] [id number] Supervisor Logging: Dung Allen MD WBC #/vol (Bld) 10.9 10*3/uL Normal 3.5-11.0 [facility] Comment on above: Performed By: #### C DP, LAC, TROPI, BMP, CK #### [facility] [address] [place], [place] [id number] Supervisor Logging: Dung Allen MD NRBC Automated NOT REPORTED Normal [facility] Comment on above: Performed By: #### C DP, LAC, TROPI, BMP, CK #### [facility] [address] [place], [place] [phone] Supervisor Logging: Dung Allen MD CT CHEST ABDOMEN PELVIS WO C ONTRASTon 11-25-2018 CT CHEST ABDOMEN PELVIS WO CONTRAST [...] Lm Porter MD 11/25/18 Final result Normal [facility] Cult,Urine,CCon 11-25-2018 Cult,Urine,CC Specimen Description .CLEAN CATCH URINE Special Requests NOT REPORTED Culture NO SIGNIFICANT GROWTH Report Status FINAL 11/25/2018 Normal [facility] Comment on above: Performed By: #### C DP, LAC, TROPI, BMP, CK #### [facility] [address] [place] [address] Supervisor Logging: Dung Allen MD TSH w/reflex to FT4on 2018 Thyrotropin Qn 4.20 m[IU]/L Normal 0.30-5.00 [facility] Comment on above: Performed By: #### C DP, LAC, TROPI, BMP, CK #### [facility] [address] [place] [address] Supervisor Logging: Dung Allen MD Vitamin D 25 OHon 11-25-2018 Vitamin D 25 [place] 34.8 ng/mL Normal 30.0-100.0 [facility] Comment on above: Result Comment: Reference Range: Vitamin D status Range Deficiency <20 ng/mL Mild Deficiency 20-30 ng/mL Sufficiency 30-100 ng/mL Toxicity >100 ng/mL Performed By: #### C DP, LAC, TROPI, BMP, CK #### [facility] [address] [place] [address] Supervisor Logging: Dung Allen MD XR CHEST PORTABLEon 11-26-19 [...] Alex Gray MD 11/25/18 Final result Normal [facility] Basic Metab w/rfx MGon 11-24 (cont.) Normal [facility] Comment on above: Result Comment: Aver age GFR for 70 or more years old: 75 mL/min/1.73sq m Chronic Kidney Disease: <60 mL/min/1.73sq m Kidney failure: <15 mL/min/1.73sq m eGFR calculated using average adult body mass. Additional eGFR calculator available at: http://www.[employer]/multiple_crcl_2012.htm Performed By: #### C DP, LAC, TROPI, BMP, CK #### [facility] [address] [place] [address] Supervisor Logging: Dung Allen MD Anion gap molar conc 10 mmol/L Normal 9- [facility] Comment on above: Performed By: #### C DP, LAC, TROPI, BMP, CK #### [facility] [address] [place] [address] Supervisor Logging: Dung Allen MD Calcium mass conc 8.9 mg/dL Normal 8.6-10.4 [facility] Comment on above: Performed By: #### C DP, LAC, TROPI, BMP, CK #### [facility] [address] [place] [address] Supervisor Logging: Dung Allen MD Chloride molar conc 100 mmol/L Normal 98-107 [facility] Comment on above: Performed By: #### C DP, LAC, TROPI, BMP, CK #### [facility] [address] [place] [address] Supervisor Logging: Dung Allen MD CO2 molar conc 24 mmol/L Normal 20-31 [facility] Comment on above: Performed By: #### C DP, LAC, TROPI, BMP, CK #### [facility] [address] [place] [address] Supervisor Logging: Dung Allen MD Creatinine mass conc 0.95 mg/dL High 0.50-0.90 [facility] Comment on above: Performed By: #### C DP, LAC, TROPI, BMP, CK #### [facility] [address] [place] [address] Supervisor Logging: Dung Allen MD GFR, Amer >60 Normal >60 [facility] Comment on above: Performed By: #### C DP, LAC, TROPI, BMP, CK #### [facility] [address] [place] [address] Supervisor Logging: Dung Allen MD GFR,non Amer 57 mL/min Low >60 [facility] Comment on above: Performed By: #### C DP, LAC, TROPI, BMP, CK #### [facility] [address] [place] [address] Supervisor Logging: Dung Allen MD Glucose mass conc 94 mg/dL Normal 70-99 [facility] Comment on above: Performed By: #### C DP, LAC, TROPI, BMP, CK #### [facility] [address] [place] [address] Supervisor Logging: Dung Allen MD Potassium molar conc 4.2 mmol/L Normal 3.7-5.3 [facility] Comment on above: Performed By: #### C DP, LAC, TROPI, BMP, CK #### [facility] [address] [place] [address] Supervisor Logging: Dung Allen MD Sodium molar conc 134 mmol/L Low 135-144 [facility] Comment on above: Performed By: #### C DP, LAC, TROPI, BMP, CK #### [facility] [address] [place] [address] Supervisor Logging: Dung Allen MD Urea nitrogen mass conc 28 mg/dL High 8-23 [facility] Comment on above: Performed By: #### C DP, LAC, TROPI, BMP, CK #### [facility] [address] [place] [address] Supervisor Logging: Dung Allen MD BUN/CRE Ratio NOT REPORTED Normal 9-20 [facility] Comment on above: Performed By: #### C DP, LAC, TROPI, BMP, CK #### [facility] [address] [phone] Supervisor Logging: Dung Allen MD Staging: NOT REPORTED Normal [facility] Comment on above: Performed By: #### C DP, LAC, TROPI, BMP, CK #### [facility] [address] [phone] Supervisor Logging: Dung Allen MD CBCon 11-24-2018 Erythrocyte distribution width Ratio (RBC) 12.6 % Normal 12.5-15.4 [facility] Comment on above: Performed By: #### C DP, LAC, TROPI, BMP, CK #### [facility] [address] [place] [address] Supervisor Logging: Dung Allen MD Hematocrit Volume Fraction (Bld) 37.6 % Normal 36-46 [facility] Comment on above: Performed By: #### C DP, LAC, TROPI, BMP, CK #### [facility] [address] [place] [address] Supervisor Logging: Dung Allen MD Hemoglobin mass conc (Bld) 12.5 g/dL Normal 12.0-16.0 [facility] Comment on above: Performed By: #### C DP, LAC, TROPI, BMP, CK #### [facility] [address] [place] [address] Supervisor Logging: Dung Allen MD MCH Entitic mass (RBC) 33.6 pg Normal 26-34 [facility] Comment on above: Performed By: #### C DP, LAC, TROPI, BMP, CK #### [facility] [address] [phone] Supervisor Logging: Dung Allen MD MCHC mass conc (RBC) 33.3 g/dL Normal 31-37 [facility] Comment on above: Performed By: #### C DP, LAC, TROPI, BMP, CK #### [facility] [address] [phone] Supervisor Logging: Dung Allen MD MCV Entitic volume (RBC) 101.0 fL High 80-100 [facility] Comment on above: Performed By: #### C DP, LAC, TROPI, BMP, CK #### [facility] [address] [place] [address] Supervisor Logging: Dung Allen MD Platelet mean volume Entitic volume (Bld) 9.2 fL Normal 6.0-12.0 [facility] Comment on above: Performed By: #### C DP, LAC, TROPI, BMP, CK #### [facility] [address] [place] [address] Supervisor Logging: Dung Allen MD Platelets #/vol (Bld) 189 10*3/uL Normal 140-450 [facility] Comment on above: Performed By: #### C DP, LAC, TROPI, BMP, CK #### [facility] [address] [place] [address] Supervisor Logging: Dung Allen MD RBC #/vol (Bld) 3.72 10*6/uL Low 4.0-5.2 [facility] Comment on above: Performed By: #### C DP, LAC, TROPI, BMP, CK #### [facility] [address] [place] [address] Supervisor Logging: Dung Allen MD WBC #/vol (Bld) 14.1 10*3/uL High 3.5-11.0 [facility] Comment on above: Performed By: #### C DP, LAC, TROPI, BMP, CK #### [facility] [id number] [place], [place] [address] Supervisor Logging: Dung Allen MD NRBC Automated NOT REPORTED Normal [facility] Comment on above: Performed By: #### C DP, LAC, TROPI, BMP, CK #### [facility] [address] [place] [address] Supervisor Logging: Dung Allen MD Extra Yellow Tubeon 11-25-19 19 Extra Yellow Tube Normal [facility] Comment on above: Performed By: #### C DP, LAC, TROPI, BMP, CK #### [facility] [id number] [place] [address] Supervisor Logging: Dung Allen MD PTon 11-24-2018 INR Coag RelTime (PPP) 1.3 {INR} [facility] Comment on above: Result Comment: Therapeutic Range: Moderate Anticoagulant Intensity: INR = 2.0-3.0 High Anticoagulant Intensity: INR = 2.5-3.5 Performed By: #### C DP, LAC, TROPI, BMP, CK #### [facility] [address] [place], [place] [phone] Supervisor Logging: Dung Allen MD Prothrombin time (PT) Coag time (PPP) 13.0 s High 9.4-12.6 [facility] Comment on above: Performed By: #### C DP, LAC, TROPI, BMP, CK #### [facility] [address] [place] [address] Supervisor Logging: Dung Allen MD Basic Metabolic Profon 11-23 (cont.) [facility] Comment on above: Result Comment: Aver age GFR for 70 or more years old: 75 mL/min/1.73sq m Chronic Kidney Disease: <60 mL/min/1.73sq m Kidney failure: <15 mL/min/1.73sq m eGFR calculated using average adult body mass. Additional eGFR calculator available at: http://www.[employer]/multiple_crcl_2011.htm Performed By: #### C DP, LAC, TROPI, BMP, CK #### [facility] [address] [place] [address] Supervisor Logging: Dung Allen MD Anion gap molar conc 14 mmol/L Normal 9-17 [facility] Comment on above: Performed By: #### C DP, LAC, TROPI, BMP, CK #### [facility] [address] [place] [address] Supervisor Logging: Dung Allen MD Calcium mass conc 9.7 mg/dL Normal 8.6-10.4 [facility] Comment on above: Performed By: #### C DP, LAC, TROPI, BMP, CK #### [facility] [address] [place] [address] Supervisor Logging: Dung Allen MD Chloride molar conc 97 mmol/L Low 98-107 [facility] Comment on above: Performed By: #### C DP, LAC, TROPI, BMP, CK #### [facility] [address] [place] [address] Supervisor Logging: Dung Allen MD CO2 molar conc 22 mmol/L Normal 20-31 [facility] Comment on above: Performed By: #### C DP, LAC, TROPI, BMP, CK #### [facility] [address] [place] [address] Supervisor Logging: Dung Allen MD Creatinine mass conc 0.99 mg/dL High 0.50-0.90 [facility] Comment on above: Performed By: #### C DP, LAC, TROPI, BMP, CK #### [facility] [address] [place], [place] [address] Supervisor Logging: Dung Allen MD GFR, Amer >60 Normal >60 [facility] Comment on above: Performed By: #### C DP, LAC, TROPI, BMP, CK #### [facility] [address] [phone] Supervisor Logging: Dung Allen MD GFR,non Amer 54 mL/min Low >60 [facility] Comment on above: Performed By: #### C DP, LAC, TROPI, BMP, CK #### [facility] [address] [phone] Supervisor Logging: Dung Allen MD Glucose mass conc 190 mg/dL High 70-99 [facility] Comment on above: Performed By: #### C DP, LAC, TROPI, BMP, CK #### [facility] [address] [place] [address] Supervisor Logging: Dung Allen MD Potassium molar conc 4.3 mmol/L Normal 3.7-5.3 [facility] Comment on above: Result Comment: SPEC IMEN SLIGHTLY HEMOLYZED, RESULTS MAY BE ADVERSELY AFFECTED. Performed By: #### C DP, LAC, TROPI, BMP, CK #### [facility] [address] [place], [place] [address] Supervisor Logging: Dung Allen MD Sodium molar conc 133 mmol/L Low 135-144 [facility] Comment on above: Performed By: #### C DP, LAC, TROPI, BMP, CK #### [facility] [address] [phone] Supervisor Logging: Dung Allen MD Urea nitrogen mass conc 33 mg/dL High 8-23 [facility] Comment on above: Performed By: #### C DP, LAC, TROPI, BMP, CK #### [facility] [address] [phone] Supervisor Logging: Dung Allen MD BUN/CRE Ratio NOT REPORTED Normal - [facility] Comment on above: Performed By: #### C DP, LAC, TROPI, BMP, CK #### [facility] [address] [place] [address] Supervisor Logging: Dung Allen MD Staging: NOT REPORTED Normal [facility] Comment on above: Performed By: #### C DP, LAC, TROPI, BMP, CK #### [facility] [address] [place] [address] Supervisor Logging: Dung Allen MD CBC with Diffon 11-23-2018 Abs. Basophil 0.00 k/uL Normal 0.0-0.2 [facility] Comment on above: Performed By: #### C DP, LAC, TROPI, BMP, CK #### [facility] [address] [place] [address] Supervisor Logging: Dung Allen MD Abs.Neutrophil (Seg) 12.00 k/uL High 1.8-7.7 [facility] Comment on above: Performed By: #### C DP, LAC, TROPI, BMP, CK #### [facility] [address] [phone] Supervisor Logging: Dung Allen MD Basophils/100 WBC (Bld) 0 % Normal 0-2 [facility] Comment on above: Performed By: #### C DP, LAC, TROPI, BMP, CK #### [facility] [address] [phone] Supervisor Logging: Dung Allen MD Eosinophils #/vol (Bld) 0.00 10*3/uL Normal 0.0-0.4 [facility] Comment on above: Performed By: #### C DP, LAC, TROPI, BMP, CK #### [facility] [address] [place] [address] Supervisor Logging: Dung Allen MD Eosinophils/100 WBC (Bld) 0 % Low 1-4 [facility] Comment on above: Performed By: #### C DP, LAC, TROPI, BMP, CK #### [facility] [address] [place] [address] Supervisor Logging: Dung Allen MD Erythrocyte distribution width Ratio (RBC) 12.8 % Normal 12.5-15.4 [facility] Comment on above: Performed By: #### C DP, LAC, TROPI, BMP, CK #### [facility] [address] [place] [address] Supervisor Logging: Dung Allen MD Hematocrit Volume Fraction (Bld) 41.0 % Normal 36-46 [facility] Comment on above: Performed By: #### C DP, LAC, TROPI, BMP, CK #### [facility] [address] [place] [address] Supervisor Logging: Dung Allen MD Hemoglobin mass conc (Bld) 13.7 g/dL Normal 12.0-16.0 [facility] Comment on above: Performed By: #### C DP, LAC, TROPI, BMP, CK #### [facility] [address] [place] [address] Supervisor Logging: Dung Allen MD Lymphocytes #/vol (Bld) 1.20 10*3/uL Normal 1.0-4.8 [facility] Comment on above: Performed By: #### C DP, LAC, TROPI, BMP, CK #### [facility] [address] [place] [address] Supervisor Logging: Dung Allen MD Lymphocytes/100 WBC (Bld) 9 % Low 24-44 [facility] Comment on above: Performed By: #### C DP, LAC, TROPI, BMP, CK #### [facility] [address] [place] [address] Supervisor Logging: Dung Allen MD MCH Entitic mass (RBC) 33.6 pg Normal 26-34 [facility] Comment on above: Performed By: #### C DP, LAC, TROPI, BMP, CK #### [facility] [address] [place] [address] Supervisor Logging: Dung Allen MD MCHC mass conc (RBC) 33.4 g/dL Normal 31-37 [facility] Comment on above: Performed By: #### C DP, LAC, TROPI, BMP, CK #### [facility] [address] [place] [address] Supervisor Logging: Dung Allen MD MCV Entitic volume (RBC) 100.6 fL High 80-100 [facility] Comment on above: Performed By: #### C DP, LAC, TROPI, BMP, CK #### [facility] [address] [place] [address] Supervisor Logging: Dung Allen MD Monocytes #/vol (Bld) 1.20 10*3/uL Normal 0.1-1.2 [facility] Comment on above: Performed By: #### C DP, LAC, TROPI, BMP, CK #### [facility] [address] [place] [address] Supervisor Logging: Dung Allen MD Monocytes/100 WBC (Bld) 9 % Normal 2-11 [facility] Comment on above: Performed By: #### C DP, LAC, TROPI, BMP, CK #### [facility] [address] [place] [address] Supervisor Logging: Dung Allen MD Neutrophil (Seg) 82 % High 36-66 [facility] Comment on above: Performed By: #### C DP, LAC, TROPI, BMP, CK #### [facility] [address] [place] [address] Supervisor Logging: Dung Allen MD Platelet mean volume Entitic volume (Bld) 9.2 fL Normal 6.0-12.0 [facility] Comment on above: Performed By: #### C DP, LAC, TROPI, BMP, CK #### [facility] [address] [place] [address] Supervisor Logging: Dung Allen MD Platelets #/vol (Bld) 217 10*3/uL Normal 140-450 [facility] Comment on above: Performed By: #### C DP, LAC, TROPI, BMP, CK #### [facility] [address] [place] [address] Supervisor Logging: Dung Allen MD RBC #/vol (Bld) 4.07 10*6/uL Normal 4.0-5.2 [facility] Comment on above: Performed By: #### C DP, LAC, TROPI, BMP, CK #### [facility] [address] [place] [address] Supervisor Logging: Dung Allen MD WBC #/vol (Bld) 14.4 10*3/uL High 3.5-11.0 [facility] Comment on above: Performed By: #### C DP, LAC, TROPI, BMP, CK #### [facility] [address] [place] [address] Supervisor Logging: Dung Allen MD Abs.Imm.Granulocyt e NOT REPORTED Normal 0.00-0.30 [facility] Comment on above: Performed By: #### C DP, LAC, TROPI, BMP, CK #### [facility] [address] [place] [address] Supervisor Logging: Dung Allen MD Auto Diff Performed NOT REPORTED Normal [facility] Comment on above: Performed By: #### C DP, LAC, TROPI, BMP, CK #### [facility] [address] [place] [address] Supervisor Logging: Dung Allen MD Immature granulocytes #/vol (Bld) NOT REPORTED Normal 0 [facility] Comment on above: Performed By: #### C DP, LAC, TROPI, BMP, CK #### [facility] [address] [place] [address] Supervisor Logging: Dung Allen MD NRBC Automated NOT REPORTED Normal [facility] Comment on above: Performed By: #### C DP, LAC, TROPI, BMP, CK #### [facility] [address] [place] [address] Supervisor Logging: Dung Allen MD Platelets #/vol (Bld) NOT REPORTED Normal [facility] Comment on above: Performed By: #### C DP, LAC, TROPI, BMP, CK #### [facility] [address] [place] [address] Supervisor Logging: Dung Allen MD RBC morphology finding Nom (Bld) NOT REPORTED Normal [facility] Comment on above: Performed By: #### C DP, LAC, TROPI, BMP, CK #### [facility] [address] [place] [address] Supervisor Logging: Dung Allen MD WBC Morphology NOT REPORTED Normal [facility] Comment on above: Performed By: #### C DP, LAC, TROPI, BMP, CK #### [facility] [address] [place] [address] Supervisor Logging: Dung Allen MD CT HEAD WO CONTRASTon [...] Micah Palmer MD 11/23/18 Final result Normal [facility] Creatine Kinaseon 11-23-2018 CK enzyme act/vol 407 U/L High 26-192 [facility] Comment on above: Performed By: #### C DP, LAC, TROPI, BMP, CK #### [facility] [address] [place], [place] [address] Supervisor Logging: Dung Allen MD Flu A/B Ag Detectionon 11-23 Flu A/B Ag Detection Specimen Description .NASOPHARYNGEAL SWAB Special Requests NOT REPORTED Direct Exam POSITIVE for Influenza A Antigen NEGATIVE for Influenza B Antigen Report Status FINAL 11/23/2018 Normal [facility] Comment on above: Performed By: #### F LUAD #### [facility] [address] [place], [place] [id number] Supervisor Logging: Dung Allen MD Lactic Acidon 11-23-2018 Lactate molar conc 2.3 mmol/L High 0.5-2.2 [facility] Comment on above: Performed By: #### C DP, LAC, TROPI, BMP, CK #### [facility] [address] [place] [address] Supervisor Logging: Dung Allen MD Troponinon 11-23-2018 Troponin I.cardiac mass conc 17 ng/L High 0-14 [facility] Comment on above: Result Comment: High Sensitivity Troponin values cannot be compared with other Troponin methodologies. Patients with high levels of Biotin oral intake (i.e >5mg/day) may have falsely decreased Troponin levels. Samples collected within 8 hours of biotin intake may require additional information for diagnosis. Performed By: #### C DP, LAC, TROPI, BMP, CK #### [facility] [address] [place], [place] [id number] Supervisor Logging: Dung Allen MD Troponin I.cardiac mass conc NOT REPORTED Normal <0.03 [facility] Comment on above: Performed By: #### C DP, LAC, TROPI, BMP, CK #### [facility] [address] [place] [address] Supervisor Logging: Dung Allen MD UA w/Reflex Cultureon 2018 Acetoacetic Acid,Ur SMALL Abnormal NEG [facility] Comment on above: Performed By: #### U AX, UMICAO #### [facility] [address] [place] [address] Supervisor Logging: Dung Allen MD Bilirubin.direct mass conc Negative Abnormal NEG [facility] Comment on above: Performed By: #### U AX, UMICAO #### [facility] [address] [place] [address] Supervisor Logging: Dung Allen MD Color Nom (U) YELLOW Normal YEL [facility] Comment on above: Performed By: #### U AX, UMICAO #### [facility] [address] [place] [address] Supervisor Logging: Dung Allen MD Glucose mass conc Negative Normal NEG [facility] Comment on above: Performed By: #### U AX, UMICAO #### [facility] [address] [place] [address] Supervisor Logging: Dung Allen MD Hemoglobin mass conc (Bld) SMALL Abnormal NEG [facility] Comment on above: Performed By: #### U AX, UMICAO #### [facility] [address] [place] [address] Supervisor Logging: Dung Allen MD Leuckocyte Esterase SMALL Abnormal NEG [facility] Comment on above: Performed By: #### U AX, UMICAO #### [facility] [address] [place] [address] Supervisor Logging: Dung Allen MD Nitrite,Ur Negative Normal NEG [facility] Comment on above: Performed By: #### U AX, UMICAO #### [facility] [address] [place] [address] Supervisor Logging: Dung Allen MD PH,Ur 5.5 Normal 5.0-8.0 [facility] Comment on above: Performed By: #### U AX, UMICAO #### [facility] [address] [place] [address] Supervisor Logging: Dung Allen MD Protein mass conc 1+ Abnormal NEG [facility] Comment on above: Performed By: #### U AX, UMICAO #### [facility] [address] [place] [address] Supervisor Logging: Dung Allen MD Spec. Platina,Ur 1.025 Normal 1.005-1.030 [facility] Comment on above: Performed By: #### U AX, UMICAO #### [facility] [address] [place] [address] Supervisor Logging: Dung Allen MD Turbidity CLEAR Normal CLEAR [facility] Comment on above: Performed By: #### U AX, UMICAO #### [facility] [address] [place] [address] Supervisor Logging: Dung Allen MD Urobilinogen,Ur ELEVATED Abnormal NORM [facility] Comment on above: Performed By: #### U AX, UMICAO #### [facility] [address] [place] [address] Supervisor Logging: Dung Allen MD Comment NOT REPORTED Normal [facility] Comment on above: Performed By: #### U AX, UMICAO #### [facility] [address] [place] [address] Supervisor Logging: Dung Allen MD Urinalysis,Microon 9 ----- Normal [facility] Comment on above: Performed By: #### U AX, UMICAO #### [facility] [address] [place] [address] Supervisor Logging: Dung Allen MD Epithelial cells LM.HPF #/area (Urine sed) 10 TO 20 Normal 0-5 [facility] Comment on above: Performed By: #### U AX, UMICAO #### [facility] [address] [place] [address] Supervisor Logging: Dung Allen MD Other Observations Culture ordered base d on defined criteria. Abnormal NREQ [facility] Comment on above: Performed By: #### U AX, UMICAO #### [facility] [address] [place] [address] Supervisor Logging: Dung Allen MD RBC #/vol (U) 2 TO 5 Normal 0-2 [facility] Comment on above: Performed By: #### U AX, UMICAO #### [facility] [address] [place] [address] Supervisor Logging: Dung Allen MD WBC #/vol (U) 20 TO 50 Normal 0-5 [facility] Comment on above: Performed By: #### U AX, UMICAO #### [facility] [address] [place] [address] Supervisor Logging: Dung Allen MD Amorphous sediment LM Ql (Urine sed) NOT REPORTED Normal NONE [facility] Comment on above: Performed By: #### U AX, UMICAO #### [facility] [address] [place] [address] Supervisor Logging: Dung Allen MD Bacteria LM.HPF #/area (Urine sed) NOT REPORTED Normal NONE [facility] Comment on above: Performed By: #### U AX, UMICAO #### [facility] [address] [place] [address] Supervisor Logging: Dung Allen MD Casts LM.LPF #/area (Urine sed) NOT REPORTED Normal [facility] Comment on above: Performed By: #### U AX, UMICAO #### [facility] [address] [place] [address] Supervisor Logging: Dung Allen MD Crystals LM Nom (Urine sed) NOT REPORTED Normal NONE [facility] Comment on above: Performed By: #### U AX, UMICAO #### [facility] [address] [place] [address] Supervisor Logging: Dung Allen MD Epithelial, Renal NOT REPORTED Normal 0 [facility] Comment on above: Performed By: #### U AX, UMICAO #### [facility] [address] [place] [address] Supervisor Logging: Dung Allen MD Mucus Strands NOT REPORTED Normal NONE [facility] Comment on above: Performed By: #### U AX, UMICAO #### [facility] [address] [place] [address] Supervisor Logging: Dung Allen MD Trichomonas NOT REPORTED Normal NONE [facility] Comment on above: Performed By: #### U AX, UMICAO #### [facility] [address] [place] [address] Supervisor Logging: Dung Allen MD Yeast LM Ql (Urine sed) NOT REPORTED Normal NONE [facility] Comment on above: Performed By: #### U CARLOS CARMONA #### [facility] [address] [place] [address] Supervisor Logging: Dung Allen MD XR CHEST (2 VW)on [...] Micah Palmer MD 11/23/18 Final result Normal [facility] Vital Signs Date Time Vital Sign Value Performing Clinician Faci lity 05-27-2024 14:55-0400 Body height 157.48 cm [facility] 05-27-2024 14:55-0400 Body mass index (BMI) [Ratio] 25.4 kg/m2 [facility] 05-27-2024 14:55-0400 Body temperature 97.4 [degF] [facility] 05-27-2024 14:55-0400 Body weight 63.27 kg [facility] 05-27-2024 14:55-0400 Diastolic blood pressure 68 mm[Hg] [facility] 05-27-2024 14:55-0400 Heart rate 79 /min [facility] 05-27-2024 14:55-0400 Respiratory rate 16 /min [facility] 05-27-2024 14:55-0400 SaO2% (BldA) [Mass fraction] 91 % [facility] 05-27-2024 14:55-0400 Systolic blood pressure 106 mm[Hg] [facility] 04-20-2024 13:34-0400 Body temperature 97 [degF] [facility] 04-20-2024 13:34-0400 Diastolic blood pressure 81 mm[Hg] [facility] 04-20-2024 13:34-0400 Heart rate 74 /min [facility] 04-20-2024 13:34-0400 Respiratory rate 18 /min [facility] 04-20-2024 13:34-0400 SaO2% (BldA) [Mass fraction] 97 % [facility] 04-20-2024 13:34-0400 Systolic blood pressure 185 mm[Hg] [facility] 01-03-2023 15:47-0400 Diastolic blood pressure 61 mm[Hg] Gricel Meneses DO Work Phone: [employer] 01-03-2023 15:47-0400 Heart rate 58 /min Gricel Meneses DO Work Phone: [employer] 01-03-2023 15:47-0400 Respiratory rate 18 /min Gricel Meneses DO Work Phone: [employer] 01-03-2023 15:47-0400 SaO2% (BldA) [Mass fraction] 95 % Gricel Meneses DO Work Phone: [employer] 01-03-2023 15:47-0400 Systolic blood pressure 161 mm[Hg] Gricel Meneses DO Work Phone: [employer] 01-03-2023 14:33-0400 Body height 157.5 cm Gricel Meneses DO Work Phone: [employer] 01-03-2023 14:33-0400 Body mass index (BMI) [Ratio] 29.08 kg/m2 Gricel Meneses DO Work Phone: [employer] 01-03-2023 14:33-0400 Body temperature 98.2 [degF] Gricel Meneses DO Work Phone: [employer] 01-03-2023 14:33-0400 Body weight 72.12 kg Gricel Meneses DO Work Phone: [facility] Encounters Encounter Date Encounter Type Care Provider Facility Start: 06-03-2024 End: 06-03-2024 ambulatory FLORENCIO MIRANDA Not Available Start: 05-27-2024 End: 05-27-2024 ambulatory [facility] Work Phone: Start: 05-27-2024 End: 05-27-2024 Patient encounter procedure [facility] Work Phone: Start: 05-06-2024 End: 05-06-2024 ambulatory ALEN ASENCIO Not Available Start: 04-20-2024 End: 04-20-2024 ambulatory [facility] Work Phone: Start: 04-20-2024 End: 04-20-2024 Patient encounter procedure [facility] Work Phone: Start: 01-17-2024 End: 01-17-2024 ambulatory [facility] Start: 11-29-2023 End: 11-29-2023 ambulatory [facility] Start: 11-29-2023 End: 11-29-2023 Office outpatient visit 10 minutes [facility] 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: [facility] Comment on above: COVID-19 (Primary Dx ); Acute bronchitis, unspecified organism; Urinary incontinence, unspecified type Start: 10-11-2023 Refill Tuan Rodríguez [facility] Comment on above: Osteoarthritis of th oracolumbar spine, unspecified spinal osteoarthritis complication status Start: 09-13-2023 End: 09-13-2023 ambulatory [facility] Start: 01-30-2023 End: 01-31-2023 ambulatory [facility] Facility:H1 Start: 01-16-2023 End: 01-16-[address] DUNG GRAVES Facility:H1 Start: 01-03-2023 End: 01-03-2023 Emergency department patient visit GRICEL Bautista [facility] Start: 01-03-2023 End: 01-03-2023 Emergency department patient visit Gricel Meneses DO Work Phone: [facility] ED Comment on above: Rib contusion, right , initial encounter (Primary Dx); Strain of lumbar region, initial encounter Start: 07-05-2020 End: 07-07-2020 Subsequent hospital visit by physician Jarad Link Mammo Rm 2 [facility] Comment on above: Encounter for screen [...] 11-27-2018 Evaluation and management of inpatient TORSTEN Faye CLARICURTIS [facility] Procedures Date Procedure Procedure Detail Performing Clinician Start: 09-13-2023 Adult depression scr eening assessment Tuan Rodríguez TACK COVERER Start: 01-03-2023 Radex ribs uni w/pos teroant ch minimum 3 views Gricel Meneses DO Work Phone: Start: 07-05-2020 Screening mammograph y bi 2-view breast inc cad Vandana Vidal Work Phone: Start: 05-15-2019 Screening digital br east tomosynthesis bi Vandana Vidal Work Phone: Start: 11-27-2018 DISCHARGE PATIENT TORSTEN HEARD Start: 11-27-2018 Radiologic exam ches t 2 views TORSTEN CLARICUTRIS Start: 11-27-2018 INITIATE OXYGEN THER APY PROTOCOL TORSTEN HEARD Start: 11-27-2018 Blood count complete automated TORSTEN HEARD Start: 11-27-2018 Comprehensive metabo lic panel TORSTEN CLARICURTIS Start: 11-27-2018 INTAKE AND OUTPUT TORSTEN CLARICURTIS Start: 11-26-2018 Mri brain brain stem w/o contrast material TORSTEN HEARD Start: 11-26-2018 Assay of troponin quantitative TORSTEN HEARD Start: 11-26-2018 IP CONSULT TO ONCOLOGY TORSTEN FÉLIX Start: 11-26-2018 INITIATE OXYGEN THER APY PROTOCOL [...] ecg w/le ast 12 lds w/i&r TORSTEN FÉLIX Start: 11-25-2018 EKG REPORT TORSTEN MONTAGUE KASSIDYLily Start: 11-25-2018 AMB EXTERNAL REFERRA L TO HOME HEALTH TORSTEN FÉLIX Start: 11-25-2018 Ct thorax w/o contra st material TORSTEN FÉLIX Start: 11-25-2018 IP CONSULT TO SOCIAL WORK TORSTEN HEARD Start: 11-25-2018 Radiologic exam ches t single view TORSTEN FÉLIX Start: 11-25-2018 INITIATE OXYGEN THER APY PROTOCOL TORSTEN HEARD Start: 11-25-2018 25 hydroxy includes fractions if performed TORSTEN FÉLIX Start: 11-25-2018 Antibody herpes smpl x type 1 TORSTEN FÉLIX Start: 11-25-2018 Assay of thyroid stimulating hormone tsh TORSTEN FÉLIX Start: 11-25-2018 Blood count complete automated TORSTEN FÉLIX Start: 11-25-2018 Comprehensive metabo lic panel TORSTEN FÉLIX Start: 11-25-2018 INTAKE AND OUTPUT TOSRTEN FÉLIX Start: 11-24-2018 PATIENT STATUS (FROM ED OR OR/PROCEDURAL) TORSTEN FÉLIX Start: 11-24-2018 INITIATE OXYGEN THER APY PROTOCOL TORSTEN FÉLIX Start: 11-24-2018 Blood count complete automated TORSTEN FÉLIX Start: 11-24-2018 Comprehensive metabo lic panel TORSTEN FÉLIX Start: 11-24-2018 Prothrombin time TORSTEN FÉLIX Start: 11-24-2018 DAILY WEIGHTS TORSTEN CHANTE CORINNA Start: 11-24-2018 DROPLET ISOLATION TORSTEN FÉLIX Start: 11-24-2018 PLACE INTERMITTENT PNEUMATIC COMPRESSION DEVICE [...] TORSTEN HEARD Start: 11-23-2018 Iaadiadoo influenza JAM ES FÉLIX Start: 11-23-2018 Radiologic exam ches t 2 views TORSTEN HEARD Start: 11-23-2018 Ct head/brain w/o co ntrast material TORSTEN HEARD Start: 11-23-2018 INSERT PERIPHERAL IV JA FREIDA HEARD Start: 11-23-2018 Assay of lactate TORSTEN [...] Adult BMI Screening Adult BMI Screen ing [facility] Start: 09-13-2024 Depression Screening Depression Scre ening [facility] Start: 09-13-2024 Fall Risk Screening Fall Risk Screen ing [facility] Start: 09-13-2024 Tobacco Screening Tobacco Screening [facility] Start: 05-30-2024 Medicare Annual Well ness Visit Medicare Annual Wellness Visit [facility] Start: 05-17-2023 Influenza vaccination Influenza Vacc ine [facility] Start: 04-16-2023 Influenza vaccination Flu vacc ine (Season Ended) [facility] Start: 02-06-2023 ambulatory Ambulatory Facility:H 1 Start: 01-11-2021 COVID-19 Vaccine (3 - Booster for Pfizer series) COVID-19 Vaccine (3 - Booster for Pfizer series) [facility] Start: 05-17-2020 Influenza vaccination Flu vaccine (# 1) [place] Start: 05-17-2019 Influenza vaccination Flu vaccine (# 1) [place] Start: 03-08-2019 Annual Wellness Visi t (AWV) Annual Wellness Visit (AWV) [facility] Start: 11-30-2017 Pneumococcal 65+ yea rs Vaccine (2 - PPSV23 if available, else PCV20) Pneumococcal 65+ years Vaccine (2 - PPSV23 if available, else PCV20) [facility] Start: 12-24-2004 DEXA (modify frequen cy per FRAX score) DEXA (modify frequency per FRAX score) [place] Start: 12-24-2004 Pneumococcal 65+ yea rs Vaccine (2 of 2 - PPSV23) Pneumococcal 65+ years Vaccine (2 of 2 - PPSV23) [place] Start: 12-24-2002 Annual Wellness Visi t (AWV) Annual Wellness Visit (AWV) [place] Start: 12-24-1994 Screening for osteoporosis DEXA (modify frequency per FRAX score) [facility] Start: 12-24-1989 Administration of varicella zoster vaccine Zoster (Shingles) Vaccine (1 of 2) [facility] Start: 12-24-1989 Shingles Vaccine (1 of 2) Das gles Vaccine (1 of 2) [facility] Start: 12-24-1958 DTaP,Tdap and Td Vac cines (1 - Tdap) DTaP,Tdap and Td Vaccines (1 - Tdap) [facility] Start: 12-24-1958 DTaP/Tdap/Td vaccine (1 - Tdap) DTaP/Tdap/Td vaccine (1 - Tdap) [facility] Start: 12-24-1957 Adult BMI Follow Up Plan Adult BMI Follow Up Plan [employer] Start: 1951 Depression Screen Depression Screen [facility] End: 11-28-2024 Bacteria identified in Urine by Culture Urine culture (clean catch) Microbiology Routine Urinary incontinence, unspecified type 1 Occurrences starting 11/29/2023 until 11/28/2024 [employer] Comment on above: 1 Occurrences starti ng 11/29/2023 until 11/28/2024 End: 11-28-2024 Urinalysis Urinalysis Lab Routine Urinary incontinence, unspecified type 1 Occurrences starting 11/29/2023 until 11/28/2024 [employer] Work Phone: Comment on above: 1 Occurrences starti ng 11/29/2023 until 11/28/2024 Payers Date Payer Category Payer Medicare [employer] MEDICARE UHC MEDICARE ADVANTAGE O [id number] 2023-Present [phone] [address] [address] [place] [address] [id number] 2015 Medicare UHC MEDICARE UHC MEDICARE COMPLETE xxxxxxxxx 2015-Present xxxxxxxxx [id number] 1959 Medicare [id number] 1940 Unknown [id number] .[id number] 1940 Unknown [id number] .[id number] 1940 Unknown [id number] .[id number] 1940 Unknown [id number] .[id number] 1940 Unknown [id number] .[id number] 1939 Unknown [id number] .2.1286 1939 Unknown [id number] [id number] .2.1286 1939 Unknown [id number] [id number] .2.1286 1939 Unknown [id number] [id number] .2.1259 1939 Unknown [id number] .2.1259 Medicare AARP Medicare Advantage PFFS [id number] Private Health Insurance [employer] [facility] PFFS Op [id number] Social History Date Type Detail Facility Start: 08-11-2012 End: 11-24-2018 Tobacco smoking status CTIS Former smoker [employer] End: 08-11-1990 History of tobacco use Current smoker [place] Start: 11-24-2018 End: 05-30-2023 Alcohol intake No [facility] Start: 1940 Sex Assigned At Not on file [place] Start: 08-11-2012 End: 01-18-2020 Tobacco use and exposure [facility] used [facility] Start: 01-18-2020 End: 01-03-2023 Alcohol intake Current non-drinker of alcohol (finding) [place] End: 08-11-1990 History of tobacco use Cigarette Smoker [facility] [employer] Work Phone: Start: 01-03-2023 History SDOH Alcohol Frequency 1 [facility] Phone: Start: 01-03-2023 History SDOH Alcohol Std Drinks 0 [facility] Phone: Start: 12-24-2022 End: 01-03-2023 Exposure to SARS-CoV-2 (event) Not sure [facility] Work Phone: Start: 03-20-2023 End: 04-20-2024 Tobacco smoking status NHIS Never smoked tobacco [facility] Start: 03-20-2023 Tobacco use and exposure Forme r smokeless tobacco user [facility] End: 09-16-1979 History of tobacco use User of smokeless tobacco [facility] Start: 09-13-2023 Alcohol intake Lifetime non-d param (finding) [facility] Start: 05-30-2023 End: 09-13-2023 History of Social function [facility] Do you belong to any clubs or organizations such as mormon groups, unions, fraternal or athletic groups, or school groups? No [facility] Are you now , , , , never or living with a partner? [facility] How often to you hav e a drink containing alcohol? Never [facility] How many standard dr inks containing alcohol do you have on a typical day? Patient does not drink [facility] How hard is it for y ou to pay for the very basics like food, housing, medical care, and heating Not very hard [facility] Do you feel stress - tense, restless, nervous, or anxious, or unable to sleep at night because your mind is troubled all the time - these days [OSQ] Not at all [facility] Start: 1940 Sex Assigned At Female F [facility] Clinical Notes 01-03-2023 to 11-29-2023 Abdulkadir Major, CHRISTINA-INVENTORY CONTROL CLERK - 11/29/2023 11:40 AM EDTTelephone Encounter - Tuan Rodríguez, [facility] - 10/11/2023 10:17 AM ESTTelephone Encounter - Tuan Rodríguez, [facility] - 10/11/2023 10:17 AM ESTAttachments Note Date & Type Note Facility 11-29-2023 History of Presen t illness Narrative [address] [facility] [address] Patient: Vilma May Date of : 1940 Encounter Date: 11/29/2023 History of Present Illness: The patient is a 82 y.o. female, an established patient, and is here for No chief complaint on file. . HPI Patient developed some cold symptoms including fatigue, cough, congestion, confusion and urinary incontinence on Saturday and tested positive for COVID today. She lives at [facility]. Her nurse Елена and daughter Liseth [...] via Real-time Synchronous Audiovisual [facility] [address] [facility] [address] Patient Location: Patient's [facility] Video Visit Consent Statement: I discussed risks, [...] that there are some limitations compared to [id number] evaluations. The patient consented to the presence [...] vitals taken for this visit. Physical Exam Lap Regulator present: Liseth daughter and nurse Елена present. [...] is 63 as of April of 2023. [id number] 11min. ELLIE CARIAS APRN-CNP 11/29/232036 documented in this encounter [facility] 10-11-2023 Miscellaneous Notes Nurse called from assisted living and would like pt to have a refill on tramdoll [facility]23 Telephone encounter Note Nurse called from assisted living and would like pt to have a refill on tramdoll [facility] 01-03-2023 Hospital Discharg e instructions Gricel Meneses DO - 01/03/2023 3:39 PM EDT Please make an appointment to follow up with your primary doctor and/or the specialist as we discussed. Take all medications as prescribed. Return to ER if condition worsens or you develop any new/concerning symptoms as we discussed. The following attachments cannot be sent through Care Everywhere.Back: Strain (Welsh)Rib Contusion (Welsh)documented in this encounter [employer] Work Phone: Evaluation note Diagnosis Rib contusion, right, initial encounter- Primary Strain of lumbar region, initial encounter documented in this encounter [facility] Phone: evaluation note* Diagnosis Osteoarthritis of thoracolumbar spine, unspecified spinal osteoarthritis complication status documented in this encounter [facility]* Diagnosis COVID-19- Primary Acute bronchitis, unspecified organism Urinary incontinence, unspecified type documented in this encounter [facility] Technologies[facility] noteNo assessment information available [facility] Work Phone: Evaluation note* Diagnosis Onset Date Resolution Status Arthritis acute Chronic pain acute Dementia acute HTN (hypertension) acute Hypercholesteremia acute OAB (overactive bladder) acu te [facility] Work Phone: InstructionsNot on filedocumented in this encounter [facility]ructionsNot on filedocumented in this encounter [facility] Summary Purpose Family History No Family History Records FoundNo Family History Records FoundNo Family History Records FoundNo Family History Records FoundNo Family History Records Found Advance Directives No Advanced Directives Records FoundDocuments on File Type Date Recorded Patient Drug Coordinator Expl anation Advance Directives and Living Will Power of Chair Inspector Latest Code Status on File Code Status Date Activated Date Inactivated Comments Full Code 11/23/2018 11:18 PM 11/27/2018 7:29 PM Documents on File Type Date Recorded Patient Drug Coordinator Expl anation ACP-Advance Directive ACP-Power of Chair Inspector Latest Code Status on File Code Status [...] (HCC) Procedures ABBY DIGITAL SCREEN UNILATERAL LEFT Vandana Vidal MD [address] [place] [address] Assessments Diagnosis Encounter for screening mammogram for [...] Reason for Visit Chief Complaint Possible UTI Chief Complaint Possible UTI wellness Reason for Visit Arthritis Chronic pain Dementia HTN (hypertension) Hypercholesteremia OAB (overactive bladder) Additional Source Comments INFORMATION SOURCE (unrecogn ized section and content) DATE CREATED AUTHOR 11/30/2018 [facility] DATE CREATED AUTHOR AUTHOR'S ORGANIZ ATION 01/03/2023 [facility] DATE CREATED AUTHOR AUTHOR'S ORGANIZ ATION 01/31/2023 [facility] DATE CREATED AUTHOR AUTHOR'S ORGANIZ ATION 01/18/2024 [facility] DATE CREATED AUTHOR AUTHOR'S ORGANIZ ATION 06/05/2024 [facility] dical Specialists EPIC Reason for Visit (unrecogniz ed section and content) Status Reason Specialty Diagnoses / Procedures Referre d By Contact Referred To Contact Closed Radiology Diagnoses Encounter for screening mammogram for malignant neoplasm of breast Malignant neoplasm of right female breast, unspecified estrogen receptor status, unspecified site of breast (HCC) Procedures ABBY DIGITAL SCREEN UNILATERAL LEFT Vandana Vidal MD [address] [address] Status Reason Specialty Diagnoses / Procedures Referre d By Contact Referred To Contact Closed Radiology Diagnoses Encounter for screening mammogram for malignant neoplasm of breast Malignant neoplasm of right female breast, unspecified estrogen receptor status, unspecified site of breast (HCC) Procedures ABBY AMANDA DIGITAL SCREEN UNI LEFT ABBY DIGITAL SCREEN UNILATERAL LEFT HC MAMMO SCREENING INCL CAD IF PERF Vandana Vidal MD [address] [place] [address] Reason Comments Fall Back Pain Scheduled Active and Recently Administ ered Medications (unrecognized section and content) Medication Order 01/01/2023 01/02/2023 01/03/2023 ketorolac (TORADOL) injection 30 mg (COMPLETED) 30 mg, IntraMUSCular, ONCE, 1 dose, On Ivy 01/03/23 at 1500 1456 (Given - Provid er: Kenny Cope RN) Care Teams (unrecognized sec tion and content) Lead Sharepoint Developer Relationship Specialty Start Date End Date Torsten Heard MD [address] [facility] [place] [address] PCP - General 08/01/12 Lead Sharepoint Developer Relationship Specialty Start Date End Date Nakul Worley DO [address] [place] [address] PCP - General Internal Medicine 03/18/23 Lead Sharepoint Developer Relationship Specialty Start Date End Date Nakul Worley DO [address], [place] [id number] PCP - General Internal Medicine 03/18/23 Team Status: Active Member Role Status Dates Nakul Worley DO Primary Care Provider Active Team Status: Inactive Member Role Status Dates Tara Botello APRN Attending Provider Active S tart: April 20, 2024 End: April 20, 2024 Nakul Worley DO Primary Care Provider Active Sta rt: April 20, 2024 End: April 20, 2024 Team Status: Inactive Member Role Status Dates Tara Botello - CHRISTINA SCHULTZ Attending Provider Active Start: April 20, 2024 End: April 20, 2024 Nakul Worley DO Primary Care Provider Active Sta rt: April 20, 2024 End: April 20, 2024 Team Status: Inactive Member Role Status Dates Nakul Worley DO Primary Care Provider Active Sta rt: May 27, 2024 End: May 27, 2024 Zehra Joshua APRN [employer] Attending Provider Active Start: May End: May 27, 2024 Goals (unrecognized section and content) Goals [...] BE BASED ON THE PRIMARY CLINICAL RECORDS. [facility] [employer] [facility]. provides no warranty or guarantee of the accuracy or completeness of information in this document.
--- NOTE | 2024-06-24 19:55 | CT_ITS ---
The [address] [address] Patient Name: HEENA MAY MRN: [id number] date: 1940 Sex: F Assigned Patient Location: ER Current Patient Location: ER Accession/Order Number: [id number] Exam Date: 06/24/2024 20:13 Report Date: 06/24/2024 22:06 At the request of: BENNETT MARKER Procedure: CT abdomen pelvis wo con EXAMINATION: CT abdomen pelvis wo con, 06/24/2024 8:13 PM EDT HISTORY: abd pain, GI bleed COMPARISON: Lumbar spine radiographs 01/30/2023 TECHNIQUE: CT scan of the abdomen and pelvis was performed without IV contrast. CT dose reduction technique was used, including Automated Exposure Control. FINDINGS: LOWER CHEST: Moderate atherosclerotic right coronary artery calcification. LIVER: Multiple masses throughout the liver measuring up to 4.3 x 4.3 cm in left hepatic lobe and 5.8 x 3.3 cm in the right hepatic lobe. GALLBLADDER AND BILIARY SYSTEM: Status post cholecystectomy. The common bile duct is probably mildly dilated but not well seen. This may be due to post cholecystectomy changes. SPLEEN: Normal. PANCREAS: There is ill-defined thickening of the mid pancreatic body which measures 3.6 cm and there is loss of the fat plane between the pancreas and the celiac axis and superior mesenteric artery and vein suspicious for malignancy and vascular encasement. ADRENAL GLANDS: Normal right adrenal gland. Thickened left adrenal gland or nodule measuring 1.3 cm. KIDNEYS AND URETERS: 2.4 cm right renal cyst. Kidneys otherwise appear unremarkable. VASCULATURE: Severe atherosclerotic calcification. RETROPERITONEUM AND LYMPH NODES: Normal, with no lymphadenopathy. GASTROINTESTINAL TRACT/MESENTERY: Multiple diverticula in the sigmoid colon with no acute diverticulitis. Multiple mesenteric varices. Normal appendix. BLADDER: Normal. REPRODUCTIVE SYSTEM: Status post hysterectomy. BODY WALL: Normal. BONES: Moderate compression fracture at T11 which is also noted on the prior radiographs from 01/30/2023 and chronic in nature. Grade 1 anterolisthesis of L4-L5 which is stable compared to the prior radiographs. CT/CT abdomen pelvis wo con IMPRESSION: 1. Multiple hepatic masses consistent with metastatic disease. Recommend follow-up contrast enhanced CT and/or MRI. 2. Focal enlargement of the mid pancreatic body with loss of the fat plane between the pancreas, the celiac axis and superior mesenteric artery and vein. This is suspicious for primary malignancy with vascular encasement. Contrast-enhanced CT or MRI is again recommended. 3. Multiple mesenteric varices which are indeterminate but may be due to splenic and/or portal vein thrombosis possibly tumor thrombus related to the pancreatic mass. Recommend attention on contrast CT/MRI. 4. Thickening or nodule of the left adrenal gland which may be due to hyperplasia, lipid poor adenoma or metastatic disease. Consider follow-up PET/CT. 5. Colonic diverticulosis. 6. Stable chronic T11 compression fracture. 7. Right renal cyst. Electronically authenticated by: DOLLY BOWDEN Date: 06/24/2024 22:06
--- NOTE | 2024-06-24 20:03 | ED.GIBLEED1 ---
HPI - GI Bleed General Chief complaint: GI Bleed Stated complaint: Black Stool Time Seen by Provider: 06/24/24 19:41 Source: patient and family Mode of arrival: Wheelchair Limitations: physical limitation History of Present Illness HPI Narrative: This 83-year-old female who is currently residing in an extended care facility and has been clinically failing according to her daughters over the course of the past several weeks with decreased p.o. intake, complaints of abdominal pain, intermittent episodes of diarrhea and weight loss is brought to emergency department by her daughters. Her daughter took her to the bathroom earlier today and she had diarrhea and the daughter states it was black. The patient is a poor historian due to some degree of dementia. She denies any chest pain or shortness of breath but complains of generalized abdominal pain. He also complains of right sided chest pain where she has had a mastectomy in the past. The daughter states that her appetite has been poor over the course of the past several weeks they have only been able to get her to drink 1-2 ensures a day. She has not had any vomiting. She is not on any blood thinners. She was recently admitted to the hospital for dehydration and a UTI. They also state that she has hemorrhoids. They had a meeting earlier today with the staff at the [facility] to consider palliative care for her but in light of her episode of black diarrhea it was deemed that she should be seen in the emergency department. The patient denies any nausea. She has not had a fever. She has not had a cough. The patient does have chronic back pain and has been on tramadol in the past but it has recently been withheld due to her fall risk. The daughter states that she has been giving her the tramadol intermittently because of her complaints of back pain. Related Data Home Medications ?Medication ?Instructions ?Recorded ?Confirmed benzonatate 200 mg capsule 200 mg PO TID 02/26/24 05/19/24 metoprolol tartrate 25 mg tablet 25 mg PO BID 02/26/24 06/24/24 olmesartan 20 mg tablet (Benicar) 20 mg PO DAILY 02/26/24 06/24/24 famotidine 20 mg tablet mg 06/24/24 mirabegron 50 mg tablet,extended 50 mg PO Q24H 06/24/24 06/24/24 release 24 hr (Myrbetriq) Previous Rx's ?Medication ?Instructions ?Recorded meclizine 12.5 mg tablet 12.5 mg PO DAILY PRN motion 05/19/24 sickness #7 tabs Allergies Allergy/AdvReac Type Severity Reaction Status Date / Time codeine AdvReac Mild Abdominal Verified 06/24/24 19:41 Pain Review of Systems ROS Status of ROS 10 or more systems reviewed and unremarkable except as noted in history and below Exam Narrative Exam Narrative: Vital signs and Nursing Notes reviewed: Patient is afebrile, she is mildly bradycardic with a pulse of 53, blood pressure is normal at 136/59, she is not hypoxic with pulse ox of 96% on room air General: Awake, alert, pleasantly confused at times but otherwise appropriate, no distress noted she moves easily about the stretcher HEENT: Normocephalic atraumatic, mucous membranes are moist and pink, eyes are clear, normal conjunctiva, vision is grossly intact, posterior pharynx is normal in appearance. Chest: Lungs are clear to auscultation with good air entry, there is no wheezing rhonchi or rales appreciated no accessory muscle use, patient is speaking in complete sentences-no chest wall tenderness to palpation, Pt is s/p right mastectomy with a large healed incision over the right chest wall CVS: Regular rate and rhythm S1-S2, no murmurs rubs or gallops, pulses are brisk and equal bilaterally ABD: Soft, flat, diffusely tender, normal bowel sounds, healed right upper quadrant incision, soft brown stool in rectal vault, no hemorrhoids or rectal masses appreciated Extremities: Moving all extremities, no lower extremity tenderness or swelling noted, negative Homans' sign, pulses are brisk and equal bilaterally Skin: Normal in appearance without rash,pallor, petechiae or purpura Neuro: No focal deficits, speech is clear, she is moving all extremities, no gross focal deficits, pleasantly confused at times which is patient's baseline Constitutional Vital Signs, click to edit/add: Last Vital Signs Temp 98.6 F 06/24/24 19:28 Pulse 94 H 06/24/24 22:04 Resp 20 06/24/24 22:04 BP 186/93 H 06/24/24 22:04 Pulse Ox 95 06/24/24 22:04 O2 Del Method Room Air 06/24/24 19:28 Course Vital Signs Vital signs: Vital Signs Temperature 98.6 F 10/09/24 19:28 Pulse Rate 53 L 06/24/24 19:28 Respiratory Rate 18 06/24/24 19:28 Blood Pressure 136/59 06/24/24 19:28 Pulse Oximetry 96 06/24/24 19:28 Oxygen Delivery Method Room Air 06/24/24 19:28 Temperature 98.6 F 06/24/24 19:28 Pulse Rate 94 H 06/24/24 22:04 Respiratory Rate 20 06/24/24 22:04 Blood Pressure 186/93 H 06/24/24 22:04 Pulse Oximetry 95 06/24/24 22:04 Oxygen Delivery Method Room Air 06/24/24 19:28 MDM - GI Bleed MDM Narrative Medical decision making narrative: This 83-year-old female is brought to the emergency department by her daughter for an episode of black diarrhea that occurred earlier today. The patient's daughter states that over the course of the past several weeks to months she has been clinically failing with decreased p.o. intake, poor appetite with refusal to take anything but Ensure on occasion with weight loss. The patient does have a history of breast cancer and is status postmastectomy on the right. She has not any blood thinners. The daughter states that she also has a history of hemorrhoids and this may be causing her black stool. The patient's daughters had met with the primary care physician earlier regarding her symptoms and they were considering palliative care for her however in light of the episode of black stool she was brought to the emergency department. The patient is well-appearing with generalized abdominal pain. She has mild confusion which is her baseline. She had soft brown stool in her rectal vault. An IV was placed and she was medicated with IV fluids and Pepcid. Her white count is mildly elevated at 11.9. Hemoglobin is stable at 13.7. Although her stool was soft and brown it was Hemoccult positive. Electrolytes are essentially normal with the exception of a mildly elevated creatinine compared to her baseline at 1.36. She has a mild elevation in her alkaline phosphatase and bilirubin of 1.4. Lactic acid was elevated at 4.1. She has a normal EKG with a sinus rhythm of 96 bpm. Chest x-ray shows some atelectasis in the right lower lobe but is otherwise normal. Noncontrast CT scan of the abdomen pelvis was ordered and shows a pancreatic mass as well as multiple liver masses consistent with metastatic disease. It also shows chronic T11 compression fracture. The results of the labs and CT scan were discussed with the patient and her daughters. I offered her admission for comfort measures but the patient is adamant that she be returned back to the extended care facility to her bed. The daughters verbalized understanding of the findings on the CT scan which are likely metastatic pancreatic cancer. I explained to them that in light of her weight loss, poor appetite and refusal to eat this is also consistent with this diagnosis. I offered them referral to outpatient oncology for their recommendation but at this time they will return the patient to the extended care facility and follow-up with the primary care physician. They were already considering palliative care and verbalized understanding that this is probably the best course of action for the patient's comfort. Repeat lactic acid was not ordered as the patient was anxious to be discharged home and did not wish to have any more needle sticks or blood draws. Medical Records Attestation: I reviewed the patient's medical records. Medical records narrative: The [address] [address] XRay Report Draft Patient: HEENA MAY MR#: [id number] : 1940 Acct:[id number] Age/Sex: 83 / F ADM Date: 06/24/24 Loc: ER Attending Dr: Ordering Physician: Bennett Martínez Date of Service: 06/24/24 Procedure(s): XR chest 1V Accession Number(s): [id number] cc: ~ The [address] [address] Patient Name: HEENA MAY MRN: [id number] date: 1940 Sex: F Assigned Patient Location: ER Current Patient Location: ER Accession/Order Number: [id number] Exam Date: 06/24/2024 21:20 Report Date: 06/24/2024 21:58 At the request of: BENNETT MARTÍNEZ Procedure: XR chest 1V CHEST RADIOGRAPH: HISTORY: CP. COMPARISON: Chest 05/19/2024. TECHNIQUE: AP radiograph of was performed of the chest. FINDINGS: SUPPORT APPARATUS/POST-SURGICAL CHANGES: None. CARDIOMEDIASTINAL SILHOUETTE: Normal. AIRWAYS/LUNGS: Mild subsegmental atelectasis or scarring at the medial right lung base but no focal consolidation. Stable bronchial wall thickening bilaterally which may be secondary to bronchitis. PLEURAL SPACES: No pleural effusion or pneumothorax. BONES AND SOFT TISSUES: No acute abnormality. XR/XR chest 1V IMPRESSION: 1. No acute cardiopulmonary process. 2. Stable bronchial wall thickening suggestive of bronchitis. 3. Right basilar atelectasis or scarring. The [address] [address] [address] Scan Report Draft Patient: HEENA MAY MR#: [id number] : 1940 Acct:[id number] Age/Sex: 83 / F ADM Date: 06/24/24 Loc: ER Attending Dr: Ordering Physician: Bennett Martínez Date of Service: 06/24/24 Procedure(s): CT abdomen pelvis wo con Accession Number(s): [id number] cc: ~ The [address] [address] Patient Name: HEENA MAY MRN: [id number] date: 1940 Sex: F Assigned Patient Location: ER Current Patient Location: ER Accession/Order Number: [id number] Exam Date: 06/24/2024 20:13 Report Date: 06/24/2024 21:57 At the request of: BENNETT MARTÍNEZ Procedure: CT abdomen pelvis wo con EXAMINATION: CT abdomen pelvis wo con, 06/24/2024 8:13 PM EDT HISTORY: abd pain, GI bleed COMPARISON: Lumbar spine radiographs 01/30/2023 TECHNIQUE: CT scan of the abdomen and pelvis was performed without IV contrast. CT dose reduction technique was used, including Automated Exposure Control. FINDINGS: LOWER CHEST: Moderate atherosclerotic right coronary artery calcification. LIVER: Multiple masses throughout the liver measuring up to 4.3 x 4.3 cm in left hepatic lobe and 5.8 x 3.3 cm in the right hepatic lobe. GALLBLADDER AND BILIARY SYSTEM: Status post cholecystectomy. The common bile duct is probably mildly dilated but not well seen. This may be due to post cholecystectomy changes. SPLEEN: Normal. PANCREAS: There is ill-defined thickening of the mid pancreatic body which measures 3.6 cm and there is loss of the fat plane between the pancreas and the celiac axis and superior mesenteric artery and vein suspicious for malignancy and vascular encasement. ADRENAL GLANDS: Normal right adrenal gland. Thickened left adrenal gland or nodule measuring 1.3 cm. KIDNEYS AND URETERS: 2.4 cm right renal cyst. Kidneys otherwise appear unremarkable. VASCULATURE: Severe atherosclerotic calcification. RETROPERITONEUM AND LYMPH NODES: Normal, with no lymphadenopathy. GASTROINTESTINAL TRACT/MESENTERY: Multiple diverticula in the sigmoid colon with no acute diverticulitis. Multiple mesenteric varices. Normal appendix. BLADDER: Normal. REPRODUCTIVE SYSTEM: Status post hysterectomy. BODY WALL: Normal. BONES: Moderate compression fracture at T11 which is also noted on the prior radiographs from 01/30/2023 and chronic in nature. Grade 1 anterolisthesis of L4-L5 which is stable compared to the prior radiographs. CT/CT abdomen pelvis wo con IMPRESSION: 1. Multiple hepatic masses consistent with metastatic disease. Recommend follow-up contrast enhanced CT and/or MRI. 2. Focal enlargement of the mid pancreatic body with loss of the fat plane between the pancreas, the celiac axis and superior mesenteric artery and vein. This is suspicious for primary malignancy with vascular encasement. Contrast-enhanced CT or MRI is again recommended. 3. Multiple mesenteric varices which are indeterminate but may be due to splenic and/or portal vein thrombosis possibly tumor thrombus related to the pancreatic mass. Recommend attention on contrast CT/MRI. 4. Thickening or nodule of the left adrenal gland which may be due to hyperplasia, with a poor adenoma or metastatic disease. Consider follow-up PET/CT. 5. Colonic diverticulosis. 6. Stable chronic T11 compression fracture. 7. Right renal cyst. Lab Data Attestation: I reviewed the patient's lab results. Labs: Lab Results 06/24/24 06/24/24 Range/Units 20:20 21:10 WBC 11.9 H (4.0-11.0) 10^3/uL RBC 4.45 (4.20-5.40) 10^6/uL Hgb 13.7 (12.0-16.0) g/dL Hct 41.7 (36.0-48.0) % MCV 93.7 (81.0-99.0) fL MCH 30.8 (26.7-34.0) pg MCHC 32.9 (29.9-35.2) g/dL RDW 12.5 (11.0-15.0) % Plt Count 131 L (150-450) 10^3/uL MPV 11.4 (9.5-13.5) fL Neut % (Auto) 74.0 (43.0-75.0) % Lymph % (Auto) 13.6 L (20.5-60.0) % Bureau % (Auto) 11.1 (1.7-12.0) % Eos % (Auto) 0.4 L (0.9-7.0) % Baso % (Auto) 0.6 (0.2-2.0) % Neut # (Auto) 8.8 H (1.4-6.5) 10^3/uL Lymph # (Auto) 1.6 (1.2-3.8) 10^3/uL Bureau # (Auto) 1.3 H (0.3-0.8) 10^3/uL Eos # (Auto) 0.1 (0.0-0.7) 10^3/uL Baso # (Auto) 0.1 (0.0-0.1) 10^3/uL Abs Immat Gran (auto) 0.04 H (0.00-0.03) 10^3/uL Imm/Tot Granulo (auto) 0.3 (0.0-0.5) % Sodium 133 L (136-145) mmol/L Potassium 4.2 (3.5-5.1) mmol/L Chloride 97 L (98-107) mmol/L Carbon Dioxide 23.4 (21.0-32.0) mmol/L Anion Gap 16.8 BUN 31.0 H (7.0-18.0) mg/dL Creatinine 1.36 H (0.55-1.02) mg/dL Est GFR ( Amer) 45 L (>=60 mL/min/1.73m^2) Est GFR (Non-Af Amer) 37 L (>=60 mL/min/1.73m^2) BUN/Creatinine Ratio 22.8 Glucose 230 H (74-106) mg/dL Lactate 4.1 H* (0.4-2.0) mmol/L Calcium 9.7 (8.5-10.1) mg/dL Total Bilirubin 1.4 H (0.2-1.0) mg/dL AST 52 H (15-37) U/L ALT 31 (14-59) U/L Alkaline Phosphatase 241 H (46-116) U/L Total Protein 7.7 (6.4-8.2) g/dL Albumin 3.2 L (3.4-5.0) g/dL Globulin 4.5 g/dL Albumin/Globulin Ratio 0.7 Lipase 66.0 (16.0-77.0) U/L Stool Occult Blood Positive A ECG Data Attestation: I personally reviewed and interpreted this ECG as follows: (Sinus rhythm at 96 bpm, occasional PVCs, no acute ST segment elevation or T wave inversion) Discharge Plan Discharge Chief Complaint: GI Bleed Clinical Impression: Pancreatic mass, Cancer, metastatic to liver, GI bleed, Abnormal weight loss, Dehydration, mild Patient Disposition: Home, Self-Care Time of Disposition Decision: 22:18 Condition: Fair Prescriptions / Home Meds: No Action metoprolol tartrate 25 mg tablet 25 mg PO BID olmesartan [Benicar] 20 mg tablet 20 mg PO DAILY benzonatate 200 mg capsule 200 mg PO TID Hold Instructions: dc meclizine 12.5 mg tablet 12.5 mg PO DAILY PRN (Reason: motion sickness) Qty: 7 0RF mirabegron [Myrbetriq] 50 mg tablet extended release 24 hr 50 mg PO Q24H famotidine 20 mg tablet Print Language: Armenian Instructions: Dehydration (ED), Pancreatic Cancer (DC), Failure to Thrive in Older Adults (ED) Referrals: NAKUL WORLEY [Primary Care Provider] - 1 week Discharge Date/Time: 06/24/24 22:38
--- NOTE | 2024-06-24 20:07 | ECG_ITS ---
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
[2024-06-24 20:29] VITALS: BP 147/85; PULSE 91; O2SAT 93
[2024-06-24] MEDS: 0.9 % SODIUM CHLORIDE 1,000 ML 1000 ML IV (20:30)
[2024-06-24] MEDS: FAMOTIDINE/PF 20 MG/2 ML VIAL IV (20:31)
[2024-06-24 20:33] LABS: Basophils Absolute Auto 0.1 10^3/uL (0.0-0.1); Basophils Percent Auto 0.6 % (0.2-2.0); Eosinophils Absolute Auto 0.1 10^3/uL (0.0-0.7); Eosinophils Percent Auto 0.4 % (0.9-7.0); Hematocrit 41.7 % (36.0-48.0); Hemoglobin 13.7 g/dL (12.0-16.0); Immature Granulocytes Abs Auto 0.04 10^3/uL (0.00-0.03); Immature Granulocytes Pct Auto 0.3 % (0.0-0.5); Lymphocytes Absolute Auto 1.6 10^3/uL (1.2-3.8); Lymphocytes Percent Auto 13.6 % (20.5-60.0); Mean Corpuscular HGB Conc 32.9 g/dL (29.9-35.2); Mean Corpuscular Hemoglobin 30.8 pg (26.7-34.0); Mean Corpuscular Volume 93.7 fL (81.0-99.0); Mean Platelet Volume 11.4 fL (9.5-13.5); Monocytes Absolute Auto 1.3 10^3/uL (0.3-0.8); Monocytes Percent Auto 11.1 % (1.7-12.0); Neutrophils Absolute Auto 8.8 10^3/uL (1.4-6.5); Platelet Count 131 10^3/uL (150-450); Red Blood Count 4.45 10^6/uL (4.20-5.40); Red Cell Distribution Width 12.5 % (11.0-15.0); White Blood Count 11.9 10^3/uL (4.0-11.0)
[2024-06-24 21:02] VITALS: BP 139/98; PULSE 91; O2SAT 96
--- NOTE | 2024-06-24 21:08 | XR_ITS ---
The [address] [address] Patient Name: HEENA MAY MRN: [id number] date: 1940 Sex: F Assigned Patient Location: ER Current Patient Location: ER Accession/Order Number: [id number] Exam Date: 06/24/2024 21:20 Report Date: 06/24/2024 22:06 At the request of: BENNETT MARKER Procedure: XR chest 1V CHEST RADIOGRAPH: HISTORY: CP. COMPARISON: Chest 05/19/2024. TECHNIQUE: AP radiograph of was performed of the chest. FINDINGS: SUPPORT APPARATUS/POST-SURGICAL CHANGES: None. CARDIOMEDIASTINAL SILHOUETTE: Normal. AIRWAYS/LUNGS: Mild subsegmental atelectasis or scarring at the medial right lung base but no focal consolidation. Stable bronchial wall thickening bilaterally which may be secondary to bronchitis. PLEURAL SPACES: No pleural effusion or pneumothorax. BONES AND SOFT TISSUES: No acute abnormality. XR/XR chest 1V IMPRESSION: 1. No acute cardiopulmonary process. 2. Stable bronchial wall thickening suggestive of bronchitis. 3. Right basilar atelectasis or scarring. Electronically authenticated by: DOLLY BOWDEN Date: 06/24/2024 22:06
[2024-06-24 21:09] LABS: Alanine Aminotransferase 31 U/L (14-59); Albumin Globulin Ratio 0.7; Albumin Level 3.2 g/dL (3.4-5.0); Alkaline Phosphatase 241 U/L (46-116); Anion Gap 16.8; Aspartate Amino Transferase 52 U/L (15-37); BUN Creatinine Ratio 22.8; Bilirubin Total 1.4 mg/dL (0.2-1.0); Calcium 9.7 mg/dL (8.5-10.1); Carbon Dioxide 23.4 mmol/L (21.0-32.0); Chloride 97 mmol/L (98-107); Estimated GFR (African America 45 (>=60 mL/min/1.73m^2); Estimated GFR (Non-African Ame 37 (>=60 mL/min/1.73m^2); Globulin 4.5 g/dL; Glucose 230 mg/dL (74-106); Potassium 4.2 mmol/L (3.5-5.1); Sodium 133 mmol/L (136-145); Total Protein 7.7 g/dL (6.4-8.2)
[2024-06-24 21:14] LABS: Lactate/Lactic Acid 4.1 mmol/L (0.4-2.0)
[2024-06-24 21:18] LABS: Internal Control Within Normal Limits; Occult Blood Positive
[2024-06-24 22:04] VITALS: BP 186/93; PULSE 94; O2SAT 95
== END 2024-06-24 22:38 | disposition home or self-care (01) ==
PROVIDERS: Emergency Provider Emergency Medicine; PCP Internal Medicine
DX: K86.89 Other specified diseases of pancreas (principal); C78.7 Secondary malignant neoplasm of liver and intrahepatic bile duct; K92.2 Gastrointestinal hemorrhage, unspecified; R63.4 Abnormal weight loss; E86.0 Dehydration
CPT/HCPCS: 36415; 71045; 74176; 80053; 81001; 83605; 83690; 85025; 93005; 96361; 96374; 99285; G0328